=== PATIENT | female | born 1960 | race Caucasian/White ===

== ENCOUNTER 2016-08-18 09:49 | Day surgery (SDC) | payer MEDICARE, OTHER ==
--- NOTE | 2016-08-11 12:03 | RADRPT ---
PROCEDURE: XR Chest. CLINICAL INDICATION: chest pain, preoperative TECHNIQUE: Single frontal view of the chest was obtained COMPARISON: None FINDINGS: The heart and mediastinum are within normal limits. There is a left chest wall port in place. There is mild left lower lobe linear atelectasis. The lungs are otherwise clear. There is no pleural effusion or pneumothorax. RPTAT: AA IMPRESSION: Mild left lower lobe linear atelectasis. .Hamzah Pierre MD, MD Date Time Electronically viewed and signed by .Hamzah Pierre MD, MD on 08/11/2016 12:02 .S/
[2016-08-11 12:30] LABS: ADD SCAN DIFF NO
[2016-08-11 12:35] LABS: ABNORMAL IP MESSAGE 1; BASOPHILS % 0.6 % (0.0-2.0); HEMATOCRIT 27.4 % (37.0-47.0); HEMOGLOBIN 8.7 g/dl (12.0-16.0); LYMPHOCYTES # 1.9 10^3/ul (0.8-2.9); LYMPHOCYTES % 37.9 % (15.0-51.0); MEAN CORPUSCULAR HEMOGLOBIN 30.7 pg (29.0-33.0); MEAN CORPUSCULAR HGB CONC 31.8 g/dl (32.0-37.0); MEAN CORPUSCULAR VOLUME 96.8 fl (82.0-101.0); MONOCYTE # 0.7 10^3/ul (0.3-0.9); MONOCYTES % 13.2 % (0.0-11.0); NEUTROPHIL # 2.1 10^3/ul (1.6-7.5); NEUTROPHILS % 41.8 % (39.0-77.0); PLATELET COUNT 180 10^3/UL (140-415); RED BLOOD COUNT 2.83 10^6/ul (4.20-5.40); RED CELL DISTRIBUTION WIDTH 16.4 % (11.5-14.5); WHITE BLOOD COUNT 4.9 10^3/ul (4.8-10.8)
[2016-08-11 12:46] LABS: PARTIAL THROMBOPLASTIN TIME 25.2 Sec (25.0-35.0); PROTIME 13.2 Sec (12.2-14.2)
[2016-08-11 12:47] LABS: TOTAL PROTEIN 6.7 g/dl (6.1-8.1)
[2016-08-11 12:48] LABS: ALBUMIN/GLOBULIN RATIO 1.48
[2016-08-11 12:49] LABS: CALCIUM 8.7 mg/dl (8.4-10.2); CREATININE 0.77 mg/dl (0.44-1.00); POTASSIUM 3.3 mmol/L (3.5-5.1)
--- NOTE | 2016-08-12 22:04 | RADRPT ---
Vent Rate: 78 bpm RR Interval: 0 msec ME Interval: 214 msec QRS Duration: 82 msec QT Interval: 394 msec QTC Interval: 449 msec P-R-T [place]: 68 - 19 - 49 degrees Sinus rhythm with 1st degree AV block Otherwise normal ECG Electronically Signed By: Gordy Vasquez [id number]
[2016-08-15 14:20] VITALS: Ht 162.6 cm; Wt 65.0 kg
[~2016-08-18] VITALS: Ht 162.6 cm; Wt 65.0 kg
[2016-08-18] VITALS (16 sets, daily range): BP systolic 103–133; BP diastolic 53–80; PULSE 80–90; RESP 14–22
[~2016-08-18 09:49] MED LIST: CEFAZOLIN 2 GM/50 ML (PMX) 50 ML IVPB SCH; CLON-412 PO; DICL75TA2 PO; HYD25 PO; LISI10TA2 PO; LORA0.5T PO; POTA8TAB2 PO; SIMV40TA2 PO; SOD CHLORIDE 0.9% 1,000 ML IV SCH; TEMA30CA6 PO; TRAZ50TA18 PO
[2016-08-18] MEDS ORDERED: CEFAZOLIN 1 GM/50 ML (PMX) 50 ML IVPB SCH (11:30)
[2016-08-18] MEDS ORDERED: D5W-0.45 NACL + KCL 20 MEQ 1,000 ML IV SCH (11:49)
[2016-08-18] MEDS ORDERED: ONDANSETRON 4 MG INJ IV PRN (12:00)
[2016-08-18] MEDS ORDERED: MIDAZOLAM 1 MG/ML 2 ML INJ ONE (12:32)
[2016-08-18] MEDS ORDERED: FENTAnyl 50 MCG/ML VIAL ONE (12:32)
[2016-08-18] MEDS ORDERED: PROPOFOL 20 ML ONE (12:32)
[2016-08-18] MEDS ORDERED: LIDOCAINE 2% (SDV) 5 ML INJ ONE (12:32)
[2016-08-18] MEDS ORDERED: ONDANSETRON 4 MG INJ ONE (12:49)
[2016-08-18] MEDS ORDERED: DEXAMETHASONE 4 MG/ML 1 ML INJ ONE (12:49)
[2016-08-18] MEDS ORDERED: KETOROLAC 30 MG INJ ONE (12:51)
[2016-08-18] MEDS ORDERED: CEFAZOLIN 1 GM INJ ONE (12:51)
[2016-08-18] MEDS ORDERED: FAMOTIDINE 20 MG INJ ONE (12:51)
[2016-08-18] MEDS ORDERED: PHENYLephrine (100 MCG/ML) 5ML SYG ONE (13:02)
[2016-08-18] MEDS ORDERED: hydrALAzine 20 MG INJ IV PRN (14:00)
[2016-08-18] MEDS ORDERED: MEPERIDINE 25 MG INJ IV PRN (14:00)
[2016-08-18] MEDS ORDERED: LORAZEPAM 2 MG INJ IV PRN (14:00)
[2016-08-18] MEDS ORDERED: DIPHENHYDRAMINE 50 MG INJ IV PRN (14:00)
[2016-08-18] MEDS ORDERED: HYDROmorphONE (0.2 MG/ML) 10ML SYG IV PRN ×3 (14:00)
--- NOTE | 2016-08-18 18:48 | OPR ---
DATE OF OPERATION: 08/18/2016 PREOPERATIVE DIAGNOSIS: Locally advanced right breast cancer. POSTOPERATIVE DIAGNOSIS: Locally advanced right breast cancer. OPERATION PERFORMED: Right modified radical mastectomy. ANESTHESIA: General. ANESTHESIOLOGIST: MAMADOU SIMON DO. SURGEON: Benja Amanda MD. UNIX DEVELOPER: ELVIA NATION MD. INDICATIONS FOR PROCEDURE: The patient is a 56-year-old female who presented with a large right linn ast cancer with biopsy proven axillary metastasis. She was HER2 positive and underwent neoadjuvant chemotherapy with good response. She was then counseled on her need for right mastectomy. She cons ented and was scheduled for surgery. DESCRIPTION OF PROCEDURE: Patient was brought to the operating theater, placed under general endotr acheal tube anesthesia. The right breast and axillary region was prepped and draped in usual steril e fashion. Planned elliptical incision was demarcated with marking pen around the nipple areolar co mplex including a portion of this sequential skin of the breast. The incision was carried out with 15 blade scalpel. Subcutaneous tissue was dissected with cautery. The skin edges were then elevate d with Allis Greenfield clamps and skin flaps were created with cautery sequentially, first to the clavic le, then to the sternal border, then to the inframammary fold and finally until the latissimus dorsi muscle was identified throughout its course. Mastectomy then took place from medial to lateral usi ng cautery. At the border of the pectoralis major muscle, the pectoralis minor muscle was identifie d. Clavipectoral fascia was incised with blunt dissection along the chest wall. The large thoracic nerve was identified and kept out of harm's way. More superiorly, the axillary vein and the thorac odorsal neurovascular bundle were identified and kept out of harm's way. There appeared to be some residual diseased lymph nodes. With meticulous dissection, the ivonne tissue between the long thora cic nerve and the thoracodorsal nerve was dissected and significant lymphovascular structures were c ontrolled with the LigaSure device. Final connective tissue attachments to the latissimus dorsi mus mike were then transected with cautery. Specimen was oriented and sent for permanent pathologic anal ysis. The wound was irrigated. Minimal bleeding was controlled with cautery. Two #10 flat Jay -Palafox drains were then brought through the right mid axillary line, one was cut to size and laid wi thin the axilla, the other was laid over the pectoralis major muscle. Both drains were secured in p lace with 2-0 nylon sutures in the standard fashion and the skin was then reapproximated with skin s taples. The patient tolerated procedure well. ESTIMATED BLOOD LOSS: 30 mL. COMPLICATIONS: There were no complications and the patient was transported in stable condition to r ecovery room where circumferential compression dressing was applied. Dictated By: BENJA PHILLIPS/ZA Conf#: [id number] DID#: [id number]
== END 2016-08-18 16:45 | disposition home or self-care (01) ==
LOC: SDS 09:49
PROVIDERS: ATTEND Surgery Surgical Oncology
DX: C50.911 Malignant neoplasm of unspecified site of right female breast (principal); I10 Essential (primary) hypertension; F41.9 Anxiety disorder, unspecified
CPT/HCPCS: 19307; 71010; 80053; 85025; 85610; 85730; 88309; 93005; J0690; J1100; J1885; J2175; J2250; J2370; J2405; J3010

== ENCOUNTER 2016-08-23 19:21 | Inpatient (IN) | payer MEDICARE, OTHER ==
[~2016-08-23] VITALS: Ht 162.6 cm; Wt 60.0 kg
[~2016-08-23 19:21] MED LIST changes: -CEFAZOLIN 2 GM/50 ML (PMX) 50 ML IVPB SCH; -SOD CHLORIDE 0.9% 1,000 ML IV SCH
[2016-08-23] MEDS ORDERED: SOD CHLORIDE 0.9% 1,000 ML IV STA (19:55)
[2016-08-23 20:15] LABS: ADD SCAN DIFF NO
[2016-08-23 20:19] LABS: ADD UMIC NO; URINE BILIRUBIN (Dip) NEGATIVE (NEGATIVE); URINE BLOOD (Dip) NEGATIVE (NEGATIVE); URINE COLOR LT. YELLOW (YELLOW); URINE GLUCOSE (Dip) NEGATIVE (NEGATIVE); URINE KETONES (Dip) NEGATIVE (NEGATIVE); URINE LEUKOCYTE ESTERASE (Dip) NEGATIVE (NEGATIVE); URINE NITRITE (Dip) NEGATIVE (NEGATIVE); URINE TOTAL PROTEIN (Dip) NEGATIVE (NEGATIVE); URINE UROBILINOGEN (Dip) 0.2 E.U./dL (0.1-1.0)
[2016-08-23] MEDS ORDERED: IOHEXOL 300MG/ML 150 ML BTL ONE (20:19)
[2016-08-23] MEDS ORDERED: SOD CHLORIDE 0.9% 100 ML ONE (20:19)
[2016-08-23 20:38] LABS: POTASSIUM 3.8 mmol/L (3.5-5.1)
[2016-08-23 20:40] LABS: CREATININE 1.04 mg/dl (0.44-1.00)
[2016-08-23 20:41] LABS: ALBUMIN/GLOBULIN RATIO 1.33; BILIRUBIN,INDIRECT 0.5 mg/dl (0-1.1); BILIRUBIN,TOTAL 0.5 mg/dl (0.2-1.3); CALCIUM 8.8 mg/dl (8.4-10.2)
[2016-08-23 21:01] LABS: BASOPHILS % 0.3 % (0.0-2.0); EOSINOPHILS % 0.1 % (0.0-7.0); HEMATOCRIT 26.5 % (37.0-47.0); HEMOGLOBIN 8.8 g/dl (12.0-16.0); LYMPHOCYTES # 0.8 10^3/ul (0.8-2.9); LYMPHOCYTES % 7.1 % (15.0-51.0); MEAN CORPUSCULAR HEMOGLOBIN 31.7 pg (29.0-33.0); MEAN CORPUSCULAR HGB CONC 33.2 g/dl (32.0-37.0); MEAN CORPUSCULAR VOLUME 95.3 fl (82.0-101.0); MEAN PLATELET VOLUME 9.5 fl (7.4-10.4); MONOCYTE # 1.2 10^3/ul (0.3-0.9); MONOCYTES % 11.1 % (0.0-11.0); PLATELET COUNT 248 10^3/UL (140-415); RED BLOOD COUNT 2.78 10^6/ul (4.20-5.40); RED CELL DISTRIBUTION WIDTH 16.3 % (11.5-14.5); WHITE BLOOD COUNT 11.1 10^3/ul (4.8-10.8)
[2016-08-23] MEDS ORDERED: CALC500T11 ORAL (22:04)
[2016-08-23] MEDS ORDERED: LISI20TA11 ORAL (22:04)
[2016-08-23] MEDS ORDERED: LEVO100T87 PO (22:05)
--- NOTE | 2016-08-23 22:23 | RADRPT ---
PROCEDURE: CT Chest with contrast. CLINICAL INDICATION: Pain and swelling. Evaluate for abscess status post right mastectomy. TECHNIQUE: CT scan of the chest with contrast was performed on a multidetector high-resolution CT scanner. The patient was scanned following the uncomplicated intravenous administration of 90 cc of Omnipaque-300 contrast. Coronal and sagittal reformatted images were obtained from the axial [facility] e images. Images were reviewed on a high-resolution PACS workstation. The total exam CTDI equals 6.7 6 mGy and the total exam DLP equals 268.83 mGy-cm. One or more of the following dose reduction techniques were used: Automated exposure control. Adjustment of the mA and/or kV according to patient size. Use of iterative reconstruction technique. COMPARISON: None available FINDINGS: There are postsurgical changes of right mastectomy with [address] line terminating in the axilla and mastectomy site. Soft tissue thickening with surrounding fatty stranding is seen a long the right anterior chest wall and axilla with no discrete fluid collection. The lungs are clear. No focal opacification, effusion, pneumothorax, edema, or nodules are seen. There is no pulmonary infiltrate. No mass lesion to suggest neoplasm is identified. The central tr acheobronchial tree is clear. There is thrombus in the left internal jugular vein. Left IJ Port-A-Cath with tip at the cavoatrial junction. The mediastinum is unremarkable without evidence for mass or lymphadenopathy. The vascu lar structures of the mediastinum are normal in course and caliber. Aortic vascular calcifications and coronary artery calcifications are present. The heart size is normal without evidence for peric ardial thickening or effusion. The axillary regions, subpectoral regions, and supraclavicular regions are all unremarkable. Imagin g obtained through the upper abdomen reveals no acute abnormality. There is approximately 1.2 cm cys t in the right hepatic lobe. The surrounding osseous structures are remarkable for degenerative spo ndylosis of the spine. No osteolytic or osteoblastic lesion is detected. There is age indeterminate mild superior endplate compression of T3 through T6 with no significant retropulsion. There is valery r complete osseous fusion between T11 and T12 vertebral bodies. IMPRESSION: 1. Postsurgical changes status post recent right mastectomy/ axillary lymphadenectomy with surgical drain in the mastectomy site and in the axilla. No discrete loculated fluid collection is identifi ed. Some soft tissue thickening with subcutaneous fatty stranding and skin thickening identified in the surgical bed. If there is persistent clinical concern, recommend ultrasound for further evalua tion. 2. Thrombus in the left internal jugular vein. Left IJ Port-A-Cath is in satisfactory position. 3. Age indeterminate multiple mild compression fractures in the upper thoracic spine. RPTAT: HHO .Pam Diallo MD, MD Date Time Electronically viewed and signed by .Pam Diallo MD, on 08/23/2016 22:23 .O/
[2016-08-23] MEDS ORDERED: CEFEPIME 1GM/50 ML (PMX) 50 ML IVPB ONE (23:00)
[2016-08-23] MEDS ORDERED: VANCOMYCIN 1 GM (PMX) 250 ML IVPB SCH (23:00)
[2016-08-23] MEDS ORDERED: ENOXAPARIN 80 MG/0.8 ML SYG SC SCH (23:00)
[2016-08-23] MEDS ORDERED: SOD CHLORIDE 0.9% 1,000 ML IV SCH (23:16)
--- NOTE | 2016-08-23 23:22 | ERA ---
ER Documentation Chief Complaint Date/Time DATE: 08/23/16 TIME: 23:17 Chief Complaint Post op pain and not feeling well HPI This is a pleasant 56-year-old female who had a right mastectomy [address] Weaver. The patient states today she felt very lethargic and weak and had anorexia was having chills off and on throughout the day. She also stated that her sugar was getting soaked with serosanguineous fluid where her AKIL drains are getting inserted into her chest. She said her drains are having some small clots forming in the tubing. She denies any cough no dysuria no headache no shortness of breath no swelling of the legs or leg pain. ROS All systems reviewed and are negative except as per history of present illness. Medications Home Meds Reported Medications Levothyroxine Sodium* (Levothyroxine Sodium*) 100 Mcg Tablet, 100 MCG PO BEFORE BREAKFAST, #30 TAB 08/23/16 Lisinopril* (Lisinopril*) 20 Mg Tablet, 20 MG ORAL DAILY, #90 08/23/16 Calcium Carbonate (Oysco-500) 500 Mg Tablet, 500 MG ORAL DAILY, #60 08/23/16 Temazepam* (Restoril*) 30 Mg Capsule, 30 MG PO HS Y for INSOMNIA, CAP 03/02/15 Clonazepam* (Klonopin*) 1 Mg Tablet, 1 MG PO DAILY NEEDED, TAB 03/02/15 Trazodone Hcl* (Trazodone Hcl*) 50 Mg Tablet, 50-100 MG PO HS, TAB 03/02/15 Simvastatin* (Zocor*) 40 Mg Tablet, 40 MG PO HS, TAB 03/02/15 Potassium Chloride* (Klor-Con*) 8 Meq Tablet.sa, 8 MEQ PO DAILY, TAB 03/02/15 Hydrochlorothiazide* (Hydrochlorothiazide*) 25 Mg Tab, 25 MG PO DAILY, TAB 03/02/15 Discontinued Reported Medications Diclofenac Sodium* (Diclofenac Sodium*) 75 Mg Tablet.dr, 75 MG PO BID, TAB 03/02/15 Lorazepam* (Lorazepam*) 0.5 Mg Tablet, 0.5 MG PO HS Y for ANXIETY, TAB 03/02/15 Lisinopril* (Lisinopril*) 10 Mg Tablet, 10 MG PO DAILY, TAB 03/02/15 Allergies Allergies: Coded Allergies: acetaminophen (Verified Allergy, Unknown, 03/02/15) hydrocodone (Verified Allergy, Unknown, 03/02/15) PMhx/Soc History of Surgery: Yes (LEFT ANKLE, RIGHT BREAST SX) Anesthesia Reaction: No Hx Neurological Disorder: No Hx Respiratory Disorders: No Hx Cardiac Disorders: Yes (HTN) Hx Psychiatric Problems: Yes (DEPRESSION, ANXIETY, INSOMNIA) Hx Miscellaneous Medical Probl: Yes (RECOVERING ALCOHOLIOC HEP C BREAST CA) Hx Alcohol Use: Yes (RECOVERING ALCOHOLIC) Hx Substance Use: No Hx Tobacco Use: No (QUIT FEB 2016) Smoking Status: Former smoker FmHx Family History: No coronary disease Physical Exam Vitals Vital Signs Date Time Temp Pulse Resp B/P Pulse Ox O2 Delivery O2 Flow Rate FiO2 08/23/16 20:11 99.8 94 20 87/56 98 Nasal Cannula 2.0 08/23/16 19:28 100.4 112 20 97/60 97 Physical Exam Const: Well-developed, well-nourished Head: Atraumatic, normocephalic Eyes: Normal Conjunctiva, PERRLA, EOMI, normal sclera, no nystagmus ENT: Normal External Ears, Nose and Mouth, moist mucus membranes. Neck: Full range of motion. No meningismus, no lymphadenopathy. Resp: Clear to auscultation bilaterally, no wheezing, rhonchi, rales, there are 2 AKIL drains coming out of the chest there is some clots in the drains I was able to clear and the flow into the drains was restored Cardio: Regular rate and rhythm, no murmurs, S1 S2 present Abd: Soft, non tender x 4, non distended. Normal bowel sounds, no guarding or rebound, no pulsitile abdominal masses or bruits Skin: No petechiae or rashes, no ecchymosis , no maculopapular rash with the AKIL drains going to the skin there is some erythema with moderate tenderness and slight induration no pus Back: No midline or flank tenderness Ext: No cyanosis, or edema, FROM x 4, normal inspection, neurovascularly intact x 4 Neur: Awake and alert, STR 5/5 x 4, sensation intact x 4, no focal findings, cerebellum intact Psych: Normal Mood and Affect Result Diagram: 08/23/16200408/23/162004 Results 24 hrs Laboratory Tests Test 08/23/16 20:05 White Blood Count 11.110^3/ul Red Blood Count 2.7810^6/ul Hemoglobin 8.8g/dl Hematocrit 26.5% Mean Corpuscular Volume 95.3fl Mean Corpuscular Hemoglobin 31.7pg Mean Corpuscular Hemoglobin Concent 33.2g/dl Red Cell Distribution Width 16.3% Platelet Count 93173^3/UL Mean Platelet Volume 9.5fl Neutrophils % 81.0% Lymphocytes % 7.1% Monocytes % 11.1% Eosinophils % 0.1% Basophils % 0.3% Nucleated Red Blood Cells % 0.0/100WBC Neutrophils # 9.010^3/ul Lymphocytes # 0.810^3/ul Monocytes # 1.210^3/ul Eosinophils # 0.010^3/ul Basophils # 0.010^3/ul Nucleated Red Blood Cells # 0.010^3/ul Urine Color LT. YELLOW Urine Clarity CLEAR Urine pH 6.0 Urine Specific [place] 1.020 Urine Ketones NEGATIVE Urine Nitrite NEGATIVE Urine Bilirubin NEGATIVE Urine Urobilinogen 0.2 E.U./dL Urine Leukocyte Esterase NEGATIVE Urine Hemoglobin NEGATIVE Urine Glucose NEGATIVE% Urine Total Protein NEGATIVE Sodium Level 133mmol/L Potassium Level 3.8mmol/L Chloride Level 96mmol/L Carbon Dioxide Level 23mmol/L Anion Gap 18 Blood Urea Nitrogen 18mg/dl Creatinine 1.04mg/dl Glucose Level 134mg/dl Calcium Level 8.8mg/dl Total Bilirubin 0.5mg/dl Direct Bilirubin 0.00mg/dl Indirect Bilirubin 0.5mg/dl Aspartate Amino Transf (AST/SGOT) 19IU/L Alanine Aminotransferase (ALT/SGPT) 31IU/L Alkaline Phosphatase 57IU/L Total Protein 7.0g/dl Albumin 4.0g/dl Globulin 3.00g/dl Albumin/Globulin Ratio 1.33 Current Medications Medications (Trade) Dose Ordered Sig/Keith Route PRN Reason Start Time Stop Time Status Last Admin Dose Admin Sodium Chloride (NS) 1,000 ml @ 1,000 mls/hr Q1H STAT IV 08/23/16 19:55 08/23/16 20:54 DC 08/23/16 20:45 IV Flush 10 ml 10 ml STK-MED ONCE .ROUTE 08/23/16 20:19 08/23/16 20:20 DC 08/23/16 21:09 Sodium Chloride (NS) 100 ml @ ud STK-MED ONCE .ROUTE 08/23/16 20:19 08/23/16 20:20 DC 08/23/16 21:09 Iohexol 150 ml 150 ml STK-MED ONCE .ROUTE 08/23/16 20:19 08/23/16 20:20 DC 08/23/16 21:09 Cefepime HCl 50 ml @ 100 mls/hr ONCE ONCE IVPB 08/23/16 23:00 08/23/16 23:29 Vancomycin HCl (Vancocin) 250 ml @ 125 mls/hr ONCE IVPB 08/23/16 23:00 08/24/16 00:59 Enoxaparin Sodium (Lovenox) 60 mg ONCE SC 08/23/16 23:00 Procedures/MDM PROCEDURE: CT Chest with contrast. CLINICAL INDICATION: Pain and swelling. Evaluate for abscess status post right mastectomy. TECHNIQUE: CT scan of the chest with contrast was performed on a multidetector high-resolution CT scanner. The patient was scanned following the uncomplicated intravenous administration of 90 cc of Omnipaque-300 contrast. Coronal and sagittal reformatted images were obtained from the axial source images. Images were reviewed on a high-resolution PACS workstation. The total exam CTDI equals 6.76 mGy and the total exam DLP equals 268.83 mGy-cm. One or more of the following dose reduction techniques were used: Automated exposure control. Adjustment of the mA and/or kV according to patient size. Use of iterative reconstruction technique. COMPARISON: None available FINDINGS: There are postsurgical changes of right mastectomy with [address] line terminating in the axilla and mastectomy site. Soft tissue thickening with surrounding fatty stranding is seen along the right anterior chest wall and axilla with no discrete fluid collection. The lungs are clear. No focal opacification, effusion, pneumothorax, edema, or nodules are seen. There is no pulmonary infiltrate. No mass lesion to suggest neoplasm is identified. The central tracheobronchial tree is clear. There is thrombus in the left internal jugular vein. Left IJ Port-A-Cath with tip at the cavoatrial junction. The mediastinum is unremarkable without evidence for mass or lymphadenopathy. The vascular structures of the mediastinum are normal in course and caliber. Aortic vascular calcifications and coronary artery calcifications are present. The heart size is normal without evidence for pericardial thickening or effusion. The axillary regions, subpectoral regions, and supraclavicular regions are all unremarkable. Imaging obtained through the upper abdomen reveals no acute abnormality. There is approximately 1.2 cm cyst in the right hepatic lobe. The surrounding osseous structures are remarkable for degenerative spondylosis of the spine. No osteolytic or osteoblastic lesion is detected. There is age indeterminate mild superior endplate compression of T3 through T6 with no significant retropulsion. There is near complete osseous fusion between T11 and T12 vertebral bodies. IMPRESSION: 1. Postsurgical changes status post recent right mastectomy/ axillary lymphadenectomy with surgical drain in the mastectomy site and in the axilla. No discrete loculated fluid collection is identified. Some soft tissue thickening with subcutaneous fatty stranding and skin thickening identified in the surgical bed. If there is persistent clinical concern, recommend ultrasound for further evaluation. 2. Thrombus in the left internal jugular vein. Left IJ Port-A-Cath is in satisfactory position. 3. Age indeterminate multiple mild compression fractures in the upper thoracic spine. RPTAT: HHO .Pam Diallo MD, MD Date Time Electronically viewed and signed by .Pam Diallo MD, MD on 08/23/2016 22:23 .O/ CC: MARTHA GUILLEN DO I will admit the patient for a left internal jugular thrombus found incidentally as well as having 100.4 temperature with some early signs of soft tissue infection Spoke with Dr. Weaver to let him know the patient's admission Admitted the patient to Dr. Bard cullen. She was treated with IV antibiotics and Lovenox SQ for the thrombus Departure Diagnosis: Primary Impression: Internal jugular vein thrombosis Qualified Code: I82.C12 - Internal jugular vein thrombosis, left Additional Impression: Soft tissue infection Condition: Stable MARTHA GUILLEN DO August 23, 2016 23:22
[2016-08-23] MEDS ORDERED: ONDANSETRON 4 MG INJ IV PRN (23:30)
[2016-08-23 23:45] VITALS: TEMP 99.7
[2016-08-24] VITALS (28 sets, daily range): BP systolic 77–120; BP diastolic 43–70; PULSE 82–117; RESP 16–36; Ht 162.6 cm; Wt 60.0 kg
[2016-08-24] MEDS ORDERED: ACETAMINOPHEN 325 MG TAB PO PRN (01:00)
[2016-08-24] MEDS ORDERED: VANCOMYCIN IV PER PHARMACY XX SCH (01:00)
[2016-08-24] MEDS ORDERED: KETOROLAC 30 MG INJ IV PRN (01:00)
[2016-08-24] MEDS: KETOROLAC 30 MG INJ IV PRN (06:09)
[2016-08-24] MEDS: LEVOTHYROXINE 100 MCG TAB PO SCH (06:10)
[2016-08-24] MEDS ORDERED: SOD CHLORIDE 0.9% 1,000 ML IV ONE (08:00)
[2016-08-24] MEDS ORDERED: clonAZEPAM 0.5 MG TAB PO SCH (09:00)
[2016-08-24] MEDS ORDERED: POTASSIUM CHLORIDE (SR) 8 MEQ CAP PO SCH (09:00)
[2016-08-24] MEDS ORDERED: HYDROCHLOROTHIAZIDE 25 MG TAB PO SCH (09:00)
[2016-08-24] MEDS ORDERED: ENOXAPARIN 60 MG/0.6 ML SYG SC ONE (09:00)
[2016-08-24] MEDS ORDERED: LISINOPRIL 20 MG TAB PO SCH (09:00)
[2016-08-24] MEDS ORDERED: ENOXAPARIN 40 MG/0.4 ML SYG SC SCH (09:00)
[2016-08-24] MEDS: CEFEPIME 1GM/50 ML (PMX) 50 ML IVPB SCH ×2 (10:01→23:16)
[2016-08-24] MEDS: CALCIUM CARBONATE 1.25 GM TAB PO SCH (10:01)
[2016-08-24] MEDS: ENOXAPARIN 60 MG/0.6 ML SYG SC SCH ×2 (10:05→21:17)
[2016-08-24 10:57] LABS: ADD SCAN DIFF NO
[2016-08-24 11:18] LABS: ABNORMAL IP MESSAGE 1; HEMATOCRIT 21.4 % (37.0-47.0); MEAN CORPUSCULAR HEMOGLOBIN 31.4 pg (29.0-33.0); MEAN CORPUSCULAR HGB CONC 32.2 g/dl (32.0-37.0); MEAN CORPUSCULAR VOLUME 97.3 fl (82.0-101.0); MEAN PLATELET VOLUME 9.1 fl (7.4-10.4); PLATELET COUNT 177 10^3/UL (140-415); RED CELL DISTRIBUTION WIDTH 16.4 % (11.5-14.5); WHITE BLOOD COUNT 7.8 10^3/ul (4.8-10.8)
[2016-08-24 11:24] LABS: HEMOGLOBIN 6.9 g/dl (12.0-16.0)
[2016-08-24 11:33] LABS: CALCIUM 7.7 mg/dl (8.4-10.2); CREATININE 0.85 mg/dl (0.44-1.00); POTASSIUM 3.5 mmol/L (3.5-5.1)
[2016-08-24] MEDS: NS + KCL 20 MEQ 1,000 ML IV SCH (11:39)
[2016-08-24] MEDS: VANCOMYCIN 750 MG in SOD CHLORIDE 0.9% 150 ML IVPB SCH (11:45)
[2016-08-24] MEDS ORDERED: SOD CHLORIDE 0.9% 250 ML IV* ONE ×2 (11:52)
[2016-08-24] MEDS ORDERED: PANTOPRAZOLE 40 MG INJ IV ONE (12:30)
--- NOTE | 2016-08-24 12:40 | CONS ---
Date/Time of Note Date/Time of Note DATE: 08/24/16 TIME: 12:34 Assessment/Plan Assessment/Plan Chief Complaint/Hosp Course 1. Cellulitis of right chest 2. s/p mastectomy 3. subjective fevers, chills, lethargy R: cxs mrsa nasal screen cont. Vanco/cefepime Problems: Consultation Date/Type/Reason Admit Date/Time August 23, 2016 at 23:16 Date of Consultation: August 24, 2016 Reason for Consultation id Referring Provider: MELISSA CASTILLO MD Hx of Present Illness This is a very pleasent 56 yo female with unfortunate hx of Breast CA s/p mastectomy approx 6 days ago. Over last 24-48 hours she has noted increased lethargy. She has also noted cellulitic changes overlying right breast mastectomy site. She was admitted through er and has been started on Vanco/ cefepime. Her wbc has improved. CT was also notable for Thrombus in the left internal jugular vein. Constitutional: chills Eyes: no complaints ENT: no complaints Cardiovascular: no complaints Gastrointestinal: no complaints Genitourinary: no complaints Social History Smoking Status: Never smoker Exam/Review of Systems Vital Signs Vitals Vital Signs Date Time Temp Pulse Resp B/P Pulse Ox O2 Delivery O2 Flow Rate FiO2 08/24/16 11:20 90 103/57 08/24/16 08:30 18 08/24/16 07:42 95 Room Air 08/24/16 07:38 99.2 08/23/16 23:45 2.0 Intake and Output 08/23/16 08/23/16 08/24/16 15:00 23:00 07:00 Intake Total 730 ml Output Total 100 ml Balance 630 ml Exam Constitutional: alert, oriented, well developed Psych: nl mood/affect, no complaints Head: atraumatic, normocephalic, other (alopecia) Eyes: EOMI, PERRL, nl conjunctiva, nl lids, nl sclera ENMT: nl external ears & nose, nl lips & teeth, nl nasal mucosa & septum Respiratory: clear to auscultation, normal air movement Cardiovascular: nl pulses, regular rate and rhythm Gastrointestinal: nl liver, spleen, non-tender, soft Skin: other (right chest with cellulitic changes, tenderness and livan drains in place) Results Result Diagram: 08/24/16 1038 08/24/16 1038 Results 24 hrs Laboratory Tests Test 08/23/16 20:05 08/24/16 10:38 White Blood Count 11.1 #H 7.8 # Red Blood Count 2.78 L 2.20 #L Hemoglobin 8.8 L 6.9 #*L Hematocrit 26.5 L 21.4 L Mean Corpuscular Volume 95.3 97.3 Mean Corpuscular Hemoglobin 31.7 31.4 Mean Corpuscular Hemoglobin Concent 33.2 32.2 Red Cell Distribution Width 16.3 H 16.4 H Platelet Count 248 # 177 # Mean Platelet Volume 9.5 9.1 Neutrophils % 81.0 H Lymphocytes % 7.1 L Monocytes % 11.1 H Eosinophils % 0.1 Basophils % 0.3 Nucleated Red Blood Cells % 0.0 Neutrophils # 9.0 H Lymphocytes # 0.8 Monocytes # 1.2 H Eosinophils # 0.0 Basophils # 0.0 Nucleated Red Blood Cells # 0.0 Urine Color LT. YELLOW Urine Clarity CLEAR Urine pH 6.0 Urine Specific [place] 1.020 Urine Ketones NEGATIVE Urine Nitrite NEGATIVE Urine Bilirubin NEGATIVE Urine Urobilinogen 0.2 E.U./dL Urine Leukocyte Esterase NEGATIVE Urine Hemoglobin NEGATIVE Urine Glucose NEGATIVE Urine Total Protein NEGATIVE Sodium Level 133 L 128 L Potassium Level 3.8 3.5 Chloride Level 96 L 100 Carbon Dioxide Level 23 24 Anion Gap 18 H 8 # Blood Urea Nitrogen 18 16 Creatinine 1.04 H 0.85 Glucose Level 134 122 Calcium Level 8.8 7.7 L Total Bilirubin 0.5 Direct Bilirubin 0.00 Indirect Bilirubin 0.5 Aspartate Amino Transf (AST/SGOT) 19 Alanine Aminotransferase (ALT/SGPT) 31 Alkaline Phosphatase 57 Total Protein 7.0 Albumin 4.0 Globulin 3.00 Albumin/Globulin Ratio 1.33 Medications Medications Current Medications Cefepime HCl (Maxipime 1gm/50 ml (Pmx)) 50 ml @ 100 mls/hr Q12 IVPB Last administered on 08/24/16 10:01; Admin Dose 100 MLS/HR; Start 08/24/16 at 09:00 Calcium Carbonate (Oyster Shell Calcium) 1.25 gm DAILY PO Last administered on 08/24/16 10:01; Admin Dose 1.25 GM; Start 08/24/16 at 09:00 Potassium Chloride (Micro-K) 8 meq DAILY PO Last administered on 08/24/16 10:01 ; Admin Dose 8 MEQ; Start 08/24/16 at 09:00 Atorvastatin Calcium (Lipitor) 40 mg HS GTB ; Start 08/24/16 at 21:00 Ketorolac Tromethamine (Toradol) 30 mg Q6H PRN IV PAIN Last administered on 08/24 06:09; Admin Dose 30 MG; Start 08/24/16 at 01:30; Stop 08/27/16 at 01:29 Clonazepam (Klonopin) 1 mg DAILY PRN PO ANXIETY; Start 08/24/16 at 01:30 Acetaminophen (Tylenol Tab) 650 mg Q4H PRN PO PAIN OR ELEVATED TEMP.; Start 08/24/16 at 06:30 Patient Own Medication 1 ea HS PRN PO INSOMNIA; Start 08/24/16 at 21:00 Miscellaneous Information Patients own medicat... BID@10,16 XX ; Start 08/24/16 at 10:00 Enoxaparin Sodium 60 mg 60 mg Q12 SC Last administered on 08/24/16 10:05; Admin Dose 60 MG; Start 08/24/16 at 09:00 Vancomycin HCl/ Sodium Chloride (Vancocin/NS) 150 ml @ 75 mls/hr Q12H IVPB Last administered on 08/24/16 11:45; Admin Dose 75 MLS/HR; Start 08/24/16 at 12: 00 Miscellaneous Information VANCOMYCIN TROUGH 08/25 AT 1100 ONCE ONCE XX ; Start at 11:00; Stop 08/25/16 at 11:01 Potassium Chloride/Sodium Chloride (NS-KCl 20 Meq) 1,000 ml @ 75 mls/hr [id number] IV Last administered on 08/24/16 11:39; Admin Dose 75 MLS/HR; Start 08/24/16 at 11:00 Pantoprazole (Protonix Iv) 40 mg DAILY@06 IV ; Start 08/25/16 at 06:00 YVON SOLORIO MD August 24, 2016 12:40
--- NOTE | 2016-08-24 13:10 | CONS ---
DATE OF ADMISSION: 08/23/2016 DATE OF CONSULTATION: 08/24/2016 REFERRING PHYSICIAN: Elias Brito MD TYPE OF CONSULTATION: Nephrology. REASON FOR CONSULTATION: Hyponatremia. The patient is also anemic with poor hemoglobin of 6.9. HISTORY OF PRESENT ILLNESS: This is a 56-year-old female who has a past medical history of a right mastectomy done approximately [address] Amanda. The patient presented to the [facility] Emergency Room with postoperative pain, not feeling well. She was very lethargic, weak, anorexic was complaining of chills throughout the day. She also stated that patient was having some serosanguineous fluid from her AKIL drains. Patient is noted to have a severe anemia with hemoglobin of 6.9. She is also noted to have hyponatremia, sodium 128. Her initial creatinine was slightly bumped to 1.04, which improved with IV fluid hydration to 0.8, but the patient continues to have low in the sodium so renal has been consulted for hyponatremia workup. At the time of my evaluation, the patient is complaining of left breast pain. She is getting IV antibiotics for possible concern about infections and GI has been consulted because of low hemoglobin and renal has been consulted for hyponatremia. Her hydrochlorothiazide has been stopped from today morning due to hyponatremia. REVIEW OF SYSTEMS: Positive for left breast pain, weakness, fatigue, chills and also having lethargy and anorexia. Other review of systems has been obtained and is negative except what is mentioned in the history of present illness. PAST MEDICAL HISTORY: Notable for hypertension, history of depression, anxiety , recent right breast mastectomy 5 days ago, hypothyroidism. PAST SURGICAL HISTORY: History of left ankle surgery before and recently had a right breast mastectomy done [address] Amanda. SOCIAL HISTORY: The patient used to have a history of alcohol abuse. Currently no alcohol abuse, no smoking, no recreational drug use. FAMILY HISTORY: No family history of coronary artery disease, chronic kidney disease or stroke in the family. PHYSICAL EXAMINATION: VITAL SIGNS: Temperature 98.6, heart rate 90, respirations 18, blood pressure 94/54, saturation is 99% on room air. GENERAL: Awake, alert, more very weak and fatigued. HEENT: The pupils are equal, round, reactive to light and accommodations conjunctival pallor. Mucous membrane no sclerae icterus. NECK: Supple, no JVD, no lymphadenopathy. LUNGS: Bilateral air entry equal and clear in all lung solis and no wheezing. No or rales. HEART: S1, S2, with regular rhythm, no murmur. ABDOMEN: Soft, nontender, nondistended. Bowel sounds are present. EXTREMITIES: No clubbing, cyanosis, or edema. The patient had a right breast AKIL drain in place. NEUROLOGICAL: Alert, awake x4. Cranial nerves II through XII intact. No focal deficits. Sensations are intact. SKIN: No rash. The patient has a right breast drain in place. PSYCHIATRIC: Appropriate affect and mood. LABORATORY DATA/DIAGNOSTIC IMAGIN. Sodium 128, potassium 3.5, chloride 100, bicarbonate 24, BUN 16, creatinine 1.04, glucose 122, calcium 7.7. Urinalysis negative, no protein, no infections. WBC 7.8, hemoglobin 6.9, platelet count 177. The patient had a CT chest done in the emergency room that shows post-surgical changes on the right mastectomy with a surgical drain in place in the axilla, no discrete fluid collections. Some soft tissue thickening with subcutaneous fatty stranding and skin thickening identified in the surgical bed. If there is persistent clinical course, was recommended to have ultrasound of her breast. 2. Thrombus in the left internal jugular vein, left IJ Port-A-Cath is in satisfactory position. ASSESSMENT: This is a 56-year-old female who has a recent right mastectomy 5 days ago presented with severe hyponatremia, also had a left IJ thrombosis. Renal has been consulted for: 1. Hyponatremia, likely secondary to hypovolemic hyponatremia, but due to the history of cancer, need to rule out syndrome of inappropriate ADH secretion. 2. Rule out SIADH. 3. Mild prerenal azotemia secondary to moderate to severe dehydration. 4. Moderate to severe dehydration. 5. History of recent right breast mastectomy 5 days ago. 6. Left internal jugular thrombosis. 7. History of hypertension. 8. History of depression. 9. History of anxiety. 10. History of previous alcohol abuse. 11. History of hypothyroidism. PLAN: Due to the patient's history of hypothyroidism and current hyponatremia, I would order TSH, free T4, cortisol level, urine sodium, urine osmolality and serum osmolality for workup of hyponatremia. 1. Agree with discontinuing the hydrochlorothiazide at this time due to hyponatremia. 2. IV antibiotics as per the primary care team. 3. The patient is on ____ with KCl 20 mEq at 75 mL per hour. I would continue this IV fluid at this time. If the patient continues to have a drop in sodium, I would consider switching to IV fluids. 4. Continue the other medications, including Lovenox for a left IJ thrombosis. Vascular surgery has been consulted on the case. 5. The patient currently seen in the med/surg floor. Continue Synthroid 100 mcg p.o. daily until free T4 and TSH is available. 6. Continue the lisinopril for hypertension management. Today, her creatinine has been normal. Thank you, Dr. Brito, for this consultation. I will continue to follow this patient along with you. Total time spent in this patient's evaluations, consultations, ordering labs and communicating with the nursing staff took more than 90 minutes. Dictated By: DIANA MORALES MD, KP/ZA Conf#: [id number] DID#: [id number] ERLINDA
[2016-08-24 13:15] LABS: EOSINOPHILS # 0.1 10^3/ul (0.0-0.5); LYMPHOCYTES # 0.6 10^3/ul (0.8-2.9); MONOCYTE # 0.2 10^3/ul (0.3-0.9); NEUTROPHIL # 6.9 10^3/ul (1.6-7.5); POLYCHROMASIA RARE; TEAR DROP CELLS OCCASIONAL
[2016-08-24] MEDS: ACETAMINOPHEN 325 MG TAB PO PRN ×2 (14:15→21:14)
[2016-08-24] MEDS ORDERED: ACETAMINOPHEN 500 MG TAB PO STA (15:44)
[2016-08-24] MEDS ORDERED: VANCOMYCIN 1.25 GM in SOD CHLORIDE 0.9% 250 ML IVPB SCH (18:00)
[2016-08-24] MEDS ORDERED: NORepinephrine 8MG/250 ML (PMX 250 ML IV SCH (21:00)
[2016-08-24] MEDS: ATORVASTATIN 40 MG TAB GTB SCH (21:14)
[2016-08-25] VITALS (44 sets, daily range): BP systolic 93–156; BP diastolic 32–108; PULSE 80–112; RESP 12–45
[2016-08-25] MEDS: NS + KCL 20 MEQ 1,000 ML IV SCH (02:04)
[2016-08-25] MEDS: ACETAMINOPHEN 325 MG TAB PO PRN ×2 (02:04→06:06)
[2016-08-25] MEDS: clonAZEPAM 0.5 MG TAB PO PRN ×2 (02:09→16:58)
[2016-08-25] MEDS: VANCOMYCIN 750 MG in SOD CHLORIDE 0.9% 150 ML IVPB SCH ×2 (02:51→14:48)
--- NOTE | 2016-08-25 04:49 | CONS ---
DATE OF ADMISSION: 08/23/2016 DATE OF CONSULTATION: 08/24/2016 TYPE OF CONSULTATION: Vascular surgery consultation. HISTORY OF PRESENT ILLNESS: Dear Doctors: Ms. Tovar is a 56-year-old female with recent history of right breast cancer for which she had underg one right mastectomy and has a left internal jugular port catheter. It seems that the patient's hem oglobin was low with findings of 6.9 and 21.4 and [facility]. Since then, the patient seems to be currently stable from the standpoint of her blood pressure. Vascular surgery consultation was obtained with the findings of a left IJ thrombus. At the moment, the patient denies shortness of breath, chest pain, nausea, vomiting, fever, or chi lls. The patient does have some incisional tenderness. Otherwise, denies upper extremity claudicat ion or rest pain-like symptoms. The patient denies shortness of breath, chest pain, nausea, vomitin g, fever, or chills. PAST MEDICAL HISTORY: Entails hypertension, right breast cancer, depression, anxiety, insomnia, rec overing alcoholic, hepatitis C, previous smoker, hypothyroidism. PAST SURGICAL HISTORY: Left ankle surgery, right breast mastectomy 5 days ago, and left port cathet er placement. FAMILY HISTORY: Hypertension. SOCIAL HISTORY: Positive for tobacco in the past, and denies current alcohol, tobacco, or illicit d rug use. The patient also did have a history of alcohol abuse in the past. ALLERGIES: HYDROCODONE. PHYSICAL EXAMINATION: GENERAL: She is alert and oriented x3, no apparent distress. HEENT: Normocephalic, atraumatic. PERRLA. EOMI. Mucosa moist. NECK: Supple. No carotid bruit. PULMONARY: Clear to auscultation bilaterally. No crackles. Some incisional tenderness of the ches t. CARDIOVASCULAR: S1, S2 present. No murmurs. ABDOMEN: Soft, nontender, nondistended. Bowel sounds positive. EXTREMITIES: Palpable femoral pulse, palpable pedal pulse. Motor, sensory intact. Cap refill 2 to 3 seconds. UPPER EXTREMITIES: Palpable brachial pulse. Motor, sensory intact. Cap refill 2 to 3 seconds. CHEST: There is a left chest port catheter, nontender and clean. ASSESSMENT AND PLAN: 1. Left internal jugular vein thrombosis: It seems that this finding is induced from her port cath eter placement. From a vascular standpoint, no need for treatment for that other than having the pa tient on aspirin. However, if the patient has been started on anticoagulation, can continue it for 3 months' time. 2. Optimize vascular status (BP meds, diet, nutrition, exercise, sugar control, antiplatelet). Discussed findings, plan, and management with the patient, and she understands. Thank you for allowing us to partake in the care of your patient. Please call with any questions. Dictated By: DEANDRE ALMANZA/ZA Conf#: [id number] DID#: [id number]
[2016-08-25] MEDS: PANTOPRAZOLE 40 MG INJ IV SCH (06:01)
[2016-08-25] MEDS: LEVOTHYROXINE 100 MCG TAB PO SCH (06:01)
[2016-08-25 06:20] LABS: ADD SCAN DIFF NO
[2016-08-25 06:26] LABS: ABNORMAL IP MESSAGE 1; HEMATOCRIT 19.9 % (37.0-47.0); MEAN CORPUSCULAR HEMOGLOBIN 31.4 pg (29.0-33.0); MEAN CORPUSCULAR HGB CONC 32.2 g/dl (32.0-37.0); MEAN CORPUSCULAR VOLUME 97.5 fl (82.0-101.0); MEAN PLATELET VOLUME 8.9 fl (7.4-10.4); PLATELET COUNT 170 10^3/UL (140-415); RED BLOOD COUNT 2.04 10^6/ul (4.20-5.40); RED CELL DISTRIBUTION WIDTH 15.9 % (11.5-14.5); WHITE BLOOD COUNT 7.4 10^3/ul (4.8-10.8)
[2016-08-25 06:40] LABS: HEMOGLOBIN 6.4 g/dl (12.0-16.0)
[2016-08-25 06:50] LABS: RETICULOCYTE COUNT % 2.7 % (0.5-1.5)
[2016-08-25 06:58] LABS: ALBUMIN 2.4 g/dl (3.3-4.9); BILIRUBIN,INDIRECT 0.3 mg/dl (0-1.1); BILIRUBIN,TOTAL 0.3 mg/dl (0.2-1.3); CALCIUM 6.8 mg/dl (8.4-10.2); CREATININE 0.6 mg/dl (0.44-1.00); POTASSIUM 5.8 mmol/L (3.5-5.1); TOTAL PROTEIN 4.8 g/dl (6.1-8.1)
[2016-08-25 07:18] LABS: THYROID STIMULATING HORMONE 2.09 MIU/L (0.465-4.680)
[2016-08-25] MEDS: KETOROLAC 30 MG INJ IV PRN ×2 (07:32→17:10)
[2016-08-25 07:53] LABS: FOLATE 7.8 ng/ml (2.8-20.0)
[2016-08-25 08:18] LABS: IRON 14 ug/dl (35-150)
[2016-08-25] MEDS: SOD CHLORIDE 0.9% 1,000 ML IV SCH ×2 (08:25→21:15)
[2016-08-25] MEDS: CALCIUM CARBONATE 1.25 GM TAB PO SCH (08:27)
[2016-08-25 08:28] LABS: TOTAL IRON BINDING CAPACITY 244 ug/dl (241-421)
[2016-08-25] MEDS: ENOXAPARIN 60 MG/0.6 ML SYG SC SCH ×2 (08:29→21:12)
[2016-08-25] MEDS ORDERED: NA POLYST SULFON 15 GM/60 ML BTL PO ONE (08:30)
[2016-08-25 09:28] LABS: MONOCYTE # 0.2 10^3/ul (0.3-0.9); NEUTROPHIL # 6.1 10^3/ul (1.6-7.5)
[2016-08-25 09:29] LABS: OVALOCYTES 1+; POLYCHROMASIA 1+
[2016-08-25] MEDS: CEFEPIME 1GM/50 ML (PMX) 50 ML IVPB SCH ×2 (10:15→21:10)
--- NOTE | 2016-08-25 12:28 | CONS ---
Date/Time of Note Date/Time of Note DATE: 08/25/16 TIME: 12:26 Assessment/Plan Assessment/Plan Additional Assessment/Plan 1. Hyponatremia, likely secondary to hypovolemic hyponatremia, but due to the history of cancer, need to rule out syndrome of inappropriate ADH secretion. 2. Rule out SIADH. 3. Acute prerenal azotemia secondary to moderate to severe dehydration. 4. Moderate to severe dehydration. 5. History of recent right breast mastectomy 5 days ago. 6. Left internal jugular thrombosis. 7. History of hypertension. 8. History of depression. 9. History of anxiety. 10. History of previous alcohol abuse. 11. History of hypothyroidism. 12. hyperkalemia 13. Metabolic acidosis PLAN: K has been removed from IVF, PO K also stopped pt received kayexalate for hyperkalemia Na improving continue IVF NS will follow up her work up c/w Hypovolemic Hyponatremi due to Acute prerenal azotemia Consultation Date/Type/Reason Admit Date/Time August 23, 2016 at 23:16 Initial Consult Date 08/24/16 Type of Consultation: NEPHROLOGY Reason for Consultation Hyponatremia, hyperkalemia today, mild metabolic acidosis Referring Provider: MELISSA ACSTILLO MD 24 HR Interval Summary Free Text/Dictation pt transferred to ICU Due to hypotension, BP labile, on levophed,K high today, Na improving, Exam/Review of Systems Vital Signs Vitals Vital Signs Date Time Temp Pulse Resp B/P Pulse Ox O2 Delivery O2 Flow Rate FiO2 08/25/16 08:00 90 08/25/16 07:00 100.4 20 105/68 99 Room Air 08/23/16 23:45 2.0 Intake and Output 08/24/16 08/24/16 08/25/16 15:00 23:00 07:00 Intake Total 4235 ml 950 ml Output Total 1015 ml 750 ml Balance 3220 ml 200 ml Exam GENERAL: Awake, alert, more very weak and fatigued. HEENT: The pupils are equal, round, reactive to light and accommodations conjunctival pallor. Mucous membrane no sclerae icterus. NECK: Supple, no JVD, no lymphadenopathy. LUNGS: Bilateral air entry equal and clear in all lung solis and no wheezing. No or rales. HEART: S1, S2, with regular rhythm, no murmur. ABDOMEN: Soft, nontender, nondistended. Bowel sounds are present. EXTREMITIES: No clubbing, cyanosis, or edema. The patient had a right breast AKIL drain in place. NEUROLOGICAL: Alert, awake x4. Cranial nerves II through XII intact. No focal deficits. Sensations are intact. SKIN: No rash. The patient has a right breast drain in place. PSYCHIATRIC: Appropriate affect and mood. Results Result Diagram: 08/25/16 0545 08/25/16 0545 Results 24 hrs Laboratory Tests Test 08/24/16 13:40 08/24/16 15:10 08/24/16 16:55 08/25/16 05:44 Lactic Acid Level 1.7 0.8 Urine Osmolality 406 Urine Random Sodium 56 Iron Level 14 L Total Iron Binding Capacity 244 Percent Iron Saturation 6 L Test 08/25/16 05:45 08/25/16 11:15 White Blood Count 7.4 Red Blood Count 2.04 L Hemoglobin 6.4 *L Hematocrit 19.9 L Mean Corpuscular Volume 97.5 Mean Corpuscular Hemoglobin 31.4 Mean Corpuscular Hemoglobin Concent 32.2 Red Cell Distribution Width 15.9 H Platelet Count 170 Mean Platelet Volume 8.9 Neutrophils % 83.0 H Lymphocytes % 14.0 L Monocytes % 3.0 Eosinophils % Neutrophils # 6.1 Lymphocytes # 1.0 Monocytes # 0.2 L Eosinophils # Polychromasia 1+ Ovalocytes 1+ Absolute Reticulocyte Count 0.057 Percent Reticulocyte Count 2.7 H Sodium Level 136 Potassium Level 5.8 #H Chloride Level 115 H Carbon Dioxide Level 19 L Anion Gap 8 Blood Urea Nitrogen 9 Creatinine 0.60 Glucose Level 93 Osmolality 278 L Lactic Acid Level 1.0 Calcium Level 6.8 L Total Bilirubin 0.3 Direct Bilirubin 0.00 Indirect Bilirubin 0.3 Aspartate Amino Transf (AST/SGOT) 11 L Alanine Aminotransferase (ALT/SGPT) 31 Alkaline Phosphatase 55 Total Protein 4.8 #L Albumin 2.4 #L Globulin 2.40 Albumin/Globulin Ratio 1.00 Folate 7.8 Thyroid Stimulating Hormone (TSH) 2.090 Free Thyroxine 0.85 Random Cortisol 11.6 Vancomycin Level Trough 9.3 L Medications Medications Current Medications Cefepime HCl (Maxipime 1gm/50 ml (Pmx)) 50 ml @ 100 mls/hr Q12 IVPB Last administered on 08/25/16t 10:15; Admin Dose 100 MLS/HR; Start 08/24/16 at 09:00 Calcium Carbonate (Oyster Shell Calcium) 1.25 gm DAILY PO Last administered on 08/25/16 08:27; Admin Dose 1.25 GM; Start 08/24/16 at 09:00 Atorvastatin Calcium (Lipitor) 40 mg HS GTB Last administered on 08/24/16 21:14 ; Admin Dose 40 MG; Start 08/24/16 at 21:00 Ketorolac Tromethamine (Toradol) 30 mg Q6H PRN IV PAIN Last administered on 08/25 07:32; Admin Dose 30 MG; Start 08/24/16 at 01:30; Stop 08/27/16 at 01:29 Clonazepam (Klonopin) 1 mg DAILY PRN PO ANXIETY Last administered on 08/25/16 02:09; Admin Dose 1 MG; Start 08/24/16 at 01:30 Acetaminophen (Tylenol Tab) 650 mg Q4H PRN PO PAIN OR ELEVATED TEMP. Last administered on 08/25/16 06:06; Admin Dose 650 MG; Start 08/24/16 at 06:30 Patient Own Medication 1 ea HS PRN PO INSOMNIA; Start 08/24/16 at 21:00 Miscellaneous Information Patients own medicat... BID@10,16 XX ; Start 08/24/16 at 10:00 Enoxaparin Sodium 60 mg 60 mg Q12 SC Last administered on 08/25/16 08:29; Admin Dose 60 MG; Start 08/24/16 at 09:00 Vancomycin HCl/ Sodium Chloride (Vancocin/NS) 150 ml @ 75 mls/hr Q12H IVPB Last administered on 08/25/16 02:51; Admin Dose 75 MLS/HR; Start 08/24/16 at 12: 00 Pantoprazole 40 mg 40 mg DAILY@06 IV Last administered on 08/25/16 06:01; Admin Dose 40 MG; Start 08/25/16 at 06:00 Norepinephrine 250 ml @ 1.875 mls/ hr TITRATE IV ; Start 08/24/16 at 21:00 Norepinephrine 16 mg/Dextrose 500 ml @ 1.87 mls/hr TITRATE IV ; Start 08/24/16 at 21:00 Sodium Chloride 1,000 ml @ 75 mls/hr [id number] IV Last administered on 08/25/16t 08:25; Admin Dose 75 MLS/HR; Start 08/25/16 at 08:30 Acetaminophen (Ofirmev 1000mg/ 100ml Iv) 100 ml @ 400 mls/hr ONCE ONCE IVPB ; Start 08/25/16 at 12:30; Stop 08/25/16 at 12:44 DIANA MORALES MD August 25, 2016 12:28
[2016-08-25] MEDS ORDERED: BISACODYL (EC) 5 MG TAB PO ONE (12:30)
[2016-08-25] MEDS ORDERED: PEG/ELECTROLYTES 4L BTL PO ONE (12:30)
[2016-08-25] MEDS ORDERED: ACETAMINOPHEN 1000MG/100ML IV 100 ML IVPB ONE (12:30)
--- NOTE | 2016-08-25 14:07 | HP ---
DATE OF ADMISSION: 08/23/2016 CHIEF COMPLAINT: Fevers, chills. HISTORY OF PRESENT ILLNESS: 1. The patient is a 56-year-old female with history of cancer of the right breast. The patient und erwent chemotherapy, and the patient also underwent right modified radical mastectomy for locally ad vanced right breast cancer. The patient also had a left chest Perm-A-Cath and also underwent chemot herapy prior to mastectomy. The patient had mastectomy done on August 18, and the patient was recomme nded to stay overnight after surgery; however, the patient stated that she refused to stay because s he had pets and taking care of her elderly mother and was discharged home from the recovery. The pa hayden was in her usual health until last night, she noted she felt generalized weakness, also subjec tive fevers and chills. The patient still has a right axillary JPs x2 with some serous drainage. T he patient underwent a chest CT in the emergency room which revealed postsurgical changes status pos t recent right mastectomy and axillary lymphadenectomy with surgical drain in the mastectomy site in the axilla. No discrete loculated fluid collection is identified. Some soft tissue thickening wit h subcutaneous fatty stranding and skin thickening identified in the surgical bed. If there is pers istent clinical concern, recommend ultrasound for further evaluation. 2. Thrombus in the internal jugular vein, left IJ Port-A-Cath is in satisfactory position. 3. Age-indeterminate multiple mild compression fracture in the upper thoracic spine. The patient w as diagnosed with a soft tissue infection and was started on broad-spectrum antibiotics. The patien t also had leukocytosis of 11,100. The patient was admitted for further evaluation and management t o intensive care unit. PAST MEDICAL HISTORY: Includes hypertension, hyperlipidemia, hypothyroidism, history of hepatitis C , breast cancer. PAST SURGICAL HISTORY: Status post left ankle surgery in 2014, details are not available, status po st right breast modified mastectomy in this month, actually 7 days ago, and status post left chest P ermCath placement for chemotherapy. FAMILY HISTORY: Noncontributory. SOCIAL HISTORY: The patient lives at home with her elder mother and multiple pets. The patient is a former smoker, stated that she quit smoking in February 2016. The patient also stated that she wa s a heavy drinker; however, stopped drinking alcohol in 2007. The patient stated that she used nikki vera meth and cocaine many, many years ago in her young years; however, currently denies any illicit drug use. ALLERGIES: PATIENT IS ALLERGIC TO HYDROCODONE. HOME MEDICATIONS: 1. Klonopin p.r.n. for anxiety. 2. Hydrochlorothiazide. 3. Levothyroxine. 4. Lisinopril. 5. Klor-Con. 6. Simvastatin. 7. Trazodone at bedtime for insomnia. REVIEW OF SYSTEMS: A 12-point review of systems is negative unless what is mentioned in the HPI. PHYSICAL ASSESSMENT: GENERAL: Well-developed, well-nourished female, currently is awake, alert. VITAL SIGNS: Temperature is 100.4, pulse 99, blood pressure 105/68, respiratory rate 20, oxygen sat uration 99% on room air. HEENT: Head is atraumatic, normocephalic. Pupils equal, round, reactive to light and accommodation . Oral mucosa is pink and moist. NECK: Supple, no cervical lymphadenopathy, no thyromegaly. CHEST: Lungs clear bilaterally. No rhonchi, wheezes, or rales noted. The patient has a right mei st surgical scar intact with mike and the right axillary JPs x2 with serous drainage. The patien t also has a left chest PermCath. CARDIOVASCULAR: Normal S1, S2. No murmurs, gallops, clicks, rubs noted. ABDOMEN: Flat, soft, nondistended, nontender. Bowel sounds present. There is no guarding, no rebo und tenderness. EXTREMITIES: There is no edema, clubbing, cyanosis. Pulses equal bilaterally 2+. SKIN: There is no rash, petechiae noted. NEUROLOGIC: The patient is awake, alert, and oriented x4. No focal deficits noted. Motor strength 5/5 in all extremities. LABORATORY DATA: On admission, CBC: White blood cells 11.1, hemoglobin 8.8, hematocrit 26.5, plate lets 248. Chemistry: Sodium is 136, potassium 5.8, chloride 115, carbon dioxide 19, anion gap 8, B UN 9, creatinine 0.6, glucose 93, calcium is 6.8, AST 11, ALT 31, alkaline phosphatase 55. ASSESSMENT AND PLAN: 1. Systemic inflammatory response syndrome secondary to possible postoperative infection of the rig ht breast soft tissue. Will continue the patient on broad-spectrum antibiotics. Follow up on AKIL dr weeks cultures. Dr. Patel is following in infectious disease consultation. 2. Cellulitis of the right breast. 3. Status post right modified mastectomy on August [address] Amanda. We will ask Dr. Amanda to see lonny sin in surgical consultation. 4. Thrombus of the left internal jugular vein. Dr. Edwards is following in vascular surgery cons ultation. Continue to follow up his recommendations. 5. Hyponatremia on admission. Dr. Davies asked to see patient in nephrology consultation. Continue IV fluids. 6. Hyperthyroidism. Continue patient's Synthroid. Will check TSH and free T4. 7. Hypertension. The patient currently is hypotensive. Continue to monitor blood pressure. 8. Hyperlipidemia. Continue statin. The patient with a drop in hemoglobin. Will obtain stool for OB. Transfuse 2 units of packed red blood cells. Will continue sequential compression device for deep venous thrombosis prophylaxis and Protonix for peptic ulcer disease prophylaxis. Further recommendations based on clinical course. Plan of care discussed with Dr. Castillo. Dictated By: PAUL RAMOS [employer] WORKER for MELISSA CASTILLO MD SR/NTS Conf#: [id number] DID#: [id number]
--- NOTE | 2016-08-25 15:02 | CONS ---
Date/Time of Note Date/Time of Note DATE: 08/25/16 TIME: 14:56 Assessment/Plan Assessment/Plan Chief Complaint/Hosp Course - Early sepsis d/t cellulitis of right chest - Cellulitis of right chest - Locally advanced right breast cancer s/p Right modified radical mastectomy 08/[address] Amanda - Left IJ thrombosis - Acute on probable chronic anemia requiring blood transfusion - Hyponatremia - improved - Hyperkalemia - HTN - HLD - Hypothyroidism - Anxiety/depression - Hx previous alcohol abuse. Recommendations: - Continue vancomycin and cefepime (08/23/2016-) - F/u final cxs - Trend fever curve Management d/w Pt, RN, SW, and Dr. Patel Critical care time spent: 40 minutes Problems: Consultation Date/Type/Reason Admit Date/Time August 23, 2016 at 23:16 Initial Consult Date 08/24/16 Type of Consultation: Infectious Disease Referring Provider: MELISSA CASTILLO MD 24 HR Interval Summary Free Text/Dictation Anxious to go home to care for her 5 cats, 1 dog, and elderly mother. "I'm fine. I could just get up and walk out of here. " States right chest erythema and numbness is improving. Now has mild pruritus. Has minimal incisional chest discomfort. Denies pain, SOB, n/v/d, dysuria, hematuria. No active bleeding. T max 102.1, got one unit PRBC, currently getting vancomycin now and planning to get second unit PRBC afterwards; EGD/Colonoscopy in AM per ANTWAN Hernandez. Exam/Review of Systems Vital Signs Vitals Vital Signs Date Time Temp Pulse Resp B/P Pulse Ox O2 Delivery O2 Flow Rate FiO2 08/25/16 14:30 94 29 124/83 98 08/25/16 14:00 98.4 Room Air 08/23/16 23:45 2.0 Intake and Output 08/24/16 08/24/16 08/25/16 15:00 23:00 07:00 Intake Total 4235 ml 950 ml Output Total 1015 ml 750 ml Balance 3220 ml 200 ml Exam Constitutional: alert, oriented, well developed Psych: anxiety (Anxious to go home; has 6 pets and elderly mother to care for.) Head: atraumatic, normocephalic Eyes: nl sclera Neck: supple, No jvd Respiratory: clear to auscultation, normal air movement, other (Left chest port -a-cath noted with no e/o infection) Cardiovascular: nl pulses, regular rate and rhythm, No edema Gastrointestinal: bowel sounds (present), non-tender, soft, No distended Extremities: normal pulses, other (LUE HL with no e/o infection), No clubbing, No cyanosis, No edema Neurological: nl mental status, nl speech Skin: nl turgor, other (Right breast mastectomy with mike intact with mild erythema with mild TTP; AKIL drains x2 with mostly serous drainage) Results Result Diagram: 08/25/16 0545 08/25/16 0545 Results 24 hrs Laboratory Tests Test 08/24/16 15:10 08/24/16 16:55 08/25/16 05:44 08/25/16 05:45 Urine Osmolality 406 Urine Random Sodium 56 Lactic Acid Level 0.8 1.0 Iron Level 14 L Total Iron Binding Capacity 244 Percent Iron Saturation 6 L White Blood Count 7.4 Red Blood Count 2.04 L Hemoglobin 6.4 *L Hematocrit 19.9 L Mean Corpuscular Volume 97.5 Mean Corpuscular Hemoglobin 31.4 Mean Corpuscular Hemoglobin Concent 32.2 Red Cell Distribution Width 15.9 H Platelet Count 170 Mean Platelet Volume 8.9 Neutrophils % 83.0 H Lymphocytes % 14.0 L Monocytes % 3.0 Eosinophils % Neutrophils # 6.1 Lymphocytes # 1.0 Monocytes # 0.2 L Eosinophils # Polychromasia 1+ Ovalocytes 1+ Absolute Reticulocyte Count 0.057 Percent Reticulocyte Count 2.7 H Sodium Level 136 Potassium Level 5.8 #H Chloride Level 115 H Carbon Dioxide Level 19 L Anion Gap 8 Blood Urea Nitrogen 9 Creatinine 0.60 Glucose Level 93 Osmolality 278 L Calcium Level 6.8 L Total Bilirubin 0.3 Direct Bilirubin 0.00 Indirect Bilirubin 0.3 Aspartate Amino Transf (AST/SGOT) 11 L Alanine Aminotransferase (ALT/SGPT) 31 Alkaline Phosphatase 55 Total Protein 4.8 #L Albumin 2.4 #L Globulin 2.40 Albumin/Globulin Ratio 1.00 Folate 7.8 Thyroid Stimulating Hormone (TSH) 2.090 Free Thyroxine 0.85 Random Cortisol 11.6 Test 08/25/16 11:15 Vancomycin Level Trough 9.3 L Medications Medications Current Medications Cefepime HCl (Maxipime 1gm/50 ml (Pmx)) 50 ml @ 100 mls/hr Q12 IVPB Last administered on 08/25/16 10:15; Admin Dose 100 MLS/HR; Start 08/24/16 at 09:00 Calcium Carbonate (Oyster Shell Calcium) 1.25 gm DAILY PO Last administered on 08/25/16 08:27; Admin Dose 1.25 GM; Start 08/24/16 at 09:00 Atorvastatin Calcium (Lipitor) 40 mg HS GTB Last administered on 08/24/16 21:14 ; Admin Dose 40 MG; Start 08/24/16 at 21:00 Ketorolac Tromethamine (Toradol) 30 mg Q6H PRN IV PAIN Last administered on 08/25 07:32; Admin Dose 30 MG; Start 08/24/16 at 01:30; Stop 08/27/16 at 01:29 Clonazepam (Klonopin) 1 mg DAILY PRN PO ANXIETY Last administered on 08/25/16 02:09; Admin Dose 1 MG; Start 08/24/16 at 01:30 Acetaminophen (Tylenol Tab) 650 mg Q4H PRN PO PAIN OR ELEVATED TEMP. Last administered on 08/25/16 06:06; Admin Dose 650 MG; Start 08/24/16 at 06:30 Patient Own Medication 1 ea HS PRN PO INSOMNIA; Start 08/24/16 at 21:00 Miscellaneous Information Patients own medicat... BID@10,16 XX ; Start 08/24/16 at 10:00 Enoxaparin Sodium 60 mg 60 mg Q12 SC Last administered on 08/25/16 08:29; Admin Dose 60 MG; Start 08/24/16 at 09:00 Vancomycin HCl/ Sodium Chloride (Vancocin/NS) 150 ml @ 75 mls/hr Q12H IVPB Last administered on 08/25/16 14:48; Admin Dose 75 MLS/HR; Start 08/24/16 at 12: 00; Stop 08/25/16 at 16:00 Pantoprazole 40 mg 40 mg DAILY@06 IV Last administered on 08/25/16 06:01; Admin Dose 40 MG; Start 08/25/16 at 06:00 Norepinephrine 250 ml @ 1.875 mls/ hr TITRATE IV ; Start 08/24/16 at 21:00 Norepinephrine 16 mg/Dextrose 500 ml @ 1.87 mls/hr TITRATE IV ; Start 08/24/16 at 21:00 Sodium Chloride 1,000 ml @ 75 mls/hr [id number] IV Last administered on 08/25/16t 08:25; Admin Dose 75 MLS/HR; Start 08/25/16 at 08:30 Vancomycin HCl (Vancocin) 250 ml @ 125 mls/hr Q12H IVPB ; Start 08/26/16 at 00: [address] 08/23/16: 1. Postsurgical changes status post recent right mastectomy/ axillary lymphadenectomy with surgical drain in the mastectomy site and in the axilla. No discrete loculated fluid collection is identified. Some soft tissue thickening with subcutaneous fatty stranding and skin thickening identified in the surgical bed. If there is persistent clinical concern, recommend ultrasound for further evaluation. 2. Thrombus in the left internal jugular vein. Left IJ Port-A-Cath is in satisfactory position. 3. Age indeterminate multiple mild compression fractures in the upper thoracic spine. CARTER CARTAGENA NP August 25, 2016 15:02
--- NOTE | 2016-08-25 15:19 | CONS ---
DATE OF ADMISSION: 08/23/2016 DATE OF CONSULTATION: 08/25/2016 TYPE OF CONSULTATION: Gastroenterology. Dear Melissa: Thank you for asking me to see Mrs. Tovar in GI consultation. HISTORY OF PRESENT ILLNESS: The patient, as you know, is a 56-year-old white female, who is in the intensive care unit because of hypotension, although she is not running a low blood pressure at the moment. Her hemoglobin is low of 6.4, hematocrit 19.9, MCV 97.5, platelet count 170,000. The potas sium is 5.8. Sodium is 136. Upon questioning the patient, the patient does not have any history of vomiting blood or passing blo od from the rectum. No history of any additional gastrointestinal problems. She had a mastectomy f or breast cancer. She also had chemotherapy and radiation prior to the surgery. MEDICATIONS: Currently includes: 1. Tylenol. 2. Kayexalate. 3. Ativan. 4. Protonix. 5. Lipitor. 6. Cefepime. 7. Lovenox. 8. Synthroid. 9. Klonopin. 10. Toradol. 11. Vancomycin. SOCIAL HISTORY: The patient does not smoke or drink. 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 PHYSICAL EXAMINATION: GENERAL: The patient is a 56-year-old white female who at this time she is alert, she is thin built . VITAL SIGNS: She is afebrile. CARDIOVASCULAR: Normal heart sounds. RESPIRATORY: Normal breath sounds. ABDOMEN: Showed unremarkable findings. LABORATORY DATA: The chest shows evidence of a surgical incision with clips. CLINICAL IMPRESSION: 1. The patient has a severe anemia with hemoglobin 6.8, rule out gastrointestinal causes of anemia including peptic ulcer disease, arteriovenous malformation or gastrointestinal malignancy. 2. Status post right mastectomy for carcinoma. PLAN: At this time, will proceed with upper endoscopy and lower endoscopy. Continue Protonix. We will also recommend transfusion. Once again, doctor, thank you for this consultation. Dictated By: DICK DOVER/ZA Conf#: [id number] DID#: [id number] CC: MELISSA CASTILLO MD;*EndCC*
--- NOTE | 2016-08-25 20:39 | CONS ---
DATE OF ADMISSION: 08/23/2016 DATE OF CONSULTATION: 08/25/2016 TYPE OF CONSULTATION: Surgical. REQUESTING PHYSICIAN: Dr. Castillo. REASON FOR CONSULTATION: To evaluate the patient for right breast post- mastectomy and sepsis. Thank you, Dr. Castillo, for consultation. HISTORY OF PRESENT ILLNESS: Apparently, this is a 56-year-old female who had a modified radical mastectomy [address] Amanda in this hospital, status post neoadjuvant chemotherapy, and the patient left the hospital the same day. The patient has been doing relatively fine at home for 4 or 5 days. On Thursday , 08/23/2016, she started feeling lethargic and weak and had some anorexia and was having some chills off and on throughout the day and also probably fever. She also felt that her shirt was getting soaked with serosanguineous fluid where the drain was coming out. So eventually she referred to the emergency room, was evaluated in the emergency room, and was found to have WBC 11,100 with 81% segmented and hemoglobin was 8.8, hematocrit 26.5. Temperature was 100.4, heart rate 112, respirations 20, blood pressure 97/60, saturation 97% on nasal cannula. So the patient was admitted with the impression of postoperative infection and antibiotic was started. A CT scan was obtained in the emergency room. This was a CT scan of the chest, which reported post- surgical changes status post recent right mastectomy and axillary lymphadenectomy, surgical drain in the mastectomy site and in the axilla. No discrete loculated fluid collection was identified. Some soft tissue thickening with subcutaneous fatty stranding and skin thickening identified in the surgical area. Then, also there showed thrombus in the left internal jugular vein. Left internal jugular port catheter is in satisfactory position. Also showed age indeterminate multiple mild compression fractures in the upper thoracic spine. So, the patient was admitted for a left internal jugular thrombus found incidentally as well as having a temperature of 100.4 with some early signs of soft tissue infection in the right breast area. PAST MEDICAL HISTORY: Hypertension, hyperlipidemia, hypothyroidism, and history of hepatitis C, breast cancer. PAST SURGICAL HISTORY: Status post left ankle surgery in 2014 with case unavailable. Status post right breast modified radical mastectomy on 2016 in this hospital. Status post left internal jugular PermCath placement 2 months ago. SOCIAL HISTORY: The patient lives at home with her mother and multiple pets. ALLERGIES: THE PATIENT IS ALLERGIC TO HYDROCODONE. REVIEW OF SYSTEMS: As above. PHYSICAL EXAMINATION: GENERAL: The patient is alert, awake, oriented x3. She is in ICU. Apparently , it was felt that the developing sepsis, her blood pressure was dropping, potassium was increasing, so was transferred to the ICU. They wanted to transfuse 2 units of packed cells, but considering that the patient was febrile , they held off on that. VITAL SIGNS: Now, today, temperature is 98.4 axillary, pulse rate between 90 and 99. Respirations between 20 and 28. Blood pressure 119/75 and has been fluctuating, also has been 108/62. The patient does not need any pressors to be started for control of blood pressure, they just responded to IV fluids. HEAD: Normocephalic. EYES: Pupils equally round, reactive to light and accommodative. Extraocular muscles, full range of motion. NECK: Trachea is in midline. PermCath is in place. There is no cellulitis over the PermCath area. CHEST: Symmetrical expansion. ABDOMEN: Soft. RIGHT CHEST: There is evidence of mastectomy complete. There is cellulitis of the skin in the form of patchy cellulitis and redness under inferior and superior flap of the post-mastectomy. Two Jay-Palafox drains are in place and they are functioning. The drainage in the bag is serosanguineous (I assume other fluid has been pouring out and wetting her dressings and her shirt was because of the opening of the cap of one or both AKIL drains and that is why it started leaking and draining over the body). EXTREMITIES: Lower extremity: No pitting edema, no calf tenderness. 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 reticulocyte count is 2.6, sign of recent bleeding, which could be due to operation, which was done 5 to 6 days ago. IMPRESSION: This is a 56-year-old female status post neoadjuvant chemotherapy and status post right modified radical mastectomy 6 days ago with insertion of the 2 Jay-Palafox drains under the skin flaps and the axillary area. She was admitted because of development of the fever and chills and leakage of the fluid from the chest wall incision area and was found to have leukocytosis and fever and also cellulitis of the skin of the chest wall on the right side. So, patient was admitted with impression of infection and later on, since the blood pressure started dropping, so with the impression of sepsis. The patient was admitted to ICU for better control, but fortunately did not require any pressor administration. Today, patient is going to receive 2 units of packed cells because of the anemia. The patient is on antibiotics, which was recommended by the infectious disease, which is vancomycin and cefepime. Infectious disease lean consultant has seen the patient. We appreciate that. Also nephrology has seen the patient and the vascular surgeon has seen the patient. Recommended that it is probably okay to start patient on Lovenox, if is not concerned about the post -surgical period. Will continue Lovenox and antibiotics and local care and blood transfusion. Further recommendations will be made according to the course of the hospital stay. Dictated By: ELVIA NATION MD PS/NTS Conf#: [id number] DID#: [id number] CC: MELISSA CASTILLO MD;*EndCC* MTDD
[2016-08-25] MEDS: ATORVASTATIN 40 MG TAB GTB SCH (21:10)
[2016-08-25] MEDS: VANCOMYCIN 1 GM in NS 250 ML IVPB SCH (23:48)
[2016-08-26] VITALS (21 sets, daily range): BP systolic 119–152; BP diastolic 60–80; PULSE 64–87; RESP 12–43
[2016-08-26] MEDS: clonAZEPAM 0.5 MG TAB PO PRN ×2 (01:22→23:42)
[2016-08-26] MEDS: KETOROLAC 30 MG INJ IV PRN ×2 (01:22→06:52)
[2016-08-26] MEDS: TEMAZEPAM 30 MG PO PRN (01:22)
[2016-08-26] MEDS: PANTOPRAZOLE 40 MG INJ IV SCH (06:14)
[2016-08-26] MEDS: LEVOTHYROXINE 100 MCG TAB PO SCH (06:14)
[2016-08-26 07:38] LABS: ADD SCAN DIFF NO
[2016-08-26 07:42] LABS: BASOPHILS % 0.3 % (0.0-2.0); EOSINOPHILS # 0.1 10^3/ul (0.0-0.5); EOSINOPHILS % 1.4 % (0.0-7.0); HEMATOCRIT 25.8 % (37.0-47.0); HEMOGLOBIN 8.6 g/dl (12.0-16.0); LYMPHOCYTES # 0.8 10^3/ul (0.8-2.9); LYMPHOCYTES % 9.9 % (15.0-51.0); MEAN CORPUSCULAR HEMOGLOBIN 30.6 pg (29.0-33.0); MEAN CORPUSCULAR HGB CONC 33.3 g/dl (32.0-37.0); MEAN CORPUSCULAR VOLUME 91.8 fl (82.0-101.0); MEAN PLATELET VOLUME 9.2 fl (7.4-10.4); MONOCYTE # 0.7 10^3/ul (0.3-0.9); MONOCYTES % 8.5 % (0.0-11.0); NEUTROPHIL # 6.1 10^3/ul (1.6-7.5); PLATELET COUNT 196 10^3/UL (140-415); RED BLOOD COUNT 2.81 10^6/ul (4.20-5.40); RED CELL DISTRIBUTION WIDTH 16.4 % (11.5-14.5); WHITE BLOOD COUNT 7.7 10^3/ul (4.8-10.8)
[2016-08-26 07:56] LABS: INR 1.1; PROTIME 14.2 Sec (12.2-14.2); PT RATIO 1.1
[2016-08-26 08:13] LABS: CALCIUM 7.9 mg/dl (8.4-10.2); CREATININE 0.68 mg/dl (0.44-1.00)
[2016-08-26] MEDS: ENOXAPARIN 60 MG/0.6 ML SYG SC SCH ×2 (08:14→20:27)
[2016-08-26 08:34] LABS: POTASSIUM 3.4 mmol/L (3.5-5.1)
--- NOTE | 2016-08-26 09:04 | RADRPT ---
PROCEDURE: XR Chest. CLINICAL INDICATION: Postoperative evaluation. TECHNIQUE: Single frontal chest x-ray. COMPARISON: Exam dated 08/11/2016. FINDINGS: There is a left-sided Port-A-Cath in place with its tip overlying the superior cavoatrial junction. There are surgical drains overlying the right lateral and right lower chest with skin mike overl daniel the lower right chest border. The cardiomediastinal silhouette is within normal limits. There i s left basilar subsegmental atelectasis. The lungs are otherwise clear without focal consolidation, effusion, or pneumothorax. There are no acute osseous abnormalities. IMPRESSION: 1. Postoperative change overlying the right lateral and lower chest with no additional acute interv al change. RPTAT: GG .Abilio Gaona MD, Date Time Electronically viewed and signed by .Abilio Gaona MD, on 08/26/2016 09:04 .P/
[2016-08-26] MEDS: CALCIUM CARBONATE 1.25 GM TAB PO SCH (09:34)
[2016-08-26] MEDS: CEFEPIME 1GM/50 ML (PMX) 50 ML IVPB SCH ×2 (09:34→20:25)
--- NOTE | 2016-08-26 09:41 | PN ---
Date/Time of Note Date/Time of Note DATE: 08/26/16 TIME: 09:39 Assessment/Plan Lines/Catheters IV Catheter Type (from [facility]): Peripheral IV Hightower in Place (from [facility]): No Assessment/Plan Chief Complaint/Hosp Course -Left internal jugular vein thrombosis: It seems that this finding is induced from her port catheter placement. From a vascular standpoint, no need for treatment for that other than having the patient on aspirin. However, if the patient has been started on anticoagulation, can continue it for 3 months' time. -Optimize vascular status (BP meds, diet, nutrition, exercise, sugar control, antiplatelet). -Discussed findings, plan, and management with the patient, and she understands. -Thank you for allowing us to partake in the care of your patient. Please call with any questions. Problems: Subjective 24 Hr Interval Summary no new vascular events overnight Exam/Review of Systems Vital Signs Vitals Vital Signs Date Time Temp Pulse Resp B/P Pulse Ox O2 Delivery O2 Flow Rate FiO2 08/26/16 09:03 64 08/26/16 08:06 98.8 18 119/73 97 08/26/16 00:29 Room Air 08/23/16 23:45 2.0 Intake and Output 08/25/16 08/25/16 08/26/16 15:00 23:00 07:00 Intake Total 1950 ml 2225 ml 690 ml Output Total 50 ml Balance 1950 ml 2175 ml 690 ml Exam Free Text/Dictation GENERAL: She is alert and oriented x3, PULMONARY: Clear to auscultation bilaterally. Some incisional tenderness of the chest. left chest port catheter, nontender and clean. CARDIOVASCULAR: S1, S2 present. No murmurs. ABDOMEN: Soft, nontender, nondistended. Bowel sounds positive. EXTREMITIES: Palpable femoral pulse, palpable pedal pulse. Motor, sensory intact. Cap refill 2 to 3 seconds. UPPER EXTREMITIES: Palpable brachial pulse. Motor, sensory intact. Cap refill 2 to 3 seconds. Results Result Diagram: 08/26/1671908/26/16719 DEANDRE ABDI MD August 26, 2016 09:41
[2016-08-26] MEDS: SOD CHLORIDE 0.9% 1,000 ML IV SCH (12:00)
--- NOTE | 2016-08-26 12:39 | CONS ---
Date/Time of Note Date/Time of Note DATE: 08/26/16 TIME: 12:36 Assessment/Plan Assessment/Plan Additional Assessment/Plan 1. Hyponatremia, likely secondary to hypovolemic hyponatremia, no SIADH 3. Acute prerenal azotemia secondary to moderate to severe dehydration. 4. Moderate to severe dehydration. 5. History of recent right breast mastectomy 5 days ago. 6. Left internal jugular thrombosis. 7. History of hypertension. 8. History of depression. 9. History of anxiety. 10. History of previous alcohol abuse. 11. History of hypothyroidism. 12. hyperkalemia 13. Metabolic acidosis PLAN: K low, will give KCL 20mEQ IV x 1 now and add 20meQ KCL to IV Fluids today Na 133 continue IVF NS- add 20emeQ KCL to IVF will follow up her work up c/w Hypovolemic Hyponatremi due to Acute prerenal azotemia Consultation Date/Type/Reason Admit Date/Time August 23, 2016 at 23:16 Initial Consult Date 08/24/16 Type of Consultation: NEPHROLOGY Referring Provider: MELISSA CASTILLO MD 24 HR Interval Summary Free Text/Dictation K low, Na 133, transferred to tele,, Now BP stable Exam/Review of Systems Vital Signs Vitals Vital Signs Date Time Temp Pulse Resp B/P Pulse Ox O2 Delivery O2 Flow Rate FiO2 08/26/16 12:22 65 08/26/16 12:05 98.9 16 120/71 98 08/26/16 00:29 Room Air 08/23/16 23:45 2.0 Intake and Output 08/25/16 08/25/16 08/26/16 15:00 23:00 07:00 Intake Total 1950 ml 2225 ml 690 ml Output Total 50 ml Balance 1950 ml 2175 ml 690 ml Exam GENERAL: Awake, alert, more very weak and fatigued. HEENT: The pupils are equal, round, reactive to light and accommodations conjunctival pallor. Mucous membrane no sclerae icterus. NECK: Supple, no JVD, no lymphadenopathy. LUNGS: Bilateral air entry equal and clear in all lung [place] and no wheezing. No or rales. HEART: S1, S2, with regular rhythm, no murmur. ABDOMEN: Soft, nontender, nondistended. Bowel sounds are present. EXTREMITIES: No clubbing, cyanosis, or edema. The patient had a right breast AKIL drain in place. NEUROLOGICAL: Alert, awake x4. Cranial nerves II through XII intact. No focal deficits. Sensations are intact. SKIN: No rash. The patient has a right breast drain in place. PSYCHIATRIC: Appropriate affect and mood. Results Result Diagram: 08/26/16 0720 08/26/16 0720 Results 24 hrs Laboratory Tests Test 08/26/16 07:20 White Blood Count 7.7 Red Blood Count 2.81 #L Hemoglobin 8.6 #L Hematocrit 25.8 #L Mean Corpuscular Volume 91.8 Mean Corpuscular Hemoglobin 30.6 Mean Corpuscular Hemoglobin Concent 33.3 Red Cell Distribution Width 16.4 H Platelet Count 196 Mean Platelet Volume 9.2 Neutrophils % 79.0 H Lymphocytes % 9.9 L Monocytes % 8.5 Eosinophils % 1.4 Basophils % 0.3 Nucleated Red Blood Cells % 0.0 Neutrophils # 6.1 Lymphocytes # 0.8 Monocytes # 0.7 Eosinophils # 0.1 Basophils # 0.0 Nucleated Red Blood Cells # 0.0 Prothrombin Time 14.2 Prothrombin Time Ratio 1.1 INR International Normalized Ratio 1.10 Activated Partial Thromboplast Time 32.0 Sodium Level 133 L Potassium Level 3.4 L Chloride Level 109 Carbon Dioxide Level 19 L Anion Gap 8 Blood Urea Nitrogen 11 Creatinine 0.68 Glucose Level 133 # Calcium Level 7.9 L Medications Medications Current Medications Cefepime HCl (Maxipime 1gm/50 ml (Pmx)) 50 ml @ 100 mls/hr Q12 IVPB Last administered on 08/26/16 09:34; Admin Dose 100 MLS/HR; Start 08/24/16 at 09:00 Calcium Carbonate (Oyster Shell Calcium) 1.25 gm DAILY PO Last administered on 08/26/16 09:34; Admin Dose 1.25 GM; Start 08/24/16 at 09:00 Atorvastatin Calcium (Lipitor) 40 mg HS GTB Last administered on 08/25/16 21:10 ; Admin Dose 40 MG; Start 08/24/16 at 21:00 Ketorolac Tromethamine (Toradol) 30 mg Q6H PRN IV PAIN Last administered on 08/26 06:52; Admin Dose 30 MG; Start 08/24/16 at 01:30; Stop 08/27/16 at 01:29 Clonazepam (Klonopin) 1 mg DAILY PRN PO ANXIETY Last administered on 08/26/16 01:22; Admin Dose 1 MG; Start 08/24/16 at 01:30 Acetaminophen (Tylenol Tab) 650 mg Q4H PRN PO PAIN OR ELEVATED TEMP. Last administered on 08/25/16 06:06; Admin Dose 650 MG; Start 08/24/16 at 06:30 Patient Own Medication 1 ea HS PRN PO INSOMNIA Last administered on 08/26/16 01 :22; Admin Dose 1 EA; Start 08/24/16 at 21:00 Miscellaneous Information Patients own medicat... BID@10,16 XX ; Start 08/24/16 at 10:00 Enoxaparin Sodium (Lovenox) 60 mg Q12 SC Last administered on 08/25/16 21:12; Admin Dose 60 MG; Start 08/24/16 at 09:00 Pantoprazole 40 mg 40 mg DAILY@06 IV Last administered on 08/26/16 06:14; Admin Dose 40 MG; Start 08/25/16 at 06:00 Sodium Chloride 1,000 ml @ 75 mls/hr [id number] IV Last administered on 08/26/16 12:00; Admin Dose 75 MLS/HR; Start 08/25/16 at 08:30 Vancomycin HCl (Vancocin) 250 ml @ 125 mls/hr Q12H IVPB Last administered on 23:48; Admin Dose 125 MLS/HR; Start 08/26/16 at 00:00 DIANA MORALES MD August 26, 2016 12:39
[2016-08-26] MEDS: VANCOMYCIN 1 GM in NS 250 ML IVPB SCH ×2 (13:34→23:37)
[2016-08-26] MEDS: NS + KCL 20 MEQ 1,000 ML IV SCH (13:34)
--- NOTE | 2016-08-26 14:13 | RADRPT ---
Vent Rate: 70 bpm RR Interval: 0 msec MT Interval: 218 msec QRS Duration: 82 msec QT Interval: 408 msec QTC Interval: 440 msec P-R-T [place]: 50 - 54 - 64 degrees Sinus rhythm with 1st degree AV block Otherwise normal ECG Electronically Signed By: Luis Angel Khanna [id number]
[2016-08-26] MEDS ORDERED: POTASSIUM CHLORIDE 20 MEQ in SOD CHLORIDE 0.9% 100 ML IVPB ONE (14:30)
--- NOTE | 2016-08-26 16:06 | CONS ---
Date/Time of Note Date/Time of Note DATE: 08/26/16 TIME: 16:05 Assessment/Plan Assessment/Plan Chief Complaint/Hosp Course - Early sepsis d/t cellulitis of right chest - Cellulitis of right chest - Locally advanced right breast cancer s/p Right modified radical mastectomy 08/[address] Amanda - Left IJ thrombosis - Acute on probable chronic anemia requiring blood transfusion - Hyponatremia - improved - Hyperkalemia - HTN - HLD - Hypothyroidism - Anxiety/depression - Hx previous alcohol abuse. Recommendations: - Continue vancomycin and cefepime (08/23/2016-) - F/u final cxs - Trend fever curve Problems: Consultation Date/Type/Reason Admit Date/Time August 23, 2016 at 23:16 Initial Consult Date 08/24/16 Type of Consultation: id Referring Provider: MELISSA CASTILLO MD Exam/Review of Systems Vital Signs Vitals Vital Signs Date Time Temp Pulse Resp B/P Pulse Ox O2 Delivery O2 Flow Rate FiO2 08/26/16 15:48 98.9 68 18 147/71 99 08/26/16 00:29 Room Air 08/23/16 23:45 2.0 Intake and Output 08/25/16 08/25/16 08/26/16 14:59 22:59 06:59 Intake Total 2025 ml 2150 ml 765 ml Output Total 50 ml Balance 2025 ml 2100 ml 765 ml Results Result Diagram: 08/26/16 0720 08/26/16 0720 Results 24 hrs Laboratory Tests Test 08/26/16 07:20 White Blood Count 7.7 Red Blood Count 2.81 #L Hemoglobin 8.6 #L Hematocrit 25.8 #L Mean Corpuscular Volume 91.8 Mean Corpuscular Hemoglobin 30.6 Mean Corpuscular Hemoglobin Concent 33.3 Red Cell Distribution Width 16.4 H Platelet Count 196 Mean Platelet Volume 9.2 Neutrophils % 79.0 H Lymphocytes % 9.9 L Monocytes % 8.5 Eosinophils % 1.4 Basophils % 0.3 Nucleated Red Blood Cells % 0.0 Neutrophils # 6.1 Lymphocytes # 0.8 Monocytes # 0.7 Eosinophils # 0.1 Basophils # 0.0 Nucleated Red Blood Cells # 0.0 Prothrombin Time 14.2 Prothrombin Time Ratio 1.1 INR International Normalized Ratio 1.10 Activated Partial Thromboplast Time 32.0 Sodium Level 133 L Potassium Level 3.4 L Chloride Level 109 Carbon Dioxide Level 19 L Anion Gap 8 Blood Urea Nitrogen 11 Creatinine 0.68 Glucose Level 133 # Calcium Level 7.9 L Medications Medications Current Medications Cefepime HCl (Maxipime 1gm/50 ml (Pmx)) 50 ml @ 100 mls/hr Q12 IVPB Last administered on 08/26/16 09:34; Admin Dose 100 MLS/HR; Start 08/24/16 at 09:00 Calcium Carbonate (Oyster Shell Calcium) 1.25 gm DAILY PO Last administered on 08/26/16 09:34; Admin Dose 1.25 GM; Start 08/24/16 at 09:00 Atorvastatin Calcium (Lipitor) 40 mg HS GTB Last administered on 08/25/16 21:10 ; Admin Dose 40 MG; Start 08/24/16 at 21:00 Ketorolac Tromethamine (Toradol) 30 mg Q6H PRN IV PAIN Last administered on 08/26 06:52; Admin Dose 30 MG; Start 08/24/16 at 01:30; Stop 08/27/16 at 01:29 Acetaminophen (Tylenol Tab) 650 mg Q4H PRN PO PAIN OR ELEVATED TEMP. Last administered on 08/25/16 06:06; Admin Dose 650 MG; Start 08/24/16 at 06:30 Patient Own Medication 1 ea HS PRN PO INSOMNIA Last administered on 08/26/16 01 :22; Admin Dose 1 EA; Start 08/24/16 at 21:00 Miscellaneous Information Patients own medicat... BID@10,16 XX ; Start 08/24/16 at 10:00 Enoxaparin Sodium (Lovenox) 60 mg Q12 SC Last administered on 08/25/16 21:12; Admin Dose 60 MG; Start 08/24/16 at 09:00 Pantoprazole 40 mg 40 mg DAILY@06 IV Last administered on 08/26/16 06:14; Admin Dose 40 MG; Start 08/25/16 at 06:00 Vancomycin HCl 250 ml @ 125 mls/hr Q12H IVPB Last administered on 08/26/16 13: 34; Admin Dose 125 MLS/HR; Start 08/26/16 at 00:00 Potassium Chloride 20 meq/ Sodium Chloride 110 ml @ 55 mls/hr ONCE ONCE IVPB Last administered on 08/26/16 13:38; Admin Dose 55 MLS/HR; Start 08/26/16 at 14: 30; Stop 08/26/16 at 16:29 Potassium Chloride/Sodium Chloride (NS-KCl 20 Meq) 1,000 ml @ 75 mls/hr [id number] IV Last administered on 08/26/16 13:34; Admin Dose 75 MLS/HR; Start 08/26/16 at 14:00 Clonazepam (Klonopin) 1 mg BID PRN PO ANXIETY; Start 08/26/16 at 15:30; Stop at 23:55 Trazodone HCl (Desyrel) 50 mg HS PO ; Start 08/26/16 at 21:00 YVON SOLORIO MD August 26, 2016 16:06
[2016-08-26] MEDS ORDERED: PROPOFOL 40 ML ONE (17:58)
[2016-08-26] MEDS ORDERED: EPHEDrine SULFATE 50 MG/5 ML SYG ONE (17:58)
[2016-08-26] MEDS ORDERED: LIDOCAINE 2% (SDV) 5 ML INJ ONE (17:58)
[2016-08-26] MEDS ORDERED: PHENYLephrine (100 MCG/ML) 5ML SYG ONE (17:59)
[2016-08-26] MEDS ORDERED: FENTAnyl 50 MCG/ML VIAL ONE (17:59)
[2016-08-26] MEDS ORDERED: morphine (1 MG/ML) 10ML SYRINGE IV PRN ×3 (18:30)
[2016-08-26] MEDS ORDERED: FENTAnyl 50 MCG/ML VIAL IV PRN ×3 (18:30)
[2016-08-26] MEDS ORDERED: ONDANSETRON 4 MG INJ IV PRN (18:30)
[2016-08-26] MEDS ORDERED: METOCLOPRAMIDE 10 MG INJ IV PRN (18:30)
[2016-08-26] MEDS ORDERED: EPHEDrine SULFATE 50 MG/5 ML SYG IV PRN (18:30)
[2016-08-26] MEDS ORDERED: hydrALAzine 20 MG INJ IV PRN (18:30)
--- NOTE | 2016-08-26 18:39 | GILP ---
DATE OF PROCEDURE: PROCEDURE: Esophagogastroduodenoscopy. PREOPERATIVE DIAGNOSIS: The patient presenting with history of severe anemia, rule out bleeding ulc er disease, arteriovenous malformation, gastritis, etc. POSTOPERATIVE DIAGNOSES: 1. Diffuse moderate degree of gastritis. 2. Superficial nodular mucosa of the duodenum and the duodenal folds appears to be scarce in number . 3. Rule out sprue. DESCRIPTION OF PROCEDURE: After informed written consent was obtained, the patient was asked to lie on the left lateral side. Intravenous anesthesia was given by [employer]. When the patient became somno lent, the Olympus video upper endoscope was introduced into the oropharynx, then into the esophagus. Esophagus appeared normal with no mucosal abnormality. Scope at this time was advanced into the s tomach. Stomach showed evidence of a diffuse erythema in a patchy distribution. No active bleeding noted. Biopsy was done from the antrum, lesser curvature, and the fundus to rule out H. pylori inf ection. The mucosa of the duodenum showed a superficial nodularity and there are folds noted, which were less in number. Biopsies were obtained to rule out celiac sprue. Procedure at this time was terminated. PLAN: Recommend continue Protonix 40 mg p.o. q.a.m. Dictated By: DICK MATUTE MD NC/ZA Conf#: [id number] DID#: [id number] CC: DICK MATUTE MD; MELISSA CASTILLO MD;*EndCC*
--- NOTE | 2016-08-26 19:19 | PN ---
PAUL RAMOS 08/26/161918: Date/Time of Note Date/Time of Note DATE: 08/26/16 TIME: 19:17 Assessment/Plan VTE Prophylaxis VTE Prophylaxis Intervention: SCD's Lines/Catheters IV [facility] Peripheral IV Urinary Cath still in place: No Assessment/Plan Chief Complaint/Hosp Course ASSESSMENT AND PLAN: - Sepsis secondary to postoperative soft tissue infection of the right breast. Dr. Patel is following in infectious disease consultation. Continue abx per ID. - Cellulitis of the right breast. - Status post right modified mastectomy on August [address] Amanda is following in surgical consultation. - Thrombus of the left internal jugular vein. Dr. Edwards is following in vascular surgery consultation. Continue to follow up his recommendations. - Hyponatremia on admission. Dr. Davies is following in nephrology consultation. Continue IV fluids. - Hyperthyroidism. Continue patient's Synthroid. - Hypertension. The patient currently is hypotensive. Continue to monitor blood pressure. - Hyperlipidemia. Continue statin. - Anemia, status post blood transfusion. Continue sequential compression device for deep venous thrombosis prophylaxis and Protonix for peptic ulcer disease prophylaxis. Further recommendations based on clinical course. Plan of care discussed with Dr. Brito. Problems: Subjective 24 Hr Interval Summary Free Text/Dictation Patient is currently in the GI lab undergoing EGD, no acute events reported prior to procedure. Exam/Review of Systems Vital Signs Vitals Vital Signs Date Time Temp Pulse Resp B/P Pulse Ox O2 Delivery O2 Flow Rate FiO2 08/26/16 18:41 67 08/26/16 18:41 98.6 19 124/77 97 Room Air 08/23/16 23:45 2.0 Intake and Output 08/25/16 08/25/16 08/26/16 15:00 23:00 07:00 Intake Total 1950 ml 2225 ml 690 ml Output Total 50 ml Balance 1950 ml 2175 ml 690 ml Results Result Diagram: 08/26/16 0720 08/26/16 0720 Results 24 hrs Laboratory Tests Test 08/25/16 21:00 08/26/16 07:20 Stool Occult Blood NEGATIVE White Blood Count 7.7 Red Blood Count 2.81 #L Hemoglobin 8.6 #L Hematocrit 25.8 #L Mean Corpuscular Volume 91.8 Mean Corpuscular Hemoglobin 30.6 Mean Corpuscular Hemoglobin Concent 33.3 Red Cell Distribution Width 16.4 H Platelet Count 196 Mean Platelet Volume 9.2 Neutrophils % 79.0 H Lymphocytes % 9.9 L Monocytes % 8.5 Eosinophils % 1.4 Basophils % 0.3 Nucleated Red Blood Cells % 0.0 Neutrophils # 6.1 Lymphocytes # 0.8 Monocytes # 0.7 Eosinophils # 0.1 Basophils # 0.0 Nucleated Red Blood Cells # 0.0 Prothrombin Time 14.2 Prothrombin Time Ratio 1.1 INR International Normalized Ratio 1.10 Activated Partial Thromboplast Time 32.0 Sodium Level 133 L Potassium Level 3.4 L Chloride Level 109 Carbon Dioxide Level 19 L Anion Gap 8 Blood Urea Nitrogen 11 Creatinine 0.68 Glucose Level 133 # Calcium Level 7.9 L Medications Medications Current Medications Cefepime HCl (Maxipime 1gm/50 ml (Pmx)) 50 ml @ 100 mls/hr Q12 IVPB Last administered on 08/26/16 09:34; Admin Dose 100 MLS/HR; Start 08/24/16 at 09:00 Calcium Carbonate (Oyster Shell Calcium) 1.25 gm DAILY PO Last administered on 08/26/16 09:34; Admin Dose 1.25 GM; Start 08/24/16 at 09:00 Atorvastatin Calcium (Lipitor) 40 mg HS GTB Last administered on 08/25/16 21:10 ; Admin Dose 40 MG; Start 08/24/16 at 21:00 Ketorolac Tromethamine (Toradol) 30 mg Q6H PRN IV PAIN Last administered on 08/26 06:52; Admin Dose 30 MG; Start 08/24/16 at 01:30; Stop 08/27/16 at 01:29 Acetaminophen (Tylenol Tab) 650 mg Q4H PRN PO PAIN OR ELEVATED TEMP. Last administered on 08/25/16 06:06; Admin Dose 650 MG; Start 08/24/16 at 06:30 Patient Own Medication 1 ea HS PRN PO INSOMNIA Last administered on 08/26/16 01 :22; Admin Dose 1 EA; Start 08/24/16 at 21:00 Miscellaneous Information Patients own medicat... BID@10,16 XX ; Start 08/24/16 at 10:00 Enoxaparin Sodium (Lovenox) 60 mg Q12 SC Last administered on 08/25/16 21:12; Admin Dose 60 MG; Start 08/24/16 at 09:00 Pantoprazole 40 mg 40 mg DAILY@06 IV Last administered on 08/26/16 06:14; Admin Dose 40 MG; Start 08/25/16 at 06:00 Vancomycin HCl 250 ml @ 125 mls/hr Q12H IVPB Last administered on 08/26/16 13: 34; Admin Dose 125 MLS/HR; Start 08/26/16 at 00:00 Potassium Chloride/Sodium Chloride (NS-KCl 20 Meq) 1,000 ml @ 75 mls/hr [id number] IV Last administered on 08/26/16 13:34; Admin Dose 75 MLS/HR; Start 08/26/16 at 14:00 Clonazepam (Klonopin) 1 mg BID PRN PO ANXIETY; Start 08/26/16 at 15:30; Stop at 23:55 Trazodone HCl (Desyrel) 50 mg HS PO ; Start 08/26/16 at 21:00 Miscellaneous Information (*Rx Drug Level Order Reminder*) VANCO TROUGH @ 1, 100 ON... ONCE ONCE XX ; Start 08/27/16 at 11:00; Stop 08/27/16 at 11:01 DEUCE FRANK 08/27/16 0119: Assessment/Plan VTE Prophylaxis VTE Prophylaxis Intervention: other Subjective 24 Hr Interval Summary Constitutional: requiring IVF, requiring O2 Eyes: no complaints ENT: no complaints Respiratory: no complaints Cardiovascular: no complaints Gastrointestinal: pain Genitourinary: no complaints Musculoskeletal: no complaints Skin: no complaints Neurologic: no complaints Lymphatic: no complaints Psychological: nl mood/affect Immunologic: no complaints Exam/Review of Systems Exam Constitutional: alert Psych: nl mood/affect ENMT: nl external ears & nose Neck: non-tender Respiratory: diminished breath sounds Gastrointestinal: soft, tender Musculoskeletal: nl extremities to inspection Neurological: nl speech Skin: other Lymph: nontender Results Result Diagram: 08/26/16 0720 08/26/16 0720 PAUL RAMOS August 26, 2016 19:19 DEUCE FRANK August 27, 2016 01:19 DEUCE FRNAK August 27, 2016 01:19
[2016-08-26] MEDS: traZODone 50 MG TAB PO SCH (20:26)
[2016-08-26] MEDS: ATORVASTATIN 40 MG TAB GTB SCH (20:26)
[2016-08-27] VITALS (11 sets, daily range): BP systolic 126–168; BP diastolic 58–84; PULSE 62–88; RESP 16–20
--- NOTE | 2016-08-27 01:20 | HP ---
Date/Time of Note Date/Time of Note DATE: 08/24/16 TIME: 12:00 Assessment/Plan VTE Prophylaxis VTE Prophylaxis Intervention: LMWH Lines/Catheters [facility] Assessment/Plan Assessment/Plan -Internal jugular vein thrombosis, left - vascular sx consult- Dr Nina notified -Soft tissue infection- sp right breast mastectomy - ID consult- Dr Patel notified - Anemia- - 1 UNIT PRBC today - GI consult- Dr Russell notified - Hyponatremia - nephrology- dr Davies notified - Hypertension - Hx Hep C - [employer] - Lovenox for DVT prophylaxis - Protonix for Gi prophylaxis HPI/ROS Admit Date/Time Admit Date/Time August 23, 2016 at 23:16 Hx of Present Illness This is a pleasant 56-year-old female who had a right mastectomy [address] Weaver. The patient states today she felt very lethargic and weak and had anorexia was having chills off and on throughout the day. She also stated that her sugar was getting soaked with serosanguineous fluid where her AKIL drains are getting inserted into her chest. She said her drains are having some small clots forming in the tubing. She denies any cough no dysuria no headache no shortness of breath no swelling of the legs or leg pain. ROS All systems reviewed and are negative except as per history of present illness. Medications Home Meds Reported Medications Levothyroxine Sodium* (Levothyroxine Sodium*) 100 Mcg Tablet, 100 MCG PO BEFORE BREAKFAST, #30 TAB 08/23/16 Lisinopril* (Lisinopril*) 20 Mg Tablet, 20 MG ORAL DAILY, #90 08/23/16 Calcium Carbonate (Oysco-500) 500 Mg Tablet, 500 MG ORAL DAILY, #60 17 Temazepam* (Restoril*) 30 Mg Capsule, 30 MG PO HS Y for INSOMNIA, CAP 03/02/15 Clonazepam* (Klonopin*) 1 Mg Tablet, 1 MG PO DAILY NEEDED, TAB 03/02/15 Trazodone Hcl* (Trazodone Hcl*) 50 Mg Tablet, 50-100 MG PO HS, TAB 03/02/15 Simvastatin* (Zocor*) 40 Mg Tablet, 40 MG PO HS, TAB 03/02/15 Potassium Chloride* (Klor-Con*) 8 Meq Tablet.sa, 8 MEQ PO DAILY, TAB 03/02/15 Hydrochlorothiazide* (Hydrochlorothiazide*) 25 Mg Tab, 25 MG PO DAILY, TAB 03/02/15 Discontinued Reported Medications Diclofenac Sodium* (Diclofenac Sodium*) 75 Mg Tablet.dr, 75 MG PO BID, TAB 03/02/15 Lorazepam* (Lorazepam*) 0.5 Mg Tablet, 0.5 MG PO HS Y for ANXIETY, TAB 03/02/15 Lisinopril* (Lisinopril*) 10 Mg Tablet, 10 MG PO DAILY, TAB 03/02/15 Allergies Allergies: Coded Allergies: acetaminophen (Verified Allergy, Unknown, 03/02/15) hydrocodone (Verified Allergy, Unknown, 03/02/15) ROS Eyes: no complaints ENT: no complaints Respiratory: no complaints Cardiovascular: no complaints Gastrointestinal: pain Genitourinary: no complaints Musculoskeletal: no complaints Skin: no complaints Neurologic: no complaints Endocrine: no complaints Lymphatic: no complaints Psychological: no complaints Immunologic: no complaints PMH/Family/Social Past Medical History PMhx/Soc History of Surgery: Yes (LEFT ANKLE, RIGHT BREAST SX) Anesthesia Reaction: No Hx Neurological Disorder: No Hx Respiratory Disorders: No Hx Cardiac Disorders: Yes (HTN) Hx Psychiatric Problems: Yes (DEPRESSION, ANXIETY, INSOMNIA) Hx Miscellaneous Medical Probl: Yes (RECOVERING ALCOHOLIOC HEP C BREAST CA) Hx Alcohol Use: Yes (RECOVERING ALCOHOLIC) Hx Substance Use: No Hx Tobacco Use: No (QUIT FEB 2016) Smoking Status: Former smoker FmHx Family History: No coronary disease Social History Alcohol Use: none Smoking Status: Former smoker Drug Use: none Exam/Review of Systems Vital Signs Vitals Vital Signs Date Time Temp Pulse Resp B/P Pulse Ox O2 Delivery O2 Flow Rate FiO2 08/24/16 11:20 90 103/57 08/24/16 08:30 18 08/24/16 07:42 95 Room Air 08/24/16 07:38 99.2 08/23/16 23:45 2.0 Intake and Output 08/23/16 08/23/16 08/24/16 15:00 23:00 07:00 Intake Total 730 ml Output Total 100 ml Balance 630 ml Exam Constitutional: alert, oriented, well developed Psych: no complaints Eyes: nl sclera ENMT: nl external ears & nose Neck: non-tender Respiratory: clear to auscultation, other ( 2 AKIL drains coming out of the chest - NOTED. there is some clots in the drains I was able to clear and the flow into the drains was restored) Cardiovascular: nl pulses Gastrointestinal: non-tender, soft Musculoskeletal: nl extremities to inspection Extremities: normal pulses Neurological: nl mental status, nl speech Skin: other Lymph: nl lymph nodes Labs Result Diagram: 08/24/16 1038 08/24/16 1038 Medications Medications Current Medications Cefepime HCl (Maxipime 1gm/50 ml (Pmx)) 50 ml @ 100 mls/hr Q12 IVPB Last administered on 08/24/16 10:01; Admin Dose 100 MLS/HR; Start 08/24/16 at 09:00 Calcium Carbonate (Oyster Shell Calcium) 1.25 gm DAILY PO Last administered on 08/24/16 10:01; Admin Dose 1.25 GM; Start 08/24/16 at 09:00 Potassium Chloride (Micro-K) 8 meq DAILY PO Last administered on 08/24/16 10:01 ; Admin Dose 8 MEQ; Start 08/24/16 at 09:00 Atorvastatin Calcium (Lipitor) 40 mg HS GTB ; Start 08/24/16 at 21:00 Ketorolac Tromethamine (Toradol) 30 mg Q6H PRN IV PAIN Last administered on 08/24 06:09; Admin Dose 30 MG; Start 08/24/16 at 01:30; Stop 08/27/16 at 01:29 Clonazepam (Klonopin) 1 mg DAILY PRN PO ANXIETY; Start 08/24/16 at 01:30 Acetaminophen (Tylenol Tab) 650 mg Q4H PRN PO PAIN OR ELEVATED TEMP.; Start 08/24/16 at 06:30 Patient Own Medication 1 ea HS PRN PO INSOMNIA; Start 08/24/16 at 21:00 Miscellaneous Information Patients own medicat... BID@10,16 XX ; Start 08/24/16 at 10:00 Enoxaparin Sodium 60 mg 60 mg Q12 SC Last administered on 08/24/16 10:05; Admin Dose 60 MG; Start 08/24/16 at 09:00 Vancomycin HCl/ Sodium Chloride (Vancocin/NS) 150 ml @ 75 mls/hr Q12H IVPB Last administered on 08/24/16 11:45; Admin Dose 75 MLS/HR; Start 08/24/16 at 12: 00 Miscellaneous Information VANCOMYCIN TROUGH 08/25 AT 1100 ONCE ONCE XX ; Start at 11:00; Stop 08/25/16 at 11:01 Potassium Chloride/Sodium Chloride 1,000 ml @ 75 mls/hr [id number] IV Last administered on 08/24/16 11:39; Admin Dose 75 MLS/HR; Start 08/24/16 at 11:00 Sodium Chloride 250 ml @ 0 mls/hr Q0M ONCE IV* ; Start 08/24/16 at 11:52; Stop at 11:53; Status UNV Sodium Chloride (NS) 250 ml @ 0 mls/hr Q0M ONCE IV* ; Start 08/24/16 at 11:52; Stop 08/24/16 at 11:53; Status UNV Procedures Procedures PROCEDURE: CT Chest with contrast. CLINICAL INDICATION: Pain and swelling. Evaluate for abscess status post right mastectomy. TECHNIQUE: CT scan of the chest with contrast was performed on a multidetector high-resolution CT scanner. The patient was scanned following the uncomplicated intravenous administration of 90 cc of Omnipaque-300 contrast. Coronal and sagittal reformatted images were obtained from the axial source images. Images were reviewed on a high-resolution PACS workstation. The total exam CTDI equals 6.76 mGy and the total exam DLP equals 268.83 mGy-cm. One or more of the following dose reduction techniques were used: Automated exposure control. Adjustment of the mA and/or kV according to patient size. Use of iterative reconstruction technique. COMPARISON: None available FINDINGS: There are postsurgical changes of right mastectomy with [address] line terminating in the axilla and mastectomy site. Soft tissue thickening with surrounding fatty stranding is seen along the right anterior chest wall and axilla with no discrete fluid collection. The lungs are clear. No focal opacification, effusion, pneumothorax, edema, or nodules are seen. There is no pulmonary infiltrate. No mass lesion to suggest neoplasm is identified. The central tracheobronchial tree is clear. There is thrombus in the left internal jugular vein. Left IJ Port-A-Cath with tip at the cavoatrial junction. The mediastinum is unremarkable without evidence for mass or lymphadenopathy. The vascular structures of the mediastinum are normal in course and caliber. Aortic vascular calcifications and coronary artery calcifications are present. The heart size is normal without evidence for pericardial thickening or effusion. The axillary regions, subpectoral regions, and supraclavicular regions are all unremarkable. Imaging obtained through the upper abdomen reveals no acute abnormality. There is approximately 1.2 cm cyst in the right hepatic lobe. The surrounding osseous structures are remarkable for degenerative spondylosis of the spine. No osteolytic or osteoblastic lesion is detected. There is age indeterminate mild superior endplate compression of T3 through T6 with no significant retropulsion. There is near complete osseous fusion between T11 and T12 vertebral bodies. IMPRESSION: 1. Postsurgical changes status post recent right mastectomy/ axillary lymphadenectomy with surgical drain in the mastectomy site and in the axilla. No discrete loculated fluid collection is identified. Some soft tissue thickening with subcutaneous fatty stranding and skin thickening identified in the surgical bed. If there is persistent clinical concern, recommend ultrasound for further evaluation. 2. Thrombus in the left internal jugular vein. Left IJ Port-A-Cath is in satisfactory position. 3. Age indeterminate multiple mild compression fractures in the upper thoracic spine. DEUCE FRANK August 24, 2016 12:12
--- NOTE | 2016-08-27 01:27 | PN ---
Date/Time of Note Date/Time of Note DATE: 08/27/16 TIME: 01:21 Assessment/Plan VTE Prophylaxis VTE Prophylaxis Intervention: LMWH Lines/Catheters IV Catheter Type (from Nrs): portacath Urinary Cath still in place: No Assessment/Plan Assessment/Plan -Internal jugular vein thrombosis, left - vascular sx consult- Dr Nina notified -Soft tissue infection- sp right breast mastectomy - ID consult- Dr Patel notified - Anemia- - 1 UNIT PRBC today - GI consult- Dr Russell notified - Hyponatremia - nephrology- dr Davies notified - Hypertension - Hx Hep C - [employer] - Lovenox for DVT prophylaxis - Protonix for Gi prophylaxis Plan of care dw Dr Brito/staff/patient Subjective 24 Hr Interval Summary Free Text/Dictation Late entry for 08/24/2016. resting in bed, c/o abdominal pain, denies any nausea/vomitting. ice chips per surgery. family at bed side- all qs answered. dw staff-no new events reported. Constitutional: requiring IVF, requiring O2 Eyes: no complaints ENT: no complaints Respiratory: no complaints Cardiovascular: no complaints Gastrointestinal: pain Genitourinary: no complaints Musculoskeletal: no complaints Skin: no complaints Neurologic: no complaints Endocrine: no complaints Lymphatic: no complaints Psychological: no complaints Immunologic: no complaints Exam/Review of Systems Vital Signs Vitals Vital Signs Date Time Temp Pulse Resp B/P Pulse Ox O2 Delivery O2 Flow Rate FiO2 08/26/16 23:47 97.9 68 18 130/72 96 08/26/16 19:12 Room Air 08/23/16 23:45 2.0 Intake and Output 08/26/16 08/26/16 08/27/16 14:59 22:59 06:59 Intake Total 320 ml Balance 320 ml Exam Constitutional: alert, obese, oriented, well developed Psych: nl mood/affect Eyes: EOMI, nl sclera ENMT: nl external ears & nose Neck: non-tender Respiratory: clear to auscultation Gastrointestinal: soft, tender (inscional pain) Musculoskeletal: nl extremities to inspection Extremities: normal pulses Neurological: nl mental status, nl speech Skin: other Lymph: nontender Results Result Diagram: 08/26/16 0720 08/26/16 0720 Results 24 hrs Laboratory Tests Test 08/26/16 07:20 White Blood Count 7.7 Red Blood Count 2.81 #L Hemoglobin 8.6 #L Hematocrit 25.8 #L Mean Corpuscular Volume 91.8 Mean Corpuscular Hemoglobin 30.6 Mean Corpuscular Hemoglobin Concent 33.3 Red Cell Distribution Width 16.4 H Platelet Count 196 Mean Platelet Volume 9.2 Neutrophils % 79.0 H Lymphocytes % 9.9 L Monocytes % 8.5 Eosinophils % 1.4 Basophils % 0.3 Nucleated Red Blood Cells % 0.0 Neutrophils # 6.1 Lymphocytes # 0.8 Monocytes # 0.7 Eosinophils # 0.1 Basophils # 0.0 Nucleated Red Blood Cells # 0.0 Prothrombin Time 14.2 Prothrombin Time Ratio 1.1 INR International Normalized Ratio 1.10 Activated Partial Thromboplast Time 32.0 Sodium Level 133 L Potassium Level 3.4 L Chloride Level 109 Carbon Dioxide Level 19 L Anion Gap 8 Blood Urea Nitrogen 11 Creatinine 0.68 Glucose Level 133 # Calcium Level 7.9 L Vitamin B12 Level 537 Medications Medications Current Medications Cefepime HCl (Maxipime 1gm/50 ml (Pmx)) 50 ml @ 100 mls/hr Q12 IVPB Last administered on 08/26/16 20:25; Admin Dose 100 MLS/HR; Start 08/24/16 at 09:00 Calcium Carbonate (Oyster Shell Calcium) 1.25 gm DAILY PO Last administered on 08/26/16 09:34; Admin Dose 1.25 GM; Start 08/24/16 at 09:00 Atorvastatin Calcium (Lipitor) 40 mg HS GTB Last administered on 08/26/16 20:26 ; Admin Dose 40 MG; Start 08/24/16 at 21:00 Ketorolac Tromethamine (Toradol) 30 mg Q6H PRN IV PAIN Last administered on 08/26 06:52; Admin Dose 30 MG; Start 08/24/16 at 01:30; Stop 08/27/16 at 01:29 Acetaminophen (Tylenol Tab) 650 mg Q4H PRN PO PAIN OR ELEVATED TEMP. Last administered on 08/25/16 06:06; Admin Dose 650 MG; Start 08/24/16 at 06:30 Patient Own Medication 1 ea HS PRN PO INSOMNIA Last administered on 08/26/16 01 :22; Admin Dose 1 EA; Start 08/24/16 at 21:00 Miscellaneous Information Patients own medicat... BID@10,16 XX ; Start 08/24/16 at 10:00 Enoxaparin Sodium (Lovenox) 60 mg Q12 SC Last administered on 08/26/16 20:27; Admin Dose 60 MG; Start 08/24/16 at 09:00 Pantoprazole 40 mg 40 mg DAILY@06 IV Last administered on 08/26/16 06:14; Admin Dose 40 MG; Start 08/25/16 at 06:00 Vancomycin HCl 250 ml @ 125 mls/hr Q12H IVPB Last administered on 08/26/16 23: 37; Admin Dose 125 MLS/HR; Start 08/26/16 at 00:00 Potassium Chloride/Sodium Chloride (NS-KCl 20 Meq) 1,000 ml @ 75 mls/hr [id number] IV Last administered on 08/26/16 13:34; Admin Dose 75 MLS/HR; Start 08/26/16 at 14:00 Clonazepam (Klonopin) 1 mg BID PRN PO ANXIETY Last administered on 08/26/16 23: 42; Admin Dose 1 MG; Start 08/26/16 at 15:30; Stop 08/30/16 at 23:55 Trazodone HCl (Desyrel) 50 mg HS PO Last administered on 08/26/16 20:26; Admin Dose 50 MG; Start 08/26/16 at 21:00 Miscellaneous Information (*Rx Drug Level Order Reminder*) VANCO TROUGH @ 1, 100 ON... ONCE ONCE XX ; Start 08/27/16 at 11:00; Stop 08/27/16 at 11:01 DEUCE FRANK August 27, 2016 01:27
[2016-08-27] MEDS: NS + KCL 20 MEQ 1,000 ML IV SCH ×2 (03:20→15:38)
[2016-08-27] MEDS: PANTOPRAZOLE 40 MG INJ IV SCH (06:05)
[2016-08-27] MEDS: LEVOTHYROXINE 100 MCG TAB PO SCH (06:05)
[2016-08-27] MEDS: ACETAMINOPHEN 325 MG TAB PO PRN ×2 (06:05→14:08)
--- NOTE | 2016-08-27 06:44 | PN ---
DATE: 08/26/2016 SUBJECTIVE: No new complaints. OBJECTIVE: VITAL SIGNS: Temperature 98.8 degrees, heart rate 66, blood pressure 133/74, respirations 22, O2 saturation 100% on room air. LABORATORIES: WBC 7700 with 79% segmented with slight shift to the left, hemoglobin after transfusion yesterday, today is 8.6, hct.25.8. Coagulation profile is normal. . Jay-Palafox drain is yellowish discoloration serous fluid. Total yesterday 165 mL, the other 160 mL. Today they have not measured it yet. ASSESSMENT: A 56-year-old female who is status post modified radical mastectomy on the right side, was admitted due to early sepsis and cellulitis of the right breast post-mastectomy. Infectious disease recommended starting the patient on vancomycin and cefepime IV. Two units of blood transfusion was given yesterday because the hemoglobin was very low at 6.4. Today, patient actually has gone downstairs to GI lab to have an EGD for possible source of GI blood loss. PLAN: Continue antibiotics per infectious disease recommendation. Wound culture has revealed presence of Staphylococcus aureus 4+. gram-negative laura positive for bacillus species and scant growth. Gram-positive cocci in pairs 2+ . PLAN: Continue current care and will watch for drop in hemoglobin and continue antibiotics until cellulitis is completely cleared. We will continue to follow the patient along with other colleagues. Dictated By: ELVIA NATION MD PS/ZA Conf#: [id number] DID#: [id number] MTDD
[2016-08-27 07:36] LABS: ADD SCAN DIFF NO
[2016-08-27 07:46] LABS: BASOPHILS % 0.1 % (0.0-2.0); EOSINOPHILS # 0.1 10^3/ul (0.0-0.5); EOSINOPHILS % 1.5 % (0.0-7.0); HEMATOCRIT 31.1 % (37.0-47.0); LYMPHOCYTES # 1.1 10^3/ul (0.8-2.9); MEAN CORPUSCULAR HEMOGLOBIN 30.1 pg (29.0-33.0); MEAN CORPUSCULAR HGB CONC 32.2 g/dl (32.0-37.0); MEAN CORPUSCULAR VOLUME 93.7 fl (82.0-101.0); MEAN PLATELET VOLUME 8.9 fl (7.4-10.4); MONOCYTE # 0.7 10^3/ul (0.3-0.9); MONOCYTES % 9.5 % (0.0-11.0); NEUTROPHIL # 5.3 10^3/ul (1.6-7.5); NEUTROPHILS % 73.2 % (39.0-77.0); PLATELET COUNT 230 10^3/UL (140-415); RED BLOOD COUNT 3.32 10^6/ul (4.20-5.40); RED CELL DISTRIBUTION WIDTH 16.4 % (11.5-14.5); WHITE BLOOD COUNT 7.3 10^3/ul (4.8-10.8)
[2016-08-27 08:03] LABS: POTASSIUM 3.3 mmol/L (3.5-5.1)
[2016-08-27 08:05] LABS: CREATININE 0.63 mg/dl (0.44-1.00)
[2016-08-27 08:06] LABS: CALCIUM 8.5 mg/dl (8.4-10.2)
[2016-08-27] MEDS: CALCIUM CARBONATE 1.25 GM TAB PO SCH (09:00)
[2016-08-27] MEDS: CEFEPIME 1GM/50 ML (PMX) 50 ML IVPB SCH (09:56)
[2016-08-27] MEDS: ENOXAPARIN 60 MG/0.6 ML SYG SC SCH ×2 (09:58→20:35)
--- NOTE | 2016-08-27 11:54 | PN ---
DATE: 08/27/2016 SUBJECTIVE: The patient wants to go home and she insists that she wants to go home. OBJECTIVE: VITAL SIGNS: Temperature 97.8, heart rate 67, respirations 16, blood pressure 126/77, saturations 9 7% on room air. CHEST: The chest wall on the right side, which is the site of the mastectomy, still has cellulitis of the skin and it is almost the same as admission time. LABORATORY DATA: Sodium 140, potassium is 3.3, slightly low. BUN and creatinine normal. WBC 7300 w ith 73% neutrophils, which is normal differential. Hemoglobin 10.3, hematocrit 31.1. On admission, WBC was 11,100 with 81% segmented, now it has been normalized. Drainage from Jay-Palafox #1 past 24 hours has not been charted yet, but the day before that #1 wa s 60 mL and #2 was 155 mL, grossly it is serous fluid, it is not serosanguineous, it is not blood. The patient had EGD yesterday and the report says that the patient has: 1. Gastritis, diffuse. 2. Superficial nodular mucosa of the duodenum and the duodenal folds appear to be scarce in number. 3. Rule out sprue. The GI colleague has recommended continue Protonix 40 mg p.o. q.a.m. ASSESSMENT: A 56-year-old female status post right modified radical mastectomy with axillary dissec tion, status post chemotherapy for neoadjuvant treatment. The patient was operated on about 10 days ago, came back after 6 days with nausea, vomiting, fevers, cellulitis of the right breast. She was admitted, blood pressure was low. Impression early sepsis. The patient started on antibiotics bro ad-spectrum. The culture from secretions has grown 3 organisms: 1. Staphylococcus aureus 4+. 2. Pseudomonas putida, scant growth. 3. Bacillus species, scant growth. The patient is on vancomycin and cefepime per Dr. Patel, infectious disease specialist. It appears that though the WBC has decreased and normalized and the differential normalized, but clinically th e cellulitis still is not resolved. NOTE: The patient insists that she wants to go home. I personally as a surgeon, I believe that pro bably she should not go home, she should continue to be on IV antibiotics per infectious disease rec ommendations. So we are going to check with Dr. Patel, if the patient has to go, what kind of anti biotics she should be discharged on and if the home nurse care can afford to see the patient every d ay and give the IV antibiotics. The patient does not have a PICC line, but the patient has a Port-A -Cath which has been used for chemotherapy, probably that port can be used as well. Therefore, we a re going to wait, I will call Dr. Brito's nurse practitioner, Rose, and talk to her about the sit uation that we are in, and she is going to call and get a hold of Dr. Patel and if Dr. Patel agree s, then we may proceed to discharging the patient. Dictated By: ELVIA MURRAY/ZA Conf#: [id number] DID#: [id number]
--- NOTE | 2016-08-27 13:07 | CONS ---
Date/Time of Note Date/Time of Note DATE: 08/27/16 TIME: 13:02 Assessment/Plan Assessment/Plan Additional Assessment/Plan 1. Hyponatremia, likely secondary to hypovolemic hyponatremia, no SIADH 3. Acute prerenal azotemia secondary to moderate to severe dehydration. 4. Moderate to severe dehydration. 5. History of recent right breast mastectomy 5 days ago. 6. Left internal jugular thrombosis. 7. History of hypertension. 8. History of depression. 9. History of anxiety. 10. History of previous alcohol abuse. 11. History of hypothyroidism. 12. hyperkalemia 13. Metabolic acidosis PLAN: continue IVF NS with KCl 20mEQ, KCl 20mEQ IV x 1 dose now ( extra dose) will follow up her work up c/w Hypovolemic Hyponatremi due to Acute prerenal azotemia Consultation Date/Type/Reason Admit Date/Time August 23, 2016 at 23:16 Initial Consult Date 08/24/16 Type of Consultation: NEPHROLOGY Referring Provider: MELISSA CASTILLO MD 24 HR Interval Summary Free Text/Dictation Na improved, Bp stable ,K low Exam/Review of Systems Vital Signs Vitals Vital Signs Date Time Temp Pulse Resp B/P Pulse Ox O2 Delivery O2 Flow Rate FiO2 08/27/16 12:21 66 08/27/16 11:39 98.3 16 140/83 96 08/26/16 19:12 Room Air 08/23/16 23:45 2.0 Intake and Output 08/26/16 08/26/16 08/27/16 15:00 23:00 07:00 Intake Total 370 ml 1150 ml Output Total 105 ml Balance 370 ml 1045 ml Exam GENERAL: Awake, alert, more very weak and fatigued. HEENT: The pupils are equal, round, reactive to light and accommodations conjunctival pallor. Mucous membrane no sclerae icterus. NECK: Supple, no JVD, no lymphadenopathy. LUNGS: Bilateral air entry equal and clear in all lung [place] and no wheezing. No or rales. HEART: S1, S2, with regular rhythm, no murmur. ABDOMEN: Soft, nontender, nondistended. Bowel sounds are present. EXTREMITIES: No clubbing, cyanosis, or edema. The patient had a right breast AKIL drain in place. NEUROLOGICAL: Alert, awake x4. Cranial nerves II through XII intact. No focal deficits. Sensations are intact. SKIN: No rash. The patient has a right breast drain in place. PSYCHIATRIC: Appropriate affect and mood. Results Result Diagram: 08/27/16 0644 08/27/16 0644 Results 24 hrs Laboratory Tests Test 08/27/16 06:44 08/27/16 11:04 White Blood Count 7.3 Red Blood Count 3.32 L Hemoglobin 10.0 L Hematocrit 31.1 #L Mean Corpuscular Volume 93.7 Mean Corpuscular Hemoglobin 30.1 Mean Corpuscular Hemoglobin Concent 32.2 Red Cell Distribution Width 16.4 H Platelet Count 230 Mean Platelet Volume 8.9 Neutrophils % 73.2 Lymphocytes % 15.0 Monocytes % 9.5 Eosinophils % 1.5 Basophils % 0.1 Nucleated Red Blood Cells % 0.0 Neutrophils # 5.3 Lymphocytes # 1.1 Monocytes # 0.7 Eosinophils # 0.1 Basophils # 0.0 Nucleated Red Blood Cells # 0.0 Sodium Level 140 Potassium Level 3.3 L Chloride Level 108 Carbon Dioxide Level 21 Anion Gap 14 Blood Urea Nitrogen 8 Creatinine 0.63 Glucose Level 117 Calcium Level 8.5 Vancomycin Level Trough 11.5 Medications Medications Current Medications Cefepime HCl (Maxipime 1gm/50 ml (Pmx)) 50 ml @ 100 mls/hr Q12 IVPB Last administered on 08/27/16 09:56; Admin Dose 100 MLS/HR; Start 08/24/16 at 09:00 Calcium Carbonate (Oyster Shell Calcium) 1.25 gm DAILY PO Last administered on 08/26/16 09:34; Admin Dose 1.25 GM; Start 08/24/16 at 09:00 Atorvastatin Calcium (Lipitor) 40 mg HS GTB Last administered on 08/26/16 20:26 ; Admin Dose 40 MG; Start 08/24/16 at 21:00 Acetaminophen (Tylenol Tab) 650 mg Q4H PRN PO PAIN OR ELEVATED TEMP. Last administered on 08/27/16 06:05; Admin Dose 650 MG; Start 08/24/16 at 06:30 Patient Own Medication 1 ea HS PRN PO INSOMNIA Last administered on 08/26/16 01 :22; Admin Dose 1 EA; Start 08/24/16 at 21:00 Miscellaneous Information Patients own medicat... BID@10,16 XX ; Start 08/24/16 at 10:00 Enoxaparin Sodium (Lovenox) 60 mg Q12 SC Last administered on 08/27/16 09:58; Admin Dose 60 MG; Start 08/24/16 at 09:00 Pantoprazole 40 mg 40 mg DAILY@06 IV Last administered on 08/27/16 06:05; Admin Dose 40 MG; Start 08/25/16 at 06:00 Vancomycin HCl 250 ml @ 125 mls/hr Q12H IVPB Last administered on 08/26/16 23: 37; Admin Dose 125 MLS/HR; Start 08/26/16 at 00:00 Potassium Chloride/Sodium Chloride (NS-KCl 20 Meq) 1,000 ml @ 75 mls/hr [id number] IV Last administered on 08/26/16 13:34; Admin Dose 75 MLS/HR; Start 08/26/16 at 14:00 Clonazepam (Klonopin) 1 mg BID PRN PO ANXIETY Last administered on 08/26/16 23: 42; Admin Dose 1 MG; Start 08/26/16 at 15:30; Stop 08/30/16 at 23:55 Trazodone HCl (Desyrel) 50 mg HS PO Last administered on 08/26/16 20:26; Admin Dose 50 MG; Start 08/26/16 at 21:00 DIANA MORALES MD August 27, 2016 13:07
[2016-08-27] MEDS: VANCOMYCIN 1 GM in NS 250 ML IVPB SCH (14:01)
--- NOTE | 2016-08-27 14:51 | CONS ---
Date/Time of Note Date/Time of Note DATE: 08/27/16 TIME: 14:49 Assessment/Plan Assessment/Plan Chief Complaint/Hosp Course - Early sepsis d/t cellulitis of right chest - Cellulitis of right chest - Locally advanced right breast cancer s/p Right modified radical mastectomy 08/[address] Amanda - Left IJ thrombosis - Acute on probable chronic anemia requiring blood transfusion - Hyponatremia - improved - Hyperkalemia - HTN - HLD - Hypothyroidism - Anxiety/depression - Hx previous alcohol abuse. Recommendations: -Zosyn - monitor clinically Problems: Consultation Date/Type/Reason Admit Date/Time August 23, 2016 at 23:16 Initial Consult Date 08/24/16 Type of Consultation: id Referring Provider: MELISSA CASTILLO MD 24 HR Interval Summary Free Text/Dictation she is extremely anxious to leave. d/w patient and nursing at length. d/w primary team. prolonged service time 1 hour. Exam/Review of Systems Vital Signs Vitals Vital Signs Date Time Temp Pulse Resp B/P Pulse Ox O2 Delivery O2 Flow Rate FiO2 08/27/16 12:21 66 08/27/16 11:39 98.3 16 140/83 96 08/26/16 19:12 Room Air 08/23/16 23:45 2.0 Intake and Output 08/26/16 08/26/16 08/27/16 15:00 23:00 07:00 Intake Total 370 ml 1150 ml Output Total 105 ml Balance 370 ml 1045 ml Exam Constitutional: alert, oriented, well developed Psych: nl mood/affect, no complaints ENMT: nl external ears & nose, nl lips & teeth, nl nasal mucosa & septum Skin: other (continues to be severely erythematous and warm, ) Results Result Diagram: 08/27/1644 08/27/1644 Results 24 hrs Laboratory Tests Test 08/27/16 06:44 08/27/16 10:00 08/27/16 11:04 White Blood Count 7.3 Red Blood Count 3.32 L Hemoglobin 10.0 L Hematocrit 31.1 #L Mean Corpuscular Volume 93.7 Mean Corpuscular Hemoglobin 30.1 Mean Corpuscular Hemoglobin Concent 32.2 Red Cell Distribution Width 16.4 H Platelet Count 230 Mean Platelet Volume 8.9 Neutrophils % 73.2 Lymphocytes % 15.0 Monocytes % 9.5 Eosinophils % 1.5 Basophils % 0.1 Nucleated Red Blood Cells % 0.0 Neutrophils # 5.3 Lymphocytes # 1.1 Monocytes # 0.7 Eosinophils # 0.1 Basophils # 0.0 Nucleated Red Blood Cells # 0.0 Sodium Level 140 Potassium Level 3.3 L Chloride Level 108 Carbon Dioxide Level 21 Anion Gap 14 Blood Urea Nitrogen 8 Creatinine 0.63 Glucose Level 117 Calcium Level 8.5 Stool Occult Blood NEGATIVE Vancomycin Level Trough 11.5 Medications Medications Current Medications Cefepime HCl (Maxipime 1gm/50 ml (Pmx)) 50 ml @ 100 mls/hr Q12 IVPB Last administered on 08/27/16 09:56; Admin Dose 100 MLS/HR; Start 08/24/16 at 09:00 Calcium Carbonate (Oyster Shell Calcium) 1.25 gm DAILY PO Last administered on 08/26/16 09:34; Admin Dose 1.25 GM; Start 08/24/16 at 09:00 Atorvastatin Calcium (Lipitor) 40 mg HS GTB Last administered on 08/26/16 20:26 ; Admin Dose 40 MG; Start 08/24/16 at 21:00 Acetaminophen (Tylenol Tab) 650 mg Q4H PRN PO PAIN OR ELEVATED TEMP. Last administered on 08/27/16 14:08; Admin Dose 650 MG; Start 08/24/16 at 06:30 Patient Own Medication 1 ea HS PRN PO INSOMNIA Last administered on 08/26/16 01 :22; Admin Dose 1 EA; Start 08/24/16 at 21:00 Miscellaneous Information Patients own medicat... BID@10,16 XX ; Start 08/24/16 at 10:00 Enoxaparin Sodium (Lovenox) 60 mg Q12 SC Last administered on 08/27/16 09:58; Admin Dose 60 MG; Start 08/24/16 at 09:00 Pantoprazole 40 mg 40 mg DAILY@06 IV Last administered on 08/27/16 06:05; Admin Dose 40 MG; Start 08/25/16 at 06:00 Vancomycin HCl 250 ml @ 125 mls/hr Q12H IVPB Last administered on 08/27/16 14 :01; Admin Dose 125 MLS/HR; Start 08/26/16 at 00:00; Stop 08/27/16 at 20:00 Potassium Chloride/Sodium Chloride (NS-KCl 20 Meq) 1,000 ml @ 75 mls/hr [id number] IV Last administered on 08/26/16 13:34; Admin Dose 75 MLS/HR; Start 08/26/16 at 14:00 Clonazepam (Klonopin) 1 mg BID PRN PO ANXIETY Last administered on 08/26/16 23: 42; Admin Dose 1 MG; Start 08/26/16 at 15:30; Stop 08/30/16 at 23:55 Trazodone HCl 50 mg 50 mg HS PO Last administered on 08/26/16 20:26; Admin Dose 50 MG; Start 08/26/16 at 21:00 Potassium Chloride 20 meq/ Sodium Chloride 110 ml @ 55 mls/hr ONCE ONCE IVPB ; Start 08/27/16 at 15:00; Stop 08/27/16 at 16:59 Vancomycin HCl/ Sodium Chloride (Vancocin/NS) 250 ml @ 83.333 mls/ hr Q12H IVPB ; Start 08/28/16 at 00:00 YVON SOLORIO MD August 27, 2016 14:51
[2016-08-27] MEDS ORDERED: POTASSIUM CHLORIDE 20 MEQ in SOD CHLORIDE 0.9% 100 ML IVPB ONE (15:00)
[2016-08-27] MEDS ORDERED: LIDOCAINE 1% (MPF) 5 ML VIAL SC ONE (15:00)
--- NOTE | 2016-08-27 17:44 | PN ---
Date/Time of Note Date/Time of Note DATE: 08/27/16 TIME: 17:40 Assessment/Plan VTE Prophylaxis VTE Prophylaxis Intervention: SCD's Lines/Catheters IV [facility] Urinary Cath still in place: No Assessment/Plan Chief Complaint/Hosp Course ASSESSMENT AND PLAN: - Sepsis secondary to postoperative soft tissue infection of the right breast. Dr. Patel is following in infectious disease consultation. Continue abx per ID. - Cellulitis of the right breast. - Status post right modified mastectomy on August [address] Amanda is following in surgical consultation. - Thrombus of the left internal jugular vein. Dr. Edwards is following in vascular surgery consultation. Continue Lovenox. - Hyponatremia on admission, resolved Dr. Davies is following in nephrology consultation. Continue IV fluids. - Hyperthyroidism. Continue patient's Synthroid. - Hypertension. The patient currently is hypotensive. Continue to monitor blood pressure. - Hyperlipidemia. Continue statin. - Anemia, status post blood transfusion. Continue sequential compression device for deep venous thrombosis prophylaxis and Protonix for peptic ulcer disease prophylaxis. Further recommendations based on clinical course. Plan of care discussed with Dr. Brito. Problems: Subjective 24 Hr Interval Summary Free Text/Dictation Patient wanted to go home in the morning, however, currently reconsidered, patient stated that she will stay and get the treatment for infection with intravenous antibiotics, will try to axis patient left chest Port-A-Cath. Patient's complains of anxiety. Exam/Review of Systems Vital Signs Vitals Vital Signs Date Time Temp Pulse Resp B/P Pulse Ox O2 Delivery O2 Flow Rate FiO2 08/27/16 16:20 64 08/27/16 16:02 98.1 16 160/84 97 08/26/16 19:12 Room Air 08/23/16 23:45 2.0 Intake and Output 08/26/16 08/26/16 08/27/16 15:00 23:00 07:00 Intake Total 370 ml 1150 ml Output Total 105 ml Balance 370 ml 1045 ml Exam GENERAL: Well-developed, well-nourished female, currently is awake, alert. HEENT: Head is atraumatic, normocephalic. Pupils equal, round, reactive to light and accommodation. Oral mucosa is pink and moist. NECK: Supple, no cervical lymphadenopathy, no thyromegaly. CHEST: Lungs clear bilaterally. No rhonchi, wheezes, or rales noted. The patient has a right breast surgical scar intact with mike and the right axillary JPs x2 with serous drainage. The patient also has a left chest PermCath. CARDIOVASCULAR: Normal S1, S2. No murmurs, gallops, clicks, rubs noted. ABDOMEN: Flat, soft, nondistended, nontender. Bowel sounds present. There is no guarding, no rebound tenderness. EXTREMITIES: There is no edema, clubbing, cyanosis. Pulses equal bilaterally 2 +. SKIN: There is no rash, petechiae noted. NEUROLOGIC: The patient is awake, alert, and oriented x4. Results Result Diagram: 08/27/16 0644 08/27/16 06 Results 24 hrs Laboratory Tests Test 08/27/16 06:44 08/27/16 10:00 08/27/16 11:04 White Blood Count 7.3 Red Blood Count 3.32 L Hemoglobin 10.0 L Hematocrit 31.1 #L Mean Corpuscular Volume 93.7 Mean Corpuscular Hemoglobin 30.1 Mean Corpuscular Hemoglobin Concent 32.2 Red Cell Distribution Width 16.4 H Platelet Count 230 Mean Platelet Volume 8.9 Neutrophils % 73.2 Lymphocytes % 15.0 Monocytes % 9.5 Eosinophils % 1.5 Basophils % 0.1 Nucleated Red Blood Cells % 0.0 Neutrophils # 5.3 Lymphocytes # 1.1 Monocytes # 0.7 Eosinophils # 0.1 Basophils # 0.0 Nucleated Red Blood Cells # 0.0 Sodium Level 140 Potassium Level 3.3 L Chloride Level 108 Carbon Dioxide Level 21 Anion Gap 14 Blood Urea Nitrogen 8 Creatinine 0.63 Glucose Level 117 Calcium Level 8.5 Stool Occult Blood NEGATIVE Vancomycin Level Trough 11.5 Medications Medications Current Medications Calcium Carbonate (Oyster Shell Calcium) 1.25 gm DAILY PO Last administered on 08/26/16 09:34; Admin Dose 1.25 GM; Start 08/24/16 at 09:00 Atorvastatin Calcium (Lipitor) 40 mg HS GTB Last administered on 08/26/16 20:26 ; Admin Dose 40 MG; Start 08/24/16 at 21:00 Acetaminophen (Tylenol Tab) 650 mg Q4H PRN PO PAIN OR ELEVATED TEMP. Last administered on 5/10/17at 14:08; Admin Dose 650 MG; Start 08/24/16 at 06:30 Patient Own Medication 1 ea HS PRN PO INSOMNIA Last administered on 08/26/16 01 :22; Admin Dose 1 EA; Start 08/24/16 at 21:00 Miscellaneous Information Patients own medicat... BID@10,16 XX ; Start 08/24/16 at 10:00 Enoxaparin Sodium 60 mg 60 mg Q12 SC Last administered on 08/27/16 09:58; Admin Dose 60 MG; Start 08/24/16 at 09:00 Potassium Chloride/Sodium Chloride (NS-KCl 20 Meq) 1,000 ml @ 75 mls/hr [id number] IV Last administered on 08/27/16 15:38; Admin Dose 75 MLS/HR; Start at 14:00 Clonazepam (Klonopin) 1 mg BID PRN PO ANXIETY Last administered on 08/26/16 23: 42; Admin Dose 1 MG; Start 08/26/16 at 15:30; Stop 08/30/16 at 23:55 Trazodone HCl (Desyrel) 50 mg HS PO Last administered on 08/26/16 20:26; Admin Dose 50 MG; Start 08/26/16 at 21:00 Pantoprazole (Protonix Tab) 40 mg DAILY@06 PO ; Start 08/28/16 at 06:00 PAUL RAMOS August 27, 2016 17:44
[2016-08-27] MEDS ORDERED: VANCOMYCIN 1 GM in NS 250 ML IVPB SCH (19:00)
[2016-08-27] MEDS: traZODone 50 MG TAB PO SCH (20:29)
[2016-08-27] MEDS: ATORVASTATIN 40 MG TAB GTB SCH (20:29)
[2016-08-27] MEDS: clonAZEPAM 0.5 MG TAB PO PRN (20:29)
[2016-08-27] MEDS: TEMAZEPAM 30 MG PO PRN (20:29)
[2016-08-28] VITALS (7 sets, daily range): BP systolic 132–163; BP diastolic 72–85; PULSE 59–70; RESP 18–21
[2016-08-28] MEDS ORDERED: VANCOMYCIN 1.25 GM in SOD CHLORIDE 0.9% 250 ML IVPB SCH ×2
[2016-08-28] MEDS: ACETAMINOPHEN 325 MG TAB PO PRN ×3 (01:55→23:30)
[2016-08-28] MEDS: ALPRAZOLAM 0.25 MG TAB PO PRN ×2 (02:50→12:28)
[2016-08-28] MEDS: NS + KCL 20 MEQ 1,000 ML IV SCH ×2 (05:59→20:23)
[2016-08-28] MEDS: LEVOTHYROXINE 100 MCG TAB PO SCH (06:02)
[2016-08-28] MEDS: PANTOPRAZOLE (EC) 40 MG TAB PO SCH (06:02)
[2016-08-28 08:38] LABS: ADD SCAN DIFF NO
[2016-08-28 08:49] LABS: BASOPHILS % 0.5 % (0.0-2.0); EOSINOPHILS # 0.1 10^3/ul (0.0-0.5); EOSINOPHILS % 2.1 % (0.0-7.0); HEMATOCRIT 32.9 % (37.0-47.0); HEMOGLOBIN 10.5 g/dl (12.0-16.0); LYMPHOCYTES # 1.4 10^3/ul (0.8-2.9); LYMPHOCYTES % 22.5 % (15.0-51.0); MEAN CORPUSCULAR HEMOGLOBIN 30.3 pg (29.0-33.0); MEAN CORPUSCULAR HGB CONC 31.9 g/dl (32.0-37.0); MEAN CORPUSCULAR VOLUME 95.1 fl (82.0-101.0); MEAN PLATELET VOLUME 9.1 fl (7.4-10.4); MONOCYTE # 0.6 10^3/ul (0.3-0.9); MONOCYTES % 9.8 % (0.0-11.0); NEUTROPHIL # 3.8 10^3/ul (1.6-7.5); NEUTROPHILS % 62.8 % (39.0-77.0); PLATELET COUNT 259 10^3/UL (140-415); RED BLOOD COUNT 3.46 10^6/ul (4.20-5.40); RED CELL DISTRIBUTION WIDTH 16.1 % (11.5-14.5); WHITE BLOOD COUNT 6.1 10^3/ul (4.8-10.8)
[2016-08-28 09:24] LABS: POTASSIUM 3.8 mmol/L (3.5-5.1)
[2016-08-28 09:27] LABS: CREATININE 0.61 mg/dl (0.44-1.00)
[2016-08-28 09:28] LABS: CALCIUM 9.1 mg/dl (8.4-10.2)
[2016-08-28] MEDS: CALCIUM CARBONATE 1.25 GM TAB PO SCH (09:37)
[2016-08-28] MEDS: ENOXAPARIN 60 MG/0.6 ML SYG SC SCH ×2 (09:43→20:21)
--- NOTE | 2016-08-28 11:40 | CONS ---
Date/Time of Note Date/Time of Note DATE: 08/28/16 TIME: 11:38 Assessment/Plan Assessment/Plan Additional Assessment/Plan 1. Hyponatremia, likely secondary to hypovolemic hyponatremia, no SIADH 3. Acute prerenal azotemia secondary to moderate to severe dehydration. 4. Moderate to severe dehydration. 5. History of recent right breast mastectomy 5 days ago. 6. Left internal jugular thrombosis. 7. History of hypertension. 8. History of depression. 9. History of anxiety. 10. History of previous alcohol abuse. 11. History of hypothyroidism. 12. hyperkalemia 13. Metabolic acidosis PLAN: continue IVF NS with KCl 20mEQ, Cr and electrolytes stable today will follow up her work up c/w Hypovolemic Hyponatremi due to Acute prerenal azotemia Consultation Date/Type/Reason Admit Date/Time August 23, 2016 at 23:16 Initial Consult Date 08/24/16 Type of Consultation: NEPHROLOGY Reason for Consultation Hyponatremia Referring Provider: MELISSA CASTILLO MD 24 HR Interval Summary Free Text/Dictation doing ok BP stable Exam/Review of Systems Vital Signs Vitals Vital Signs Date Time Temp Pulse Resp B/P Pulse Ox O2 Delivery O2 Flow Rate FiO2 08/28/16 08:57 69 08/28/16 08:01 97.6 20 163/85 97 08/26/16 19:12 Room Air Intake and Output 08/27/16 08/27/16 08/28/16 15:00 23:00 07:00 Intake Total 1190 ml 1320 ml Output Total 65 ml 100 ml Balance -65 ml 1190 ml 1220 ml Exam GENERAL: Awake, alert, more very weak and fatigued. HEENT: The pupils are equal, round, reactive to light and accommodations conjunctival pallor. Mucous membrane no sclerae icterus. NECK: Supple, no JVD, no lymphadenopathy. LUNGS: Bilateral air entry equal and clear in all lung [place] and no wheezing. No or rales. HEART: S1, S2, with regular rhythm, no murmur. ABDOMEN: Soft, nontender, nondistended. Bowel sounds are present. EXTREMITIES: No clubbing, cyanosis, or edema. The patient had a right breast AKIL drain in place. NEUROLOGICAL: Alert, awake x4. Cranial nerves II through XII intact. No focal deficits. Sensations are intact. SKIN: No rash. The patient has a right breast drain in place. PSYCHIATRIC: Appropriate affect and mood. Results Result Diagram: 08/28/16 0740 08/28/16 0740 Results 24 hrs Laboratory Tests Test 08/28/16 07:40 White Blood Count 6.1 Red Blood Count 3.46 L Hemoglobin 10.5 L Hematocrit 32.9 L Mean Corpuscular Volume 95.1 Mean Corpuscular Hemoglobin 30.3 Mean Corpuscular Hemoglobin Concent 31.9 L Red Cell Distribution Width 16.1 H Platelet Count 259 Mean Platelet Volume 9.1 Neutrophils % 62.8 Lymphocytes % 22.5 Monocytes % 9.8 Eosinophils % 2.1 Basophils % 0.5 Nucleated Red Blood Cells % 0.0 Neutrophils # 3.8 Lymphocytes # 1.4 Monocytes # 0.6 Eosinophils # 0.1 Basophils # 0.0 Nucleated Red Blood Cells # 0.0 Sodium Level 141 Potassium Level 3.8 Chloride Level 107 Carbon Dioxide Level 25 Anion Gap 13 Blood Urea Nitrogen 7 Creatinine 0.61 Glucose Level 87 Calcium Level 9.1 Medications Medications Current Medications Calcium Carbonate (Oyster Shell Calcium) 1.25 gm DAILY PO Last administered on 08/28/16 09:37; Admin Dose 1.25 GM; Start 08/24/16 at 09:00 Atorvastatin Calcium (Lipitor) 40 mg HS GTB Last administered on 08/27/16 20: 29; Admin Dose 40 MG; Start 08/24/16 at 21:00 Acetaminophen (Tylenol Tab) 650 mg Q4H PRN PO PAIN OR ELEVATED TEMP. Last administered on 08/28/16 01:55; Admin Dose 650 MG; Start 08/24/16 at 06:30 Patient Own Medication 1 ea HS PRN PO INSOMNIA Last administered on 08/27/16 20:29; Admin Dose 1 EA; Start 08/24/16 at 21:00 Miscellaneous Information Patients own medicat... BID@10,16 XX ; Start 08/24/16 at 10:00 Enoxaparin Sodium 60 mg 60 mg Q12 SC Last administered on 08/28/16 09:43; Admin Dose 60 MG; Start 08/24/16 at 09:00 Potassium Chloride/Sodium Chloride (NS-KCl 20 Meq) 1,000 ml @ 75 mls/hr [id number] IV Last administered on 5/10/17at 15:38; Admin Dose 75 MLS/HR; Start at 14:00 Clonazepam (Klonopin) 1 mg BID PRN PO ANXIETY Last administered on 08/27/16 20 :29; Admin Dose 1 MG; Start 08/26/16 at 15:30; Stop 08/30/16 at 23:55 Trazodone HCl (Desyrel) 50 mg HS PO Last administered on 08/27/16 20:29; Admin Dose 50 MG; Start 08/26/16 at 21:00 Pantoprazole (Protonix Tab) 40 mg DAILY@06 PO Last administered on 08/28/16 06 :02; Admin Dose 40 MG; Start 08/28/16 at 06:00 Alprazolam (Xanax) 0.5 mg Q8H PRN PO ANXIETY Last administered on 08/28/16 02: 50; Admin Dose 0.5 MG; Start 08/27/16 at 18:00 DIANA MORALES MD August 28, 2016 11:40
--- NOTE | 2016-08-28 13:51 | PN ---
Date/Time of Note Date/Time of Note DATE: 08/28/16 TIME: 13:48 Assessment/Plan VTE Prophylaxis VTE Prophylaxis Intervention: other Lines/Catheters IV C[facility] Type ([facility] port a cath Urinary Cath still in place: No Assessment/Plan Assessment/Plan - Sepsis secondary to postoperative soft tissue infection of the right breast. Dr. Patel is following in infectious disease consultation. Continue abx per ID. - Cellulitis of the right breast. - Per ID - Status post right modified mastectomy on August [address] Amanda is following in surgical consultation. - Thrombus of the left internal jugular vein. Dr. Edwards is following in vascular surgery consultation. Continue Lovenox. - Hyponatremia on admission, resolved Dr. Davies is following in nephrology consultation. Continue IV fluids. - Hyperthyroidism. Continue patient's Synthroid. - Hypertension. The patient currently is hypotensive. Continue to monitor blood pressure. - Hyperlipidemia. Continue statin. - Anemia, status post blood transfusion. Continue sequential compression device for deep venous thrombosis prophylaxis and Protonix for peptic ulcer disease prophylaxis. Further recommendations based on clinical course. Plan of care discussed with Dr. Brito. Subjective 24 Hr Interval Summary Free Text/Dictation sitting up in bed, afebrile, denies any nausea/vomitting, wants to take shower- will be per surgery.dw staff. Eyes: no complaints ENT: no complaints Respiratory: no complaints Cardiovascular: no complaints Gastrointestinal: no complaints Genitourinary: no complaints Musculoskeletal: no complaints Skin: other (RIGHT BREST -mike/rednedd/pain) Endocrine: no complaints Lymphatic: no complaints Psychological: no complaints Exam/Review of Systems Vital Signs Vitals Vital Signs Date Time Temp Pulse Resp B/P Pulse Ox O2 Delivery O2 Flow Rate FiO2 08/28/16 08:57 69 08/28/16 08:01 97.6 20 163/85 97 08/26/16 19:12 Room Air Intake and Output 08/27/16 08/27/16 08/28/16 15:00 23:00 07:00 Intake Total 1190 ml 1320 ml Output Total 65 ml 100 ml Balance -65 ml 1190 ml 1220 ml Exam Constitutional: alert, oriented, well developed Psych: no complaints Eyes: EOMI, nl sclera ENMT: nl external ears & nose Neck: non-tender Respiratory: clear to auscultation Cardiovascular: nl pulses Gastrointestinal: non-tender, soft Musculoskeletal: nl extremities to inspection Extremities: normal pulses Neurological: nl mental status, nl speech Skin: other (sp right masrectomey- mike noted- open to air. erythema , no discharge noted) Lymph: other Results Result Diagram: 08/28/16 0740 08/28/16 0740 Results 24 hrs Laboratory Tests Test 08/28/16 07:40 White Blood Count 6.1 Red Blood Count 3.46 L Hemoglobin 10.5 L Hematocrit 32.9 L Mean Corpuscular Volume 95.1 Mean Corpuscular Hemoglobin 30.3 Mean Corpuscular Hemoglobin Concent 31.9 L Red Cell Distribution Width 16.1 H Platelet Count 259 Mean Platelet Volume 9.1 Neutrophils % 62.8 Lymphocytes % 22.5 Monocytes % 9.8 Eosinophils % 2.1 Basophils % 0.5 Nucleated Red Blood Cells % 0.0 Neutrophils # 3.8 Lymphocytes # 1.4 Monocytes # 0.6 Eosinophils # 0.1 Basophils # 0.0 Nucleated Red Blood Cells # 0.0 Sodium Level 141 Potassium Level 3.8 Chloride Level 107 Carbon Dioxide Level 25 Anion Gap 13 Blood Urea Nitrogen 7 Creatinine 0.61 Glucose Level 87 Calcium Level 9.1 Medications Medications Current Medications Calcium Carbonate (Oyster Shell Calcium) 1.25 gm DAILY PO Last administered on 08/28/16 09:37; Admin Dose 1.25 GM; Start 08/24/16 at 09:00 Atorvastatin Calcium (Lipitor) 40 mg HS GTB Last administered on 08/27/16 20: 29; Admin Dose 40 MG; Start 08/24/16 at 21:00 Acetaminophen (Tylenol Tab) 650 mg Q4H PRN PO PAIN OR ELEVATED TEMP. Last administered on 08/28/16 01:55; Admin Dose 650 MG; Start 08/24/16 at 06:30 Patient Own Medication 1 ea HS PRN PO INSOMNIA Last administered on 08/27/16 20:29; Admin Dose 1 EA; Start 08/24/16 at 21:00 Miscellaneous Information Patients own medicat... BID@10,16 XX ; Start 08/24/16 at 10:00 Enoxaparin Sodium 60 mg 60 mg Q12 SC Last administered on 08/28/16 09:43; Admin Dose 60 MG; Start 08/24/16 at 09:00 Potassium Chloride/Sodium Chloride (NS-KCl 20 Meq) 1,000 ml @ 75 mls/hr [id number] IV Last administered on 08/27/16 15:38; Admin Dose 75 MLS/HR; Start at 14:00 Clonazepam (Klonopin) 1 mg BID PRN PO ANXIETY Last administered on 08/27/16 20 :29; Admin Dose 1 MG; Start 08/26/16 at 15:30; Stop 08/30/16 at 23:55 Trazodone HCl (Desyrel) 50 mg HS PO Last administered on 08/27/16 20:29; Admin Dose 50 MG; Start 08/26/16 at 21:00 Pantoprazole (Protonix Tab) 40 mg DAILY@06 PO Last administered on 08/28/16 06 :02; Admin Dose 40 MG; Start 08/28/16 at 06:00 Alprazolam (Xanax) 0.5 mg Q8H PRN PO ANXIETY Last administered on 08/28/16 12: 28; Admin Dose 0.5 MG; Start 08/27/16 at 18:00 DEUCE FRANK August 28, 2016 13:51
--- NOTE | 2016-08-28 16:31 | PN ---
DATE: 08/28/2016 SUBJECTIVE: The patient was admitted because of early sepsis due to cellulitis of the right breast. The right breast had modified radical mastectomy about a week ago, status post neoadjuvant chemotherapy. The patient had high leukocytosis and some fevers. Now today, the patient is feeling better. OBJECTIVE: VITAL SIGNS: Temperature 97.6, heart rate 70, respirations 20, blood pressure 163/85, saturation 97% on room air. CHEST: The incision line is intact, but there is erythema and cellulitis of the flaps of the mastectomy site, more than the inferior and superior. But on touch, it is not tender anymore. LABORATORY DATA: WBC 6100 with 62% neutrophils, hemoglobin 10.5, hematocrit 32.9. Chemistry normal, BUN and creatinine, sodium, and potassium. Stool has been negative for occult blood x2. It should be mentioned that the patient was anemic as well and she received 2 units of packed cells ASSESSMENT: The patient is a 56-year-old with advanced cancer of the right breast has undergone chemotherapy neoadjuvant also modified radical mastectomy and axillary dissection 10 days ago, presented with sepsis due to cellulitis of the right breast. She has been on antibiotic, cefepime. For some reason, somebody stopped the antibiotic last night and the patient is not on any antibiotic at this time. So I called Dr. Patel, infectious disease customs consultant , I am waiting for his call. I notified his nurse practitioner, Orestes Walton , about this matter and they are going to take care of that. PLAN: Restart antibiotic per choice of the infectious disease. Continue IV antibiotic and continue monitoring. Dictated By: ELVIA MURRAY/ZA Conf#: [id number] DID#: [id number]
--- NOTE | 2016-08-28 16:48 | CONS ---
Date/Time of Note Date/Time of Note DATE: 08/28/16 TIME: 16:48 Assessment/Plan Assessment/Plan Chief Complaint/Hosp Course - Sepsis d/t cellulitis of right chest - fever and mild leukocytosis improved - Cellulitis of right chest - Locally advanced right breast cancer s/p Right modified radical mastectomy 08/[address] Amanda - Left IJ thrombosis - Acute on probable chronic anemia requiring blood transfusion - Hyponatremia - improved - Hyperkalemia/Hypokalemia - improved - HTN - HLD - Hypothyroidism - Anxiety/depression - Hx previous alcohol abuse - New erythema to left chest port-a-cath site Recommendations: - De-escalate abx and start Pip/tazo (08/28/2016-); S/p vancomycin and cefepime - Monitor port-a-cath site erythema Management d/w Dr. Richardson, Pt, RN Laisha, and Dr. Patel Problems: Consultation Date/Type/Reason Admit Date/Time August 23, 2016 at 23:16 Initial Consult Date 08/24/16 Type of Consultation: Infectious Disease Referring Provider: MELISSA CASTILLO MD 24 HR Interval Summary Free Text/Dictation Port-a-cath needle was accidentally removed by pt while she was taking off cardiac cath tech and now port-a-cath site is reddened after cleaning it with chlorhexidine. Denies pain, SOB, n/v/d, dysuria. States right breast site appears numb and "stiff". States anxious to go home to see her 6 pets. Exam/Review of Systems Vital Signs Vitals Vital Signs Date Time Temp Pulse Resp B/P Pulse Ox O2 Delivery O2 Flow Rate FiO2 08/28/16 08:57 69 08/28/16 08:01 97.6 20 163/85 97 08/26/16 19:12 Room Air Intake and Output 08/27/16 08/27/16 08/28/16 15:00 23:00 07:00 Intake Total 1190 ml 1320 ml Output Total 65 ml 100 ml Balance -65 ml 1190 ml 1220 ml Exam Constitutional: alert, oriented, well developed Psych: nl mood/affect Head: atraumatic, normocephalic Eyes: nl sclera Neck: supple, No jvd Respiratory: clear to auscultation, normal air movement, other (Left chest port -a-cath noted with surrounding erythema) Cardiovascular: nl pulses, regular rate and rhythm, No edema Gastrointestinal: bowel sounds (present), non-tender, soft, No distended Extremities: normal pulses No clubbing, No cyanosis, No edema Neurological: nl mental status, nl speech Skin: nl turgor, other (Right breast mastectomy with mike intact with erythema with mild TTP; AKIL drains x2 with mostly serous drainage) Results Result Diagram: 08/28/16 0740 08/28/16 0740 Results 24 hrs Laboratory Tests Test 08/28/16 07:40 White Blood Count 6.1 Red Blood Count 3.46 L Hemoglobin 10.5 L Hematocrit 32.9 L Mean Corpuscular Volume 95.1 Mean Corpuscular Hemoglobin 30.3 Mean Corpuscular Hemoglobin Concent 31.9 L Red Cell Distribution Width 16.1 H Platelet Count 259 Mean Platelet Volume 9.1 Neutrophils % 62.8 Lymphocytes % 22.5 Monocytes % 9.8 Eosinophils % 2.1 Basophils % 0.5 Nucleated Red Blood Cells % 0.0 Neutrophils # 3.8 Lymphocytes # 1.4 Monocytes # 0.6 Eosinophils # 0.1 Basophils # 0.0 Nucleated Red Blood Cells # 0.0 Sodium Level 141 Potassium Level 3.8 Chloride Level 107 Carbon Dioxide Level 25 Anion Gap 13 Blood Urea Nitrogen 7 Creatinine 0.61 Glucose Level 87 Calcium Level 9.1 Medications Medications Current Medications Calcium Carbonate (Oyster Shell Calcium) 1.25 gm DAILY PO Last administered on 08/28/16 09:37; Admin Dose 1.25 GM; Start 08/24/16 at 09:00 Atorvastatin Calcium (Lipitor) 40 mg HS GTB Last administered on 08/27/16 20: 29; Admin Dose 40 MG; Start 08/24/16 at 21:00 Acetaminophen (Tylenol Tab) 650 mg Q4H PRN PO PAIN OR ELEVATED TEMP. Last administered on 08/28/16 01:55; Admin Dose 650 MG; Start 08/24/16 at 06:30 Patient Own Medication 1 ea HS PRN PO INSOMNIA Last administered on 08/27/16 20:29; Admin Dose 1 EA; Start 08/24/16 at 21:00 Miscellaneous Information Patients own medicat... BID@10,16 XX ; Start 08/24/16 at 10:00 Enoxaparin Sodium 60 mg 60 mg Q12 SC Last administered on 08/28/16 09:43; Admin Dose 60 MG; Start 08/24/16 at 09:00 Potassium Chloride/Sodium Chloride (NS-KCl 20 Meq) 1,000 ml @ 75 mls/hr [id number] IV Last administered on 08/27/16 15:38; Admin Dose 75 MLS/HR; Start at 14:00 Clonazepam (Klonopin) 1 mg BID PRN PO ANXIETY Last administered on 08/27/16 20 :29; Admin Dose 1 MG; Start 08/26/16 at 15:30; Stop 08/30/16 at 23:55 Trazodone HCl (Desyrel) 50 mg HS PO Last administered on 08/27/16 20:29; Admin Dose 50 MG; Start 08/26/16 at 21:00 Pantoprazole (Protonix Tab) 40 mg DAILY@06 PO Last administered on 08/28/16 06 :02; Admin Dose 40 MG; Start 08/28/16 at 06:00 Alprazolam 0.5 mg 0.5 mg Q8H PRN PO ANXIETY Last administered on 08/28/16 12: 28; Admin Dose 0.5 MG; Start 08/27/16 at 18:00 Piperacillin Sod/ Tazobactam Sod (Zosyn 3.375gm/ 100 ml (Pmx)) 100 ml @ 200 mls /hr Q6 IVPB ; Start 08/28/16 at 17:00 CARTER CARTAGENA NP August 28, 2016 16:48
[2016-08-28] MEDS: PIPER-TAZO 3.375 GM IV (PMX) 100 ML IVPB SCH ×2 (17:13→23:30)
[2016-08-28] MEDS: traZODone 50 MG TAB PO SCH (20:19)
[2016-08-28] MEDS: clonAZEPAM 0.5 MG TAB PO PRN (20:19)
[2016-08-28] MEDS: ATORVASTATIN 40 MG TAB GTB SCH (20:19)
--- NOTE | 2016-08-28 21:28 | PN ---
Date/Time of Note Date/Time of Note DATE: 08/28/16 TIME: 21:26 Assessment/Plan Lines/Catheters IV Catheter Type (from [facility]): port a cath Hightower in Place (from [facility]): No Assessment/Plan Chief Complaint/Hosp Course -Left internal jugular vein thrombosis: It seems that this finding is induced from her port catheter placement. From a vascular standpoint, no need for treatment for that other than having the patient on aspirin. However, if the patient has been started on anticoagulation, can continue it for 3 months' time. -Optimize vascular status (BP meds, diet, nutrition, exercise, sugar control, antiplatelet). -Discussed findings, plan, and management with the patient, and she understands. -Thank you for allowing us to partake in the care of your patient. Please call with any questions. Problems: Subjective 24 Hr Interval Summary no new vascular events overnight Exam/Review of Systems Vital Signs Vitals Vital Signs Date Time Temp Pulse Resp B/P Pulse Ox O2 Delivery O2 Flow Rate FiO2 08/28/16 20:16 98.3 79 21 132/83 98 08/26/16 19:12 Room Air Intake and Output 08/27/16 08/27/16 08/28/16 15:00 23:00 07:00 Intake Total 1190 ml 1320 ml Output Total 65 ml 100 ml Balance -65 ml 1190 ml 1220 ml Exam Free Text/Dictation GENERAL: She is alert and oriented x3, PULMONARY: Clear to auscultation bilaterally. Some incisional tenderness of the chest. left chest port catheter, nontender and clean. CARDIOVASCULAR: S1, S2 present. No murmurs. ABDOMEN: Soft, nontender, nondistended. Bowel sounds positive. EXTREMITIES: Palpable femoral pulse, palpable pedal pulse. Motor, sensory intact. Cap refill 2 to 3 seconds. UPPER EXTREMITIES: Palpable brachial pulse. Motor, sensory intact. Cap refill 2 to 3 seconds. Results Result Diagram: 08/28/16 0740 08/28/16 0740 DEANDRE ABDI MD August 28, 2016 21:28
[2016-08-28] MEDS: TEMAZEPAM 30 MG PO PRN (21:45)
[2016-08-29] MEDS: PIPER-TAZO 3.375 GM IV (PMX) 100 ML IVPB SCH ×3 (05:32→18:36)
[2016-08-29] MEDS: ALPRAZOLAM 0.25 MG TAB PO PRN ×3 (05:33→21:41)
[2016-08-29] MEDS: PANTOPRAZOLE (EC) 40 MG TAB PO SCH (05:33)
[2016-08-29 06:03] VITALS: BP 168/86; RESP 20
[2016-08-29] MEDS: LEVOTHYROXINE 100 MCG TAB PO SCH (06:07)
[2016-08-29 07:54] VITALS: BP 163/93; RESP 18
[2016-08-29 08:05] LABS: ADD SCAN DIFF NO
[2016-08-29 08:19] LABS: ABNORMAL IP MESSAGE 1; BASOPHIL # 0.1 10^3/ul (0.0-0.1); BASOPHILS % 1.2 % (0.0-2.0); EOSINOPHILS # 0.1 10^3/ul (0.0-0.5); EOSINOPHILS % 2.2 % (0.0-7.0); HEMATOCRIT 31.2 % (37.0-47.0); HEMOGLOBIN 10.2 g/dl (12.0-16.0); LYMPHOCYTES # 1.6 10^3/ul (0.8-2.9); LYMPHOCYTES % 24.9 % (15.0-51.0); MEAN CORPUSCULAR HEMOGLOBIN 30.6 pg (29.0-33.0); MEAN CORPUSCULAR HGB CONC 32.7 g/dl (32.0-37.0); MEAN CORPUSCULAR VOLUME 93.7 fl (82.0-101.0); MEAN PLATELET VOLUME 8.7 fl (7.4-10.4); MONOCYTE # 0.7 10^3/ul (0.3-0.9); MONOCYTES % 10.4 % (0.0-11.0); NEUTROPHIL # 3.5 10^3/ul (1.6-7.5); NEUTROPHILS % 55.1 % (39.0-77.0); PLATELET COUNT 269 10^3/UL (140-415); RED BLOOD COUNT 3.33 10^6/ul (4.20-5.40); RED CELL DISTRIBUTION WIDTH 15.7 % (11.5-14.5); WHITE BLOOD COUNT 6.4 10^3/ul (4.8-10.8)
[2016-08-29] MEDS: NS + KCL 20 MEQ 1,000 ML IV SCH ×2 (08:40→11:41)
[2016-08-29] MEDS: CALCIUM CARBONATE 1.25 GM TAB PO SCH (08:46)
[2016-08-29] MEDS: ENOXAPARIN 60 MG/0.6 ML SYG SC SCH ×2 (08:50→21:04)
[2016-08-29 08:52] LABS: POTASSIUM 3.7 mmol/L (3.5-5.1)
[2016-08-29] MEDS: ACETAMINOPHEN 325 MG TAB PO PRN ×2 (08:53→20:58)
[2016-08-29 08:55] LABS: CREATININE 0.62 mg/dl (0.44-1.00)
--- NOTE | 2016-08-29 10:59 | CONS ---
Date/Time of Note Date/Time of Note DATE: 08/29/16 TIME: 10:57 Assessment/Plan Assessment/Plan Additional Assessment/Plan 1. Hyponatremia, likely secondary to hypovolemic hyponatremia, no SIADH 3. Acute prerenal azotemia secondary to moderate to severe dehydration. 4. Moderate to severe dehydration. 5. History of recent right breast mastectomy 5 days ago. 6. Left internal jugular thrombosis. 7. History of hypertension. 8. History of depression. 9. History of anxiety. 10. History of previous alcohol abuse. 11. History of hypothyroidism. 12. hyperkalemia 13. Metabolic acidosis PLAN: continue IVF NS with KCl 20mEQ, - rate decreased to 60 cc/hr x 1 lite then stop Cr and electrolytes stable today will follow up her work up c/w Hypovolemic Hyponatremi due to Acute prerenal azotemia Consultation Date/Type/Reason Admit Date/Time August 23, 2016 at 23:16 Initial Consult Date 08/24/16 Type of Consultation: NEPHROLOGY Referring Provider: MELISSA CASTILLO MD 24 HR Interval Summary Free Text/Dictation Hb stable 10.2, BP stable, afebrile, Na and Cr better Exam/Review of Systems Vital Signs Vitals Vital Signs Date Time Temp Pulse Resp B/P Pulse Ox O2 Delivery O2 Flow Rate FiO2 08/29/16 07:54 98.0 68 18 163/93 98 08/26/16 19:12 Room Air Intake and Output 08/28/16 08/28/16 08/29/16 15:00 23:00 07:00 Intake Total 1340 ml 1375 ml Output Total 55 ml Balance 1340 ml 1320 ml Results Result Diagram: 08/29/16 0755 08/29/16 0755 Results 24 hrs Laboratory Tests Test 08/29/16 07:55 White Blood Count 6.4 Red Blood Count 3.33 L Hemoglobin 10.2 L Hematocrit 31.2 L Mean Corpuscular Volume 93.7 Mean Corpuscular Hemoglobin 30.6 Mean Corpuscular Hemoglobin Concent 32.7 Red Cell Distribution Width 15.7 H Platelet Count 269 Mean Platelet Volume 8.7 Neutrophils % 55.1 Lymphocytes % 24.9 Monocytes % 10.4 Eosinophils % 2.2 Basophils % 1.2 Nucleated Red Blood Cells % 0.0 Neutrophils # 3.5 Lymphocytes # 1.6 Monocytes # 0.7 Eosinophils # 0.1 Basophils # 0.1 Nucleated Red Blood Cells # 0.0 Sodium Level 140 Potassium Level 3.7 Chloride Level 107 Carbon Dioxide Level 23 Anion Gap 14 Blood Urea Nitrogen 8 Creatinine 0.62 Glucose Level 83 Calcium Level 9.0 Medications Medications Current Medications Calcium Carbonate (Oyster Shell Calcium) 1.25 gm DAILY PO Last administered on 08/29/16 08:46; Admin Dose 1.25 GM; Start 08/24/16 at 09:00 Atorvastatin Calcium (Lipitor) 40 mg HS GTB Last administered on 08/28/16 20: 19; Admin Dose 40 MG; Start 08/24/16 at 21:00 Acetaminophen (Tylenol Tab) 650 mg Q4H PRN PO PAIN OR ELEVATED TEMP. Last administered on 08/29/16 08:53; Admin Dose 650 MG; Start 08/24/16 at 06:30 Patient Own Medication 1 ea HS PRN PO INSOMNIA Last administered on 08/28/16 21:45; Admin Dose 1 EA; Start 08/24/16 at 21:00 Miscellaneous Information Patients own medicat... BID@10,16 XX ; Start 08/24/16 at 10:00 Enoxaparin Sodium 60 mg 60 mg Q12 SC Last administered on 08/29/16 08:50; Admin Dose 60 MG; Start 08/24/16 at 09:00 Potassium Chloride/Sodium Chloride (NS-KCl 20 Meq) 1,000 ml @ 75 mls/hr [id number] IV Last administered on 08/28/16 20:23; Admin Dose 75 MLS/HR; Start at 14:00 Clonazepam (Klonopin) 1 mg BID PRN PO ANXIETY Last administered on 08/28/16 20 :19; Admin Dose 1 MG; Start 08/26/16 at 15:30; Stop 08/30/16 at 23:55 Trazodone HCl (Desyrel) 50 mg HS PO Last administered on 08/28/16 20:19; Admin Dose 50 MG; Start 08/26/16 at 21:00 Pantoprazole (Protonix Tab) 40 mg DAILY@06 PO Last administered on 08/29/16 05 :33; Admin Dose 40 MG; Start 08/28/16 at 06:00 Alprazolam 0.5 mg 0.5 mg Q8H PRN PO ANXIETY Last administered on 08/29/16 05: 33; Admin Dose 0.5 MG; Start 08/27/16 at 18:00 Piperacillin Sod/ Tazobactam Sod (Zosyn 3.375gm/ 100 ml (Pmx)) 100 ml @ 200 mls /hr Q6 IVPB Last administered on 08/29/16 05:32; Admin Dose 200 MLS/HR; Start 08/28/16 at 17:00 DIANA MORALES MD August 29, 2016 10:59
--- NOTE | 2016-08-29 14:35 | PN ---
Date/Time of Note Date/Time of Note DATE: 08/29/16 TIME: 14:27 Assessment/Plan VTE Prophylaxis VTE Prophylaxis Intervention: SCD's Lines/Catheters IV [facility]from [facility] Port A Cath Urinary Cath still in place: No Assessment/Plan Chief Complaint/Hosp Course ASSESSMENT AND PLAN: - Sepsis secondary to postoperative soft tissue infection of the right breast. Dr. Patel is following in infectious disease consultation. Continue abx per ID. - Cellulitis of the right breast. - Status post right modified mastectomy on August [address] Amanda is following in surgical consultation. - Thrombus of the left internal jugular vein. Dr. Edwards is following in vascular surgery consultation. Continue Lovenox. - Hyponatremia on admission, resolved Dr. Davies is following in nephrology consultation. Continue IV fluids. - Hyperthyroidism. Continue patient's Synthroid. - Hypertension. Continue lisinopril. - Hyperlipidemia. Continue statin. - Anemia, status post blood transfusion. Continue sequential compression device for deep venous thrombosis prophylaxis and Protonix for peptic ulcer disease prophylaxis. Further recommendations based on clinical course. Plan of care discussed with Dr. Brito. Problems: Subjective 24 Hr Interval Summary Free Text/Dictation Patient denies any fever, pain is well controlled. Exam/Review of Systems Vital Signs Vitals Vital Signs Date Time Temp Pulse Resp B/P Pulse Ox O2 Delivery O2 Flow Rate FiO2 08/29/16 07:54 98.0 68 18 163/93 98 08/26/16 19:12 Room Air Intake and Output 08/28/16 08/28/16 08/29/16 15:00 23:00 07:00 Intake Total 1340 ml 1375 ml Output Total 55 ml Balance 1340 ml 1320 ml Exam GENERAL: Well-developed, well-nourished female, currently is awake, alert. HEENT: Head is atraumatic, normocephalic. Pupils equal, round, reactive to light and accommodation. Oral mucosa is pink and moist. NECK: Supple, no cervical lymphadenopathy, no thyromegaly. CHEST: Lungs clear bilaterally. No rhonchi, wheezes, or rales noted. The patient has a right breast surgical scar intact with mike and the right axillary JPs x2 with serous drainage. The patient also has a left chest PermCath. CARDIOVASCULAR: Normal S1, S2. No murmurs, gallops, clicks, rubs noted. ABDOMEN: Flat, soft, nondistended, nontender. Bowel sounds present. There is no guarding, no rebound tenderness. EXTREMITIES: There is no edema, clubbing, cyanosis. Pulses equal bilaterally 2 +. SKIN: There is no rash, petechiae noted. NEUROLOGIC: The patient is awake, alert, and oriented x4. Results Result Diagram: 08/29/16 0755 08/29/16 0755 Results 24 hrs Laboratory Tests Test 08/29/16 07:55 White Blood Count 6.4 Red Blood Count 3.33 L Hemoglobin 10.2 L Hematocrit 31.2 L Mean Corpuscular Volume 93.7 Mean Corpuscular Hemoglobin 30.6 Mean Corpuscular Hemoglobin Concent 32.7 Red Cell Distribution Width 15.7 H Platelet Count 269 Mean Platelet Volume 8.7 Neutrophils % 55.1 Lymphocytes % 24.9 Monocytes % 10.4 Eosinophils % 2.2 Basophils % 1.2 Nucleated Red Blood Cells % 0.0 Neutrophils # 3.5 Lymphocytes # 1.6 Monocytes # 0.7 Eosinophils # 0.1 Basophils # 0.1 Nucleated Red Blood Cells # 0.0 Sodium Level 140 Potassium Level 3.7 Chloride Level 107 Carbon Dioxide Level 23 Anion Gap 14 Blood Urea Nitrogen 8 Creatinine 0.62 Glucose Level 83 Calcium Level 9.0 Medications Medications Current Medications Calcium Carbonate (Oyster Shell Calcium) 1.25 gm DAILY PO Last administered on 08/29/16 08:46; Admin Dose 1.25 GM; Start 08/24/16 at 09:00 Atorvastatin Calcium (Lipitor) 40 mg HS GTB Last administered on 08/28/16 20: 19; Admin Dose 40 MG; Start 08/24/16 at 21:00 Acetaminophen (Tylenol Tab) 650 mg Q4H PRN PO PAIN OR ELEVATED TEMP. Last administered on 08/29/16 08:53; Admin Dose 650 MG; Start 08/24/16 at 06:30 Patient Own Medication 1 ea HS PRN PO INSOMNIA Last administered on 08/28/16 21:45; Admin Dose 1 EA; Start 08/24/16 at 21:00 Miscellaneous Information Patients own medicat... BID@10,16 XX ; Start 08/24/16 at 10:00 Enoxaparin Sodium 60 mg 60 mg Q12 SC Last administered on 08/29/16 08:50; Admin Dose 60 MG; Start 08/24/16 at 09:00 Potassium Chloride/Sodium Chloride (NS-KCl 20 Meq) 1,000 ml @ 60 mls/hr [id number] IV Last administered on 08/29/16 11:41; Admin Dose 60 MLS/HR; Start at 14:00 Clonazepam (Klonopin) 1 mg BID PRN PO ANXIETY Last administered on 08/28/16 20 :19; Admin Dose 1 MG; Start 08/26/16 at 15:30; Stop 08/30/16 at 23:55 Trazodone HCl (Desyrel) 50 mg HS PO Last administered on 08/28/16 20:19; Admin Dose 50 MG; Start 08/26/16 at 21:00 Pantoprazole (Protonix Tab) 40 mg DAILY@06 PO Last administered on 08/29/16 05 :33; Admin Dose 40 MG; Start 08/28/16 at 06:00 Alprazolam 0.5 mg 0.5 mg Q8H PRN PO ANXIETY Last administered on 08/29/16 13: 28; Admin Dose 0.5 MG; Start 08/27/16 at 18:00 Piperacillin Sod/ Tazobactam Sod (Zosyn 3.375gm/ 100 ml (Pmx)) 100 ml @ 200 mls /hr Q6 IVPB Last administered on 08/29/16 12:22; Admin Dose 200 MLS/HR; Start 08/28/16 at 17:00 PAUL RAMOS August 29, 2016 14:35
[2016-08-29] MEDS: LISINOPRIL 20 MG TAB PO SCH (18:41)
[2016-08-29 18:42] VITALS: BP 144/70; PULSE 71
[2016-08-29 20:00] VITALS: BP 186/96; RESP 20
--- NOTE | 2016-08-29 20:30 | CONS ---
Date/Time of Note Date/Time of Note DATE: 08/29/16 TIME: 20:29 Assessment/Plan Assessment/Plan Chief Complaint/Hosp Course - Sepsis d/t cellulitis of right chest - fever and mild leukocytosis improved - Cellulitis of right chest. Cultures of AKIL fluid grew MSSA, pseudo and bacillus species - Locally advanced right breast cancer s/p Right modified radical mastectomy 08/[address] Amanda - Left IJ thrombosis - Acute on probable chronic anemia requiring blood transfusion - Hyponatremia - improved - Hyperkalemia/Hypokalemia - improved - HTN - HLD - Hypothyroidism - Anxiety/depression - Hx previous alcohol abuse - New erythema to left chest port-a-cath site recommendations: - continue Pip/tazo (08/28/2016-) - Pt's s/p vancomycin and cefepime management d/w Pt and her RN Problems: Consultation Date/Type/Reason Admit Date/Time August 23, 2016 at 23:16 Initial Consult Date 08/24/16 Type of Consultation: ID Referring Provider: MELISSA CASTILLO MD 24 HR Interval Summary Constitutional: no complaints Detailed Summary Eyes: no complaints ENT: no complaints Respiratory: no complaints Cardiovascular: no complaints Gastrointestinal: no complaints Genitourinary: no complaints Musculoskeletal: other (heaviness of RUE) Skin: erythema (R breast), other (heaviness of skin of RUE and R chest) Neurologic: other (feels like the skin sensation of R chest wall and RUE is different) Exam/Review of Systems Vital Signs Vitals Vital Signs Date Time Temp Pulse Resp B/P Pulse Ox O2 Delivery O2 Flow Rate FiO2 08/29/16 18:42 71 144/70 08/29/16 07:54 98.0 18 98 08/26/16 19:12 Room Air Intake and Output 08/28/16 08/28/16 08/29/16 15:00 23:00 07:00 Intake Total 1340 ml 1375 ml Output Total 55 ml Balance 1340 ml 1320 ml Exam Constitutional: alert, oriented, well developed Psych: no complaints Head: atraumatic, normocephalic Eyes: nl conjunctiva, nl lids ENMT: nl external ears & nose, nl nasal mucosa & septum Neck: supple Respiratory: clear to auscultation, normal air movement Cardiovascular: nl pulses, regular rate and rhythm Extremities: No edema Skin: rash or lesions (erythema of R chest wall, faint erythema of RUE) Results Result Diagram: 08/29/16 0755 08/29/16 0755 Results 24 hrs Laboratory Tests Test 08/29/16 07:55 White Blood Count 6.4 Red Blood Count 3.33 L Hemoglobin 10.2 L Hematocrit 31.2 L Mean Corpuscular Volume 93.7 Mean Corpuscular Hemoglobin 30.6 Mean Corpuscular Hemoglobin Concent 32.7 Red Cell Distribution Width 15.7 H Platelet Count 269 Mean Platelet Volume 8.7 Neutrophils % 55.1 Lymphocytes % 24.9 Monocytes % 10.4 Eosinophils % 2.2 Basophils % 1.2 Nucleated Red Blood Cells % 0.0 Neutrophils # 3.5 Lymphocytes # 1.6 Monocytes # 0.7 Eosinophils # 0.1 Basophils # 0.1 Nucleated Red Blood Cells # 0.0 Sodium Level 140 Potassium Level 3.7 Chloride Level 107 Carbon Dioxide Level 23 Anion Gap 14 Blood Urea Nitrogen 8 Creatinine 0.62 Glucose Level 83 Calcium Level 9.0 Medications Medications Current Medications Calcium Carbonate (Oyster Shell Calcium) 1.25 gm DAILY PO Last administered on 08/29/16 08:46; Admin Dose 1.25 GM; Start 08/24/16 at 09:00 Atorvastatin Calcium (Lipitor) 40 mg HS GTB Last administered on 08/28/16 20: 19; Admin Dose 40 MG; Start 08/24/16 at 21:00 Acetaminophen (Tylenol Tab) 650 mg Q4H PRN PO PAIN OR ELEVATED TEMP. Last administered on 08/29/16 08:53; Admin Dose 650 MG; Start 08/24/16 at 06:30 Patient Own Medication 1 ea HS PRN PO INSOMNIA Last administered on 08/28/16 21:45; Admin Dose 1 EA; Start 08/24/16 at 21:00 Miscellaneous Information Patients own medicat... BID@10,16 XX ; Start 08/24/16 at 10:00 Enoxaparin Sodium 60 mg 60 mg Q12 SC Last administered on 08/29/16 08:50; Admin Dose 60 MG; Start 08/24/16 at 09:00 Potassium Chloride/Sodium Chloride (NS-KCl 20 Meq) 1,000 ml @ 60 mls/hr [id number] IV Last administered on 08/29/16 11:41; Admin Dose 60 MLS/HR; Start at 14:00 Clonazepam (Klonopin) 1 mg BID PRN PO ANXIETY Last administered on 08/28/16 20 :19; Admin Dose 1 MG; Start 08/26/16 at 15:30; Stop 08/30/16 at 23:55 Trazodone HCl (Desyrel) 50 mg HS PO Last administered on 08/28/16 20:19; Admin Dose 50 MG; Start 08/26/16 at 21:00 Pantoprazole (Protonix Tab) 40 mg DAILY@06 PO Last administered on 08/29/16 05 :33; Admin Dose 40 MG; Start 08/28/16 at 06:00 Alprazolam 0.5 mg 0.5 mg Q8H PRN PO ANXIETY Last administered on 08/29/16 13: 28; Admin Dose 0.5 MG; Start 08/27/16 at 18:00 Piperacillin Sod/ Tazobactam Sod (Zosyn 3.375gm/ 100 ml (Pmx)) 100 ml @ 200 mls /hr Q6 IVPB Last administered on 08/29/16 18:36; Admin Dose 200 MLS/HR; Start 08/28/16 at 17:00 Lisinopril (Zestril) 20 mg DAILY PO Last administered on 08/29/16 18:41; Admin Dose 20 MG; Start 08/29/16 at 15:00 GRECIA LLOYD M.D. August 29, 2016 20:30
[2016-08-29] MEDS: traZODone 50 MG TAB PO SCH (20:39)
[2016-08-29] MEDS: ATORVASTATIN 40 MG TAB GTB SCH (20:39)
[2016-08-29] MEDS: TEMAZEPAM 30 MG PO PRN (20:58)
[2016-08-29] MEDS: METOPROLOL 50 MG TAB PO SCH (22:01)
[2016-08-29 23:58] VITALS: BP 153/79
[2016-08-30] MEDS: PIPER-TAZO 3.375 GM IV (PMX) 100 ML IVPB SCH ×4 (00:14→17:30)
[2016-08-30 00:36] VITALS: BP 129/62; RESP 18
[2016-08-30] MEDS: NS + KCL 20 MEQ 1,000 ML IV SCH ×2 (00:45→17:30)
[2016-08-30] MEDS: ACETAMINOPHEN 325 MG TAB PO PRN (01:40)
[2016-08-30] MEDS: LEVOTHYROXINE 100 MCG TAB PO SCH (05:40)
[2016-08-30] MEDS: PANTOPRAZOLE (EC) 40 MG TAB PO SCH (05:40)
[2016-08-30 06:42] LABS: ADD SCAN DIFF NO
[2016-08-30 06:47] LABS: ABNORMAL IP MESSAGE 1; BASOPHIL # 0.1 10^3/ul (0.0-0.1); BASOPHILS % 0.6 % (0.0-2.0); EOSINOPHILS # 0.2 10^3/ul (0.0-0.5); EOSINOPHILS % 2.2 % (0.0-7.0); HEMATOCRIT 31.3 % (37.0-47.0); HEMOGLOBIN 9.9 g/dl (12.0-16.0); LYMPHOCYTES # 1.8 10^3/ul (0.8-2.9); MEAN CORPUSCULAR HEMOGLOBIN 30.1 pg (29.0-33.0); MEAN CORPUSCULAR HGB CONC 31.6 g/dl (32.0-37.0); MEAN CORPUSCULAR VOLUME 95.1 fl (82.0-101.0); MEAN PLATELET VOLUME 9.1 fl (7.4-10.4); MONOCYTE # 0.7 10^3/ul (0.3-0.9); MONOCYTES % 8.4 % (0.0-11.0); NEUTROPHIL # 4.5 10^3/ul (1.6-7.5); NEUTROPHILS % 56.4 % (39.0-77.0); PLATELET COUNT 275 10^3/UL (140-415); RED BLOOD COUNT 3.29 10^6/ul (4.20-5.40); RED CELL DISTRIBUTION WIDTH 15.7 % (11.5-14.5)
[2016-08-30 07:11] LABS: POTASSIUM 3.6 mmol/L (3.5-5.1)
[2016-08-30 07:13] LABS: CREATININE 0.65 mg/dl (0.44-1.00)
[2016-08-30 07:14] LABS: CALCIUM 9.4 mg/dl (8.4-10.2)
[2016-08-30 07:49] VITALS: BP 133/79; RESP 18
[2016-08-30] MEDS: CALCIUM CARBONATE 1.25 GM TAB PO SCH (09:11)
[2016-08-30] MEDS: ALPRAZOLAM 0.25 MG TAB PO PRN (09:11)
[2016-08-30] MEDS: LISINOPRIL 20 MG TAB PO SCH (09:12)
[2016-08-30] MEDS: METOPROLOL 50 MG TAB PO SCH ×2 (09:13→20:33)
[2016-08-30] MEDS: ENOXAPARIN 60 MG/0.6 ML SYG SC SCH ×2 (09:25→20:49)
--- NOTE | 2016-08-30 10:29 | PN ---
Date/Time of Note Date/Time of Note DATE: 08/30/16 TIME: 10:28 Assessment/Plan VTE Prophylaxis VTE Prophylaxis Intervention: other Lines/Catheters [facility] portacath Urinary Cath still in place: No Assessment/Plan Chief Complaint/Hosp Course - Sepsis secondary to postoperative soft tissue infection of the right breast. Dr. Patel is following in infectious disease consultation. Continue abx per ID. - Cellulitis of the right breast. - Status post right modified mastectomy on August [address] Amanda is following in surgical consultation. - Thrombus of the left internal jugular vein. Dr. Edwards is following in vascular surgery consultation. Continue Lovenox. - Hyponatremia on admission, resolved Dr. Davies is following in nephrology consultation. Continue IV fluids. - Hyperthyroidism. Continue patient's Synthroid. - Hypertension. Continue lisinopril. - Hyperlipidemia. Continue statin. - Anemia, status post blood transfusion. Problems: Subjective 24 Hr Interval Summary Free Text/Dictation Patient is anxious, eager to go home Exam/Review of Systems Vital Signs Vitals Vital Signs Date Time Temp Pulse Resp B/P Pulse Ox O2 Delivery O2 Flow Rate FiO2 08/30/16 07:49 97.9 63 18 133/79 95 08/26/16 19:12 Room Air Intake and Output 08/29/16 08/29/16 08/30/16 15:00 23:00 07:00 Intake Total 1000 ml 1780 ml 1060 ml Output Total 35 ml 22 ml Balance 1000 ml 1745 ml 1038 ml Exam Constitutional: well developed Head: atraumatic, normocephalic Neck: supple Respiratory: clear to auscultation Cardiovascular: regular rate and rhythm Gastrointestinal: non-tender, soft Extremities: normal pulses Results Result Diagram: 08/30/16 0536 08/30/16 0536 Results 24 hrs Laboratory Tests Test 08/30/16 05:36 White Blood Count 8.0 # Red Blood Count 3.29 L Hemoglobin 9.9 L Hematocrit 31.3 L Mean Corpuscular Volume 95.1 Mean Corpuscular Hemoglobin 30.1 Mean Corpuscular Hemoglobin Concent 31.6 L Red Cell Distribution Width 15.7 H Platelet Count 275 Mean Platelet Volume 9.1 Neutrophils % 56.4 Lymphocytes % 23.0 Monocytes % 8.4 Eosinophils % 2.2 Basophils % 0.6 Nucleated Red Blood Cells % 0.0 Neutrophils # 4.5 Lymphocytes # 1.8 Monocytes # 0.7 Eosinophils # 0.2 Basophils # 0.1 Nucleated Red Blood Cells # 0.0 Sodium Level 140 Potassium Level 3.6 Chloride Level 106 Carbon Dioxide Level 25 Anion Gap 13 Blood Urea Nitrogen 9 Creatinine 0.65 Glucose Level 89 Calcium Level 9.4 Medications Medications Current Medications Calcium Carbonate (Oyster Shell Calcium) 1.25 gm DAILY PO Last administered on 08/30/16 09:11; Admin Dose 1.25 GM; Start 08/24/16 at 09:00 Atorvastatin Calcium (Lipitor) 40 mg HS GTB Last administered on 08/29/16 20: 39; Admin Dose 40 MG; Start 08/24/16 at 21:00 Acetaminophen (Tylenol Tab) 650 mg Q4H PRN PO PAIN OR ELEVATED TEMP. Last administered on 08/30/16 01:40; Admin Dose 650 MG; Start 08/24/16 at 06:30 Patient Own Medication 1 ea HS PRN PO INSOMNIA Last administered on 08/29/16 20:58; Admin Dose 1 EA; Start 08/24/16 at 21:00 Miscellaneous Information Patients own medicat... BID@10,16 XX ; Start 08/24/16 at 10:00 Enoxaparin Sodium 60 mg 60 mg Q12 SC Last administered on 08/30/16 09:25; Admin Dose 60 MG; Start 08/24/16 at 09:00 Potassium Chloride/Sodium Chloride (NS-KCl 20 Meq) 1,000 ml @ 60 mls/hr [id number] IV Last administered on 08/29/16 11:41; Admin Dose 60 MLS/HR; Start at 14:00 Clonazepam (Klonopin) 1 mg BID PRN PO ANXIETY Last administered on 08/28/16 20 :19; Admin Dose 1 MG; Start 08/26/16 at 15:30; Stop 08/30/16 at 23:55 Trazodone HCl (Desyrel) 50 mg HS PO Last administered on 08/29/16 20:39; Admin Dose 50 MG; Start 08/26/16 at 21:00 Pantoprazole (Protonix Tab) 40 mg DAILY@06 PO Last administered on 08/30/16 05 :40; Admin Dose 40 MG; Start 08/28/16 at 06:00 Alprazolam 0.5 mg 0.5 mg Q8H PRN PO ANXIETY Last administered on 08/30/16 09: 11; Admin Dose 0.5 MG; Start 08/27/16 at 18:00 Piperacillin Sod/ Tazobactam Sod (Zosyn 3.375gm/ 100 ml (Pmx)) 100 ml @ 200 mls /hr Q6 IVPB Last administered on 08/30/16 05:40; Admin Dose 200 MLS/HR; Start 08/28/16 at 17:00 Lisinopril (Zestril) 20 mg DAILY PO Last administered on 08/30/16 09:12; Admin Dose 20 MG; Start 08/29/16 at 15:00 Metoprolol Tartrate (Lopressor) 50 mg BID PO Last administered on 08/30/16 09: 13; Admin Dose 50 MG; Start 08/29/16 at 22:00 SALOME LI August 30, 2016 10:29
--- NOTE | 2016-08-30 11:33 | CONS ---
Date/Time of Note Date/Time of Note DATE: 08/30/16 TIME: 11:32 Assessment/Plan Assessment/Plan Additional Assessment/Plan 1. Hyponatremia, likely secondary to hypovolemic hyponatremia, no SIADH 3. Acute prerenal azotemia secondary to moderate to severe dehydration. 4. Moderate to severe dehydration. 5. History of recent right breast mastectomy 5 days ago. 6. Left internal jugular thrombosis. 7. History of hypertension. 8. History of depression. 9. History of anxiety. 10. History of previous alcohol abuse. 11. History of hypothyroidism. 12. hyperkalemia 13. Metabolic acidosis PLAN: continue IVF NS with KCl 20mEQ, - rate decreased to 60 cc/hr x 1 lite then stop Cr and electrolytes stable today will follow up her work up c/w Hypovolemic Hyponatremi due to Acute prerenal azotemia Consultation Date/Type/Reason Admit Date/Time August 23, 2016 at 23:16 Initial Consult Date 08/24/16 Type of Consultation: NEPHROLOGY Referring Provider: MELISSA CASTILLO MD 24 HR Interval Summary Free Text/Dictation remains stable Exam/Review of Systems Vital Signs Vitals Vital Signs Date Time Temp Pulse Resp B/P Pulse Ox O2 Delivery O2 Flow Rate FiO2 08/30/16 07:49 97.9 63 18 133/79 95 08/26/16 19:12 Room Air Intake and Output 08/29/16 08/29/16 08/30/16 15:00 23:00 07:00 Intake Total 1000 ml 1780 ml 1060 ml Output Total 35 ml 22 ml Balance 1000 ml 1745 ml 1038 ml Exam Constitutional: alert, oriented, well developed Psych: no complaints Head: atraumatic, normocephalic Eyes: nl conjunctiva, nl lids ENMT: nl external ears & nose, nl nasal mucosa & septum Neck: supple Respiratory: clear to auscultation, normal air movement Cardiovascular: nl pulses, regular rate and rhythm Extremities: No edema Skin: rash or lesions (erythema of R chest wall, faint erythema of RUE) Results Result Diagram: 08/30/16 0536 08/30/16 0536 Results 24 hrs Laboratory Tests Test 08/30/16 05:36 White Blood Count 8.0 # Red Blood Count 3.29 L Hemoglobin 9.9 L Hematocrit 31.3 L Mean Corpuscular Volume 95.1 Mean Corpuscular Hemoglobin 30.1 Mean Corpuscular Hemoglobin Concent 31.6 L Red Cell Distribution Width 15.7 H Platelet Count 275 Mean Platelet Volume 9.1 Neutrophils % 56.4 Lymphocytes % 23.0 Monocytes % 8.4 Eosinophils % 2.2 Basophils % 0.6 Nucleated Red Blood Cells % 0.0 Neutrophils # 4.5 Lymphocytes # 1.8 Monocytes # 0.7 Eosinophils # 0.2 Basophils # 0.1 Nucleated Red Blood Cells # 0.0 Sodium Level 140 Potassium Level 3.6 Chloride Level 106 Carbon Dioxide Level 25 Anion Gap 13 Blood Urea Nitrogen 9 Creatinine 0.65 Glucose Level 89 Calcium Level 9.4 Medications Medications Current Medications Calcium Carbonate (Oyster Shell Calcium) 1.25 gm DAILY PO Last administered on 08/30/16 09:11; Admin Dose 1.25 GM; Start 08/24/16 at 09:00 Atorvastatin Calcium (Lipitor) 40 mg HS GTB Last administered on 08/29/16 20: 39; Admin Dose 40 MG; Start 08/24/16 at 21:00 Acetaminophen (Tylenol Tab) 650 mg Q4H PRN PO PAIN OR ELEVATED TEMP. Last administered on 08/30/16 01:40; Admin Dose 650 MG; Start 08/24/16 at 06:30 Patient Own Medication 1 ea HS PRN PO INSOMNIA Last administered on 08/29/16 20:58; Admin Dose 1 EA; Start 08/24/16 at 21:00 Miscellaneous Information Patients own medicat... BID@10,16 XX ; Start 08/24/16 at 10:00 Enoxaparin Sodium 60 mg 60 mg Q12 SC Last administered on 08/30/16 09:25; Admin Dose 60 MG; Start 08/24/16 at 09:00 Potassium Chloride/Sodium Chloride (NS-KCl 20 Meq) 1,000 ml @ 60 mls/hr [id number] IV Last administered on 08/29/16 11:41; Admin Dose 60 MLS/HR; Start at 14:00 Clonazepam (Klonopin) 1 mg BID PRN PO ANXIETY Last administered on 08/28/16 20 :19; Admin Dose 1 MG; Start 08/26/16 at 15:30; Stop 08/30/16 at 23:55 Trazodone HCl (Desyrel) 50 mg HS PO Last administered on 08/29/16 20:39; Admin Dose 50 MG; Start 08/26/16 at 21:00 Pantoprazole (Protonix Tab) 40 mg DAILY@06 PO Last administered on 08/30/16 05 :40; Admin Dose 40 MG; Start 08/28/16 at 06:00 Alprazolam 0.5 mg 0.5 mg Q8H PRN PO ANXIETY Last administered on 08/30/16 09: 11; Admin Dose 0.5 MG; Start 08/27/16 at 18:00 Piperacillin Sod/ Tazobactam Sod (Zosyn 3.375gm/ 100 ml (Pmx)) 100 ml @ 200 mls /hr Q6 IVPB Last administered on 08/30/16 05:40; Admin Dose 200 MLS/HR; Start 08/28/16 at 17:00 Lisinopril (Zestril) 20 mg DAILY PO Last administered on 08/30/16 09:12; Admin Dose 20 MG; Start 08/29/16 at 15:00 Metoprolol Tartrate (Lopressor) 50 mg BID PO Last administered on 08/30/16 09: 13; Admin Dose 50 MG; Start 08/29/16 at 22:00 DIANA MORALES MD August 30, 2016 11:33
[2016-08-30] MEDS: clonAZEPAM 0.5 MG TAB PO PRN ×2 (12:47→20:32)
--- NOTE | 2016-08-30 19:09 | CONS ---
CARTER CARTAGENA CARBON CUTTER 08/30/16 1909: Date/Time of Note Date/Time of Note DATE: 08/30/16 TIME: 19:08 Assessment/Plan Assessment/Plan Chief Complaint/Hosp Course - Sepsis d/t cellulitis of right chest - fever and mild leukocytosis improved - Cellulitis of right chest. Cultures of AKIL fluid grew MSSA, pseudo and bacillus species - Locally advanced right breast cancer s/p Right modified radical mastectomy 08/[address] Amanda - Left IJ thrombosis - Acute on probable chronic anemia requiring blood transfusion - Hyponatremia - improved - Hyperkalemia/Hypokalemia - improved - HTN - HLD - Hypothyroidism - Anxiety/depression - Hx previous alcohol abuse - New erythema to left chest port-a-cath site - improved recommendations: - continue Pip/tazo (08/28/2016-) - Pt's s/p vancomycin and cefepime Management d/w Pt (therapeutic time provided with all questions answered) and Dr. Lerma Problems: Consultation Date/Type/Reason Admit Date/Time August 23, 2016 at 23:16 Initial Consult Date 08/24/16 Type of Consultation: Infectious Disease Referring Provider: MELISSA CASTILLO MD 24 HR Interval Summary Free Text/Dictation States still feels "heaviness" and numbness on right chest wall and RUE. Erythema is improving. Denies pain, SOB, n/v/d, dysuria. States she is getting her home cleaned prior to DC as she lives with 5 cats and 1 dog. Exam/Review of Systems Vital Signs Vitals Vital Signs Date Time Temp Pulse Resp B/P Pulse Ox O2 Delivery O2 Flow Rate FiO2 08/30/16 07:49 97.9 63 18 133/79 95 08/26/16 19:12 Room Air Intake and Output 08/29/16 08/29/16 08/30/16 15:00 23:00 07:00 Intake Total 1000 ml 1780 ml 1060 ml Output Total 35 ml 22 ml Balance 1000 ml 1745 ml 1038 ml Exam Constitutional: alert, oriented, well developed Psych: nl mood/affect Head: atraumatic, normocephalic, aloplecia Eyes: nl sclera Neck: supple, No jvd Respiratory: clear to auscultation, normal air movement, other (Left chest port -a-cath noted with resolving erythema) Cardiovascular: nl pulses, regular rate and rhythm, No edema Gastrointestinal: bowel sounds (present), non-tender, soft, No distended Extremities: normal pulses No clubbing, No cyanosis, No edema Neurological: nl mental status, nl speech Skin: nl turgor, other (Right breast mastectomy with mike intact with decreased erythema with mild TTP; AKIL drains x2 with mostly serous drainage; faint erythema of RUE) Results Result Diagram: 08/30/1636 08/30/16 0536 Results 24 hrs Laboratory Tests Test 08/30/16 05:36 White Blood Count 8.0 # Red Blood Count 3.29 L Hemoglobin 9.9 L Hematocrit 31.3 L Mean Corpuscular Volume 95.1 Mean Corpuscular Hemoglobin 30.1 Mean Corpuscular Hemoglobin Concent 31.6 L Red Cell Distribution Width 15.7 H Platelet Count 275 Mean Platelet Volume 9.1 Neutrophils % 56.4 Lymphocytes % 23.0 Monocytes % 8.4 Eosinophils % 2.2 Basophils % 0.6 Nucleated Red Blood Cells % 0.0 Neutrophils # 4.5 Lymphocytes # 1.8 Monocytes # 0.7 Eosinophils # 0.2 Basophils # 0.1 Nucleated Red Blood Cells # 0.0 Sodium Level 140 Potassium Level 3.6 Chloride Level 106 Carbon Dioxide Level 25 Anion Gap 13 Blood Urea Nitrogen 9 Creatinine 0.65 Glucose Level 89 Calcium Level 9.4 Medications Medications Current Medications Calcium Carbonate (Oyster Shell Calcium) 1.25 gm DAILY PO Last administered on 08/30/16 09:11; Admin Dose 1.25 GM; Start 08/24/16 at 09:00 Atorvastatin Calcium (Lipitor) 40 mg HS GTB Last administered on 08/29/16 20: 39; Admin Dose 40 MG; Start 08/24/16 at 21:00 Acetaminophen (Tylenol Tab) 650 mg Q4H PRN PO PAIN OR ELEVATED TEMP. Last administered on 08/30/16 01:40; Admin Dose 650 MG; Start 08/24/16 at 06:30 Patient Own Medication 1 ea HS PRN PO INSOMNIA Last administered on 08/29/16 20:58; Admin Dose 1 EA; Start 08/24/16 at 21:00 Miscellaneous Information Patients own medicat... BID@10,16 XX ; Start 08/24/16 at 10:00 Enoxaparin Sodium 60 mg 60 mg Q12 SC Last administered on 08/30/16 09:25; Admin Dose 60 MG; Start 08/24/16 at 09:00 Potassium Chloride/Sodium Chloride (NS-KCl 20 Meq) 1,000 ml @ 60 mls/hr [id number] IV Last administered on 08/30/16 17:30; Admin Dose 60 MLS/HR; Start at 14:00 Clonazepam (Klonopin) 1 mg BID PRN PO ANXIETY Last administered on 08/30/16 12 :47; Admin Dose 1 MG; Start 08/26/16 at 15:30; Stop 08/30/16 at 23:55 Trazodone HCl (Desyrel) 50 mg HS PO Last administered on 08/29/16 20:39; Admin Dose 50 MG; Start 08/26/16 at 21:00 Pantoprazole (Protonix Tab) 40 mg DAILY@06 PO Last administered on 08/30/16 05 :40; Admin Dose 40 MG; Start 08/28/16 at 06:00 Alprazolam 0.5 mg 0.5 mg Q8H PRN PO ANXIETY Last administered on 08/30/16 09: 11; Admin Dose 0.5 MG; Start 08/27/16 at 18:00 Piperacillin Sod/ Tazobactam Sod (Zosyn 3.375gm/ 100 ml (Pmx)) 100 ml @ 200 mls /hr Q6 IVPB Last administered on 08/30/16 17:30; Admin Dose 200 MLS/HR; Start 08/28/16 at 17:00 Lisinopril (Zestril) 20 mg DAILY PO Last administered on 08/30/16 09:12; Admin Dose 20 MG; Start 08/29/16 at 15:00 Metoprolol Tartrate (Lopressor) 50 mg BID PO Last administered on 08/30/16 09: 13; Admin Dose 50 MG; Start 08/29/16 at 22:00 GRECIA LERMA M.D. 08/31/16 1206: Assessment/Plan Assessment/Plan Additional Assessment/Plan Maria Guadalupe attestation: I discussed the management with CHELLY Cartagena and agree with above Exam/Review of Systems Results Result Diagram: 08/30/16 0536 08/30/16 0536 CARTER CARTAGENA NP August 30, 2016 19:09 GRECIA LERMA M.D. August 31, 2016 12:06
[2016-08-30 19:39] VITALS: BP 142/73; RESP 18
[2016-08-30] MEDS: ATORVASTATIN 40 MG TAB GTB SCH (20:32)
[2016-08-30] MEDS: traZODone 50 MG TAB PO SCH (20:32)
[2016-08-30] MEDS: TEMAZEPAM 30 MG PO PRN (22:07)
[2016-08-31] MEDS: PIPER-TAZO 3.375 GM IV (PMX) 100 ML IVPB SCH ×4 (01:21→17:54)
[2016-08-31] MEDS: PANTOPRAZOLE (EC) 40 MG TAB PO SCH (06:32)
[2016-08-31] MEDS: LEVOTHYROXINE 100 MCG TAB PO SCH (06:37)
[2016-08-31 07:54] VITALS: BP 135/65; RESP 18
[2016-08-31] MEDS: METOPROLOL 50 MG TAB PO SCH ×2 (09:11→20:17)
[2016-08-31] MEDS: LISINOPRIL 20 MG TAB PO SCH (09:11)
[2016-08-31] MEDS: CALCIUM CARBONATE 1.25 GM TAB PO SCH (09:12)
[2016-08-31] MEDS: ALPRAZOLAM 0.25 MG TAB PO PRN ×2 (09:12→20:24)
[2016-08-31] MEDS: ENOXAPARIN 60 MG/0.6 ML SYG SC SCH ×2 (09:22→20:18)
[2016-08-31] MEDS: NS + KCL 20 MEQ 1,000 ML IV SCH ×2 (10:05→12:16)
--- NOTE | 2016-08-31 11:08 | CONS ---
Date/Time of Note Date/Time of Note DATE: 08/31/16 TIME: 11:00 Consult Date/Type/Reason Admit Date/Time August 23, 2016 at 23:16 Initial Consult Date 08/24/16 Type of Consultation: Infectious Disease Ordering Provider: MELISSA CASTILLO MD Subjective Constitutional: alert, oriented, well developed Psych: no complaints Head: atraumatic, normocephalic Eyes: nl conjunctiva, nl lids ENMT: nl external ears & nose, nl nasal mucosa & septum Neck: supple Respiratory: clear to auscultation, normal air movement Cardiovascular: nl pulses, regular rate and rhythm Extremities: No edema Skin: erythema of R chest wall, faint erythema of RUE Objective Vital Signs Date Time Temp Pulse Resp B/P Pulse Ox O2 Delivery O2 Flow Rate FiO2 08/31/16 07:54 98.3 62 18 135/65 97 Intake and Output 08/30/16 08/30/16 08/31/16 15:00 23:00 07:00 Intake Total 100 ml 1300 ml 1240 ml Output Total 5 ml 27 ml Balance 100 ml 1295 ml 1213 ml Results/Medications Result Diagram: 08/30/16 0536 08/30/16 0536 Medications Current Medications Calcium Carbonate (Oyster Shell Calcium) 1.25 gm DAILY PO Last administered on 08/31/16 09:12; Admin Dose 1.25 GM; Start 08/24/16 at 09:00 Atorvastatin Calcium (Lipitor) 40 mg HS GTB Last administered on 08/30/16 20: 32; Admin Dose 40 MG; Start 08/24/16 at 21:00 Acetaminophen (Tylenol Tab) 650 mg Q4H PRN PO PAIN OR ELEVATED TEMP. Last administered on 08/30/16 01:40; Admin Dose 650 MG; Start 08/24/16 at 06:30 Patient Own Medication 1 ea HS PRN PO INSOMNIA Last administered on 08/30/16 22:07; Admin Dose 1 EA; Start 08/24/16 at 21:00 Miscellaneous Information Patients own medicat... BID@10,16 XX ; Start 08/24/16 at 10:00 Enoxaparin Sodium 60 mg 60 mg Q12 SC Last administered on 08/31/16 09:22; Admin Dose 60 MG; Start 08/24/16 at 09:00 Potassium Chloride/Sodium Chloride (NS-KCl 20 Meq) 1,000 ml @ 60 mls/hr [id number] IV Last administered on 08/30/16 17:30; Admin Dose 60 MLS/HR; Start at 14:00 Trazodone HCl (Desyrel) 50 mg HS PO Last administered on 08/30/16 20:32; Admin Dose 50 MG; Start 08/26/16 at 21:00 Pantoprazole (Protonix Tab) 40 mg DAILY@06 PO Last administered on 08/31/16 06 :32; Admin Dose 40 MG; Start 08/28/16 at 06:00 Alprazolam 0.5 mg 0.5 mg Q8H PRN PO ANXIETY Last administered on 08/31/16 09: 12; Admin Dose 0.5 MG; Start 08/27/16 at 18:00 Piperacillin Sod/ Tazobactam Sod (Zosyn 3.375gm/ 100 ml (Pmx)) 100 ml @ 200 mls /hr Q6 IVPB Last administered on 08/31/16 06:32; Admin Dose 200 MLS/HR; Start 08/28/16 at 17:00 Lisinopril (Zestril) 20 mg DAILY PO Last administered on 08/31/16 09:11; Admin Dose 20 MG; Start 08/29/16 at 15:00 Metoprolol Tartrate (Lopressor) 50 mg BID PO Last administered on 08/31/16 09: 11; Admin Dose 50 MG; Start 08/29/16 at 22:00 Assessment/Plan Additional Assessment/Plan 1. Hyponatremia, likely secondary to hypovolemic hyponatremia, no SIADH 3. Acute prerenal azotemia secondary to moderate to severe dehydration. 4. Moderate to severe dehydration. 5. History of recent right breast mastectomy 5 days ago. 6. Left internal jugular thrombosis. 7. History of hypertension. 8. History of depression. 9. History of anxiety. 10. History of previous alcohol abuse. 11. History of hypothyroidism. 12. hyperkalemia 13. Metabolic acidosis PLAN: Cr and electrolytes stable today will follow up Further recommendations depend upon patient's clinical course. Total time spent is 30 mins in reviewing patients chart/DW Dr Kathryn Nathan;/staff/patient. DEUCE FRANK August 31, 2016 11:08
--- NOTE | 2016-08-31 11:10 | PN ---
Date/Time of Note Date/Time of Note DATE: 08/31/16 TIME: 11:09 Assessment/Plan VTE Prophylaxis VTE Prophylaxis Intervention: other Lines/Catheters IV [facility]A-CATH Urinary Cath still in place: No Assessment/Plan Chief Complaint/Hosp Course - Sepsis secondary to postoperative soft tissue infection of the right breast. Dr. Patel is following in infectious disease consultation. Continue abx per ID. - Cellulitis of the right breast. - Status post right modified mastectomy on August [address] Amanda is following in surgical consultation. - Thrombus of the left internal jugular vein. Dr. Edwards is following in vascular surgery consultation. Continue Lovenox. - Hyponatremia on admission, resolved Dr. Davies is following in nephrology consultation. Continue IV fluids. - Hyperthyroidism. Continue patient's Synthroid. - Hypertension. Continue lisinopril. - Hyperlipidemia. Continue statin. - Anemia, status post blood transfusion. Problems: Subjective 24 Hr Interval Summary Free Text/Dictation Patient has no specific concerns but just is anxious to go home Exam/Review of Systems Vital Signs Vitals Vital Signs Date Time Temp Pulse Resp B/P Pulse Ox O2 Delivery O2 Flow Rate FiO2 08/31/16 07:54 98.3 62 18 135/65 97 Intake and Output 08/30/16 08/30/16 08/31/16 15:00 23:00 07:00 Intake Total 100 ml 1300 ml 1240 ml Output Total 5 ml 27 ml Balance 100 ml 1295 ml 1213 ml Exam Constitutional: well developed Head: atraumatic, normocephalic Neck: supple Respiratory: clear to auscultation Cardiovascular: regular rate and rhythm Gastrointestinal: non-tender, soft Extremities: normal pulses Results Result Diagram: 08/30/16 0536 08/30/16 0536 Medications Medications Current Medications Calcium Carbonate (Oyster Shell Calcium) 1.25 gm DAILY PO Last administered on 08/31/16 09:12; Admin Dose 1.25 GM; Start 08/24/16 at 09:00 Atorvastatin Calcium (Lipitor) 40 mg HS GTB Last administered on 08/30/16 20: 32; Admin Dose 40 MG; Start 08/24/16 at 21:00 Acetaminophen (Tylenol Tab) 650 mg Q4H PRN PO PAIN OR ELEVATED TEMP. Last administered on 08/30/16 01:40; Admin Dose 650 MG; Start 08/24/16 at 06:30 Patient Own Medication 1 ea HS PRN PO INSOMNIA Last administered on 08/30/16 22:07; Admin Dose 1 EA; Start 08/24/16 at 21:00 Miscellaneous Information Patients own medicat... BID@10,16 XX ; Start 08/24/16 at 10:00 Enoxaparin Sodium 60 mg 60 mg Q12 SC Last administered on 08/31/16 09:22; Admin Dose 60 MG; Start 08/24/16 at 09:00 Potassium Chloride/Sodium Chloride (NS-KCl 20 Meq) 1,000 ml @ 60 mls/hr [id number] IV Last administered on 08/30/16 17:30; Admin Dose 60 MLS/HR; Start at 14:00 Trazodone HCl (Desyrel) 50 mg HS PO Last administered on 08/30/16 20:32; Admin Dose 50 MG; Start 08/26/16 at 21:00 Pantoprazole (Protonix Tab) 40 mg DAILY@06 PO Last administered on 08/31/16 06 :32; Admin Dose 40 MG; Start 08/28/16 at 06:00 Alprazolam 0.5 mg 0.5 mg Q8H PRN PO ANXIETY Last administered on 08/31/16 09: 12; Admin Dose 0.5 MG; Start 08/27/16 at 18:00 Piperacillin Sod/ Tazobactam Sod (Zosyn 3.375gm/ 100 ml (Pmx)) 100 ml @ 200 mls /hr Q6 IVPB Last administered on 08/31/16 06:32; Admin Dose 200 MLS/HR; Start 08/28/16 at 17:00 Lisinopril (Zestril) 20 mg DAILY PO Last administered on 08/31/16 09:11; Admin Dose 20 MG; Start 08/29/16 at 15:00 Metoprolol Tartrate (Lopressor) 50 mg BID PO Last administered on 08/31/16 09: 11; Admin Dose 50 MG; Start 08/29/16 at 22:00 SALOME LI August 31, 2016 11:10
--- NOTE | 2016-08-31 13:12 | PN ---
DATE: 08/31/2016 SUBJECTIVE: Does not have any specific complaints. She states that she has some weird feeling under the right axilla. She cannot explain what it is. She thinks probably it is numb and I explained that it is possible because of probably some damage to the skin and nerves over there. In any case, she is here to receive IV antibiotics, Zosyn for the cellulitis of the postop mastectomy site. OBJECTIVE GENERAL: Awake, alert, oriented x3. VITAL SIGNS: Temperature 98.3, heart rate 62, respirations 18, blood pressure 135/65, saturation 97% on room air. LABORATORY DATA: Today, we do not have any labs for today. Wound cellulitis compared to 48 hours ago is much better. Still, a little area of patchy erythema is present, no tenderness on palpation. Wound is healing well. Jay-Palafox is 100 axilla, which is designated as number 1. The drainage has been 15 mL, 5 mL, 7 mL and 2 mL in the past 4 days. The other one is number 2, which is under the skin flap. In the past 4 days, the drainage has been respectively 50 mL, 50 mL, 50 mL and 25 mL. ASSESSMENT: Patient presented with cellulitis and sepsis. She did not respond to vancomycin and other antibiotics for a while and eventually was changed to Zosyn as of 48 hours ago. It appears that is well-responding as far as the cellulitis is concerned to this antibiotic. PLAN: To continue IV antibiotic Zosyn and the course I assume is going to be 2 weeks, but it depends on Dr. Patel, infectious disease. Whenever they decided that it is okay to discharge the patient, then she will go home probably for the home health to come and continue the antibiotics for the designated amount of days. Repeat CBC tomorrow. Dictated By: ELVIA MURRAY/ZA Conf#: [id number] DID#: [id number] ERLINDA
--- NOTE | 2016-08-31 13:51 | CONS ---
Date/Time of Note Date/Time of Note DATE: 08/31/16 TIME: 13:48 Assessment/Plan Assessment/Plan Chief Complaint/Hosp Course - Sepsis d/t cellulitis of right chest - fever and mild leukocytosis improved - Cellulitis of right chest. Cultures of AKIL fluid grew MSSA, pseudo and bacillus species - Locally advanced right breast cancer s/p Right modified radical mastectomy 08/[address] Amanda - Left IJ thrombosis - Acute on probable chronic anemia requiring blood transfusion - Hyponatremia - improved - Hyperkalemia/Hypokalemia - improved - HTN - HLD - Hypothyroidism - Anxiety/depression - Hx previous alcohol abuse - New erythema to left chest port-a-cath site recommendations: - continue pip/tazo (08/28/2016-) - d/c AKIL drains if output is scant - Pt's s/p vancomycin and cefepime management d/w Pt Problems: Consultation Date/Type/Reason Admit Date/Time August 23, 2016 at 23:16 Initial Consult Date 08/24/16 Type of Consultation: Infectious Disease Referring Provider: MELISSA CASTILLO MD 24 HR Interval Summary Constitutional: no complaints Detailed Summary Eyes: no complaints ENT: no complaints Respiratory: no complaints Cardiovascular: no complaints Gastrointestinal: no complaints Genitourinary: no complaints Musculoskeletal: no complaints Skin: erythema (R breast less than before), other (feels like R chest wall is "cardboard") Neurologic: other (painful sensation in RUE at times) Endocrine: no complaints Lymphatic: no complaints, No lymphadema Exam/Review of Systems Vital Signs Vitals Vital Signs Date Time Temp Pulse Resp B/P Pulse Ox O2 Delivery O2 Flow Rate FiO2 08/31/16 07:54 98.3 62 18 135/65 97 Intake and Output 08/30/16 08/30/16 08/31/16 15:00 23:00 07:00 Intake Total 100 ml 1300 ml 1240 ml Output Total 5 ml 27 ml Balance 100 ml 1295 ml 1213 ml Exam Constitutional: alert, oriented, well developed Psych: no complaints Head: atraumatic, normocephalic Eyes: nl conjunctiva, nl lids ENMT: nl external ears & nose, nl nasal mucosa & septum Neck: supple Musculoskeletal: nl extremities to inspection Extremities: No edema Neurological: PRESS READER II-XII intact, nl mental status, nl speech, No numbness Skin: other ([address]), rash or lesions (mild erythema surrounding the surgical site. No fluctuance or edema. No induration) Lymph: nontender, other (no lymphangitic spread of erythema of RUE/R armpit) Results Result Diagram: 08/30/1636 08/30/1636 Medications Medications Current Medications Calcium Carbonate (Oyster Shell Calcium) 1.25 gm DAILY PO Last administered on 08/31/16 09:12; Admin Dose 1.25 GM; Start 08/24/16 at 09:00 Atorvastatin Calcium (Lipitor) 40 mg HS GTB Last administered on 08/30/16 20: 32; Admin Dose 40 MG; Start 08/24/16 at 21:00 Acetaminophen (Tylenol Tab) 650 mg Q4H PRN PO PAIN OR ELEVATED TEMP. Last administered on 08/30/16 01:40; Admin Dose 650 MG; Start 08/24/16 at 06:30 Patient Own Medication 1 ea HS PRN PO INSOMNIA Last administered on 08/30/16 22:07; Admin Dose 1 EA; Start 08/24/16 at 21:00 Miscellaneous Information Patients own medicat... BID@10,16 XX ; Start 08/24/16 at 10:00 Enoxaparin Sodium 60 mg 60 mg Q12 SC Last administered on 08/31/16 09:22; Admin Dose 60 MG; Start 08/24/16 at 09:00 Potassium Chloride/Sodium Chloride (NS-KCl 20 Meq) 1,000 ml @ 60 mls/hr [id number] IV Last administered on 08/31/16 12:16; Admin Dose 60 MLS/HR; Start at 14:00 Trazodone HCl (Desyrel) 50 mg HS PO Last administered on 08/30/16 20:32; Admin Dose 50 MG; Start 08/26/16 at 21:00 Pantoprazole (Protonix Tab) 40 mg DAILY@06 PO Last administered on 08/31/16 06 :32; Admin Dose 40 MG; Start 08/28/16 at 06:00 Alprazolam 0.5 mg 0.5 mg Q8H PRN PO ANXIETY Last administered on 08/31/16 09: 12; Admin Dose 0.5 MG; Start 08/27/16 at 18:00 Piperacillin Sod/ Tazobactam Sod (Zosyn 3.375gm/ 100 ml (Pmx)) 100 ml @ 200 mls /hr Q6 IVPB Last administered on 08/31/16 12:16; Admin Dose 200 MLS/HR; Start 08/28/16 at 17:00 Lisinopril (Zestril) 20 mg DAILY PO Last administered on 08/31/16 09:11; Admin Dose 20 MG; Start 08/29/16 at 15:00 Metoprolol Tartrate (Lopressor) 50 mg BID PO Last administered on 08/31/16 09: 11; Admin Dose 50 MG; Start 08/29/16 at 22:00 GRECIA LLOYD M.D. August 31, 2016 13:51
[2016-08-31 19:41] VITALS: BP 140/78; PULSE 85; RESP 19
[2016-08-31] MEDS: ATORVASTATIN 40 MG TAB GTB SCH (20:17)
[2016-08-31] MEDS: traZODone 50 MG TAB PO SCH (20:17)
[2016-08-31] MEDS: TEMAZEPAM 30 MG PO PRN (21:36)
[2016-09-01] MEDS: PIPER-TAZO 3.375 GM IV (PMX) 100 ML IVPB SCH ×4 (00:38→17:49)
[2016-09-01] MEDS ORDERED: NS + KCL 20 MEQ 1,000 ML IV SCH (03:30)
[2016-09-01] MEDS: NS + KCL 20 MEQ 1,000 ML IV SCH ×2 (04:00→08:48)
[2016-09-01] MEDS: PANTOPRAZOLE (EC) 40 MG TAB PO SCH (05:37)
[2016-09-01 06:12] LABS: ADD SCAN DIFF NO
[2016-09-01 06:19] LABS: ABNORMAL IP MESSAGE 1; HEMATOCRIT 33.2 % (37.0-47.0); HEMOGLOBIN 10.4 g/dl (12.0-16.0); MEAN CORPUSCULAR HEMOGLOBIN 29.8 pg (29.0-33.0); MEAN CORPUSCULAR HGB CONC 31.3 g/dl (32.0-37.0); MEAN CORPUSCULAR VOLUME 95.1 fl (82.0-101.0); PLATELET COUNT 283 10^3/UL (140-415); RED BLOOD COUNT 3.49 10^6/ul (4.20-5.40); RED CELL DISTRIBUTION WIDTH 15.9 % (11.5-14.5); WHITE BLOOD COUNT 8.3 10^3/ul (4.8-10.8)
[2016-09-01 06:46] LABS: CALCIUM 9.9 mg/dl (8.4-10.2); CREATININE 0.67 mg/dl (0.44-1.00)
[2016-09-01] MEDS: LEVOTHYROXINE 100 MCG TAB PO SCH (07:19)
[2016-09-01 07:40] VITALS: BP 134/78; RESP 19
[2016-09-01] MEDS: ALPRAZOLAM 0.25 MG TAB PO PRN (08:34)
[2016-09-01] MEDS: METOPROLOL 50 MG TAB PO SCH ×2 (08:35→20:04)
[2016-09-01] MEDS: CALCIUM CARBONATE 1.25 GM TAB PO SCH (08:36)
[2016-09-01 08:38] LABS: EOSINOPHILS # 0.1 10^3/ul (0.0-0.5); LYMPHOCYTES # 2.7 10^3/ul (0.8-2.9); MONOCYTE # 0.2 10^3/ul (0.3-0.9); NEUTROPHIL # 4.7 10^3/ul (1.6-7.5); OVALOCYTES 1+; POLYCHROMASIA 1+
[2016-09-01] MEDS: ENOXAPARIN 60 MG/0.6 ML SYG SC SCH ×2 (08:46→20:11)
[2016-09-01] MEDS: LISINOPRIL 20 MG TAB PO SCH (09:29)
--- NOTE | 2016-09-01 13:12 | CONS ---
Date/Time of Note Date/Time of Note DATE: 09/01/16 TIME: 13:11 Assessment/Plan Assessment/Plan Additional Assessment/Plan 1. Hyponatremia, likely secondary to hypovolemic hyponatremia, no SIADH 3. Acute prerenal azotemia secondary to moderate to severe dehydration. 4. Moderate to severe dehydration. 5. History of recent right breast mastectomy 5 days ago. 6. Left internal jugular thrombosis. 7. History of hypertension. 8. History of depression. 9. History of anxiety. 10. History of previous alcohol abuse. 11. History of hypothyroidism. 12. hyperkalemia 13. Metabolic acidosis PLAN: IVF NS with KCL at 60 cc/hr Cr and electrolytes stable today will follow up Consultation Date/Type/Reason Admit Date/Time August 23, 2016 at 23:16 Initial Consult Date 08/24/16 Type of Consultation: NEPHROLOGY Referring Provider: MELISSA CASTILLO MD 24 HR Interval Summary Free Text/Dictation Hb 10.4, Electrolytes and creatinine normal Exam/Review of Systems Vital Signs Vitals Vital Signs Date Time Temp Pulse Resp B/P Pulse Ox O2 Delivery O2 Flow Rate FiO2 09/01/16 07:40 98.0 63 19 134/78 98 08/31/16 19:41 Room Air Intake and Output 08/31/16 08/31/16 09/01/16 15:00 23:00 07:00 Intake Total 300 ml 1280 ml 1520 ml Output Total 34 ml 23 ml Balance 300 ml 1246 ml 1497 ml Exam Constitutional: alert, oriented, well developed Psych: no complaints Head: atraumatic, normocephalic Eyes: nl conjunctiva, nl lids ENMT: nl external ears & nose, nl nasal mucosa & septum Neck: supple Respiratory: clear to auscultation, normal air movement Cardiovascular: nl pulses, regular rate and rhythm Extremities: No edema Skin: rash or lesions (erythema of R chest wall, faint erythema of RUE) Results Result Diagram: 09/01/16 0545 09/01/16 0545 Results 24 hrs Laboratory Tests Test 09/01/16 05:45 White Blood Count 8.3 Red Blood Count 3.49 L Hemoglobin 10.4 L Hematocrit 33.2 L Mean Corpuscular Volume 95.1 Mean Corpuscular Hemoglobin 29.8 Mean Corpuscular Hemoglobin Concent 31.3 L Red Cell Distribution Width 15.9 H Platelet Count 283 Mean Platelet Volume 9.0 Neutrophils % 57.0 Band Neutrophils % 1.0 Lymphocytes % 33.0 Monocytes % 3.0 Eosinophils % 1.0 Basophils % Metamyelocytes % 5.0 H Nucleated Red Blood Cells % Neutrophils # 4.7 Lymphocytes # 2.7 Monocytes # 0.2 L Eosinophils # 0.1 Basophils # Metamyelocytes # 0.4 Nucleated Red Blood Cells # Differential Comment MANUAL DIFF Polychromasia 1+ Ovalocytes 1+ Sodium Level 137 Potassium Level 4.0 Chloride Level 108 Carbon Dioxide Level 24 Anion Gap 9 Blood Urea Nitrogen 12 Creatinine 0.67 Glucose Level 88 Calcium Level 9.9 Medications Medications Current Medications Calcium Carbonate (Oyster Shell Calcium) 1.25 gm DAILY PO Last administered on 09/01/16 08:36; Admin Dose 1.25 GM; Start 08/24/16 at 09:00 Atorvastatin Calcium (Lipitor) 40 mg HS GTB Last administered on 08/31/16 20: 17; Admin Dose 40 MG; Start 08/24/16 at 21:00 Acetaminophen (Tylenol Tab) 650 mg Q4H PRN PO PAIN OR ELEVATED TEMP. Last administered on 08/30/16 01:40; Admin Dose 650 MG; Start 08/24/16 at 06:30 Patient Own Medication 1 ea HS PRN PO INSOMNIA Last administered on 08/31/16 21:36; Admin Dose 1 EA; Start 08/24/16 at 21:00 Miscellaneous Information Patients own medicat... BID@10,16 XX ; Start 08/24/16 at 10:00 Enoxaparin Sodium (Lovenox) 60 mg Q12 SC Last administered on 09/01/16 08:46; Admin Dose 60 MG; Start 08/24/16 at 09:00 Trazodone HCl (Desyrel) 50 mg HS PO Last administered on 08/31/16 20:17; Admin Dose 50 MG; Start 08/26/16 at 21:00 Pantoprazole (Protonix Tab) 40 mg DAILY@06 PO Last administered on 09/01/16 05 :37; Admin Dose 40 MG; Start 08/28/16 at 06:00 Alprazolam 0.5 mg 0.5 mg Q8H PRN PO ANXIETY Last administered on 09/01/16 08: 34; Admin Dose 0.5 MG; Start 08/27/16 at 18:00 Piperacillin Sod/ Tazobactam Sod (Zosyn 3.375gm/ 100 ml (Pmx)) 100 ml @ 200 mls /hr Q6 IVPB Last administered on 09/01/16 12:11; Admin Dose 200 MLS/HR; Start 08/28/16 at 17:00 Lisinopril (Zestril) 20 mg DAILY PO Last administered on 09/01/16 09:29; Admin Dose 20 MG; Start 08/29/16 at 15:00 Metoprolol Tartrate 50 mg 50 mg BID PO Last administered on 09/01/16 08:35; Admin Dose 50 MG; Start 08/29/16 at 22:00 Potassium Chloride/Sodium Chloride (NS-KCl 20 Meq) 1,000 ml @ 60 mls/hr [id number] IV Last administered on 09/01/16 08:48; Admin Dose 60 MLS/HR; Start at 04:00 DIANA MORALES MD September 01, 2016 13:12
[2016-09-01] MEDS ORDERED: morphine 2 MG INJ IV STA (17:39)
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
--- NOTE | 2016-09-01 19:36 | CONS ---
Date/Time of Note Date/Time of Note DATE: 09/01/16 TIME: 19:35 Assessment/Plan Assessment/Plan Chief Complaint/Hosp Course - Sepsis d/t cellulitis of right chest - fever and mild leukocytosis improved - Cellulitis of right chest. Cultures of AKIL fluid grew MSSA, pseudo and bacillus species - Locally advanced right breast cancer s/p Right modified radical mastectomy 08/[address] Amanda - Left IJ thrombosis - Acute on probable chronic anemia requiring blood transfusion - Hyponatremia - improved - Hyperkalemia/Hypokalemia - improved - HTN - HLD - Hypothyroidism - Anxiety/depression - Hx previous alcohol abuse - New erythema to left chest port-a-cath site recommendations: - continue pip/tazo (08/28/2016-) - d/c AKIL drains if output is scant - Pt's s/p vancomycin and cefepime Problems: Consultation Date/Type/Reason Admit Date/Time August 23, 2016 at 23:16 Initial Consult Date 08/24/16 Type of Consultation: id Referring Provider: MELISSA CASTILLO MD Exam/Review of Systems Vital Signs Vitals Vital Signs Date Time Temp Pulse Resp B/P Pulse Ox O2 Delivery O2 Flow Rate FiO2 09/01/16 07:40 98.0 63 19 134/78 98 08/31/16 19:41 Room Air Intake and Output 08/31/16 08/31/16 09/01/16 15:00 23:00 07:00 Intake Total 300 ml 1280 ml 1520 ml Output Total 34 ml 23 ml Balance 300 ml 1246 ml 1497 ml Exam Constitutional: alert, oriented, well developed Psych: nl mood/affect, no complaints Head: atraumatic, normocephalic Eyes: EOMI, PERRL, nl conjunctiva, nl lids, nl sclera ENMT: nl external ears & nose, nl lips & teeth, nl nasal mucosa & septum Neck: non-tender, supple Respiratory: clear to auscultation, normal air movement Cardiovascular: nl pulses, regular rate and rhythm Gastrointestinal: nl liver, spleen, non-tender, soft Musculoskeletal: nl extremities to inspection, nl gait and stance Results Result Diagram: 09/01/16 0545 09/01/16 0545 Results 24 hrs Laboratory Tests Test 09/01/16 05:45 White Blood Count 8.3 Red Blood Count 3.49 L Hemoglobin 10.4 L Hematocrit 33.2 L Mean Corpuscular Volume 95.1 Mean Corpuscular Hemoglobin 29.8 Mean Corpuscular Hemoglobin Concent 31.3 L Red Cell Distribution Width 15.9 H Platelet Count 283 Mean Platelet Volume 9.0 Neutrophils % 57.0 Band Neutrophils % 1.0 Lymphocytes % 33.0 Monocytes % 3.0 Eosinophils % 1.0 Basophils % Metamyelocytes % 5.0 H Nucleated Red Blood Cells % Neutrophils # 4.7 Lymphocytes # 2.7 Monocytes # 0.2 L Eosinophils # 0.1 Basophils # Metamyelocytes # 0.4 Nucleated Red Blood Cells # Differential Comment MANUAL DIFF Polychromasia 1+ Ovalocytes 1+ Sodium Level 137 Potassium Level 4.0 Chloride Level 108 Carbon Dioxide Level 24 Anion Gap 9 Blood Urea Nitrogen 12 Creatinine 0.67 Glucose Level 88 Calcium Level 9.9 Medications Medications Current Medications Calcium Carbonate (Oyster Shell Calcium) 1.25 gm DAILY PO Last administered on 09/01/16 08:36; Admin Dose 1.25 GM; Start 08/24/16 at 09:00 Atorvastatin Calcium (Lipitor) 40 mg HS GTB Last administered on 08/31/16 20: 17; Admin Dose 40 MG; Start 08/24/16 at 21:00 Acetaminophen (Tylenol Tab) 650 mg Q4H PRN PO PAIN OR ELEVATED TEMP. Last administered on 08/30/16 01:40; Admin Dose 650 MG; Start 08/24/16 at 06:30 Patient Own Medication 1 ea HS PRN PO INSOMNIA Last administered on 08/31/16 21:36; Admin Dose 1 EA; Start 08/24/16 at 21:00 Miscellaneous Information Patients own medicat... BID@10,16 XX ; Start 08/24/16 at 10:00 Enoxaparin Sodium (Lovenox) 60 mg Q12 SC Last administered on 09/01/16 08:46; Admin Dose 60 MG; Start 08/24/16 at 09:00 Trazodone HCl (Desyrel) 50 mg HS PO Last administered on 08/31/16 20:17; Admin Dose 50 MG; Start 08/26/16 at 21:00 Pantoprazole (Protonix Tab) 40 mg DAILY@06 PO Last administered on 09/01/16 05 :37; Admin Dose 40 MG; Start 08/28/16 at 06:00 Alprazolam 0.5 mg 0.5 mg Q8H PRN PO ANXIETY Last administered on 09/01/16 08: 34; Admin Dose 0.5 MG; Start 08/27/16 at 18:00 Piperacillin Sod/ Tazobactam Sod (Zosyn 3.375gm/ 100 ml (Pmx)) 100 ml @ 200 mls /hr Q6 IVPB Last administered on 09/01/16 17:49; Admin Dose 200 MLS/HR; Start 08/28/16 at 17:00 Lisinopril (Zestril) 20 mg DAILY PO Last administered on 09/01/16 09:29; Admin Dose 20 MG; Start 08/29/16 at 15:00 Metoprolol Tartrate 50 mg 50 mg BID PO Last administered on 09/01/16 08:35; Admin Dose 50 MG; Start 08/29/16 at 22:00 Potassium Chloride/Sodium Chloride (NS-KCl 20 Meq) 1,000 ml @ 60 mls/hr [id number] IV Last administered on 09/01/16 08:48; Admin Dose 60 MLS/HR; Start at 04:00 YVON SOLORIO MD September 01, 2016 19:36
[2016-09-01] MEDS: traZODone 50 MG TAB PO SCH (20:03)
[2016-09-01] MEDS: ATORVASTATIN 40 MG TAB GTB SCH (20:04)
[2016-09-01] MEDS: TEMAZEPAM 30 MG PO PRN (20:04)
[2016-09-01 20:16] VITALS: BP 148/78; RESP 18
[2016-09-02] MEDS: PIPER-TAZO 3.375 GM IV (PMX) 100 ML IVPB SCH ×4 (00:16→17:37)
--- NOTE | 2016-09-02 00:24 | PN ---
DATE: 09/01/2016 SUBJECTIVE: Status post cellulitis of the right breast skin flap post operation, modified radical m astectomy about 2 weeks ago. Feels better today. OBJECTIVE: VITAL SIGNS: Temperature 98, 63, 19, blood pressure 134/78, saturation 98% on room air. LABORATORY: WBC 8300 with 57% neutrophils, hemoglobin 10.4, hematocrit 33.2. BUN, creatinine, sodi um, potassium normal. CHEST WALL: Still there is some mild degree of cellulitis present. There are 2 Jay-Palafox drain s, 1 in the axilla, the other one under the flap. The one in the axilla has been draining respectiv kelsey past 5 days 15 mL, then 5 mL, then 7 mL, then 6 mL, then 6 mL total every day. The other one wh ich is #2 has been draining 50 mL and 50 mL and 50 mL and 45 and 48 mL serous fluid so decided to re move #1, which was removed. Also the mike have been removed today. Dry dressing applied. PLAN: Continue antibiotic per recommendation of Infectious Disease. Continue to follow the patient . Dictated By: ELVIA NATION MD PS/NTS Conf#: [id number] DID#: [id number]
[2016-09-02] MEDS: NS + KCL 20 MEQ 1,000 ML IV SCH ×2 (03:29→22:33)
[2016-09-02] MEDS: PANTOPRAZOLE (EC) 40 MG TAB PO SCH (06:56)
[2016-09-02] MEDS: LEVOTHYROXINE 100 MCG TAB PO SCH (06:57)
[2016-09-02 07:24] VITALS: BP 129/76; RESP 18
[2016-09-02] MEDS: LISINOPRIL 20 MG TAB PO SCH (08:35)
[2016-09-02] MEDS: METOPROLOL 50 MG TAB PO SCH ×2 (08:35→20:41)
[2016-09-02] MEDS: CALCIUM CARBONATE 1.25 GM TAB PO SCH (08:36)
[2016-09-02] MEDS: ALPRAZOLAM 0.25 MG TAB PO PRN ×2 (08:45→19:30)
[2016-09-02] MEDS: ENOXAPARIN 60 MG/0.6 ML SYG SC SCH ×2 (08:47→20:52)
[2016-09-02 10:22] LABS: ADD SCAN DIFF NO
[2016-09-02 10:38] LABS: ABNORMAL IP MESSAGE 1; BASOPHIL # 0.1 10^3/ul (0.0-0.1); BASOPHILS % 0.9 % (0.0-2.0); EOSINOPHILS # 0.1 10^3/ul (0.0-0.5); EOSINOPHILS % 1.2 % (0.0-7.0); HEMATOCRIT 34.1 % (37.0-47.0); HEMOGLOBIN 10.9 g/dl (12.0-16.0); LYMPHOCYTES # 1.7 10^3/ul (0.8-2.9); MEAN CORPUSCULAR HEMOGLOBIN 30.7 pg (29.0-33.0); MEAN CORPUSCULAR VOLUME 96.1 fl (82.0-101.0); MEAN PLATELET VOLUME 8.9 fl (7.4-10.4); MONOCYTE # 0.5 10^3/ul (0.3-0.9); MONOCYTES % 5.2 % (0.0-11.0); NEUTROPHIL # 5.9 10^3/ul (1.6-7.5); NEUTROPHILS % 65.3 % (39.0-77.0); PLATELET COUNT 311 10^3/UL (140-415); RED BLOOD COUNT 3.55 10^6/ul (4.20-5.40); RED CELL DISTRIBUTION WIDTH 15.8 % (11.5-14.5)
[2016-09-02 11:10] LABS: POTASSIUM 3.9 mmol/L (3.5-5.1)
[2016-09-02 11:12] LABS: CREATININE 0.71 mg/dl (0.44-1.00)
[2016-09-02 11:13] LABS: CALCIUM 9.6 mg/dl (8.4-10.2)
--- NOTE | 2016-09-02 16:46 | CONS ---
Date/Time of Note Date/Time of Note DATE: 09/02/16 TIME: 16:45 Assessment/Plan Assessment/Plan Additional Assessment/Plan 1. Hyponatremia, likely secondary to hypovolemic hyponatremia, no SIADH 3. Acute prerenal azotemia secondary to moderate to severe dehydration. 4. Moderate to severe dehydration. 5. History of recent right breast mastectomy 5 days ago. 6. Left internal jugular thrombosis. 7. History of hypertension. 8. History of depression. 9. History of anxiety. 10. History of previous alcohol abuse. 11. History of hypothyroidism. 12. hyperkalemia 13. Metabolic acidosis PLAN: IVF NS with KCL at 60 cc/hr Cr and electrolytes stable today will follow up Consultation Date/Type/Reason Admit Date/Time August 23, 2016 at 23:16 Initial Consult Date 08/24/16 Type of Consultation: NEPHROLOGY Referring Provider: MELISSA CASTILLO MD 24 HR Interval Summary Free Text/Dictation no acute events Exam/Review of Systems Vital Signs Vitals Vital Signs Date Time Temp Pulse Resp B/P Pulse Ox O2 Delivery O2 Flow Rate FiO2 09/02/16 07:24 98.7 66 18 129/76 98 08/31/16 19:41 Room Air Intake and Output 09/01/16 09/01/16 09/02/16 15:00 23:00 07:00 Intake Total 100 ml 700 ml 850 ml Output Total 41 ml 25 ml Balance 100 ml 659 ml 825 ml Exam Constitutional: alert, oriented, well developed Respiratory: clear to auscultation, normal air movement Cardiovascular: nl pulses, regular rate and rhythm Extremities: No edema Skin: rash or lesions (erythema of R chest wall, faint erythema of RUE) Results Result Diagram: 09/02/16 0934 09/02/16 0934 Results 24 hrs Laboratory Tests Test 09/02/16 09:34 White Blood Count 9.0 Red Blood Count 3.55 L Hemoglobin 10.9 L Hematocrit 34.1 L Mean Corpuscular Volume 96.1 Mean Corpuscular Hemoglobin 30.7 Mean Corpuscular Hemoglobin Concent 32.0 Red Cell Distribution Width 15.8 H Platelet Count 311 Mean Platelet Volume 8.9 Neutrophils % 65.3 Lymphocytes % 19.0 Monocytes % 5.2 Eosinophils % 1.2 Basophils % 0.9 Nucleated Red Blood Cells % 0.0 Neutrophils # 5.9 Lymphocytes # 1.7 Monocytes # 0.5 Eosinophils # 0.1 Basophils # 0.1 Nucleated Red Blood Cells # 0.0 Sodium Level 140 Potassium Level 3.9 Chloride Level 103 Carbon Dioxide Level 24 Anion Gap 17 #H Blood Urea Nitrogen 15 Creatinine 0.71 Glucose Level 96 Calcium Level 9.6 Medications Medications Current Medications Calcium Carbonate (Oyster Shell Calcium) 1.25 gm DAILY PO Last administered on 09/02/16 08:36; Admin Dose 1.25 GM; Start 08/24/16 at 09:00 Atorvastatin Calcium (Lipitor) 40 mg HS GTB Last administered on 09/01/16 20: 04; Admin Dose 40 MG; Start 08/24/16 at 21:00 Acetaminophen (Tylenol Tab) 650 mg Q4H PRN PO PAIN OR ELEVATED TEMP. Last administered on 08/30/16 01:40; Admin Dose 650 MG; Start 08/24/16 at 06:30 Patient Own Medication 1 ea HS PRN PO INSOMNIA Last administered on 09/01/16 20:04; Admin Dose 1 EA; Start 08/24/16 at 21:00 Miscellaneous Information Patients own medicat... BID@,16 XX ; Start 08/24/16 at 10:00 Enoxaparin Sodium (Lovenox) 60 mg Q12 SC Last administered on 09/02/16 08:47; Admin Dose 60 MG; Start 08/24/16 at 09:00 Trazodone HCl (Desyrel) 50 mg HS PO Last administered on 09/01/16 20:03; Admin Dose 50 MG; Start 08/26/16 at 21:00 Pantoprazole (Protonix Tab) 40 mg DAILY@06 PO Last administered on 09/02/16 06 :56; Admin Dose 40 MG; Start 08/28/16 at 06:00 Alprazolam 0.5 mg 0.5 mg Q8H PRN PO ANXIETY Last administered on 09/02/16 08: 45; Admin Dose 0.5 MG; Start 08/27/16 at 18:00 Piperacillin Sod/ Tazobactam Sod (Zosyn 3.375gm/ 100 ml (Pmx)) 100 ml @ 200 mls /hr Q6 IVPB Last administered on 09/02/16 11:33; Admin Dose 200 MLS/HR; Start 08/28/16 at 17:00 Lisinopril (Zestril) 20 mg DAILY PO Last administered on 09/02/16 08:35; Admin Dose 20 MG; Start 08/29/16 at 15:00 Metoprolol Tartrate 50 mg 50 mg BID PO Last administered on 09/02/16 08:35; Admin Dose 50 MG; Start 08/29/16 at 22:00 Potassium Chloride/Sodium Chloride (NS-KCl 20 Meq) 1,000 ml @ 60 mls/hr [id number] IV Last administered on 09/02/16 03:29; Admin Dose 60 MLS/HR; Start at 04:00 DIANA MORALES MD September 02, 2016 16:46
--- NOTE | 2016-09-02 17:10 | PN ---
Date/Time of Note Date/Time of Note DATE: 09/02/16 TIME: 17:09 Assessment/Plan VTE Prophylaxis VTE Prophylaxis Intervention: SCD's Lines/Catheters [facility] Port-A-Cath Urinary Cath still in place: No Assessment/Plan Chief Complaint/Hosp Course ASSESSMENT AND PLAN: - Sepsis secondary to postoperative soft tissue infection of the right breast. Dr. Patel is following in infectious disease consultation. Continue abx per ID. - Cellulitis of the right breast. Continue antibiotics per ID. - Status post right modified mastectomy on August [address] Amanda is following in surgical consultation. - Thrombus of the left internal jugular vein. Dr. Edwards is following in vascular surgery consultation. Continue Lovenox. - Hyponatremia on admission, resolved Dr. Davies is following in nephrology consultation. Continue IV fluids. - Hyperthyroidism. Continue patient's Synthroid. - Hypertension. Continue lisinopril. - Hyperlipidemia. Continue statin. - Anemia, status post blood transfusion. Continue sequential compression device for deep venous thrombosis prophylaxis and Protonix for peptic ulcer disease prophylaxis. Further recommendations based on clinical course. Plan of care discussed with Dr. Brito. Problems: Subjective 24 Hr Interval Summary Free Text/Dictation Remains hemodynamically stable and afebrile anxious at times. Exam/Review of Systems Vital Signs Vitals Vital Signs Date Time Temp Pulse Resp B/P Pulse Ox O2 Delivery O2 Flow Rate FiO2 09/02/16 07:24 98.7 66 18 129/76 98 08/31/16 19:41 Room Air Intake and Output 09/01/16 09/01/16 09/02/16 15:00 23:00 07:00 Intake Total 100 ml 700 ml 850 ml Output Total 41 ml 25 ml Balance 100 ml 659 ml 825 ml Exam GENERAL: Well-developed, well-nourished female, currently is awake, alert. HEENT: Head is atraumatic, normocephalic. Pupils equal, round, reactive to light and accommodation. Oral mucosa is pink and moist. NECK: Supple, no cervical lymphadenopathy, no thyromegaly. CHEST: Lungs clear bilaterally. No rhonchi, wheezes, or rales noted. The patient has a right breast surgical scar intact with mike and the right axillary AKIL. left chest PermCath. CARDIOVASCULAR: Normal S1, S2. No murmurs, gallops, clicks, rubs noted. ABDOMEN: Flat, soft, nondistended, nontender. Bowel sounds present. There is no guarding, no rebound tenderness. EXTREMITIES: There is no edema, clubbing, cyanosis. Pulses equal bilaterally 2 +. SKIN: There is no rash, petechiae noted. NEUROLOGIC: The patient is awake, alert, and oriented x4. Results Result Diagram: 09/02/16 0934 09/02/16 0934 Results 24 hrs Laboratory Tests Test 09/02/16 09:34 White Blood Count 9.0 Red Blood Count 3.55 L Hemoglobin 10.9 L Hematocrit 34.1 L Mean Corpuscular Volume 96.1 Mean Corpuscular Hemoglobin 30.7 Mean Corpuscular Hemoglobin Concent 32.0 Red Cell Distribution Width 15.8 H Platelet Count 311 Mean Platelet Volume 8.9 Neutrophils % 65.3 Lymphocytes % 19.0 Monocytes % 5.2 Eosinophils % 1.2 Basophils % 0.9 Nucleated Red Blood Cells % 0.0 Neutrophils # 5.9 Lymphocytes # 1.7 Monocytes # 0.5 Eosinophils # 0.1 Basophils # 0.1 Nucleated Red Blood Cells # 0.0 Sodium Level 140 Potassium Level 3.9 Chloride Level 103 Carbon Dioxide Level 24 Anion Gap 17 #H Blood Urea Nitrogen 15 Creatinine 0.71 Glucose Level 96 Calcium Level 9.6 Medications Medications Current Medications Calcium Carbonate (Oyster Shell Calcium) 1.25 gm DAILY PO Last administered on 09/02/16 08:36; Admin Dose 1.25 GM; Start 08/24/16 at 09:00 Atorvastatin Calcium (Lipitor) 40 mg HS GTB Last administered on 09/01/16 20: 04; Admin Dose 40 MG; Start 08/24/16 at 21:00 Acetaminophen (Tylenol Tab) 650 mg Q4H PRN PO PAIN OR ELEVATED TEMP. Last administered on 08/30/16 01:40; Admin Dose 650 MG; Start 08/24/16 at 06:30 Patient Own Medication 1 ea HS PRN PO INSOMNIA Last administered on 09/01/16 20:04; Admin Dose 1 EA; Start 08/24/16 at 21:00 Miscellaneous Information Patients own medicat... BID@10,16 XX ; Start 08/24/16 at 10:00 Enoxaparin Sodium (Lovenox) 60 mg Q12 SC Last administered on 09/02/16 08:47; Admin Dose 60 MG; Start 08/24/16 at 09:00 Trazodone HCl (Desyrel) 50 mg HS PO Last administered on 09/01/16 20:03; Admin Dose 50 MG; Start 08/26/16 at 21:00 Pantoprazole (Protonix Tab) 40 mg DAILY@06 PO Last administered on 09/02/16 06 :56; Admin Dose 40 MG; Start 08/28/16 at 06:00 Alprazolam 0.5 mg 0.5 mg Q8H PRN PO ANXIETY Last administered on 09/02/16 08: 45; Admin Dose 0.5 MG; Start 08/27/16 at 18:00 Piperacillin Sod/ Tazobactam Sod (Zosyn 3.375gm/ 100 ml (Pmx)) 100 ml @ 200 mls /hr Q6 IVPB Last administered on 09/02/16 11:33; Admin Dose 200 MLS/HR; Start 08/28/16 at 17:00 Lisinopril (Zestril) 20 mg DAILY PO Last administered on 09/02/16 08:35; Admin Dose 20 MG; Start 08/29/16 at 15:00 Metoprolol Tartrate 50 mg 50 mg BID PO Last administered on 09/02/16 08:35; Admin Dose 50 MG; Start 08/29/16 at 22:00 Potassium Chloride/Sodium Chloride (NS-KCl 20 Meq) 1,000 ml @ 60 mls/hr [id number] IV Last administered on 09/02/16 03:29; Admin Dose 60 MLS/HR; Start at 04:00 PAUL RAMOS September 02, 2016 17:10
--- NOTE | 2016-09-02 18:16 | CONS ---
Date/Time of Note Date/Time of Note DATE: 09/02/16 TIME: 18:16 Assessment/Plan Assessment/Plan Chief Complaint/Hosp Course - Sepsis d/t cellulitis of right chest - fever and mild leukocytosis resolved - Cellulitis of right chest. Cultures of AKIL fluid grew MSSA, pseudo and bacillus species - resolving - Locally advanced right breast cancer s/p Right modified radical mastectomy 08/[address] Amanda - Left IJ thrombosis - Acute on probable chronic anemia requiring blood transfusion - Hyponatremia - improved - Hyperkalemia/Hypokalemia - improved - HTN - HLD - Hypothyroidism - Anxiety/depression - Hx previous alcohol abuse - New erythema to left chest port-a-cath site - resolved recommendations: - continue Pip/tazo (08/28/2016-) - Pt's s/p vancomycin and cefepime Management d/w Pt and Dr. Patel Problems: Consultation Date/Type/Reason Admit Date/Time August 23, 2016 at 23:16 Initial Consult Date 08/24/16 Type of Consultation: Infectious Disease Referring Provider: MELISSA CASTILLO MD 24 HR Interval Summary Free Text/Dictation Tully and one AKIL drain was removed earlier per ANTWAN Blackwell. No new issues. Denies pain, SOB, n/v/d, dysuria. Exam/Review of Systems Vital Signs Vitals Vital Signs Date Time Temp Pulse Resp B/P Pulse Ox O2 Delivery O2 Flow Rate FiO2 09/02/16 07:24 98.7 66 18 129/76 98 08/31/16 19:41 Room Air Intake and Output 09/01/16 09/01/16 09/02/16 15:00 23:00 07:00 Intake Total 100 ml 700 ml 850 ml Output Total 41 ml 25 ml Balance 100 ml 659 ml 825 ml Exam Constitutional: alert, oriented, well developed Psych: nl mood/affect Head: atraumatic, normocephalic, aloplecia Eyes: nl sclera Neck: supple, No jvd Respiratory: clear to auscultation, normal air movement, other (Left chest port -a-cath noted with no e/o infection Cardiovascular: nl pulses, regular rate and rhythm, No edema Gastrointestinal: bowel sounds (present), non-tender, soft, No distended Extremities: normal pulses No clubbing, No cyanosis, No edema Neurological: nl mental status, nl speech Skin: nl turgor, other (Right breast mastectomy with incision well approximated and mild TTP; AKIL drain x1 with mostly light serous sanguinous drainage; faint erythema of RUE) Results Result Diagram: 09/02/16 0934 09/02/16 0934 Results 24 hrs Laboratory Tests Test 09/02/16 09:34 White Blood Count 9.0 Red Blood Count 3.55 L Hemoglobin 10.9 L Hematocrit 34.1 L Mean Corpuscular Volume 96.1 Mean Corpuscular Hemoglobin 30.7 Mean Corpuscular Hemoglobin Concent 32.0 Red Cell Distribution Width 15.8 H Platelet Count 311 Mean Platelet Volume 8.9 Neutrophils % 65.3 Lymphocytes % 19.0 Monocytes % 5.2 Eosinophils % 1.2 Basophils % 0.9 Nucleated Red Blood Cells % 0.0 Neutrophils # 5.9 Lymphocytes # 1.7 Monocytes # 0.5 Eosinophils # 0.1 Basophils # 0.1 Nucleated Red Blood Cells # 0.0 Sodium Level 140 Potassium Level 3.9 Chloride Level 103 Carbon Dioxide Level 24 Anion Gap 17 #H Blood Urea Nitrogen 15 Creatinine 0.71 Glucose Level 96 Calcium Level 9.6 Medications Medications Current Medications Calcium Carbonate (Oyster Shell Calcium) 1.25 gm DAILY PO Last administered on 09/02/16 08:36; Admin Dose 1.25 GM; Start 08/24/16 at 09:00 Atorvastatin Calcium (Lipitor) 40 mg HS GTB Last administered on 09/01/16 20: 04; Admin Dose 40 MG; Start 08/24/16 at 21:00 Acetaminophen (Tylenol Tab) 650 mg Q4H PRN PO PAIN OR ELEVATED TEMP. Last administered on 08/30/16 01:40; Admin Dose 650 MG; Start 08/24/16 at 06:30 Patient Own Medication 1 ea HS PRN PO INSOMNIA Last administered on 09/01/16 20:04; Admin Dose 1 EA; Start 08/24/16 at 21:00 Miscellaneous Information Patients own medicat... BID@ XX ; Start 08/24/16 at 10:00 Enoxaparin Sodium (Lovenox) 60 mg Q12 SC Last administered on 09/02/16 08:47; Admin Dose 60 MG; Start 08/24/16 at 09:00 Trazodone HCl (Desyrel) 50 mg HS PO Last administered on 09/01/16 20:03; Admin Dose 50 MG; Start 08/26/16 at 21:00 Pantoprazole (Protonix Tab) 40 mg DAILY@06 PO Last administered on 09/02/16 06 :56; Admin Dose 40 MG; Start 08/28/16 at 06:00 Alprazolam 0.5 mg 0.5 mg Q8H PRN PO ANXIETY Last administered on 09/02/16 08: 45; Admin Dose 0.5 MG; Start 08/27/16 at 18:00 Piperacillin Sod/ Tazobactam Sod (Zosyn 3.375gm/ 100 ml (Pmx)) 100 ml @ 200 mls /hr Q6 IVPB Last administered on 09/02/16 17:37; Admin Dose 200 MLS/HR; Start 08/28/16 at 17:00 Lisinopril (Zestril) 20 mg DAILY PO Last administered on 09/02/16 08:35; Admin Dose 20 MG; Start 08/29/16 at 15:00 Metoprolol Tartrate 50 mg 50 mg BID PO Last administered on 09/02/16 08:35; Admin Dose 50 MG; Start 08/29/16 at 22:00 Potassium Chloride/Sodium Chloride (NS-KCl 20 Meq) 1,000 ml @ 60 mls/hr [id number] IV Last administered on 09/02/16 03:29; Admin Dose 60 MLS/HR; Start at 04:00 CARTER CARTAGENA NP September 02, 2016 18:16
[2016-09-02 20:00] VITALS: BP 112/71; RESP 19
--- NOTE | 2016-09-02 20:19 | PN ---
DATE: 09/02/2016 SUBJECTIVE: Feels okay. No new complaints. OBJECTIVE: VITAL SIGNS: Temperature 96.6, heart rate is 88, respiration 18, blood pressure 129/76, saturation 98% on room air. LABORATORY DATA: WBC 9000 with 65% neutrophils, hemoglobin 10.9, hematocrit 34 , stable. Chemistry: BUN 15, creatinine 0.71, stable. DRAINS: Jay-Palafox. The only one that is left is #2. The drainage the past 24 hours is 60 mL. CHEST: Wound grossly looks clean. Minimal erythema still is present. No tenderness. ASSESSMENT: A 56-year-old patient admitted due to sepsis because of the cellulitis and infection of the surgical site after modified radical mastectomy with axillary dissection. The patient was started on antibiotics, vancomycin and cefepime, but appears that it was not responding. It was changed to Zosyn and patient, within 48 hours, responded and cellulitis got much better. Now states she is getting antibiotic IV. Depends on the infectious disease when they are going to decide to stop the IV antibiotic and the patient can be discharged at that time on p.o. or what other plans they have. Will continue to follow the patient, observe the drainage from the Jay-Palafox ,is 60 mL now . When it drops down to below 15 mL, we may remove the Jay-Palafox either in the hospital or in the office followup. Dictated By: ELVIA NATION MD PS/NTS Conf#: [id number] DID#: [id number] CC: MELISSA CASTILLO MD;*EndCC* MTDD
[2016-09-02] MEDS: TEMAZEPAM 30 MG PO PRN (20:39)
[2016-09-02] MEDS: ATORVASTATIN 40 MG TAB GTB SCH (20:41)
[2016-09-02] MEDS: traZODone 50 MG TAB PO SCH (20:41)
[2016-09-03] MEDS: PIPER-TAZO 3.375 GM IV (PMX) 100 ML IVPB SCH ×5 (00:08→23:56)
[2016-09-03 06:08] LABS: POTASSIUM 4.2 mmol/L (3.5-5.1)
[2016-09-03 06:11] LABS: CALCIUM 9.4 mg/dl (8.4-10.2); CREATININE 0.66 mg/dl (0.44-1.00)
[2016-09-03] MEDS: PANTOPRAZOLE (EC) 40 MG TAB PO SCH (06:15)
[2016-09-03] MEDS: LEVOTHYROXINE 100 MCG TAB PO SCH (06:15)
[2016-09-03 07:33] VITALS: BP 127/76; RESP 16
[2016-09-03] MEDS: METOPROLOL 50 MG TAB PO SCH ×2 (08:32→20:38)
[2016-09-03] MEDS: CALCIUM CARBONATE 1.25 GM TAB PO SCH (08:32)
[2016-09-03] MEDS: LISINOPRIL 20 MG TAB PO SCH (08:33)
[2016-09-03] MEDS: ALPRAZOLAM 0.25 MG TAB PO PRN ×2 (08:34→20:37)
[2016-09-03] MEDS: ENOXAPARIN 60 MG/0.6 ML SYG SC SCH ×2 (08:35→20:54)
--- NOTE | 2016-09-03 13:40 | PN ---
DATE: 09/03/2016 SUBJECTIVE: No new complaints. She is worried about when she can leave and go home. OBJECTIVE: VITAL SIGNS: Temperature 97.8, respiratory rate 16, blood pressure 127/76, saturation 98% on room a ir. LABORATORY DATA: Sodium, potassium, BUN, creatinine within normal limits. The only left Jay-Pr att drain has drained 50 mL over the past 24 hours, but the color which used to be almost serous now has changed to serosanguineous. The wound is clean with mike have been removed and the cellulit is I would say 96% is clear. PLAN: Continue antibiotics as has been ordered by infectious disease networks software consultant. We will continue following the patient. Dictated By: ELVIA MURRAY/ZA Conf#: [id number] DID#: [id number]
--- NOTE | 2016-09-03 16:17 | CONS ---
Date/Time of Note Date/Time of Note DATE: 09/03/16 TIME: 15:52 Consult Date/Type/Reason Admit Date/Time August 23, 2016 at 23:16 Initial Consult Date 08/24/16 Type of Consultation: Infectious Disease Reason for Consultation Infectious disease f/u for cellulits right breast Ordering Provider: MELISSA CASTILLO MD Subjective Afraid going back to her own house with tube due to unkept house, multiple animals at home & possible infection Objective Vital Signs Date Time Temp Pulse Resp B/P Pulse Ox O2 Delivery O2 Flow Rate FiO2 09/03/16 07:33 97.8 60 16 127/76 98 08/31/16 19:41 Room Air Intake and Output 09/02/16 09/02/16 09/03/16 15:00 23:00 07:00 Intake Total 200 ml 2180 ml 460 ml Output Total 30 ml 20 ml Balance 200 ml 2150 ml 440 ml Exam Constitutional: alert, oriented, well developed Psych: anxious, talkative Head: atraumatic, normocephalic, aloplecia with headscarf on Eyes: wnl Neck: supple, no JVD's Respiratory: clear to auscultation, left chest port-a-cath without e/o infection Cardiovascular: regular rate and rhythm, palpable pulses Gastrointestinal: soft, non-tender, non-distended Extremities: moves all 4 without difficult, palpable pulses and no edema Neurological: alert and oriented Skin: s/p right breast mastectomy, mike out, incision well approximated, no erythema, AKIL drain x1 with moderate amount of serosanguinous drainage Results/Medications Result Diagram: 09/02/16 0934 09/03/16 0520 Results 24 hrs Laboratory Tests Test 09/03/16 05:20 Sodium Level 140 Potassium Level 4.2 Chloride Level 105 Carbon Dioxide Level 23 Anion Gap 16 Blood Urea Nitrogen 16 Creatinine 0.66 Glucose Level 90 Calcium Level 9.4 Medications Current Medications Calcium Carbonate (Oyster Shell Calcium) 1.25 gm DAILY PO Last administered on 09/03/16 08:32; Admin Dose 1.25 GM; Start 08/24/16 at 09:00 Atorvastatin Calcium (Lipitor) 40 mg HS GTB Last administered on 09/02/16 20: 41; Admin Dose 40 MG; Start 08/24/16 at 21:00 Acetaminophen (Tylenol Tab) 650 mg Q4H PRN PO PAIN OR ELEVATED TEMP. Last administered on 08/30/16 01:40; Admin Dose 650 MG; Start 08/24/16 at 06:30 Patient Own Medication 1 ea HS PRN PO INSOMNIA Last administered on 09/02/16 20:39; Admin Dose 1 EA; Start 08/24/16 at 21:00 Miscellaneous Information Patients own medicat... BID@10,16 XX ; Start 08/24/16 at 10:00 Enoxaparin Sodium (Lovenox) 60 mg Q12 SC Last administered on 09/03/16 08:35; Admin Dose 60 MG; Start 08/24/16 at 09:00 Trazodone HCl (Desyrel) 50 mg HS PO Last administered on 09/02/16 20:41; Admin Dose 50 MG; Start 08/26/16 at 21:00 Pantoprazole (Protonix Tab) 40 mg DAILY@06 PO Last administered on 09/03/16 06 :15; Admin Dose 40 MG; Start 08/28/16 at 06:00 Alprazolam 0.5 mg 0.5 mg Q8H PRN PO ANXIETY Last administered on 09/03/16 08: 34; Admin Dose 0.5 MG; Start 08/27/16 at 18:00 Piperacillin Sod/ Tazobactam Sod (Zosyn 3.375gm/ 100 ml (Pmx)) 100 ml @ 200 mls /hr Q6 IVPB Last administered on 09/03/16 11:47; Admin Dose 200 MLS/HR; Start 08/28/16 at 17:00 Lisinopril (Zestril) 20 mg DAILY PO Last administered on 09/03/16 08:33; Admin Dose 20 MG; Start 08/29/16 at 15:00 Metoprolol Tartrate 50 mg 50 mg BID PO Last administered on 09/03/16 08:32; Admin Dose 50 MG; Start 08/29/16 at 22:00 Potassium Chloride/Sodium Chloride (NS-KCl 20 Meq) 1,000 ml @ 60 mls/hr [id number] IV Last administered on 09/02/16 22:33; Admin Dose 60 MLS/HR; Start at 04:00 Assessment/Plan Chief Complaint/Hosp Course Chief Complaint/Hosp Course - Sepsis d/t cellulitis of right chest - fever and mild leukocytosis resolved - Cellulitis of right chest. Cultures of AKIL fluid grew MSSA, pseudo and bacillus species - resolving - Locally advanced right breast cancer s/p Right modified radical mastectomy 08/[address] Amanda - Left IJ thrombosis - Acute on probable chronic anemia requiring blood transfusion - Hyponatremia - improved - Hyperkalemia/Hypokalemia - improved - HTN - HLD - Hypothyroidism - Anxiety/depression - Hx previous alcohol abuse recommendations: - Pt's s/p vancomycin and cefepime - continue Pip/tazo 14 days total (08/28/2016-) - Care and management d/w patient, ANTWAN Cheney and Dr. Patel Problems: Additional Assessment/Plan Stable, anxious about discharge home HILLARY BRADLEY September 03, 2016 16:06
--- NOTE | 2016-09-03 17:20 | PN ---
Date/Time of Note Date/Time of Note DATE: 09/03/16 TIME: 17:19 Assessment/Plan VTE Prophylaxis VTE Prophylaxis Intervention: SCD's Lines/Catheters IV Catheter Type (from [facility] Portacath Urinary Cath still in place: No Assessment/Plan Chief Complaint/Hosp Course ASSESSMENT AND PLAN: - Sepsis secondary to postoperative soft tissue infection of the right breast. Dr. Patel is following in infectious disease consultation. Continue abx per ID. - Cellulitis of the right breast. Continue antibiotics per ID. - Status post right modified mastectomy on August [address] Amanda is following in surgical consultation. - Thrombus of the left internal jugular vein. Dr. Edwards is following in vascular surgery consultation. Continue Lovenox. - Hyponatremia on admission, resolved Dr. Davies is following in nephrology consultation. Continue IV fluids. - Hyperthyroidism. Continue patient's Synthroid. - Hypertension. Continue lisinopril. - Hyperlipidemia. Continue statin. - Anemia, status post blood transfusion. Continue sequential compression device for deep venous thrombosis prophylaxis and Protonix for peptic ulcer disease prophylaxis. Further recommendations based on clinical course. Plan of care discussed with Dr. Brito. Problems: Subjective 24 Hr Interval Summary Free Text/Dictation Patient's continues to have some drainage from the AKIL, remains afebrile, pain is well controlled. Exam/Review of Systems Vital Signs Vitals Vital Signs Date Time Temp Pulse Resp B/P Pulse Ox O2 Delivery O2 Flow Rate FiO2 09/03/16 07:33 97.8 60 16 127/76 98 08/31/16 19:41 Room Air Intake and Output 09/02/16 09/02/16 09/03/16 15:00 23:00 07:00 Intake Total 200 ml 2180 ml 460 ml Output Total 30 ml 20 ml Balance 200 ml 2150 ml 440 ml Exam GENERAL: Well-developed, well-nourished female, currently is awake, alert. HEENT: Head is atraumatic, normocephalic. Pupils equal, round, reactive to light and accommodation. Oral mucosa is pink and moist. NECK: Supple, no cervical lymphadenopathy, no thyromegaly. CHEST: Lungs clear bilaterally. No rhonchi, wheezes, or rales noted. The patient has a right breast surgical scar intact with mike and the right axillary AKIL. left chest PermCath. CARDIOVASCULAR: Normal S1, S2. No murmurs, gallops, clicks, rubs noted. ABDOMEN: Flat, soft, nondistended, nontender. Bowel sounds present. There is no guarding, no rebound tenderness. EXTREMITIES: There is no edema, clubbing, cyanosis. Pulses equal bilaterally 2 +. SKIN: There is no rash, petechiae noted. NEUROLOGIC: The patient is awake, alert, and oriented x4. Results Result Diagram: 09/02/16 0934 09/03/16 0520 Results 24 hrs Laboratory Tests Test 09/03/16 05:20 Sodium Level 140 Potassium Level 4.2 Chloride Level 105 Carbon Dioxide Level 23 Anion Gap 16 Blood Urea Nitrogen 16 Creatinine 0.66 Glucose Level 90 Calcium Level 9.4 Medications Medications Current Medications Calcium Carbonate (Oyster Shell Calcium) 1.25 gm DAILY PO Last administered on 09/03/16 08:32; Admin Dose 1.25 GM; Start 08/24/16 at 09:00 Atorvastatin Calcium (Lipitor) 40 mg HS GTB Last administered on 09/02/16 20: 41; Admin Dose 40 MG; Start 08/24/16 at 21:00 Acetaminophen (Tylenol Tab) 650 mg Q4H PRN PO PAIN OR ELEVATED TEMP. Last administered on 08/30/16 01:40; Admin Dose 650 MG; Start 08/24/16 at 06:30 Patient Own Medication 1 ea HS PRN PO INSOMNIA Last administered on 09/02/16 20:39; Admin Dose 1 EA; Start 08/24/16 at 21:00 Miscellaneous Information Patients own medicat... BID@10,16 XX ; Start 08/24/16 at 10:00 Enoxaparin Sodium (Lovenox) 60 mg Q12 SC Last administered on 09/03/16 08:35; Admin Dose 60 MG; Start 08/24/16 at 09:00 Trazodone HCl (Desyrel) 50 mg HS PO Last administered on 09/02/16 20:41; Admin Dose 50 MG; Start 08/26/16 at 21:00 Pantoprazole (Protonix Tab) 40 mg DAILY@06 PO Last administered on 09/03/16 06 :15; Admin Dose 40 MG; Start 08/28/16 at 06:00 Alprazolam 0.5 mg 0.5 mg Q8H PRN PO ANXIETY Last administered on 09/03/16 08: 34; Admin Dose 0.5 MG; Start 08/27/16 at 18:00 Piperacillin Sod/ Tazobactam Sod (Zosyn 3.375gm/ 100 ml (Pmx)) 100 ml @ 200 mls /hr Q6 IVPB Last administered on 09/03/16 11:47; Admin Dose 200 MLS/HR; Start 08/28/16 at 17:00 Lisinopril (Zestril) 20 mg DAILY PO Last administered on 09/03/16 08:33; Admin Dose 20 MG; Start 08/29/16 at 15:00 Metoprolol Tartrate 50 mg 50 mg BID PO Last administered on 09/03/16 08:32; Admin Dose 50 MG; Start 08/29/16 at 22:00 Potassium Chloride/Sodium Chloride (NS-KCl 20 Meq) 1,000 ml @ 60 mls/hr [id number] IV Last administered on 09/02/16 22:33; Admin Dose 60 MLS/HR; Start at 04:00 PAUL RAMOS September 03, 2016 17:20
[2016-09-03] MEDS: NS + KCL 20 MEQ 1,000 ML IV SCH (18:15)
[2016-09-03 19:37] VITALS: BP 135/72; RESP 18
--- NOTE | 2016-09-03 20:18 | CONS ---
Date/Time of Note Date/Time of Note DATE: 09/03/16 TIME: 20:16 Assessment/Plan Assessment/Plan Additional Assessment/Plan 1. Hyponatremia, likely secondary to hypovolemic hyponatremia, no SIADH 3. Acute prerenal azotemia secondary to moderate to severe dehydration. 4. Moderate to severe dehydration. 5. History of recent right breast mastectomy 5 days ago. 6. Left internal jugular thrombosis. 7. History of hypertension. 8. History of depression. 9. History of anxiety. 10. History of previous alcohol abuse. 11. History of hypothyroidism. 12. hyperkalemia 13. Metabolic acidosis PLAN: d/c IV fluids Cr and electrolytes stable today will follow up Consultation Date/Type/Reason Admit Date/Time August 23, 2016 at 23:16 Initial Consult Date 08/24/16 Type of Consultation: NEPHROLOGY Reason for Consultation Hyponatremia Referring Provider: MELISSA CASTILLO MD Exam/Review of Systems Vital Signs Vitals Vital Signs Date Time Temp Pulse Resp B/P Pulse Ox O2 Delivery O2 Flow Rate FiO2 09/03/16 19:37 98.4 66 18 135/72 98 08/31/16 19:41 Room Air Intake and Output 09/02/16 09/02/16 09/03/16 15:00 23:00 07:00 Intake Total 200 ml 2180 ml 460 ml Output Total 30 ml 20 ml Balance 200 ml 2150 ml 440 ml Results Result Diagram: 09/02/16 0934 09/03/16 0520 Results 24 hrs Laboratory Tests Test 09/03/16 05:20 Sodium Level 140 Potassium Level 4.2 Chloride Level 105 Carbon Dioxide Level 23 Anion Gap 16 Blood Urea Nitrogen 16 Creatinine 0.66 Glucose Level 90 Calcium Level 9.4 Medications Medications Current Medications Calcium Carbonate (Oyster Shell Calcium) 1.25 gm DAILY PO Last administered on 09/03/16 08:32; Admin Dose 1.25 GM; Start 08/24/16 at 09:00 Atorvastatin Calcium (Lipitor) 40 mg HS GTB Last administered on 09/02/16 20: 41; Admin Dose 40 MG; Start 08/24/16 at 21:00 Acetaminophen (Tylenol Tab) 650 mg Q4H PRN PO PAIN OR ELEVATED TEMP. Last administered on 08/30/16 01:40; Admin Dose 650 MG; Start 08/24/16 at 06:30 Patient Own Medication 1 ea HS PRN PO INSOMNIA Last administered on 09/02/16 20:39; Admin Dose 1 EA; Start 08/24/16 at 21:00 Miscellaneous Information Patients own medicat... BID@10,16 XX ; Start 08/24/16 at 10:00 Enoxaparin Sodium (Lovenox) 60 mg Q12 SC Last administered on 09/03/16 08:35; Admin Dose 60 MG; Start 08/24/16 at 09:00 Trazodone HCl (Desyrel) 50 mg HS PO Last administered on 09/02/16 20:41; Admin Dose 50 MG; Start 08/26/16 at 21:00 Pantoprazole (Protonix Tab) 40 mg DAILY@06 PO Last administered on 09/03/16 06 :15; Admin Dose 40 MG; Start 08/28/16 at 06:00 Alprazolam 0.5 mg 0.5 mg Q8H PRN PO ANXIETY Last administered on 09/03/16 08: 34; Admin Dose 0.5 MG; Start 08/27/16 at 18:00 Piperacillin Sod/ Tazobactam Sod (Zosyn 3.375gm/ 100 ml (Pmx)) 100 ml @ 200 mls /hr Q6 IVPB Last administered on 09/03/16 18:12; Admin Dose 200 MLS/HR; Start 08/28/16 at 17:00 Lisinopril (Zestril) 20 mg DAILY PO Last administered on 09/03/16 08:33; Admin Dose 20 MG; Start 08/29/16 at 15:00 Metoprolol Tartrate 50 mg 50 mg BID PO Last administered on 09/03/16 08:32; Admin Dose 50 MG; Start 08/29/16 at 22:00 Potassium Chloride/Sodium Chloride (NS-KCl 20 Meq) 1,000 ml @ 60 mls/hr [id number] IV Last administered on 09/03/16 18:15; Admin Dose 60 MLS/HR; Start at 04:00 DIANA MORALES MD September 03, 2016 20:18
[2016-09-03] MEDS: TEMAZEPAM 30 MG PO PRN (20:37)
[2016-09-03] MEDS: ATORVASTATIN 40 MG TAB GTB SCH (20:37)
[2016-09-03] MEDS: traZODone 50 MG TAB PO SCH (20:38)
[2016-09-04] MEDS: LEVOTHYROXINE 100 MCG TAB PO SCH (05:47)
[2016-09-04] MEDS: PANTOPRAZOLE (EC) 40 MG TAB PO SCH (05:47)
[2016-09-04] MEDS: PIPER-TAZO 3.375 GM IV (PMX) 100 ML IVPB SCH ×3 (05:47→18:03)
[2016-09-04 06:11] LABS: ADD SCAN DIFF NO
[2016-09-04 06:20] LABS: BASOPHIL # 0.1 10^3/ul (0.0-0.1); BASOPHILS % 0.7 % (0.0-2.0); EOSINOPHILS # 0.2 10^3/ul (0.0-0.5); EOSINOPHILS % 1.8 % (0.0-7.0); HEMATOCRIT 32.8 % (37.0-47.0); HEMOGLOBIN 10.3 g/dl (12.0-16.0); LYMPHOCYTES # 2.4 10^3/ul (0.8-2.9); LYMPHOCYTES % 26.5 % (15.0-51.0); MEAN CORPUSCULAR HGB CONC 31.4 g/dl (32.0-37.0); MEAN CORPUSCULAR VOLUME 95.6 fl (82.0-101.0); MEAN PLATELET VOLUME 8.9 fl (7.4-10.4); MONOCYTE # 0.5 10^3/ul (0.3-0.9); MONOCYTES % 5.8 % (0.0-11.0); NEUTROPHIL # 5.5 10^3/ul (1.6-7.5); NEUTROPHILS % 61.5 % (39.0-77.0); PLATELET COUNT 286 10^3/UL (140-415); RED BLOOD COUNT 3.43 10^6/ul (4.20-5.40); RED CELL DISTRIBUTION WIDTH 15.8 % (11.5-14.5)
[2016-09-04 06:43] LABS: CALCIUM 9.7 mg/dl (8.4-10.2); CREATININE 0.69 mg/dl (0.44-1.00); POTASSIUM 4.2 mmol/L (3.5-5.1)
[2016-09-04 07:28] VITALS: BP 132/69; RESP 18
[2016-09-04] MEDS: ALPRAZOLAM 0.25 MG TAB PO PRN ×2 (08:06→18:18)
[2016-09-04] MEDS: METOPROLOL 50 MG TAB PO SCH ×2 (08:07→20:55)
[2016-09-04] MEDS: LISINOPRIL 20 MG TAB PO SCH (08:07)
[2016-09-04] MEDS: CALCIUM CARBONATE 1.25 GM TAB PO SCH (08:07)
[2016-09-04] MEDS: ENOXAPARIN 60 MG/0.6 ML SYG SC SCH ×2 (08:08→21:01)
--- NOTE | 2016-09-04 11:39 | PN ---
Date/Time of Note Date/Time of Note DATE: 09/04/16 TIME: 11:34 Assessment/Plan VTE Prophylaxis VTE Prophylaxis Intervention: SCD's Lines/Catheters IV C[facility]ter Type (from [facility] Port-A-Cath Urinary Cath still in place: No Assessment/Plan Assessment/Plan - Sepsis secondary to postoperative soft tissue infection of the right breast. Dr. Patel is following in infectious disease consultation. Continue abx per ID. - Cellulitis of the right breast. Continue antibiotics per ID. - Status post right modified mastectomy on August [address] Amanda is following in surgical consultation. - Thrombus of the left internal jugular vein. Dr. Edwards is following in vascular surgery consultation. Continue Lovenox. - Hyponatremia on admission, resolved Dr. Davies is following in nephrology consultation. Continue IV fluids. - Hyperthyroidism. Continue patient's Synthroid. - Hypertension. Continue lisinopril. - Hyperlipidemia. Continue statin. - Anemia, status post blood transfusion. -Sequential compression device for deep venous thrombosis prophylaxis - Protonix for peptic ulcer disease prophylaxis. Further recommendations based on clinical course. Plan of care discussed with Dr. Brito. Subjective 24 Hr Interval Summary Free Text/Dictation NAD, getting bed bath, feels better, 15 cc drainage from the AKIL last night, remains afebrile, pain is well controlled. karlene davis- no acute events reported overnight. Eyes: no complaints ENT: no complaints Respiratory: no complaints Cardiovascular: no complaints Gastrointestinal: no complaints Genitourinary: no complaints Musculoskeletal: no complaints Skin: other (Surgical incision on right breast status post right mastectomy, mike are removed, open to air right breast drain noted with scanty bloody drainage erythema improved. Patient is able to move his her right arm above the head) Neurologic: no complaints Endocrine: no complaints Lymphatic: no complaints Psychological: no complaints Exam/Review of Systems Vital Signs Vitals Vital Signs Date Time Temp Pulse Resp B/P Pulse Ox O2 Delivery O2 Flow Rate FiO2 09/04/16 07:28 97.8 68 18 132/69 99 08/31/16 19:41 Room Air Intake and Output 09/03/16 09/03/16 09/04/16 15:00 23:00 07:00 Intake Total 580 ml 740 ml 1130 ml Output Total 25 ml 10 ml Balance 580 ml 715 ml 1120 ml Exam Constitutional: alert, oriented Respiratory: clear to auscultation Cardiovascular: nl pulses Gastrointestinal: soft Musculoskeletal: nl extremities to inspection Extremities: normal pulses Neurological: nl mental status, nl speech Skin: other Lymph: nontender Results Result Diagram: 09/04/16 0550 09/04/16 0550 Results 24 hrs Laboratory Tests Test 09/04/16 05:50 White Blood Count 9.0 Red Blood Count 3.43 L Hemoglobin 10.3 L Hematocrit 32.8 L Mean Corpuscular Volume 95.6 Mean Corpuscular Hemoglobin 30.0 Mean Corpuscular Hemoglobin Concent 31.4 L Red Cell Distribution Width 15.8 H Platelet Count 286 Mean Platelet Volume 8.9 Neutrophils % 61.5 Lymphocytes % 26.5 Monocytes % 5.8 Eosinophils % 1.8 Basophils % 0.7 Nucleated Red Blood Cells % 0.0 Neutrophils # 5.5 Lymphocytes # 2.4 Monocytes # 0.5 Eosinophils # 0.2 Basophils # 0.1 Nucleated Red Blood Cells # 0.0 Sodium Level 138 Potassium Level 4.2 Chloride Level 107 Carbon Dioxide Level 25 Anion Gap 10 # Blood Urea Nitrogen 18 Creatinine 0.69 Glucose Level 95 Calcium Level 9.7 Medications Medications Current Medications Calcium Carbonate (Oyster Shell Calcium) 1.25 gm DAILY PO Last administered on 09/04/16 08:07; Admin Dose 1.25 GM; Start 08/24/16 at 09:00 Atorvastatin Calcium (Lipitor) 40 mg HS GTB Last administered on 09/03/16 20: 37; Admin Dose 40 MG; Start 08/24/16 at 21:00 Acetaminophen (Tylenol Tab) 650 mg Q4H PRN PO PAIN OR ELEVATED TEMP. Last administered on 08/30/16 01:40; Admin Dose 650 MG; Start 08/24/16 at 06:30 Patient Own Medication 1 ea HS PRN PO INSOMNIA Last administered on 09/03/16 20:37; Admin Dose 1 EA; Start 08/24/16 at 21:00 Miscellaneous Information Patients own medicat... BID@10,16 XX ; Start 08/24/16 at 10:00 Enoxaparin Sodium (Lovenox) 60 mg Q12 SC Last administered on 09/04/16 08:08; Admin Dose 60 MG; Start 08/24/16 at 09:00 Trazodone HCl (Desyrel) 50 mg HS PO Last administered on 09/03/16 20:38; Admin Dose 50 MG; Start 08/26/16 at 21:00 Pantoprazole (Protonix Tab) 40 mg DAILY@06 PO Last administered on 09/04/16 05 :47; Admin Dose 40 MG; Start 08/28/16 at 06:00 Alprazolam 0.5 mg 0.5 mg Q8H PRN PO ANXIETY Last administered on 09/04/16 08: 06; Admin Dose 0.5 MG; Start 08/27/16 at 18:00 Piperacillin Sod/ Tazobactam Sod (Zosyn 3.375gm/ 100 ml (Pmx)) 100 ml @ 200 mls /hr Q6 IVPB Last administered on 09/04/16 05:47; Admin Dose 200 MLS/HR; Start 08/28/16 at 17:00 Lisinopril (Zestril) 20 mg DAILY PO Last administered on 09/04/16 08:07; Admin Dose 20 MG; Start 08/29/16 at 15:00 Metoprolol Tartrate (Lopressor) 50 mg BID PO Last administered on 09/04/16 08: 07; Admin Dose 50 MG; Start 08/29/16 at 22:00 DEUCE FRANK September 04, 2016 11:39
--- NOTE | 2016-09-04 17:14 | PN ---
DATE: 09/04/2016 SUBJECTIVE: Complains of some itching around the incision line on the right side of the chest wall. VITAL SIGNS: Temperature 97.8, heart rate 68, respirations 132/69, saturation 99% on room air. LABORATORY DATA: WBC 9000 with 61% neutrophils with normal differential, hemoglobin 10.3, hematocri t 32.8. Jay-Palafox drainage in the past 24 hours 35 mL. It was a serosanguineous color. PHYSICAL EXAMINATION: The patient is awake, alert, oriented x3. The left Port-A-Cath is in place. The dressing changed by nurses today. The right breast erythema and cellulitis is much better impr emily. Jay-Palafox tubing is intact. There is serosanguineous fluid in the bulb as was mentioned , at 35 mL per 24 hours. No tenderness. ASSESSMENT: 1. Status post bilateral mastectomy with axillary dissection on the right side. 2. Status post cellulitis post-operation. 3. Patient is receiving antibiotics and has found that it is much better. 4. One of the AKIL drains was removed 3 days ago. The other one is in place, draining more than 35 m L per day. The color used to be serous fluid, but for some reason it has changed to serosanguineous . PLAN: Continue antibiotics per infectious disease. The patient can be discharged any time that is okay with infectious disease scheduling and planning. Dictated By: ELVIA MURRAY/ZA Conf#: [id number] DID#: [id number]
--- NOTE | 2016-09-04 17:39 | CONS ---
Date/Time of Note Date/Time of Note DATE: 09/04/16 TIME: 17:38 Assessment/Plan Assessment/Plan Additional Assessment/Plan 1. Hyponatremia, likely secondary to hypovolemic hyponatremia, no SIADH 3. Acute prerenal azotemia secondary to moderate to severe dehydration. 4. Moderate to severe dehydration. 5. History of recent right breast mastectomy 5 days ago. 6. Left internal jugular thrombosis. 7. History of hypertension. 8. History of depression. 9. History of anxiety. 10. History of previous alcohol abuse. 11. History of hypothyroidism. 12. hyperkalemia 13. Metabolic acidosis PLAN: Cr and electrolytes stable today will follow up Consultation Date/Type/Reason Admit Date/Time August 23, 2016 at 23:16 Initial Consult Date 08/24/16 Type of Consultation: NEPHROLOGY Referring Provider: MELISSA CASTILLO MD Exam/Review of Systems Vital Signs Vitals Vital Signs Date Time Temp Pulse Resp B/P Pulse Ox O2 Delivery O2 Flow Rate FiO2 09/04/16 07:28 97.8 68 18 132/69 99 08/31/16 19:41 Room Air Intake and Output 09/03/16 09/03/16 09/04/16 15:00 23:00 07:00 Intake Total 580 ml 740 ml 1250 ml Output Total 25 ml 10 ml Balance 580 ml 715 ml 1240 ml Exam GENERAL: Well-developed, well-nourished female, currently is awake, alert. CHEST: Lungs clear bilaterally. No rhonchi, wheezes, or rales noted. The patient has a right breast surgical scar intact with mike and the right axillary AKIL. left chest PermCath. CARDIOVASCULAR: Normal S1, S2. No murmurs, gallops, clicks, rubs noted. ABDOMEN: Flat, soft, nondistended, nontender. Bowel sounds present. There is no guarding, no rebound tenderness. EXTREMITIES: There is no edema, clubbing, cyanosis. Results Result Diagram: 09/04/16 0550 09/04/16 0550 Results 24 hrs Laboratory Tests Test 09/04/16 05:50 White Blood Count 9.0 Red Blood Count 3.43 L Hemoglobin 10.3 L Hematocrit 32.8 L Mean Corpuscular Volume 95.6 Mean Corpuscular Hemoglobin 30.0 Mean Corpuscular Hemoglobin Concent 31.4 L Red Cell Distribution Width 15.8 H Platelet Count 286 Mean Platelet Volume 8.9 Neutrophils % 61.5 Lymphocytes % 26.5 Monocytes % 5.8 Eosinophils % 1.8 Basophils % 0.7 Nucleated Red Blood Cells % 0.0 Neutrophils # 5.5 Lymphocytes # 2.4 Monocytes # 0.5 Eosinophils # 0.2 Basophils # 0.1 Nucleated Red Blood Cells # 0.0 Sodium Level 138 Potassium Level 4.2 Chloride Level 107 Carbon Dioxide Level 25 Anion Gap 10 # Blood Urea Nitrogen 18 Creatinine 0.69 Glucose Level 95 Calcium Level 9.7 Medications Medications Current Medications Calcium Carbonate (Oyster Shell Calcium) 1.25 gm DAILY PO Last administered on 09/04/16 08:07; Admin Dose 1.25 GM; Start 08/24/16 at 09:00 Atorvastatin Calcium (Lipitor) 40 mg HS GTB Last administered on 09/03/16 20: 37; Admin Dose 40 MG; Start 08/24/16 at 21:00 Acetaminophen (Tylenol Tab) 650 mg Q4H PRN PO PAIN OR ELEVATED TEMP. Last administered on 08/30/16 01:40; Admin Dose 650 MG; Start 08/24/16 at 06:30 Patient Own Medication 1 ea HS PRN PO INSOMNIA Last administered on 09/03/16 20:37; Admin Dose 1 EA; Start 08/24/16 at 21:00 Miscellaneous Information Patients own medicat... BID@10,16 XX ; Start 08/24/16 at 10:00 Enoxaparin Sodium (Lovenox) 60 mg Q12 SC Last administered on 09/04/16 08:08; Admin Dose 60 MG; Start 08/24/16 at 09:00 Trazodone HCl (Desyrel) 50 mg HS PO Last administered on 09/03/16 20:38; Admin Dose 50 MG; Start 08/26/16 at 21:00 Pantoprazole (Protonix Tab) 40 mg DAILY@06 PO Last administered on 09/04/16 05 :47; Admin Dose 40 MG; Start 08/28/16 at 06:00 Alprazolam 0.5 mg 0.5 mg Q8H PRN PO ANXIETY Last administered on 09/04/16 08: 06; Admin Dose 0.5 MG; Start 08/27/16 at 18:00 Piperacillin Sod/ Tazobactam Sod (Zosyn 3.375gm/ 100 ml (Pmx)) 100 ml @ 200 mls /hr Q6 IVPB Last administered on 09/04/16 11:40; Admin Dose 200 MLS/HR; Start 08/28/16 at 17:00 Lisinopril (Zestril) 20 mg DAILY PO Last administered on 09/04/16 08:07; Admin Dose 20 MG; Start 08/29/16 at 15:00 Metoprolol Tartrate (Lopressor) 50 mg BID PO Last administered on 09/04/16 08: 07; Admin Dose 50 MG; Start 08/29/16 at 22:00 DIANA MORALES MD September 04, 2016 17:39
--- NOTE | 2016-09-04 18:10 | CONS ---
Date/Time of Note Date/Time of Note DATE: 09/04/16 TIME: 18:09 Assessment/Plan Assessment/Plan Chief Complaint/Hosp Course - Sepsis d/t cellulitis of right chest - fever and mild leukocytosis resolved - Cellulitis of right chest. Cultures of AKIL fluid grew MSSA, pseudo and bacillus species - resolving - Locally advanced right breast cancer s/p Right modified radical mastectomy 08/[address] Amanda - Left IJ thrombosis - Acute on probable chronic anemia requiring blood transfusion - Hyponatremia - improved - Hyperkalemia/Hypokalemia - improved - HTN - HLD - Hypothyroidism - Anxiety/depression - Hx previous alcohol abuse - New erythema to left chest port-a-cath site - resolved recommendations: - continue Pip/tazo (08/28/2016-) x 14 days. - Pt's s/p vancomycin and cefepime Management d/w Pt, ANTWAN Blackwell and Dr. Patel Problems: Consultation Date/Type/Reason Admit Date/Time August 23, 2016 at 23:16 Initial Consult Date 08/24/16 Type of Consultation: Infectious Disease Referring Provider: MELISSA CASTILLO MD 24 HR Interval Summary Free Text/Dictation No new issues per d/w nursing staff. Pt states she is fearful to be discharged home with AKIL drain especially since her home still needs cleaning. C/o pruritus to incisional site and moderate TTP and asking "Is this normal?". Tolerating IV abx. Exam/Review of Systems Vital Signs Vitals Vital Signs Date Time Temp Pulse Resp B/P Pulse Ox O2 Delivery O2 Flow Rate FiO2 09/04/16 07:28 97.8 68 18 132/69 99 08/31/16 19:41 Room Air Intake and Output 09/03/16 09/03/16 09/04/16 15:00 23:00 07:00 Intake Total 580 ml 740 ml 1250 ml Output Total 25 ml 10 ml Balance 580 ml 715 ml 1240 ml Exam Constitutional: alert, oriented, well developed Psych: nl mood/affect Head: atraumatic, normocephalic, aloplecia Eyes: nl sclera Neck: supple, No jvd Respiratory: clear to auscultation, normal air movement, other (Left chest port -a-cath noted with no e/o infection Cardiovascular: nl pulses, regular rate and rhythm, No edema Gastrointestinal: bowel sounds (present), non-tender, soft, No distended Extremities: normal pulses No clubbing, No cyanosis, No edema Neurological: nl mental status, nl speech Skin: nl turgor, other (Right breast mastectomy with incision well approximated and moderate TTP near axilla/AKIL site; AKIL drain x1 with serous sanguinous drainage; resolving erythema of R chest and RUE) Results Result Diagram: 09/04/16 0550 09/04/16 0550 Results 24 hrs Laboratory Tests Test 09/04/16 05:50 White Blood Count 9.0 Red Blood Count 3.43 L Hemoglobin 10.3 L Hematocrit 32.8 L Mean Corpuscular Volume 95.6 Mean Corpuscular Hemoglobin 30.0 Mean Corpuscular Hemoglobin Concent 31.4 L Red Cell Distribution Width 15.8 H Platelet Count 286 Mean Platelet Volume 8.9 Neutrophils % 61.5 Lymphocytes % 26.5 Monocytes % 5.8 Eosinophils % 1.8 Basophils % 0.7 Nucleated Red Blood Cells % 0.0 Neutrophils # 5.5 Lymphocytes # 2.4 Monocytes # 0.5 Eosinophils # 0.2 Basophils # 0.1 Nucleated Red Blood Cells # 0.0 Sodium Level 138 Potassium Level 4.2 Chloride Level 107 Carbon Dioxide Level 25 Anion Gap 10 # Blood Urea Nitrogen 18 Creatinine 0.69 Glucose Level 95 Calcium Level 9.7 Medications Medications Current Medications Calcium Carbonate (Oyster Shell Calcium) 1.25 gm DAILY PO Last administered on 09/04/16 08:07; Admin Dose 1.25 GM; Start 08/24/16 at 09:00 Atorvastatin Calcium (Lipitor) 40 mg HS GTB Last administered on 09/03/16 20: 37; Admin Dose 40 MG; Start 08/24/16 at 21:00 Acetaminophen (Tylenol Tab) 650 mg Q4H PRN PO PAIN OR ELEVATED TEMP. Last administered on 08/30/16 01:40; Admin Dose 650 MG; Start 08/24/16 at 06:30 Patient Own Medication 1 ea HS PRN PO INSOMNIA Last administered on 09/03/16 20:37; Admin Dose 1 EA; Start 08/24/16 at 21:00 Miscellaneous Information Patients own medicat... BID@10,16 XX ; Start 08/24/16 at 10:00 Enoxaparin Sodium (Lovenox) 60 mg Q12 SC Last administered on 09/04/16 08:08; Admin Dose 60 MG; Start 08/24/16 at 09:00 Trazodone HCl (Desyrel) 50 mg HS PO Last administered on 09/03/16 20:38; Admin Dose 50 MG; Start 08/26/16 at 21:00 Pantoprazole (Protonix Tab) 40 mg DAILY@06 PO Last administered on 09/04/16 05 :47; Admin Dose 40 MG; Start 08/28/16 at 06:00 Alprazolam 0.5 mg 0.5 mg Q8H PRN PO ANXIETY Last administered on 09/04/16 08: 06; Admin Dose 0.5 MG; Start 08/27/16 at 18:00 Piperacillin Sod/ Tazobactam Sod (Zosyn 3.375gm/ 100 ml (Pmx)) 100 ml @ 200 mls /hr Q6 IVPB Last administered on 09/04/16 18:03; Admin Dose 200 MLS/HR; Start 08/28/16 at 17:00 Lisinopril (Zestril) 20 mg DAILY PO Last administered on 09/04/16 08:07; Admin Dose 20 MG; Start 08/29/16 at 15:00 Metoprolol Tartrate (Lopressor) 50 mg BID PO Last administered on 09/04/16 08: 07; Admin Dose 50 MG; Start 08/29/16 at 22:00 CARTER CARTAGENA NP September 04, 2016 18:10
[2016-09-04 19:14] VITALS: BP 144/87; RESP 20
[2016-09-04] MEDS: ATORVASTATIN 40 MG TAB GTB SCH (20:55)
[2016-09-04] MEDS: traZODone 50 MG TAB PO SCH (20:55)
[2016-09-04] MEDS: TEMAZEPAM 30 MG PO PRN (20:55)
[2016-09-05] MEDS: PIPER-TAZO 3.375 GM IV (PMX) 100 ML IVPB SCH ×5 (00:32→23:34)
[2016-09-05] MEDS: ALPRAZOLAM 0.25 MG TAB PO PRN ×2 (06:14→17:44)
[2016-09-05] MEDS: LEVOTHYROXINE 100 MCG TAB PO SCH (06:14)
[2016-09-05] MEDS: PANTOPRAZOLE (EC) 40 MG TAB PO SCH (06:14)
[2016-09-05 07:14] LABS: ADD SCAN DIFF NO
[2016-09-05 07:35] LABS: POTASSIUM 3.9 mmol/L (3.5-5.1)
[2016-09-05 07:37] LABS: CREATININE 0.69 mg/dl (0.44-1.00)
[2016-09-05 07:38] LABS: CALCIUM 9.8 mg/dl (8.4-10.2)
[2016-09-05 07:39] LABS: BASOPHIL # 0.1 10^3/ul (0.0-0.1); BASOPHILS % 0.6 % (0.0-2.0); EOSINOPHILS # 0.1 10^3/ul (0.0-0.5); EOSINOPHILS % 1.7 % (0.0-7.0); HEMATOCRIT 33.9 % (37.0-47.0); HEMOGLOBIN 10.8 g/dl (12.0-16.0); LYMPHOCYTES # 1.9 10^3/ul (0.8-2.9); LYMPHOCYTES % 23.2 % (15.0-51.0); MEAN CORPUSCULAR HEMOGLOBIN 30.3 pg (29.0-33.0); MEAN CORPUSCULAR HGB CONC 31.9 g/dl (32.0-37.0); MEAN CORPUSCULAR VOLUME 95.2 fl (82.0-101.0); MEAN PLATELET VOLUME 9.1 fl (7.4-10.4); MONOCYTE # 0.4 10^3/ul (0.3-0.9); MONOCYTES % 5.3 % (0.0-11.0); NEUTROPHIL # 5.4 10^3/ul (1.6-7.5); NEUTROPHILS % 66.2 % (39.0-77.0); PLATELET COUNT 299 10^3/UL (140-415); RED BLOOD COUNT 3.56 10^6/ul (4.20-5.40); RED CELL DISTRIBUTION WIDTH 15.6 % (11.5-14.5); WHITE BLOOD COUNT 8.1 10^3/ul (4.8-10.8)
[2016-09-05 07:40] VITALS: BP 103/63; RESP 18
[2016-09-05] MEDS: METOPROLOL 50 MG TAB PO SCH ×2 (09:00→20:44)
[2016-09-05] MEDS: LISINOPRIL 20 MG TAB PO SCH (09:00)
[2016-09-05] MEDS: CALCIUM CARBONATE 1.25 GM TAB PO SCH (09:42)
[2016-09-05] MEDS: ENOXAPARIN 60 MG/0.6 ML SYG SC SCH ×2 (09:45→20:54)
--- NOTE | 2016-09-05 17:13 | PN ---
Date/Time of Note Date/Time of Note DATE: 09/05/16 TIME: 17:11 Assessment/Plan VTE Prophylaxis VTE Prophylaxis Intervention: SCD's Lines/Catheters IV [facility] PORTACATH Urinary Cath still in place: No Assessment/Plan Chief Complaint/Hosp Course ASSESSMENT AND PLAN: - Sepsis secondary to postoperative soft tissue infection of the right breast. Dr. Patel is following in infectious disease consultation. Continue abx per ID. - Cellulitis of the right breast. Continue antibiotics per ID. - Status post right modified mastectomy on August [address] Amanda is following in surgical consultation. - Thrombus of the left internal jugular vein. Dr. Edwards is following in vascular surgery consultation. Continue Lovenox. - Hyponatremia on admission, resolved Dr. Davies is following in nephrology consultation. Continue IV fluids. - Hyperthyroidism. Continue patient's Synthroid. - Hypertension. Continue lisinopril. - Hyperlipidemia. Continue statin. - Anemia, status post blood transfusion. Continue sequential compression device for deep venous thrombosis prophylaxis and Protonix for peptic ulcer disease prophylaxis. Further recommendations based on clinical course. Plan of care discussed with Dr. Brito. Problems: Subjective 24 Hr Interval Summary Free Text/Dictation Patient remains afebrile denies nausea vomiting, patient started to have serous drainage from his AKIL, will decrease Lovenox dose. Exam/Review of Systems Vital Signs Vitals Vital Signs Date Time Temp Pulse Resp B/P Pulse Ox O2 Delivery O2 Flow Rate FiO2 09/05/16 07:40 97.8 53 18 103/63 98 Intake and Output 09/04/16 09/04/16 09/05/16 15:00 23:00 07:00 Intake Total 1160 ml 500 ml Output Total 10 ml 10 ml Balance 1150 ml 490 ml Exam GENERAL: Well-developed, well-nourished female, currently is awake, alert. HEENT: Head is atraumatic, normocephalic. NECK: Supple, no cervical lymphadenopathy, no thyromegaly. CHEST: Lungs clear bilaterally. No rhonchi, wheezes, or rales noted. The patient has a right breast surgical scar intact, right axillary AKIL. left chest PermCath. CARDIOVASCULAR: Normal S1, S2. No murmurs, gallops, clicks, rubs noted. ABDOMEN: Flat, soft, nondistended, nontender. Bowel sounds present. There is no guarding, no rebound tenderness. EXTREMITIES: There is no edema, clubbing, cyanosis. Pulses equal bilaterally 2 +. SKIN: There is no rash, petechiae noted. NEUROLOGIC: The patient is awake, alert, and oriented x4. Results Result Diagram: 09/05/16 0601 09/05/16 0601 Results 24 hrs Laboratory Tests Test 09/05/16 06:01 White Blood Count 8.1 Red Blood Count 3.56 L Hemoglobin 10.8 L Hematocrit 33.9 L Mean Corpuscular Volume 95.2 Mean Corpuscular Hemoglobin 30.3 Mean Corpuscular Hemoglobin Concent 31.9 L Red Cell Distribution Width 15.6 H Platelet Count 299 Mean Platelet Volume 9.1 Neutrophils % 66.2 Lymphocytes % 23.2 Monocytes % 5.3 Eosinophils % 1.7 Basophils % 0.6 Nucleated Red Blood Cells % 0.0 Neutrophils # 5.4 Lymphocytes # 1.9 Monocytes # 0.4 Eosinophils # 0.1 Basophils # 0.1 Nucleated Red Blood Cells # 0.0 Sodium Level 140 Potassium Level 3.9 Chloride Level 104 Carbon Dioxide Level 24 Anion Gap 16 Blood Urea Nitrogen 18 Creatinine 0.69 Glucose Level 87 Calcium Level 9.8 Medications Medications Current Medications Calcium Carbonate (Oyster Shell Calcium) 1.25 gm DAILY PO Last administered on 09/05/16 09:42; Admin Dose 1.25 GM; Start 08/24/16 at 09:00 Atorvastatin Calcium (Lipitor) 40 mg HS GTB Last administered on 09/04/16 20: 55; Admin Dose 40 MG; Start 08/24/16 at 21:00 Acetaminophen (Tylenol Tab) 650 mg Q4H PRN PO PAIN OR ELEVATED TEMP. Last administered on 08/30/16 01:40; Admin Dose 650 MG; Start 08/24/16 at 06:30 Patient Own Medication 1 ea HS PRN PO INSOMNIA Last administered on 09/04/16 20:55; Admin Dose 1 EA; Start 08/24/16 at 21:00 Miscellaneous Information Patients own medicat... BID@10,16 XX ; Start 08/24/16 at 10:00 Enoxaparin Sodium (Lovenox) 60 mg Q12 SC Last administered on 09/05/16 09:45; Admin Dose 60 MG; Start 08/24/16 at 09:00 Trazodone HCl (Desyrel) 50 mg HS PO Last administered on 09/04/16 20:55; Admin Dose 50 MG; Start 08/26/16 at 21:00 Pantoprazole (Protonix Tab) 40 mg DAILY@06 PO Last administered on 09/05/16 06 :14; Admin Dose 40 MG; Start 08/28/16 at 06:00 Alprazolam 0.5 mg 0.5 mg Q8H PRN PO ANXIETY Last administered on 09/05/16 06: 14; Admin Dose 0.5 MG; Start 08/27/16 at 18:00 Piperacillin Sod/ Tazobactam Sod (Zosyn 3.375gm/ 100 ml (Pmx)) 100 ml @ 200 mls /hr Q6 IVPB Last administered on 09/05/16 12:44; Admin Dose 200 MLS/HR; Start 08/28/16 at 17:00 Lisinopril (Zestril) 20 mg DAILY PO Last administered on 09/04/16 08:07; Admin Dose 20 MG; Start 08/29/16 at 15:00 Metoprolol Tartrate (Lopressor) 50 mg BID PO Last administered on 09/04/16 20: 55; Admin Dose 50 MG; Start 08/29/16 at 22:00 PAUL RAMOS September 05, 2016 17:13
--- NOTE | 2016-09-05 18:25 | CONS ---
Date/Time of Note Date/Time of Note DATE: 09/05/16 TIME: 18:23 Assessment/Plan Assessment/Plan Chief Complaint/Hosp Course - Sepsis d/t cellulitis of right chest - fever and mild leukocytosis resolved - Cellulitis of right chest. Cultures of AKIL fluid grew MSSA, pseudo and bacillus species - resolving - Locally advanced right breast cancer s/p Right modified radical mastectomy 08/[address] Amanda - Left IJ thrombosis - Acute on probable chronic anemia requiring blood transfusion - Hyponatremia - improved - Hyperkalemia/Hypokalemia - improved - HTN - HLD - Hypothyroidism - Anxiety/depression - Hx previous alcohol abuse - New erythema to left chest port-a-cath site - resolved recommendations: - continue Pip/tazo (08/28/2016-) x 14 days - okay from ID standpoint to be dc'd home on IV abx - Pt's s/p vancomycin and cefepime Management d/w Pt, ANTWAN Hagan and Dr. Patel Problems: Consultation Date/Type/Reason Admit Date/Time August 23, 2016 at 23:16 Initial Consult Date 08/24/16 Type of Consultation: Infectious Disease Referring Provider: MELISSA CASTILLO MD 24 HR Interval Summary Free Text/Dictation No new issues. Pt states she is reluctant to go home with AKIL drain and states she will have to stay at her mother's place until her place gets cleaned. C/o itching at incisional site. States has TTP. No abd pain, n/v/d, dysuria. Exam/Review of Systems Vital Signs Vitals Vital Signs Date Time Temp Pulse Resp B/P Pulse Ox O2 Delivery O2 Flow Rate FiO2 09/05/16 07:40 97.8 53 18 103/63 98 Intake and Output 09/04/16 09/04/16 09/05/16 15:00 23:00 07:00 Intake Total 1160 ml 500 ml Output Total 10 ml 10 ml Balance 1150 ml 490 ml Exam Constitutional: alert, oriented, well developed Psych: nl mood/affect Head: atraumatic, normocephalic, aloplecia Eyes: nl sclera Neck: supple, No jvd Respiratory: clear to auscultation, normal air movement, other (Left chest port -a-cath noted with no e/o infection Cardiovascular: nl pulses, regular rate and rhythm, No edema Gastrointestinal: bowel sounds (present), non-tender, soft, No distended Extremities: normal pulses No clubbing, No cyanosis, No edema Neurological: nl mental status, nl speech Skin: nl turgor, other (Right breast mastectomy with incision well approximated and mild-moderate TTP near axilla/AKIL site; AKIL drain x1 with serous sanguinous drainage; faint erythema of R chest) Results Result Diagram: 09/05/16 0609/05/16 06 Results 24 hrs Laboratory Tests Test 09/05/16 06:01 White Blood Count 8.1 Red Blood Count 3.56 L Hemoglobin 10.8 L Hematocrit 33.9 L Mean Corpuscular Volume 95.2 Mean Corpuscular Hemoglobin 30.3 Mean Corpuscular Hemoglobin Concent 31.9 L Red Cell Distribution Width 15.6 H Platelet Count 299 Mean Platelet Volume 9.1 Neutrophils % 66.2 Lymphocytes % 23.2 Monocytes % 5.3 Eosinophils % 1.7 Basophils % 0.6 Nucleated Red Blood Cells % 0.0 Neutrophils # 5.4 Lymphocytes # 1.9 Monocytes # 0.4 Eosinophils # 0.1 Basophils # 0.1 Nucleated Red Blood Cells # 0.0 Sodium Level 140 Potassium Level 3.9 Chloride Level 104 Carbon Dioxide Level 24 Anion Gap 16 Blood Urea Nitrogen 18 Creatinine 0.69 Glucose Level 87 Calcium Level 9.8 Medications Medications Current Medications Calcium Carbonate (Oyster Shell Calcium) 1.25 gm DAILY PO Last administered on 09/05/16 09:42; Admin Dose 1.25 GM; Start 08/24/16 at 09:00 Atorvastatin Calcium (Lipitor) 40 mg HS GTB Last administered on 09/04/16 20: 55; Admin Dose 40 MG; Start 08/24/16 at 21:00 Acetaminophen (Tylenol Tab) 650 mg Q4H PRN PO PAIN OR ELEVATED TEMP. Last administered on 08/30/16 01:40; Admin Dose 650 MG; Start 08/24/16 at 06:30 Patient Own Medication 1 ea HS PRN PO INSOMNIA Last administered on 09/04/16 20:55; Admin Dose 1 EA; Start 08/24/16 at 21:00 Miscellaneous Information Patients own medicat... BID@10,16 XX ; Start 08/24/16 at 10:00 Enoxaparin Sodium (Lovenox) 60 mg Q12 SC Last administered on 09/05/16 09:45; Admin Dose 60 MG; Start 08/24/16 at 09:00 Trazodone HCl (Desyrel) 50 mg HS PO Last administered on 09/04/16 20:55; Admin Dose 50 MG; Start 08/26/16 at 21:00 Pantoprazole (Protonix Tab) 40 mg DAILY@06 PO Last administered on 09/05/16 06 :14; Admin Dose 40 MG; Start 08/28/16 at 06:00 Alprazolam 0.5 mg 0.5 mg Q8H PRN PO ANXIETY Last administered on 09/05/16 17: 44; Admin Dose 0.5 MG; Start 08/27/16 at 18:00 Piperacillin Sod/ Tazobactam Sod (Zosyn 3.375gm/ 100 ml (Pmx)) 100 ml @ 200 mls /hr Q6 IVPB Last administered on 09/05/16 17:40; Admin Dose 200 MLS/HR; Start 08/28/16 at 17:00 Lisinopril (Zestril) 20 mg DAILY PO Last administered on 09/04/16 08:07; Admin Dose 20 MG; Start 08/29/16 at 15:00 Metoprolol Tartrate (Lopressor) 50 mg BID PO Last administered on 09/04/16 20: 55; Admin Dose 50 MG; Start 08/29/16 at 22:00 CARTER CARTAGENA NP September 05, 2016 18:25
[2016-09-05 20:00] VITALS: BP 129/75; RESP 20
[2016-09-05] MEDS: traZODone 50 MG TAB PO SCH (20:36)
[2016-09-05] MEDS: ATORVASTATIN 40 MG TAB GTB SCH (20:43)
[2016-09-05] MEDS: TEMAZEPAM 30 MG PO PRN (20:57)
--- NOTE | 2016-09-05 23:00 | CONS ---
Date/Time of Note Date/Time of Note DATE: 09/05/16 TIME: 22:59 Assessment/Plan Assessment/Plan Additional Assessment/Plan 1. Hyponatremia, likely secondary to hypovolemic hyponatremia, no SIADH 3. Acute prerenal azotemia secondary to moderate to severe dehydration. 4. Moderate to severe dehydration. 5. History of recent right breast mastectomy 5 days ago. 6. Left internal jugular thrombosis. 7. History of hypertension. 8. History of depression. 9. History of anxiety. 10. History of previous alcohol abuse. 11. History of hypothyroidism. 12. hyperkalemia 13. Metabolic acidosis PLAN: Cr and electrolytes stable today will follow up Consultation Date/Type/Reason Admit Date/Time August 23, 2016 at 23:16 Initial Consult Date 08/24/16 Type of Consultation: NEPHROLOGY Referring Provider: MELISSA CASTILLO MD 24 HR Interval Summary Free Text/Dictation no acute events, BP stable Exam/Review of Systems Vital Signs Vitals Vital Signs Date Time Temp Pulse Resp B/P Pulse Ox O2 Delivery O2 Flow Rate FiO2 09/05/16 20:00 98.2 72 20 129/75 96 Intake and Output 09/04/16 09/04/16 09/05/16 15:00 23:00 07:00 Intake Total 1160 ml 500 ml Output Total 10 ml 10 ml Balance 1150 ml 490 ml Results Result Diagram: 09/05/16 0601 09/05/16 0601 Results 24 hrs Laboratory Tests Test 09/05/16 06:01 White Blood Count 8.1 Red Blood Count 3.56 L Hemoglobin 10.8 L Hematocrit 33.9 L Mean Corpuscular Volume 95.2 Mean Corpuscular Hemoglobin 30.3 Mean Corpuscular Hemoglobin Concent 31.9 L Red Cell Distribution Width 15.6 H Platelet Count 299 Mean Platelet Volume 9.1 Neutrophils % 66.2 Lymphocytes % 23.2 Monocytes % 5.3 Eosinophils % 1.7 Basophils % 0.6 Nucleated Red Blood Cells % 0.0 Neutrophils # 5.4 Lymphocytes # 1.9 Monocytes # 0.4 Eosinophils # 0.1 Basophils # 0.1 Nucleated Red Blood Cells # 0.0 Sodium Level 140 Potassium Level 3.9 Chloride Level 104 Carbon Dioxide Level 24 Anion Gap 16 Blood Urea Nitrogen 18 Creatinine 0.69 Glucose Level 87 Calcium Level 9.8 Medications Medications Current Medications Calcium Carbonate (Oyster Shell Calcium) 1.25 gm DAILY PO Last administered on 09/05/16 09:42; Admin Dose 1.25 GM; Start 08/24/16 at 09:00 Atorvastatin Calcium (Lipitor) 40 mg HS GTB Last administered on 09/05/16 20: 43; Admin Dose 40 MG; Start 08/24/16 at 21:00 Acetaminophen (Tylenol Tab) 650 mg Q4H PRN PO PAIN OR ELEVATED TEMP. Last administered on 08/30/16 01:40; Admin Dose 650 MG; Start 08/24/16 at 06:30 Patient Own Medication 1 ea HS PRN PO INSOMNIA Last administered on 09/05/16 20:57; Admin Dose 1 EA; Start 08/24/16 at 21:00 Miscellaneous Information Patients own medicat... BID@10,16 XX ; Start 08/24/16 at 10:00 Enoxaparin Sodium (Lovenox) 60 mg Q12 SC Last administered on 09/05/16 20:54; Admin Dose 60 MG; Start 08/24/16 at 09:00 Trazodone HCl (Desyrel) 50 mg HS PO Last administered on 09/05/16 20:36; Admin Dose 50 MG; Start 08/26/16 at 21:00 Pantoprazole (Protonix Tab) 40 mg DAILY@06 PO Last administered on 09/05/16 06 :14; Admin Dose 40 MG; Start 08/28/16 at 06:00 Alprazolam 0.5 mg 0.5 mg Q8H PRN PO ANXIETY Last administered on 09/05/16 17: 44; Admin Dose 0.5 MG; Start 08/27/16 at 18:00 Piperacillin Sod/ Tazobactam Sod (Zosyn 3.375gm/ 100 ml (Pmx)) 100 ml @ 200 mls /hr Q6 IVPB Last administered on 09/05/16 17:40; Admin Dose 200 MLS/HR; Start 08/28/16 at 17:00 Lisinopril (Zestril) 20 mg DAILY PO Last administered on 09/04/16 08:07; Admin Dose 20 MG; Start 08/29/16 at 15:00 Metoprolol Tartrate (Lopressor) 50 mg BID PO Last administered on 09/05/16 20: 44; Admin Dose 50 MG; Start 08/29/16 at 22:00 DIANA MORALES MD September 05, 2016 23:00
[2016-09-06] VITALS (7 sets, daily range): BP systolic 102–125; BP diastolic 57–75; PULSE 63–78; RESP 16–20
[2016-09-06] MEDS: PIPER-TAZO 3.375 GM IV (PMX) 100 ML IVPB SCH ×4 (05:45→23:53)
[2016-09-06] MEDS: PANTOPRAZOLE (EC) 40 MG TAB PO SCH (05:45)
[2016-09-06] MEDS: ALPRAZOLAM 0.25 MG TAB PO PRN ×2 (05:45→15:04)
[2016-09-06] MEDS: LEVOTHYROXINE 100 MCG TAB PO SCH (06:02)
[2016-09-06] MEDS: CALCIUM CARBONATE 1.25 GM TAB PO SCH (08:50)
[2016-09-06] MEDS: ENOXAPARIN 60 MG/0.6 ML SYG SC SCH (08:54)
[2016-09-06] MEDS: LISINOPRIL 20 MG TAB PO SCH (09:00)
[2016-09-06] MEDS: METOPROLOL 50 MG TAB PO SCH ×2 (09:00→20:43)
[2016-09-06 09:52] LABS: ADD SCAN DIFF NO
[2016-09-06 09:58] LABS: BASOPHILS % 0.6 % (0.0-2.0); EOSINOPHILS # 0.2 10^3/ul (0.0-0.5); EOSINOPHILS % 2.4 % (0.0-7.0); HEMATOCRIT 33.8 % (37.0-47.0); HEMOGLOBIN 10.7 g/dl (12.0-16.0); LYMPHOCYTES # 1.1 10^3/ul (0.8-2.9); LYMPHOCYTES % 15.2 % (15.0-51.0); MEAN CORPUSCULAR HEMOGLOBIN 30.4 pg (29.0-33.0); MEAN CORPUSCULAR HGB CONC 31.7 g/dl (32.0-37.0); MEAN PLATELET VOLUME 8.7 fl (7.4-10.4); MONOCYTE # 0.3 10^3/ul (0.3-0.9); MONOCYTES % 4.9 % (0.0-11.0); NEUTROPHIL # 5.3 10^3/ul (1.6-7.5); NEUTROPHILS % 75.8 % (39.0-77.0); PLATELET COUNT 272 10^3/UL (140-415); RED BLOOD COUNT 3.52 10^6/ul (4.20-5.40); RED CELL DISTRIBUTION WIDTH 15.6 % (11.5-14.5)
[2016-09-06 10:14] LABS: CALCIUM 9.7 mg/dl (8.4-10.2); CREATININE 0.74 mg/dl (0.44-1.00); POTASSIUM 4.1 mmol/L (3.5-5.1)
[2016-09-06] MEDS: DIPHENHYDRAMINE 25 MG CAP PO PRN ×2 (11:11→21:15)
--- NOTE | 2016-09-06 12:01 | PN ---
Date/Time of Note Date/Time of Note DATE: 09/06/16 TIME: 11:57 Assessment/Plan Lines/Catheters IV Catheter Type (from [facility]): port a cath Urinary Cath still in place: No Assessment/Plan Assessment/Plan - Sepsis secondary to postoperative soft tissue infection of the right breast. Dr. Patel is following in infectious disease consultation. Continue abx per ID. - Cellulitis of the right breast. Continue antibiotics per ID. - Status post right modified mastectomy on August [address] Amanda is following in surgical consultation. - Thrombus of the left internal jugular vein. Dr. Edwards is following in vascular surgery consultation. Continue Lovenox. - Hyponatremia on admission, resolved Dr. Davies is following in nephrology consultation. Continue IV fluids. - Hyperthyroidism. Continue patient's Synthroid. - Hypertension. Continue lisinopril. - Hyperlipidemia. Continue statin. - Anemia, status post blood transfusion. Continue sequential compression device for deep venous thrombosis prophylaxis and Protonix for peptic ulcer disease prophylaxis. Further recommendations based on clinical course. Plan of care discussed with Dr. Brito. Subjective 24 Hr Interval Summary Free Text/Dictation afebrile, denies nausea vomiting, bloody drainage noted from AKIL, patient complaining of lump on the right mastectomy incision site discussed with staff, Kim held by Dr. sepulveda. Eyes: no complaints ENT: no complaints Respiratory: no complaints Cardiovascular: no complaints Gastrointestinal: no complaints Genitourinary: no complaints Musculoskeletal: no complaints Skin: other Neurologic: no complaints Endocrine: no complaints Lymphatic: no complaints Psychological: no complaints Immunologic: no complaints Exam/Review of Systems Vital Signs Vitals Vital Signs Date Time Temp Pulse Resp B/P Pulse Ox O2 Delivery O2 Flow Rate FiO2 09/06/16 07:59 98.4 60 18 102/65 98 Intake and Output 09/05/16 09/05/16 09/06/16 15:00 23:00 07:00 Intake Total 100 ml 2020 ml 530 ml Output Total 30 ml Balance 100 ml 1990 ml 530 ml Exam Constitutional: alert, well developed Psych: nl mood/affect Head: atraumatic Eyes: EOMI, nl sclera ENMT: nl external ears & nose Neck: non-tender Respiratory: clear to auscultation Cardiovascular: nl pulses Gastrointestinal: non-tender, soft Musculoskeletal: nl extremities to inspection Extremities: normal pulses Neurological: nl speech, other Skin: other Lymph: nontender, other Results Result Diagram: 09/06/1634 09/06/1634 Results 24 hrs Laboratory Tests Test 09/06/16 09:34 White Blood Count 7.0 Red Blood Count 3.52 L Hemoglobin 10.7 L Hematocrit 33.8 L Mean Corpuscular Volume 96.0 Mean Corpuscular Hemoglobin 30.4 Mean Corpuscular Hemoglobin Concent 31.7 L Red Cell Distribution Width 15.6 H Platelet Count 272 Mean Platelet Volume 8.7 Neutrophils % 75.8 Lymphocytes % 15.2 Monocytes % 4.9 Eosinophils % 2.4 Basophils % 0.6 Nucleated Red Blood Cells % 0.0 Neutrophils # 5.3 Lymphocytes # 1.1 Monocytes # 0.3 Eosinophils # 0.2 Basophils # 0.0 Nucleated Red Blood Cells # 0.0 Sodium Level 137 Potassium Level 4.1 Chloride Level 105 Carbon Dioxide Level 25 Anion Gap 11 Blood Urea Nitrogen 16 Creatinine 0.74 Glucose Level 129 # Calcium Level 9.7 Medications Medications Current Medications Calcium Carbonate (Oyster Shell Calcium) 1.25 gm DAILY PO Last administered on 09/06/16 08:50; Admin Dose 1.25 GM; Start 08/24/16 at 09:00 Atorvastatin Calcium (Lipitor) 40 mg HS GTB Last administered on 09/05/16 20: 43; Admin Dose 40 MG; Start 08/24/16 at 21:00 Acetaminophen (Tylenol Tab) 650 mg Q4H PRN PO PAIN OR ELEVATED TEMP. Last administered on 08/30/16 01:40; Admin Dose 650 MG; Start 08/24/16 at 06:30 Patient Own Medication 1 ea HS PRN PO INSOMNIA Last administered on 09/05/16 20:57; Admin Dose 1 EA; Start 08/24/16 at 21:00 Miscellaneous Information Patients own medicat... BID@10,16 XX Last administered on 09/06/16 10:00; Admin Dose 1 EA; Start 08/24/16 at 10:00 Enoxaparin Sodium (Lovenox) 60 mg Q12 SC Last administered on 09/06/16 08:54; Admin Dose 60 MG; Start 08/24/16 at 09:00; Status Future Hold Trazodone HCl (Desyrel) 50 mg HS PO Last administered on 09/05/16 20:36; Admin Dose 50 MG; Start 08/26/16 at 21:00 Pantoprazole (Protonix Tab) 40 mg DAILY@06 PO Last administered on 09/06/16 05 :45; Admin Dose 40 MG; Start 08/28/16 at 06:00 Alprazolam 0.5 mg 0.5 mg Q8H PRN PO ANXIETY Last administered on 09/06/16 05: 45; Admin Dose 0.5 MG; Start 08/27/16 at 18:00 Piperacillin Sod/ Tazobactam Sod (Zosyn 3.375gm/ 100 ml (Pmx)) 100 ml @ 200 mls /hr Q6 IVPB Last administered on 09/06/16 05:45; Admin Dose 200 MLS/HR; Start 08/28/16 at 17:00 Lisinopril (Zestril) 20 mg DAILY PO Last administered on 09/04/16 08:07; Admin Dose 20 MG; Start 08/29/16 at 15:00 Metoprolol Tartrate (Lopressor) 50 mg BID PO Last administered on 09/05/16 20: 44; Admin Dose 50 MG; Start 08/29/16 at 22:00 Diphenhydramine HCl (Benadryl) 25 mg Q8H PRN PO ITCHING Last administered on 11:11; Admin Dose 25 MG; Start 09/06/16 at 11:00 DEUCE FRANK September 06, 2016 12:01
--- NOTE | 2016-09-06 12:14 | PN ---
DATE: 09/06/2016 SUBJECTIVE: Complains of swelling on the medial corner of the mastectomy incision area. OBJECTIVE: GENERAL: Awake, alert, oriented, somewhat anxious. VITAL SIGNS: Temperature 98.4, heart rate 60, respirations 18, blood pressure 102/65, saturation 98 % on room air. LABORATORIES: Sodium, potassium, BUN, creatinine within normal limits. WBC 7000 with 75% segmented. Hemoglobin 10.7, hematocrit 33.8. Platelet 272. Jay-Palafox has drained 30 mL past 24 hours. The color of the drainage in the bag and in the tubing at this moment is serosanguineous, more towar ds bloody. There are some blood clots in the back as well. Cellulitis is much, much better. The s welling is not really that much. I think it is the tip of the Jay-Palafox subcutaneous drainage c atheter plus could be minimal blood clots over this. ASSESSMENT: Patient is status post modified radical mastectomy on the right side, presented with ce llulitis is on antibiotics. The only remaining Jay-Palafox drain has changed color from serous th e past few days ago to bloody kind of since they have started patient on Lovenox for coverage of the thrombosis of the left internal jugular vein. I discussed with Dr. Brito last night since they have started on Lovenox it appears that the drainage has changed color to bloody and semi-bloody, so we talked about it and since the vascular consult also mentioned once at least that for this thromb osis, probably we may not have been given the coagulation, so we are going to hold the Lovenox per d iscussion with Dr. Brito last night for a few days to see how the drainage will change the color or not. Of course, he mentioned that the bleeding is not that much to cause anemia. The hemoglobin and hematocrit have been stable in the course of the past few days. The patient also is not febril e and leukocyte count is normal. PLAN: Continue antibiotics and discontinue (hold on to) Lovenox for the time being. Dictated By: ELVIA NATION MD PS/NTS Conf#: [id number] DID#: [id number]
[2016-09-06] MEDS ORDERED: LACTATED RINGER'S 500 ML IV ONE (13:00)
--- NOTE | 2016-09-06 13:04 | CONS ---
Date/Time of Note Date/Time of Note DATE: 09/06/16 TIME: 13:04 Assessment/Plan Assessment/Plan Additional Assessment/Plan 1. Hyponatremia, likely secondary to hypovolemic hyponatremia, no SIADH 3. Acute prerenal azotemia secondary to moderate to severe dehydration. 4. Moderate to severe dehydration. 5. History of recent right breast mastectomy 5 days ago. 6. Left internal jugular thrombosis. 7. History of hypertension. 8. History of depression. 9. History of anxiety. 10. History of previous alcohol abuse. 11. History of hypothyroidism. 12. hyperkalemia 13. Metabolic acidosis PLAN: Cr and electrolytes stable today will follow up Consultation Date/Type/Reason Admit Date/Time August 23, 2016 at 23:16 Initial Consult Date 08/24/16 Type of Consultation: NEPHROLOGY Referring Provider: MELISSA CASTILLO MD 24 HR Interval Summary Free Text/Dictation doing ok, BP stable , Exam/Review of Systems Vital Signs Vitals Vital Signs Date Time Temp Pulse Resp B/P Pulse Ox O2 Delivery O2 Flow Rate FiO2 09/06/16 07:59 98.4 60 18 102/65 98 Intake and Output 09/05/16 09/05/16 09/06/16 15:00 23:00 07:00 Intake Total 100 ml 2020 ml 530 ml Output Total 30 ml Balance 100 ml 1990 ml 530 ml Exam GENERAL: Well-developed, well-nourished female, currently is awake, alert. CHEST: Lungs clear bilaterally. No rhonchi, wheezes, or rales noted. The patient has a right breast surgical scar intact with mike and the right axillary AKIL. left chest PermCath. CARDIOVASCULAR: Normal S1, S2. No murmurs, gallops, clicks, rubs noted. ABDOMEN: Flat, soft, nondistended, nontender. Bowel sounds present. There is no guarding, no rebound tenderness. EXTREMITIES: There is no edema, clubbing, cyanosis. Results Result Diagram: 09/06/16 0934 09/06/16 0934 Results 24 hrs Laboratory Tests Test 09/06/16 09:34 White Blood Count 7.0 Red Blood Count 3.52 L Hemoglobin 10.7 L Hematocrit 33.8 L Mean Corpuscular Volume 96.0 Mean Corpuscular Hemoglobin 30.4 Mean Corpuscular Hemoglobin Concent 31.7 L Red Cell Distribution Width 15.6 H Platelet Count 272 Mean Platelet Volume 8.7 Neutrophils % 75.8 Lymphocytes % 15.2 Monocytes % 4.9 Eosinophils % 2.4 Basophils % 0.6 Nucleated Red Blood Cells % 0.0 Neutrophils # 5.3 Lymphocytes # 1.1 Monocytes # 0.3 Eosinophils # 0.2 Basophils # 0.0 Nucleated Red Blood Cells # 0.0 Sodium Level 137 Potassium Level 4.1 Chloride Level 105 Carbon Dioxide Level 25 Anion Gap 11 Blood Urea Nitrogen 16 Creatinine 0.74 Glucose Level 129 # Calcium Level 9.7 Medications Medications Current Medications Calcium Carbonate (Oyster Shell Calcium) 1.25 gm DAILY PO Last administered on 09/06/16 08:50; Admin Dose 1.25 GM; Start 08/24/16 at 09:00 Atorvastatin Calcium (Lipitor) 40 mg HS GTB Last administered on 09/05/16 20: 43; Admin Dose 40 MG; Start 08/24/16 at 21:00 Acetaminophen (Tylenol Tab) 650 mg Q4H PRN PO PAIN OR ELEVATED TEMP. Last administered on 08/30/16 01:40; Admin Dose 650 MG; Start 08/24/16 at 06:30 Patient Own Medication 1 ea HS PRN PO INSOMNIA Last administered on 09/05/16 20:57; Admin Dose 1 EA; Start 08/24/16 at 21:00 Miscellaneous Information Patients own medicat... BID@10,16 XX Last administered on 09/06/16 10:00; Admin Dose 1 EA; Start 08/24/16 at 10:00 Enoxaparin Sodium (Lovenox) 60 mg Q12 SC Last administered on 09/06/16 08:54; Admin Dose 60 MG; Start 08/24/16 at 09:00; Status Future Hold Trazodone HCl (Desyrel) 50 mg HS PO Last administered on 09/05/16 20:36; Admin Dose 50 MG; Start 08/26/16 at 21:00 Pantoprazole (Protonix Tab) 40 mg DAILY@06 PO Last administered on 09/06/16 05 :45; Admin Dose 40 MG; Start 08/28/16 at 06:00 Alprazolam 0.5 mg 0.5 mg Q8H PRN PO ANXIETY Last administered on 09/06/16 05: 45; Admin Dose 0.5 MG; Start 08/27/16 at 18:00 Piperacillin Sod/ Tazobactam Sod (Zosyn 3.375gm/ 100 ml (Pmx)) 100 ml @ 200 mls /hr Q6 IVPB Last administered on 09/06/16 13:01; Admin Dose 200 MLS/HR; Start 08/28/16 at 17:00 Lisinopril (Zestril) 20 mg DAILY PO Last administered on 09/04/16 08:07; Admin Dose 20 MG; Start 08/29/16 at 15:00 Metoprolol Tartrate (Lopressor) 50 mg BID PO Last administered on 09/05/16 20: 44; Admin Dose 50 MG; Start 08/29/16 at 22:00 Diphenhydramine HCl 25 mg 25 mg Q8H PRN PO ITCHING Last administered on 11:11; Admin Dose 25 MG; Start 09/06/16 at 11:00 Lactated Ringer's (Lr) 500 ml @ 500 mls/hr Q1H ONCE IV ; Start 09/06/16 at 13: 00; Stop 09/06/16 at 13:59 DIANA MORALES MD September 06, 2016 13:04
--- NOTE | 2016-09-06 13:32 | PN ---
DATE: 09/06/2016 TIME: 1:00 p.m. SUBJECTIVE: The patient does not have any new complaints except that she was scared. The reason is that she is bleeding from the drain site. The nurse called me, I was in the hospital. She said th at the patient is bleeding from the drain site, so I came to visit the patient. There is obvious oo zing of blood from the drain site which is under the flap. Also, there is some swelling under the i nferior flap with no evidence of bleeding ____ accumulated over there. I removed the Jay-Palafox drains so that we can put on a bulky dressing over there and after evacuating the blood, then bulky dressing was applied over the chest wall and flap at the site of the drain and wrapped with Pierre band age tightly. Ice bag was applied over that. VITAL SIGNS: Temperature 98.3. Heart rate 93. Blood pressure 116/57. Saturation 98%. ASSESSMENT: 1. Patient has started bleeding under the flaps. This could be due to Lovenox that the patient has been receiving 60 mg q.12h. subq. Unfortunately, this morning also, she received a dose at 9:00. They are going to stop the Lovenox and already stopped it anyway. We can start the patient on IV lactated Ringer's 120 mL per hour. Meanwhile, we will give 500 mL of lactated Ringer's bolus. 2. Will put the patient n.p.o. 3. Will put the patient in bed rest. 4. Will check H and H every 8 hours starting at 4:00. 5. We did give 2 units of packed cells and 2 units of fresh frozen plasma. I notified Dr. Amanda of the situation of the patient as well. The nurse was not here and was I instructed about the orders and situation of the patient. Recheck a PT and PTT at 4:00. Dictated By: ELVIA MURRAY/ZA Conf#: [id number] DID#: [id number]
[2016-09-06 14:46] LABS: INR 0.97; PROTIME 12.9 Sec (12.2-14.2)
[2016-09-06] MEDS: ACETAMINOPHEN 325 MG TAB PO PRN (15:04)
[2016-09-06] MEDS: LACTATED RINGER'S 1,000 ML IV SCH (16:25)
--- NOTE | 2016-09-06 17:24 | CONS ---
Date/Time of Note Date/Time of Note DATE: 09/06/16 TIME: 17:24 Assessment/Plan Assessment/Plan Chief Complaint/Hosp Course - Sepsis d/t cellulitis of right chest - fever and mild leukocytosis resolved - Cellulitis of right chest. Cultures of LIVAN fluid grew MSSA, pseudo and bacillus species - resolving - Locally advanced right breast cancer s/p Right modified radical mastectomy 08/[address] Amanda - Left IJ thrombosis - Acute on probable chronic anemia requiring blood transfusion - Hyponatremia - improved - Hyperkalemia/Hypokalemia - improved - HTN - HLD - Hypothyroidism - Anxiety/depression - Hx previous alcohol abuse - New erythema to left chest port-a-cath site - resolved recommendations: - continue Pip/tazo (08/28/2016-) x 14 days Problems: Consultation Date/Type/Reason Admit Date/Time August 23, 2016 at 23:16 Initial Consult Date 08/24/16 Type of Consultation: id Referring Provider: MELISSA CASTILLO MD Exam/Review of Systems Vital Signs Vitals Vital Signs Date Time Temp Pulse Resp B/P Pulse Ox O2 Delivery O2 Flow Rate FiO2 09/06/16 15:00 98.4 68 18 125/75 99 Room Air Intake and Output 09/05/16 09/05/16 09/06/16 15:00 23:00 07:00 Intake Total 100 ml 2020 ml 530 ml Output Total 30 ml Balance 100 ml 1990 ml 530 ml Exam upset. livan out. wrapped. Results Result Diagram: 09/06/16 0934 09/06/16 0934 Results 24 hrs Laboratory Tests Test 09/06/16 09:34 09/06/16 13:45 White Blood Count 7.0 Red Blood Count 3.52 L Hemoglobin 10.7 L Hematocrit 33.8 L Mean Corpuscular Volume 96.0 Mean Corpuscular Hemoglobin 30.4 Mean Corpuscular Hemoglobin Concent 31.7 L Red Cell Distribution Width 15.6 H Platelet Count 272 Mean Platelet Volume 8.7 Neutrophils % 75.8 Lymphocytes % 15.2 Monocytes % 4.9 Eosinophils % 2.4 Basophils % 0.6 Nucleated Red Blood Cells % 0.0 Neutrophils # 5.3 Lymphocytes # 1.1 Monocytes # 0.3 Eosinophils # 0.2 Basophils # 0.0 Nucleated Red Blood Cells # 0.0 Sodium Level 137 Potassium Level 4.1 Chloride Level 105 Carbon Dioxide Level 25 Anion Gap 11 Blood Urea Nitrogen 16 Creatinine 0.74 Glucose Level 129 # Calcium Level 9.7 Prothrombin Time 12.9 Prothrombin Time Ratio 1.0 INR International Normalized Ratio 0.97 Activated Partial Thromboplast Time 36.0 H Medications Medications Current Medications Calcium Carbonate (Oyster Shell Calcium) 1.25 gm DAILY PO Last administered on 09/06/16 08:50; Admin Dose 1.25 GM; Start 08/24/16 at 09:00 Atorvastatin Calcium (Lipitor) 40 mg HS GTB Last administered on 09/05/16 20: 43; Admin Dose 40 MG; Start 08/24/16 at 21:00 Acetaminophen (Tylenol Tab) 650 mg Q4H PRN PO PAIN OR ELEVATED TEMP. Last administered on 09/06/16 15:04; Admin Dose 650 MG; Start 08/24/16 at 06:30 Patient Own Medication 1 ea HS PRN PO INSOMNIA Last administered on 09/05/16 20:57; Admin Dose 1 EA; Start 08/24/16 at 21:00 Miscellaneous Information Patients own medicat... BID@10,16 XX Last administered on 09/06/16 16:14; Admin Dose 1 EA; Start 08/24/16 at 10:00 Enoxaparin Sodium (Lovenox) 60 mg Q12 SC Last administered on 09/06/16 08:54; Admin Dose 60 MG; Start 08/24/16 at 09:00; Status Future Hold Trazodone HCl (Desyrel) 50 mg HS PO Last administered on 09/05/16 20:36; Admin Dose 50 MG; Start 08/26/16 at 21:00 Pantoprazole (Protonix Tab) 40 mg DAILY@06 PO Last administered on 09/06/16 05 :45; Admin Dose 40 MG; Start 08/28/16 at 06:00 Alprazolam 0.5 mg 0.5 mg Q8H PRN PO ANXIETY Last administered on 09/06/16 15: 04; Admin Dose 0.5 MG; Start 08/27/16 at 18:00 Piperacillin Sod/ Tazobactam Sod (Zosyn 3.375gm/ 100 ml (Pmx)) 100 ml @ 200 mls /hr Q6 IVPB Last administered on 09/06/16 13:01; Admin Dose 200 MLS/HR; Start 08/28/16 at 17:00 Lisinopril (Zestril) 20 mg DAILY PO Last administered on 09/04/16 08:07; Admin Dose 20 MG; Start 08/29/16 at 15:00 Metoprolol Tartrate (Lopressor) 50 mg BID PO Last administered on 09/05/16 20: 44; Admin Dose 50 MG; Start 08/29/16 at 22:00 Diphenhydramine HCl 25 mg 25 mg Q8H PRN PO ITCHING Last administered on 11:11; Admin Dose 25 MG; Start 09/06/16 at 11:00 Lactated Ringer's (Lr) 1,000 ml @ 120 mls/hr Q8H20M IV Last administered on 16:25; Admin Dose 120 MLS/HR; Start 09/06/16 at 16:00 YVON SOLORIO MD September 06, 2016 17:24
[2016-09-06 17:29] LABS: HEMATOCRIT 29.7 % (37.0-47.0); HEMOGLOBIN 9.9 g/dl (12.0-16.0)
[2016-09-06] MEDS: HYDROmorphONE 1 MG/ML SYG IV PRN ×2 (17:44→21:17)
[2016-09-06] MEDS: traZODone 50 MG TAB PO SCH (20:42)
[2016-09-06] MEDS: ATORVASTATIN 40 MG TAB GTB SCH (20:42)
[2016-09-06] MEDS: TEMAZEPAM 30 MG PO PRN (23:16)
[2016-09-07] VITALS (9 sets, daily range): BP systolic 110–138; BP diastolic 58–76; PULSE 60–72; RESP 18
[2016-09-07] MEDS: LACTATED RINGER'S 1,000 ML IV SCH ×5 (00:20→23:07)
[2016-09-07 01:19] LABS: HEMATOCRIT 27.5 % (37.0-47.0)
[2016-09-07] MEDS: HYDROmorphONE 1 MG/ML SYG IV PRN ×3 (04:23→21:14)
[2016-09-07] MEDS: PIPER-TAZO 3.375 GM IV (PMX) 100 ML IVPB SCH ×4 (05:57→23:06)
[2016-09-07] MEDS: PANTOPRAZOLE (EC) 40 MG TAB PO SCH (05:57)
[2016-09-07] MEDS: LEVOTHYROXINE 100 MCG TAB PO SCH (06:25)
[2016-09-07] MEDS: METOPROLOL 50 MG TAB PO SCH ×2 (08:44→20:54)
[2016-09-07] MEDS: LISINOPRIL 20 MG TAB PO SCH (08:44)
[2016-09-07] MEDS: CALCIUM CARBONATE 1.25 GM TAB PO SCH (08:45)
[2016-09-07 09:07] LABS: ADD SCAN DIFF NO
[2016-09-07 09:12] LABS: BASOPHILS % 0.4 % (0.0-2.0); EOSINOPHILS # 0.2 10^3/ul (0.0-0.5); EOSINOPHILS % 1.8 % (0.0-7.0); HEMATOCRIT 27.6 % (37.0-47.0); LYMPHOCYTES # 1.1 10^3/ul (0.8-2.9); LYMPHOCYTES % 12.8 % (15.0-51.0); MEAN CORPUSCULAR HEMOGLOBIN 31.1 pg (29.0-33.0); MEAN CORPUSCULAR HGB CONC 32.6 g/dl (32.0-37.0); MEAN CORPUSCULAR VOLUME 95.5 fl (82.0-101.0); MEAN PLATELET VOLUME 8.5 fl (7.4-10.4); MONOCYTE # 0.5 10^3/ul (0.3-0.9); MONOCYTES % 5.9 % (0.0-11.0); NEUTROPHIL # 6.4 10^3/ul (1.6-7.5); NEUTROPHILS % 78.4 % (39.0-77.0); PLATELET COUNT 246 10^3/UL (140-415); RED BLOOD COUNT 2.89 10^6/ul (4.20-5.40); RED CELL DISTRIBUTION WIDTH 15.5 % (11.5-14.5); WHITE BLOOD COUNT 8.2 10^3/ul (4.8-10.8)
[2016-09-07 09:38] LABS: POTASSIUM 3.8 mmol/L (3.5-5.1)
[2016-09-07 09:40] LABS: CREATININE 0.67 mg/dl (0.44-1.00)
[2016-09-07 09:41] LABS: CALCIUM 9.3 mg/dl (8.4-10.2)
[2016-09-07] MEDS: DIPHENHYDRAMINE 25 MG CAP PO PRN (12:07)
[2016-09-07] MEDS: ONDANSETRON 4 MG INJ IV PRN (12:39)
--- NOTE | 2016-09-07 13:04 | CONS ---
Date/Time of Note Date/Time of Note DATE: 09/07/16 TIME: 12:38 Consult Date/Type/Reason Admit Date/Time August 23, 2016 at 23:16 Initial Consult Date 08/24/16 Type of Consultation: Infectious Disease Ordering Provider: MELISSA CASTILLO MD Subjective - feels itchy around the right surgical incisional site, received Benadryl with some improvement - drainage removed and feels much stronger today, has been up and ambulating in the room Objective Vital Signs Date Time Temp Pulse Resp B/P Pulse Ox O2 Delivery O2 Flow Rate FiO2 09/07/16 07:35 98.3 60 18 110/66 97 09/07/16 05:58 Room Air Intake and Output 09/06/16 09/06/16 09/07/16 15:00 23:00 07:00 Intake Total 1650 ml 870 ml Output Total 60 ml Balance -60 ml 1650 ml 870 ml Exam Constitutional: alert, oriented, well developed Psych: pleasant Head: atraumatic, normocephalic, aloplecia Eyes: wnl Neck: supple, no JVD noted Respiratory: clear to auscultation, normal air movement, port-a-cath left upper chest, no e/o infection Cardiovascular: regular rate and rhythm, palpable pulses, no edema Gastrointestinal: bowel sounds (present), non-tender, soft, No distended Extremities: normal pulses. no clubbing, no cyanosis, no edema Neurological: nl mental status, nl speech Skin: warm, dry, normal turgor, s/p right breast mastectomy, unable to visualize incision due to pressure dressing in place Results/Medications Result Diagram: 09/07/16 0845 09/07/16 0845 Results 24 hrs Laboratory Tests Test 09/06/16 13:45 09/06/16 16:10 09/07/16 00:42 09/07/16 08:45 Prothrombin Time 12.9 Prothrombin Time Ratio 1.0 INR International Normalized Ratio 0.97 Activated Partial Thromboplast Time 36.0 H Hemoglobin 9.9 L 9.0 L 9.0 L Hematocrit 29.7 L 27.5 L 27.6 L White Blood Count 8.2 Red Blood Count 2.89 L Mean Corpuscular Volume 95.5 Mean Corpuscular Hemoglobin 31.1 Mean Corpuscular Hemoglobin Concent 32.6 Red Cell Distribution Width 15.5 H Platelet Count 246 Mean Platelet Volume 8.5 Neutrophils % 78.4 H Lymphocytes % 12.8 L Monocytes % 5.9 Eosinophils % 1.8 Basophils % 0.4 Nucleated Red Blood Cells % 0.0 Neutrophils # 6.4 Lymphocytes # 1.1 Monocytes # 0.5 Eosinophils # 0.2 Basophils # 0.0 Nucleated Red Blood Cells # 0.0 Sodium Level 138 Potassium Level 3.8 Chloride Level 101 Carbon Dioxide Level 26 Anion Gap 15 Blood Urea Nitrogen 17 Creatinine 0.67 Glucose Level 86 # Calcium Level 9.3 Medications Current Medications Calcium Carbonate (Oyster Shell Calcium) 1.25 gm DAILY PO Last administered on 09/06/16 08:50; Admin Dose 1.25 GM; Start 08/24/16 at 09:00 Atorvastatin Calcium (Lipitor) 40 mg HS GTB Last administered on 09/06/16 20: 42; Admin Dose 40 MG; Start 08/24/16 at 21:00 Acetaminophen (Tylenol Tab) 650 mg Q4H PRN PO PAIN OR ELEVATED TEMP. Last administered on 09/06/16 15:04; Admin Dose 650 MG; Start 08/24/16 at 06:30 Patient Own Medication 1 ea HS PRN PO INSOMNIA Last administered on 09/06/16 23:16; Admin Dose 1 EA; Start 08/24/16 at 21:00 Miscellaneous Information Patients own medicat... BID@10,16 XX Last administered on 09/07/16 10:24; Admin Dose 1 EA; Start 08/24/16 at 10:00 Enoxaparin Sodium (Lovenox) 60 mg Q12 SC Last administered on 09/06/16 08:54; Admin Dose 60 MG; Start 08/24/16 at 09:00; Status Future Hold Trazodone HCl (Desyrel) 50 mg HS PO Last administered on 09/06/16 20:42; Admin Dose 50 MG; Start 08/26/16 at 21:00 Pantoprazole (Protonix Tab) 40 mg DAILY@06 PO Last administered on 09/07/16 05 :57; Admin Dose 40 MG; Start 08/28/16 at 06:00 Alprazolam 0.5 mg 0.5 mg Q8H PRN PO ANXIETY Last administered on 5/20/17at 15: 04; Admin Dose 0.5 MG; Start 08/27/16 at 18:00 Piperacillin Sod/ Tazobactam Sod (Zosyn 3.375gm/ 100 ml (Pmx)) 100 ml @ 200 mls /hr Q6 IVPB Last administered on 09/07/16 12:07; Admin Dose 200 MLS/HR; Start 08/28/16 at 17:00 Lisinopril (Zestril) 20 mg DAILY PO Last administered on 09/04/16 08:07; Admin Dose 20 MG; Start 08/29/16 at 15:00 Metoprolol Tartrate (Lopressor) 50 mg BID PO Last administered on 09/06/16 20: 43; Admin Dose 50 MG; Start 08/29/16 at 22:00 Diphenhydramine HCl 25 mg 25 mg Q8H PRN PO ITCHING Last administered on 12:07; Admin Dose 25 MG; Start 09/06/16 at 11:00 Lactated Ringer's (Lr) 1,000 ml @ 120 mls/hr Q8H20M IV Last administered on 04:25; Admin Dose 120 MLS/HR; Start 09/06/16 at 16:00 Hydromorphone HCl (Dilaudid) 0.5 mg Q3H PRN IV PAIN Last administered on 10:01; Admin Dose 0.5 MG; Start 09/06/16 at 17:30 Ondansetron HCl (Zofran Inj) 4 mg Q6H PRN IV NAUSEA AND/OR VOMITING; Start at 13:00 Assessment/Plan Chief Complaint/Hosp Course Chief Complaint/Hosp Course - Sepsis d/t cellulitis of right chest - fever and mild leukocytosis resolved - Cellulitis of right chest. Cultures of AKIL fluid grew MSSA, pseudo and bacillus species - resolving - Locally advanced right breast cancer s/p Right modified radical mastectomy 08/[address] Amanda - Left IJ thrombosis - Acute on probable chronic anemia requiring blood transfusion - Hyponatremia - improved - Hyperkalemia/Hypokalemia - improved - HTN - HLD - Hypothyroidism - Anxiety/depression - Hx previous alcohol abuse - continue Pip/tazo (08/28/2016-) x 14 days - Care and management d/w patient, ANTWAN Doherty and Dr. Patel Problems: HILLARY BRADLEY September 07, 2016 12:49
--- NOTE | 2016-09-07 13:40 | PN ---
Date/Time of Note Date/Time of Note DATE: 09/07/16 TIME: 13:37 Assessment/Plan Lines/Catheters IV C[facility]ter Type (from [facility]): PORT A CATH Urinary Cath still in place: No Assessment/Plan Assessment/Plan - Sepsis secondary to postoperative soft tissue infection of the right breast. Dr. Patel is following in infectious disease consultation. Continue abx per ID. - Cellulitis of the right breast. Continue antibiotics per ID. - Status post right modified mastectomy on August [address] Amanda is following in surgical consultation. - Thrombus of the left internal jugular vein. Dr. Edwards is following in vascular surgery consultation. Continue Lovenox. - Hyponatremia on admission, resolved Dr. Davies is following in nephrology consultation. Continue IV fluids. - Hyperthyroidism. Continue patient's Synthroid. - Hypertension. Continue lisinopril. - Hyperlipidemia. Continue statin. - Anemia, status post blood transfusion. Continue sequential compression device for deep venous thrombosis prophylaxis and Protonix for peptic ulcer disease prophylaxis. Further recommendations based on clinical course. Plan of care discussed with Dr. Brito. Subjective 24 Hr Interval Summary Free Text/Dictation afebrile, c/o nausea vomiting, patient complaining of lump on the right mastectomy incision site discussed with staff, livan drain removed by Kim Milian on hold. Exam/Review of Systems Vital Signs Vitals Vital Signs Date Time Temp Pulse Resp B/P Pulse Ox O2 Delivery O2 Flow Rate FiO2 09/07/16 07:35 98.3 60 18 110/66 97 09/07/16 05:58 Room Air Intake and Output 09/06/16 09/06/16 09/07/16 15:00 23:00 07:00 Intake Total 1650 ml 870 ml Output Total 60 ml Balance -60 ml 1650 ml 870 ml Exam Constitutional: alert Psych: nl mood/affect Respiratory: clear to auscultation Cardiovascular: nl pulses Gastrointestinal: non-tender, soft Results Result Diagram: 09/07/16 0845 09/07/16 0845 Results 24 hrs Laboratory Tests Test 09/06/16 13:45 09/06/16 16:10 09/07/16 00:42 09/07/16 08:45 Prothrombin Time 12.9 Prothrombin Time Ratio 1.0 INR International Normalized Ratio 0.97 Activated Partial Thromboplast Time 36.0 H Hemoglobin 9.9 L 9.0 L 9.0 L Hematocrit 29.7 L 27.5 L 27.6 L White Blood Count 8.2 Red Blood Count 2.89 L Mean Corpuscular Volume 95.5 Mean Corpuscular Hemoglobin 31.1 Mean Corpuscular Hemoglobin Concent 32.6 Red Cell Distribution Width 15.5 H Platelet Count 246 Mean Platelet Volume 8.5 Neutrophils % 78.4 H Lymphocytes % 12.8 L Monocytes % 5.9 Eosinophils % 1.8 Basophils % 0.4 Nucleated Red Blood Cells % 0.0 Neutrophils # 6.4 Lymphocytes # 1.1 Monocytes # 0.5 Eosinophils # 0.2 Basophils # 0.0 Nucleated Red Blood Cells # 0.0 Sodium Level 138 Potassium Level 3.8 Chloride Level 101 Carbon Dioxide Level 26 Anion Gap 15 Blood Urea Nitrogen 17 Creatinine 0.67 Glucose Level 86 # Calcium Level 9.3 Medications Medications Current Medications Calcium Carbonate (Oyster Shell Calcium) 1.25 gm DAILY PO Last administered on 09/06/16 08:50; Admin Dose 1.25 GM; Start 08/24/16 at 09:00 Atorvastatin Calcium (Lipitor) 40 mg HS GTB Last administered on 09/06/16 20: 42; Admin Dose 40 MG; Start 08/24/16 at 21:00 Acetaminophen (Tylenol Tab) 650 mg Q4H PRN PO PAIN OR ELEVATED TEMP. Last administered on 09/06/16 15:04; Admin Dose 650 MG; Start 08/24/16 at 06:30 Patient Own Medication 1 ea HS PRN PO INSOMNIA Last administered on 09/06/16 23:16; Admin Dose 1 EA; Start 08/24/16 at 21:00 Miscellaneous Information Patients own medicat... BID@ XX Last administered on 09/07/16 10:24; Admin Dose 1 EA; Start 08/24/16 at 10:00 Enoxaparin Sodium (Lovenox) 60 mg Q12 SC Last administered on 09/06/16 08:54; Admin Dose 60 MG; Start 08/24/16 at 09:00; Status Future Hold Trazodone HCl (Desyrel) 50 mg HS PO Last administered on 09/06/16 20:42; Admin Dose 50 MG; Start 08/26/16 at 21:00 Pantoprazole (Protonix Tab) 40 mg DAILY@06 PO Last administered on 09/07/16 05 :57; Admin Dose 40 MG; Start 08/28/16 at 06:00 Alprazolam 0.5 mg 0.5 mg Q8H PRN PO ANXIETY Last administered on 09/06/16 15: 04; Admin Dose 0.5 MG; Start 08/27/16 at 18:00 Piperacillin Sod/ Tazobactam Sod (Zosyn 3.375gm/ 100 ml (Pmx)) 100 ml @ 200 mls /hr Q6 IVPB Last administered on 09/07/16 12:07; Admin Dose 200 MLS/HR; Start 08/28/16 at 17:00 Lisinopril (Zestril) 20 mg DAILY PO Last administered on 09/04/16 08:07; Admin Dose 20 MG; Start 08/29/16 at 15:00 Metoprolol Tartrate (Lopressor) 50 mg BID PO Last administered on 09/06/16 20: 43; Admin Dose 50 MG; Start 08/29/16 at 22:00 Diphenhydramine HCl 25 mg 25 mg Q8H PRN PO ITCHING Last administered on 12:07; Admin Dose 25 MG; Start 09/06/16 at 11:00 Lactated Ringer's (Lr) 1,000 ml @ 120 mls/hr Q8H20M IV Last administered on 13:23; Admin Dose 120 MLS/HR; Start 09/06/16 at 16:00 Hydromorphone HCl (Dilaudid) 0.5 mg Q3H PRN IV PAIN Last administered on 10:01; Admin Dose 0.5 MG; Start 09/06/16 at 17:30 Ondansetron HCl (Zofran Inj) 4 mg Q6H PRN IV NAUSEA AND/OR VOMITING Last administered on 09/07/16 12:39; Admin Dose 4 MG; Start 09/07/16 at 13:00 DEUCE FRANK September 07, 2016 13:40
--- NOTE | 2016-09-07 16:06 | CONS ---
Date/Time of Note Date/Time of Note DATE: 09/07/16 TIME: 16:05 Assessment/Plan Assessment/Plan Additional Assessment/Plan 1. Hyponatremia, likely secondary to hypovolemic hyponatremia, no SIADH 3. Acute prerenal azotemia secondary to moderate to severe dehydration. 4. Moderate to severe dehydration. 5. History of recent right breast mastectomy 5 days ago. 6. Left internal jugular thrombosis. 7. History of hypertension. 8. History of depression. 9. History of anxiety. 10. History of previous alcohol abuse. 11. History of hypothyroidism. 12. hyperkalemia 13. Metabolic acidosis PLAN: Cr and electrolytes stable today will follow up Hb stable Consultation Date/Type/Reason Admit Date/Time August 23, 2016 at 23:16 Initial Consult Date 08/24/16 Type of Consultation: NEPHROLOGY Referring Provider: MELISSA CASTILLO MD 24 HR Interval Summary Free Text/Dictation afebrile, BP stable Exam/Review of Systems Vital Signs Vitals Vital Signs Date Time Temp Pulse Resp B/P Pulse Ox O2 Delivery O2 Flow Rate FiO2 09/07/16 07:35 98.3 60 18 110/66 97 09/07/16 05:58 Room Air Intake and Output 09/06/16 09/06/16 09/07/16 15:00 23:00 07:00 Intake Total 1650 ml 870 ml Output Total 60 ml Balance -60 ml 1650 ml 870 ml Exam GENERAL: Well-developed, well-nourished female, currently is awake, alert. CHEST: Lungs clear bilaterally. No rhonchi, wheezes, or rales noted. The patient has a right breast surgical scar intact with mike and the right axillary AKIL. left chest PermCath. CARDIOVASCULAR: Normal S1, S2. No murmurs, gallops, clicks, rubs noted. ABDOMEN: Flat, soft, nondistended, nontender. Bowel sounds present. There is no guarding, no rebound tenderness. EXTREMITIES: There is no edema, clubbing, cyanosis. Results Result Diagram: 09/07/16 0845 09/07/16 0845 Results 24 hrs Laboratory Tests Test 09/06/16 16:10 09/07/16 00:42 09/07/16 08:45 Hemoglobin 9.9 L 9.0 L 9.0 L Hematocrit 29.7 L 27.5 L 27.6 L White Blood Count 8.2 Red Blood Count 2.89 L Mean Corpuscular Volume 95.5 Mean Corpuscular Hemoglobin 31.1 Mean Corpuscular Hemoglobin Concent 32.6 Red Cell Distribution Width 15.5 H Platelet Count 246 Mean Platelet Volume 8.5 Neutrophils % 78.4 H Lymphocytes % 12.8 L Monocytes % 5.9 Eosinophils % 1.8 Basophils % 0.4 Nucleated Red Blood Cells % 0.0 Neutrophils # 6.4 Lymphocytes # 1.1 Monocytes # 0.5 Eosinophils # 0.2 Basophils # 0.0 Nucleated Red Blood Cells # 0.0 Sodium Level 138 Potassium Level 3.8 Chloride Level 101 Carbon Dioxide Level 26 Anion Gap 15 Blood Urea Nitrogen 17 Creatinine 0.67 Glucose Level 86 # Calcium Level 9.3 Medications Medications Current Medications Calcium Carbonate (Oyster Shell Calcium) 1.25 gm DAILY PO Last administered on 09/06/16 08:50; Admin Dose 1.25 GM; Start 08/24/16 at 09:00 Atorvastatin Calcium (Lipitor) 40 mg HS GTB Last administered on 09/06/16 20: 42; Admin Dose 40 MG; Start 08/24/16 at 21:00 Acetaminophen (Tylenol Tab) 650 mg Q4H PRN PO PAIN OR ELEVATED TEMP. Last administered on 09/06/16 15:04; Admin Dose 650 MG; Start 08/24/16 at 06:30 Patient Own Medication 1 ea HS PRN PO INSOMNIA Last administered on 09/06/16 23:16; Admin Dose 1 EA; Start 08/24/16 at 21:00 Miscellaneous Information Patients own medicat... BID@10,16 XX Last administered on 09/07/16 10:24; Admin Dose 1 EA; Start 08/24/16 at 10:00 Enoxaparin Sodium (Lovenox) 60 mg Q12 SC Last administered on 09/06/16 08:54; Admin Dose 60 MG; Start 08/24/16 at 09:00; Status Future Hold Trazodone HCl (Desyrel) 50 mg HS PO Last administered on 09/06/16 20:42; Admin Dose 50 MG; Start 08/26/16 at 21:00 Pantoprazole (Protonix Tab) 40 mg DAILY@06 PO Last administered on 09/07/16 05 :57; Admin Dose 40 MG; Start 08/28/16 at 06:00 Alprazolam 0.5 mg 0.5 mg Q8H PRN PO ANXIETY Last administered on 09/06/16 15: 04; Admin Dose 0.5 MG; Start 08/27/16 at 18:00 Piperacillin Sod/ Tazobactam Sod (Zosyn 3.375gm/ 100 ml (Pmx)) 100 ml @ 200 mls /hr Q6 IVPB Last administered on 09/07/16 12:07; Admin Dose 200 MLS/HR; Start 08/28/16 at 17:00 Lisinopril (Zestril) 20 mg DAILY PO Last administered on 09/04/16 08:07; Admin Dose 20 MG; Start 08/29/16 at 15:00 Metoprolol Tartrate (Lopressor) 50 mg BID PO Last administered on 09/06/16 20: 43; Admin Dose 50 MG; Start 08/29/16 at 22:00 Diphenhydramine HCl 25 mg 25 mg Q8H PRN PO ITCHING Last administered on 12:07; Admin Dose 25 MG; Start 09/06/16 at 11:00 Lactated Ringer's (Lr) 1,000 ml @ 120 mls/hr Q8H20M IV Last administered on 13:23; Admin Dose 120 MLS/HR; Start 09/06/16 at 16:00 Hydromorphone HCl (Dilaudid) 0.5 mg Q3H PRN IV PAIN Last administered on 10:01; Admin Dose 0.5 MG; Start 09/06/16 at 17:30 Ondansetron HCl (Zofran Inj) 4 mg Q6H PRN IV NAUSEA AND/OR VOMITING Last administered on 09/07/16 12:39; Admin Dose 4 MG; Start 09/07/16 at 13:00 DIANA MORALES MD September 07, 2016 16:06
--- NOTE | 2016-09-07 16:47 | PN ---
DATE: 09/07/2016 SUBJECTIVE: No new complaint. She has been in bed rest the past 24 hours and has been n.p.o. considering bleeding from the site of the Jay-Palafox drain on the right side. It appears that there is no evidence of new bleeding. OBJECTIVE: GENERAL: Alert, awake, oriented x3. VITAL SIGNS: Temperature 98.3, pulse rate 60, respirations 18, blood pressure 110/67, saturation 97% on room air. HEENT: ____ checked the last since yesterday. The hemoglobin yesterday at 9: 30 was 10.7, hematocrit 33.8 today it is 9 and 27.6. Platelet is 246. Yesterday the PT was 12.9, INR was 0.97 less than 1, normal, but APTT was 36, normal is up to 32, so slightly elevated and that could be accounted for because of the Lovenox. Of course, we started Lovenox as of yesterday morning. Chemistry: Today sodium, BUN, creatinine within normal limits. ASSESSMENT AND PLAN: The patient with modified radical mastectomy about 3 weeks ago, was admitted because of cellulitis and patient was treated with antibiotics. Cellulitis gradually improved much. The patient was found to have thromboses left internal jugular vein. For that matter, they started the patient on Lovenox full dose, and 2 days ago, it was noted that the Jay- Palafox drainage is serous to serosanguineous yesterday, was bloody and then we stopped the Lovenox since last dose was given yesterday at 9:00 a.m. but at 11: 00 patient started bleeding from site of Jay-Palafox drain and so much that appeared that it is active bleeding, so I removed the Jay-Palafox drain and repacked it. This was supposed to be due to high dose of Lovenox that the patient has been receiving. So external pressure was applied over the inferior flap where the blood was probably coming from and wrapped around. Today, patient is stable. She is not feeling dizzy and kept n.p.o. and bed rest. She wants to get out of bed and go to the bathroom, so she is going to go if her vital signs are stable. Hemoglobin did not drop that much. PLAN: Continue checking H and H every 12 hours, the patient on diet and patient can be sent to the bathroom with help. Will follow. Dictated By: ELVIA MURRAY/ZA Conf#: [id number] DID#: [id number]
[2016-09-07 16:49] LABS: HEMATOCRIT 27.8 % (37.0-47.0)
[2016-09-07] MEDS: ALPRAZOLAM 0.25 MG TAB PO PRN (19:50)
[2016-09-07] MEDS: traZODone 50 MG TAB PO SCH (20:53)
[2016-09-07] MEDS: ATORVASTATIN 40 MG TAB GTB SCH (20:53)
[2016-09-07] MEDS: TEMAZEPAM 30 MG PO PRN (23:25)
[2016-09-08] MEDS: LACTATED RINGER'S 1,000 ML IV SCH ×4 (01:20→17:29)
[2016-09-08] MEDS: PANTOPRAZOLE (EC) 40 MG TAB PO SCH (06:15)
[2016-09-08] MEDS: PIPER-TAZO 3.375 GM IV (PMX) 100 ML IVPB SCH ×3 (06:15→17:29)
[2016-09-08] MEDS: LEVOTHYROXINE 100 MCG TAB PO SCH (06:15)
[2016-09-08] MEDS: ALPRAZOLAM 0.25 MG TAB PO PRN ×2 (06:27→20:38)
[2016-09-08 07:28] VITALS: BP 109/69; RESP 18
[2016-09-08] MEDS: CALCIUM CARBONATE 1.25 GM TAB PO SCH (08:37)
[2016-09-08] MEDS: METOPROLOL 50 MG TAB PO SCH ×2 (08:37→20:38)
[2016-09-08] MEDS: LISINOPRIL 20 MG TAB PO SCH (08:38)
[2016-09-08] MEDS: HYDROmorphONE 1 MG/ML SYG IV PRN ×3 (08:41→22:17)
[2016-09-08 09:07] LABS: ADD SCAN DIFF NO
[2016-09-08 09:10] LABS: BASOPHILS % 0.3 % (0.0-2.0); EOSINOPHILS # 0.2 10^3/ul (0.0-0.5); EOSINOPHILS % 3.1 % (0.0-7.0); HEMATOCRIT 27.1 % (37.0-47.0); HEMOGLOBIN 8.5 g/dl (12.0-16.0); LYMPHOCYTES # 0.9 10^3/ul (0.8-2.9); LYMPHOCYTES % 13.8 % (15.0-51.0); MEAN CORPUSCULAR HEMOGLOBIN 30.4 pg (29.0-33.0); MEAN CORPUSCULAR HGB CONC 31.4 g/dl (32.0-37.0); MEAN CORPUSCULAR VOLUME 96.8 fl (82.0-101.0); MEAN PLATELET VOLUME 8.8 fl (7.4-10.4); MONOCYTE # 0.4 10^3/ul (0.3-0.9); MONOCYTES % 5.7 % (0.0-11.0); NEUTROPHIL # 4.7 10^3/ul (1.6-7.5); NEUTROPHILS % 76.6 % (39.0-77.0); PLATELET COUNT 219 10^3/UL (140-415); RED CELL DISTRIBUTION WIDTH 15.7 % (11.5-14.5); WHITE BLOOD COUNT 6.1 10^3/ul (4.8-10.8)
[2016-09-08 09:38] LABS: POTASSIUM 3.7 mmol/L (3.5-5.1)
[2016-09-08 09:40] LABS: CREATININE 0.71 mg/dl (0.44-1.00)
[2016-09-08 09:41] LABS: CALCIUM 9.1 mg/dl (8.4-10.2)
--- NOTE | 2016-09-08 15:59 | CONS ---
Date/Time of Note Date/Time of Note DATE: 09/08/16 TIME: 15:59 Assessment/Plan Assessment/Plan Chief Complaint/Hosp Course - Sepsis d/t cellulitis of right chest - fever and mild leukocytosis resolved - Cellulitis of right chest. Cultures of AKIL fluid grew MSSA, pseudo and bacillus species - resolving - Locally advanced right breast cancer s/p Right modified radical mastectomy 08/[address] Amanda - Left IJ thrombosis - Acute on probable chronic anemia requiring blood transfusion - Hyponatremia - improved - Hyperkalemia/Hypokalemia - improved - HTN - HLD - Hypothyroidism - Anxiety/depression - Hx previous alcohol abuse R: - continue Pip/tazo (08/28/2016-) x 14 days Problems: Consultation Date/Type/Reason Admit Date/Time August 23, 2016 at 23:16 Initial Consult Date 08/24/16 Type of Consultation: id Referring Provider: MELISSA CASTILLO MD Exam/Review of Systems Vital Signs Vitals Vital Signs Date Time Temp Pulse Resp B/P Pulse Ox O2 Delivery O2 Flow Rate FiO2 09/08/16 07:28 97.6 64 18 109/69 97 09/07/16 20:00 Room Air Intake and Output 09/07/16 09/07/16 09/08/16 15:00 23:00 07:00 Intake Total 980 ml 870 ml 1450 ml Balance 980 ml 870 ml 1450 ml Exam Constitutional: alert, oriented, well developed Psych: nl mood/affect, no complaints Head: atraumatic, normocephalic Eyes: EOMI, PERRL, nl conjunctiva, nl lids, nl sclera ENMT: nl external ears & nose, nl lips & teeth, nl nasal mucosa & septum Neck: non-tender, supple Respiratory: clear to auscultation, normal air movement Cardiovascular: nl pulses, regular rate and rhythm Gastrointestinal: nl liver, spleen, non-tender, soft Results Result Diagram: 09/08/16 0845 09/08/16 0845 Results 24 hrs Laboratory Tests Test 09/07/16 16:20 09/08/16 08:45 Hemoglobin 9.0 L 8.5 L Hematocrit 27.8 L 27.1 L White Blood Count 6.1 # Red Blood Count 2.80 L Mean Corpuscular Volume 96.8 Mean Corpuscular Hemoglobin 30.4 Mean Corpuscular Hemoglobin Concent 31.4 L Red Cell Distribution Width 15.7 H Platelet Count 219 Mean Platelet Volume 8.8 Neutrophils % 76.6 Lymphocytes % 13.8 L Monocytes % 5.7 Eosinophils % 3.1 Basophils % 0.3 Nucleated Red Blood Cells % 0.0 Neutrophils # 4.7 Lymphocytes # 0.9 Monocytes # 0.4 Eosinophils # 0.2 Basophils # 0.0 Nucleated Red Blood Cells # 0.0 Sodium Level 139 Potassium Level 3.7 Chloride Level 103 Carbon Dioxide Level 26 Anion Gap 14 Blood Urea Nitrogen 12 Creatinine 0.71 Glucose Level 140 # Calcium Level 9.1 Medications Medications Current Medications Calcium Carbonate (Oyster Shell Calcium) 1.25 gm DAILY PO Last administered on 09/08/16 08:37; Admin Dose 1.25 GM; Start 08/24/16 at 09:00 Atorvastatin Calcium (Lipitor) 40 mg HS GTB Last administered on 09/07/16 20: 53; Admin Dose 40 MG; Start 08/24/16 at 21:00 Acetaminophen (Tylenol Tab) 650 mg Q4H PRN PO PAIN OR ELEVATED TEMP. Last administered on 09/06/16 15:04; Admin Dose 650 MG; Start 08/24/16 at 06:30 Patient Own Medication 1 ea HS PRN PO INSOMNIA Last administered on 09/07/16 23:25; Admin Dose 1 EA; Start 08/24/16 at 21:00 Miscellaneous Information Patients own medicat... BID@10,16 XX Last administered on 09/07/16 16:39; Admin Dose 1 EA; Start 08/24/16 at 10:00 Enoxaparin Sodium (Lovenox) 60 mg Q12 SC Last administered on 09/06/16 08:54; Admin Dose 60 MG; Start 08/24/16 at 09:00; Status Future Hold Trazodone HCl (Desyrel) 50 mg HS PO Last administered on 09/07/16 20:53; Admin Dose 50 MG; Start 08/26/16 at 21:00 Pantoprazole (Protonix Tab) 40 mg DAILY@06 PO Last administered on 09/08/16 06 :15; Admin Dose 40 MG; Start 08/28/16 at 06:00 Alprazolam 0.5 mg 0.5 mg Q8H PRN PO ANXIETY Last administered on 09/08/16 06: 27; Admin Dose 0.5 MG; Start 08/27/16 at 18:00 Piperacillin Sod/ Tazobactam Sod (Zosyn 3.375gm/ 100 ml (Pmx)) 100 ml @ 200 mls /hr Q6 IVPB Last administered on 09/08/16 12:15; Admin Dose 200 MLS/HR; Start 08/28/16 at 17:00 Lisinopril (Zestril) 20 mg DAILY PO Last administered on 09/08/16 08:38; Admin Dose 20 MG; Start 08/29/16 at 15:00 Metoprolol Tartrate (Lopressor) 50 mg BID PO Last administered on 09/08/16 08: 37; Admin Dose 50 MG; Start 08/29/16 at 22:00 Diphenhydramine HCl 25 mg 25 mg Q8H PRN PO ITCHING Last administered on 12:07; Admin Dose 25 MG; Start 09/06/16 at 11:00 Lactated Ringer's (Lr) 1,000 ml @ 120 mls/hr Q8H20M IV Last administered on 08:38; Admin Dose 120 MLS/HR; Start 09/06/16 at 16:00 Hydromorphone HCl (Dilaudid) 0.5 mg Q3H PRN IV PAIN Last administered on 15:55; Admin Dose 0.5 MG; Start 09/06/16 at 17:30 Ondansetron HCl (Zofran Inj) 4 mg Q6H PRN IV NAUSEA AND/OR VOMITING Last administered on 09/07/16 12:39; Admin Dose 4 MG; Start 09/07/16 at 13:00 YVON SOLORIO MD September 08, 2016 15:59
--- NOTE | 2016-09-08 16:35 | PN ---
DATE: 09/08/2016 SUBJECTIVE: She feels much better. She has been walking up and around. No dizziness. She has been going to the bathroom. Tolerating diet. VITAL SIGNS: Temperature 97.6, heart rate 64, , respirations 18, blood pressure was 101/69, saturation 97% on room air. ABDOMEN: Soft. CHEST: The dressings that I applied 2 days ago for control of the bleeding is intact. Dressing is holding very well. There is no oozing any more. LABORATORY DATA: Today, WBC 6100, hemoglobin has dropped in the course of 48 hours to 8.5, hematocrit 27.1. Platelet is 219. BUN, creatinine, sodium, potassium normal. INR 2 days ago 0.97. . Discussed the case with Dr. Amanda. Dr. Amanda also is seeing the patient at the bedside. Plan is to keep the pressure dressing on the right chest wall for a couple of days before the patient is going to be discharged will open the dressing and take a look. Dictated By: ELVIA MURRAY/ZA Conf#: [id number] DID#: [id number] MTDD
[2016-09-08] MEDS: ONDANSETRON 4 MG INJ IV PRN (17:46)
--- NOTE | 2016-09-08 17:46 | CONS ---
Date/Time of Note Date/Time of Note DATE: 09/08/16 TIME: 17:46 Assessment/Plan Assessment/Plan Additional Assessment/Plan 1. Hyponatremia, likely secondary to hypovolemic hyponatremia, no SIADH 3. Acute prerenal azotemia secondary to moderate to severe dehydration. 4. Moderate to severe dehydration. 5. History of recent right breast mastectomy 5 days ago. 6. Left internal jugular thrombosis. 7. History of hypertension. 8. History of depression. 9. History of anxiety. 10. History of previous alcohol abuse. 11. History of hypothyroidism. 12. hyperkalemia 13. Metabolic acidosis PLAN: Cr and electrolytes stable today will follow up Hb stable Consultation Date/Type/Reason Admit Date/Time August 23, 2016 at 23:16 Initial Consult Date 08/24/16 Type of Consultation: NEPHROLOGY Referring Provider: MELISSA CASTILLO MD 24 HR Interval Summary Free Text/Dictation no acute events, BP stable, afebrile Exam/Review of Systems Vital Signs Vitals Vital Signs Date Time Temp Pulse Resp B/P Pulse Ox O2 Delivery O2 Flow Rate FiO2 09/08/16 07:28 97.6 64 18 109/69 97 09/07/16 20:00 Room Air Intake and Output 09/07/16 09/07/16 09/08/16 14:59 22:59 06:59 Intake Total 980 ml 870 ml 1450 ml Balance 980 ml 870 ml 1450 ml Results Result Diagram: 09/08/16 0845 09/08/16 0845 Results 24 hrs Laboratory Tests Test 09/08/16 08:45 White Blood Count 6.1 # Red Blood Count 2.80 L Hemoglobin 8.5 L Hematocrit 27.1 L Mean Corpuscular Volume 96.8 Mean Corpuscular Hemoglobin 30.4 Mean Corpuscular Hemoglobin Concent 31.4 L Red Cell Distribution Width 15.7 H Platelet Count 219 Mean Platelet Volume 8.8 Neutrophils % 76.6 Lymphocytes % 13.8 L Monocytes % 5.7 Eosinophils % 3.1 Basophils % 0.3 Nucleated Red Blood Cells % 0.0 Neutrophils # 4.7 Lymphocytes # 0.9 Monocytes # 0.4 Eosinophils # 0.2 Basophils # 0.0 Nucleated Red Blood Cells # 0.0 Sodium Level 139 Potassium Level 3.7 Chloride Level 103 Carbon Dioxide Level 26 Anion Gap 14 Blood Urea Nitrogen 12 Creatinine 0.71 Glucose Level 140 # Calcium Level 9.1 Medications Medications Current Medications Calcium Carbonate (Oyster Shell Calcium) 1.25 gm DAILY PO Last administered on 09/08/16 08:37; Admin Dose 1.25 GM; Start 08/24/16 at 09:00 Atorvastatin Calcium (Lipitor) 40 mg HS GTB Last administered on 09/07/16 20: 53; Admin Dose 40 MG; Start 08/24/16 at 21:00 Acetaminophen (Tylenol Tab) 650 mg Q4H PRN PO PAIN OR ELEVATED TEMP. Last administered on 09/06/16 15:04; Admin Dose 650 MG; Start 08/24/16 at 06:30 Patient Own Medication 1 ea HS PRN PO INSOMNIA Last administered on 09/07/16 23:25; Admin Dose 1 EA; Start 08/24/16 at 21:00 Miscellaneous Information Patients own medicat... BID@10,16 XX Last administered on 09/07/16 16:39; Admin Dose 1 EA; Start 08/24/16 at 10:00 Enoxaparin Sodium (Lovenox) 60 mg Q12 SC Last administered on 09/06/16 08:54; Admin Dose 60 MG; Start 08/24/16 at 09:00; Status Future Hold Trazodone HCl (Desyrel) 50 mg HS PO Last administered on 09/07/16 20:53; Admin Dose 50 MG; Start 08/26/16 at 21:00 Pantoprazole (Protonix Tab) 40 mg DAILY@06 PO Last administered on 09/08/16 06 :15; Admin Dose 40 MG; Start 08/28/16 at 06:00 Alprazolam 0.5 mg 0.5 mg Q8H PRN PO ANXIETY Last administered on 09/08/16 06: 27; Admin Dose 0.5 MG; Start 08/27/16 at 18:00 Piperacillin Sod/ Tazobactam Sod (Zosyn 3.375gm/ 100 ml (Pmx)) 100 ml @ 200 mls /hr Q6 IVPB Last administered on 09/08/16 17:29; Admin Dose 200 MLS/HR; Start 08/28/16 at 17:00 Lisinopril (Zestril) 20 mg DAILY PO Last administered on 09/08/16 08:38; Admin Dose 20 MG; Start 08/29/16 at 15:00 Metoprolol Tartrate (Lopressor) 50 mg BID PO Last administered on 09/08/16 08: 37; Admin Dose 50 MG; Start 08/29/16 at 22:00 Diphenhydramine HCl 25 mg 25 mg Q8H PRN PO ITCHING Last administered on 12:07; Admin Dose 25 MG; Start 09/06/16 at 11:00 Lactated Ringer's (Lr) 1,000 ml @ 120 mls/hr Q8H20M IV Last administered on 17:29; Admin Dose 120 MLS/HR; Start 09/06/16 at 16:00 Hydromorphone HCl (Dilaudid) 0.5 mg Q3H PRN IV PAIN Last administered on 15:55; Admin Dose 0.5 MG; Start 09/06/16 at 17:30 Ondansetron HCl (Zofran Inj) 4 mg Q6H PRN IV NAUSEA AND/OR VOMITING Last administered on 09/07/16 12:39; Admin Dose 4 MG; Start 09/07/16 at 13:00 DIANA MORALES MD September 08, 2016 17:46
--- NOTE | 2016-09-08 19:48 | PN ---
Date/Time of Note Date/Time of Note DATE: 09/08/16 TIME: 19:45 Assessment/Plan VTE Prophylaxis VTE Prophylaxis Intervention: SCD's Lines/Catheters IV Catheter Type (from Rust): PICC Line Central line still needed: Yes Urinary Cath still in place: No Assessment/Plan Chief Complaint/Hosp Course Patient had bleeding from the AKIL over the weekend, AKIL was removed by surgery patient has a pressure dressing over right breast. ASSESSMENT AND PLAN: - Anemia of blood loss, continue to monitor hemoglobin and hematocrit. - Sepsis secondary to postoperative soft tissue infection of the right breast. Dr. Patel is following in infectious disease consultation. Continue abx per ID. - Cellulitis of the right breast. Continue antibiotics per ID. - Status post right modified mastectomy on August [address] Amanda is following in surgical consultation. - Thrombus of the left internal jugular vein. Dr. Edwards is following in vascular surgery consultation. Lovenox is on hold due to bleeding. - Hyponatremia on admission, resolved Dr. Davies is following in nephrology consultation. Continue IV fluids. - Hyperthyroidism. Continue patient's Synthroid. - Hypertension. Continue Lopressor - Hyperlipidemia. Continue statin. Continue sequential compression device for deep venous thrombosis prophylaxis and Protonix for peptic ulcer disease prophylaxis. Further recommendations based on clinical course. Plan of care discussed with Dr. Brito. Problems: Subjective 24 Hr Interval Summary Free Text/Dictation Patient's complains of mild mild nausea, denies any vomiting denies dizziness. Exam/Review of Systems Vital Signs Vitals Vital Signs Date Time Temp Pulse Resp B/P Pulse Ox O2 Delivery O2 Flow Rate FiO2 09/08/16 07:28 97.6 64 18 109/69 97 09/07/16 20:00 Room Air Intake and Output 09/07/16 09/07/16 09/08/16 15:00 23:00 07:00 Intake Total 980 ml 870 ml 1450 ml Balance 980 ml 870 ml 1450 ml Exam Constitutional: alert, oriented Psych: no complaints Head: atraumatic, normocephalic Neck: supple Respiratory: clear to auscultation Cardiovascular: nl pulses, regular rate and rhythm Gastrointestinal: non-tender, soft Extremities: normal pulses Neurological: [employer] II-XII intact Skin: other (Status post right mastectomy with pressure dressing) Results Result Diagram: 09/08/1684409/08/16844 Results 24 hrs Laboratory Tests Test 09/08/16 08:45 White Blood Count 6.1 # Red Blood Count 2.80 L Hemoglobin 8.5 L Hematocrit 27.1 L Mean Corpuscular Volume 96.8 Mean Corpuscular Hemoglobin 30.4 Mean Corpuscular Hemoglobin Concent 31.4 L Red Cell Distribution Width 15.7 H Platelet Count 219 Mean Platelet Volume 8.8 Neutrophils % 76.6 Lymphocytes % 13.8 L Monocytes % 5.7 Eosinophils % 3.1 Basophils % 0.3 Nucleated Red Blood Cells % 0.0 Neutrophils # 4.7 Lymphocytes # 0.9 Monocytes # 0.4 Eosinophils # 0.2 Basophils # 0.0 Nucleated Red Blood Cells # 0.0 Sodium Level 139 Potassium Level 3.7 Chloride Level 103 Carbon Dioxide Level 26 Anion Gap 14 Blood Urea Nitrogen 12 Creatinine 0.71 Glucose Level 140 # Calcium Level 9.1 Medications Medications Current Medications Calcium Carbonate (Oyster Shell Calcium) 1.25 gm DAILY PO Last administered on 09/08/16 08:37; Admin Dose 1.25 GM; Start 08/24/16 at 09:00 Atorvastatin Calcium (Lipitor) 40 mg HS GTB Last administered on 09/07/16 20: 53; Admin Dose 40 MG; Start 08/24/16 at 21:00 Acetaminophen (Tylenol Tab) 650 mg Q4H PRN PO PAIN OR ELEVATED TEMP. Last administered on 09/06/16 15:04; Admin Dose 650 MG; Start 08/24/16 at 06:30 Patient Own Medication 1 ea HS PRN PO INSOMNIA Last administered on 09/07/16 23:25; Admin Dose 1 EA; Start 08/24/16 at 21:00 Miscellaneous Information Patients own medicat... BID@,16 XX Last administered on 09/07/16 16:39; Admin Dose 1 EA; Start 08/24/16 at 10:00 Enoxaparin Sodium (Lovenox) 60 mg Q12 SC Last administered on 09/06/16 08:54; Admin Dose 60 MG; Start 08/24/16 at 09:00; Status Future Hold Trazodone HCl (Desyrel) 50 mg HS PO Last administered on 09/07/16 20:53; Admin Dose 50 MG; Start 08/26/16 at 21:00 Pantoprazole (Protonix Tab) 40 mg DAILY@06 PO Last administered on 09/08/16 06 :15; Admin Dose 40 MG; Start 08/28/16 at 06:00 Alprazolam 0.5 mg 0.5 mg Q8H PRN PO ANXIETY Last administered on 09/08/16 06: 27; Admin Dose 0.5 MG; Start 08/27/16 at 18:00 Piperacillin Sod/ Tazobactam Sod (Zosyn 3.375gm/ 100 ml (Pmx)) 100 ml @ 200 mls /hr Q6 IVPB Last administered on 09/08/16 17:29; Admin Dose 200 MLS/HR; Start 08/28/16 at 17:00 Lisinopril (Zestril) 20 mg DAILY PO Last administered on 09/08/16 08:38; Admin Dose 20 MG; Start 08/29/16 at 15:00 Metoprolol Tartrate (Lopressor) 50 mg BID PO Last administered on 09/08/16 08: 37; Admin Dose 50 MG; Start 08/29/16 at 22:00 Diphenhydramine HCl 25 mg 25 mg Q8H PRN PO ITCHING Last administered on 12:07; Admin Dose 25 MG; Start 09/06/16 at 11:00 Lactated Ringer's (Lr) 1,000 ml @ 120 mls/hr Q8H20M IV Last administered on 17:29; Admin Dose 120 MLS/HR; Start 09/06/16 at 16:00 Hydromorphone HCl (Dilaudid) 0.5 mg Q3H PRN IV PAIN Last administered on 15:55; Admin Dose 0.5 MG; Start 09/06/16 at 17:30 Ondansetron HCl (Zofran Inj) 4 mg Q6H PRN IV NAUSEA AND/OR VOMITING Last administered on 09/08/16 17:46; Admin Dose 4 MG; Start 09/07/16 at 13:00 PAUL RAMOS September 08, 2016 19:48
[2016-09-08 20:00] VITALS: BP 139/82; RESP 18
[2016-09-08] MEDS: ATORVASTATIN 40 MG TAB GTB SCH (20:38)
[2016-09-08] MEDS: traZODone 50 MG TAB PO SCH (20:38)
[2016-09-08] MEDS: TEMAZEPAM 30 MG PO PRN (21:32)
[2016-09-09] MEDS: PIPER-TAZO 3.375 GM IV (PMX) 100 ML IVPB SCH ×4 (00:59→18:02)
[2016-09-09] MEDS: LACTATED RINGER'S 1,000 ML IV SCH ×4 (02:38→21:43)
[2016-09-09] MEDS: LEVOTHYROXINE 100 MCG TAB PO SCH (05:58)
[2016-09-09] MEDS: PANTOPRAZOLE (EC) 40 MG TAB PO SCH (05:58)
[2016-09-09] MEDS: ALPRAZOLAM 0.25 MG TAB PO PRN ×2 (05:59→18:02)
[2016-09-09 07:22] VITALS: BP 152/72; RESP 20
[2016-09-09] MEDS: CALCIUM CARBONATE 1.25 GM TAB PO SCH (08:58)
[2016-09-09] MEDS: LISINOPRIL 20 MG TAB PO SCH (08:59)
[2016-09-09] MEDS: METOPROLOL 50 MG TAB PO SCH ×2 (08:59→21:46)
--- NOTE | 2016-09-09 09:02 | CONS ---
Date/Time of Note Date/Time of Note DATE: 09/09/16 TIME: 09:01 Assessment/Plan Assessment/Plan Additional Assessment/Plan 1. Hyponatremia, likely secondary to hypovolemic hyponatremia, no SIADH 3. Acute prerenal azotemia secondary to moderate to severe dehydration. 4. Moderate to severe dehydration. 5. History of recent right breast mastectomy 5 days ago. 6. Left internal jugular thrombosis. 7. History of hypertension. 8. History of depression. 9. History of anxiety. 10. History of previous alcohol abuse. 11. History of hypothyroidism. 12. hyperkalemia 13. Metabolic acidosis PLAN: Cr and electrolytes stable today Hb 8.5- plan as per GI and PMD will follow up Hb stable Consultation Date/Type/Reason Admit Date/Time August 23, 2016 at 23:16 Initial Consult Date 08/24/16 Type of Consultation: NEPHROLOGY Referring Provider: MELISSA CASTILLO MD 24 HR Interval Summary Free Text/Dictation Bp stable,a febrile, Exam/Review of Systems Vital Signs Vitals Vital Signs Date Time Temp Pulse Resp B/P Pulse Ox O2 Delivery O2 Flow Rate FiO2 09/09/16 07:22 98.2 66 20 152/72 97 09/07/16 20:00 Room Air Intake and Output 09/08/16 09/08/16 09/09/16 14:59 22:59 06:59 Intake Total 900 ml 2280 ml 2250 ml Balance 900 ml 2280 ml 2250 ml Exam GENERAL: Well-developed, well-nourished female, currently is awake, alert. CHEST: Lungs clear bilaterally. No rhonchi, wheezes, or rales noted. The patient has a right breast surgical scar intact with mike and the right axillary AKIL. left chest PermCath. CARDIOVASCULAR: Normal S1, S2. No murmurs, gallops, clicks, rubs noted. ABDOMEN: Flat, soft, nondistended, nontender. Bowel sounds present. There is no guarding, no rebound tenderness. EXTREMITIES: There is no edema, clubbing, cyanosis. Results Result Diagram: 09/08/1645 09/08/1645 Medications Medications Current Medications Calcium Carbonate (Oyster Shell Calcium) 1.25 gm DAILY PO Last administered on 09/09/16t 08:58; Admin Dose 1.25 GM; Start 08/24/16 at 09:00 Atorvastatin Calcium (Lipitor) 40 mg HS GTB Last administered on 09/08/16 20: 38; Admin Dose 40 MG; Start 08/24/16 at 21:00 Acetaminophen (Tylenol Tab) 650 mg Q4H PRN PO PAIN OR ELEVATED TEMP. Last administered on 09/06/16 15:04; Admin Dose 650 MG; Start 08/24/16 at 06:30 Patient Own Medication 1 ea HS PRN PO INSOMNIA Last administered on 09/08/16 21:32; Admin Dose 1 EA; Start 08/24/16 at 21:00 Miscellaneous Information Patients own medicat... BID@10,16 XX Last administered on 09/07/16 16:39; Admin Dose 1 EA; Start 08/24/16 at 10:00 Enoxaparin Sodium (Lovenox) 60 mg Q12 SC Last administered on 09/06/16 08:54; Admin Dose 60 MG; Start 08/24/16 at 09:00; Status Future Hold Trazodone HCl (Desyrel) 50 mg HS PO Last administered on 09/08/16 20:38; Admin Dose 50 MG; Start 08/26/16 at 21:00 Pantoprazole (Protonix Tab) 40 mg DAILY@06 PO Last administered on 09/09/16 05 :58; Admin Dose 40 MG; Start 08/28/16 at 06:00 Alprazolam 0.5 mg 0.5 mg Q8H PRN PO ANXIETY Last administered on 09/09/16 05: 59; Admin Dose 0.5 MG; Start 08/27/16 at 18:00 Piperacillin Sod/ Tazobactam Sod (Zosyn 3.375gm/ 100 ml (Pmx)) 100 ml @ 200 mls /hr Q6 IVPB Last administered on 09/09/16 05:58; Admin Dose 200 MLS/HR; Start 08/28/16 at 17:00 Lisinopril (Zestril) 20 mg DAILY PO Last administered on 09/09/16 08:59; Admin Dose 20 MG; Start 08/29/16 at 15:00 Metoprolol Tartrate (Lopressor) 50 mg BID PO Last administered on 09/09/16 08: 59; Admin Dose 50 MG; Start 08/29/16 at 22:00 Diphenhydramine HCl 25 mg 25 mg Q8H PRN PO ITCHING Last administered on 12:07; Admin Dose 25 MG; Start 09/06/16 at 11:00 Lactated Ringer's (Lr) 1,000 ml @ 120 mls/hr Q8H20M IV Last administered on 02:38; Admin Dose 120 MLS/HR; Start 09/06/16 at 16:00 Hydromorphone HCl (Dilaudid) 0.5 mg Q3H PRN IV PAIN Last administered on 22:17; Admin Dose 0.5 MG; Start 09/06/16 at 17:30 Ondansetron HCl (Zofran Inj) 4 mg Q6H PRN IV NAUSEA AND/OR VOMITING Last administered on 09/08/16 17:46; Admin Dose 4 MG; Start 09/07/16 at 13:00 DIANA MORALES MD September 09, 2016 09:02
[2016-09-09] MEDS: HYDROmorphONE 1 MG/ML SYG IV PRN (09:37)
[2016-09-09 10:39] LABS: ADD SCAN DIFF NO
[2016-09-09 10:48] LABS: BASOPHILS % 0.5 % (0.0-2.0); EOSINOPHILS # 0.2 10^3/ul (0.0-0.5); EOSINOPHILS % 4.1 % (0.0-7.0); HEMATOCRIT 26.1 % (37.0-47.0); HEMOGLOBIN 8.7 g/dl (12.0-16.0); LYMPHOCYTES # 0.9 10^3/ul (0.8-2.9); LYMPHOCYTES % 15.1 % (15.0-51.0); MEAN CORPUSCULAR HEMOGLOBIN 31.8 pg (29.0-33.0); MEAN CORPUSCULAR HGB CONC 33.3 g/dl (32.0-37.0); MEAN CORPUSCULAR VOLUME 95.3 fl (82.0-101.0); MEAN PLATELET VOLUME 8.7 fl (7.4-10.4); MONOCYTE # 0.4 10^3/ul (0.3-0.9); MONOCYTES % 7.2 % (0.0-11.0); NEUTROPHIL # 4.3 10^3/ul (1.6-7.5); NEUTROPHILS % 72.8 % (39.0-77.0); PLATELET COUNT 205 10^3/UL (140-415); RED BLOOD COUNT 2.74 10^6/ul (4.20-5.40); RED CELL DISTRIBUTION WIDTH 15.5 % (11.5-14.5); WHITE BLOOD COUNT 5.8 10^3/ul (4.8-10.8)
[2016-09-09 10:59] LABS: CALCIUM 9.2 mg/dl (8.4-10.2); CREATININE 0.71 mg/dl (0.44-1.00)
[2016-09-09 12:00] LABS: INR 1.09; PARTIAL THROMBOPLASTIN TIME 25.1 Sec (25.0-35.0); PROTIME 14.1 Sec (12.2-14.2); PT RATIO 1.1
--- NOTE | 2016-09-09 13:40 | CONS ---
Date/Time of Note Date/Time of Note DATE: 09/09/16 TIME: 13:40 Assessment/Plan Assessment/Plan Chief Complaint/Hosp Course - Sepsis d/t cellulitis of right chest - fever and mild leukocytosis resolved - Cellulitis of right chest. Cultures of AKIL fluid grew MSSA, pseudo and bacillus species - resolving - Locally advanced right breast cancer s/p Right modified radical mastectomy 08/[address] Amanda - Left IJ thrombosis - Acute on probable chronic anemia requiring blood transfusion - Hyponatremia - improved - Hyperkalemia/Hypokalemia - improved - HTN - HLD - Hypothyroidism - Anxiety/depression - Hx previous alcohol abuse - New erythema to left chest port-a-cath site - resolved - Note: pt is s/p Vanco and cefepime recommendations: - continue Pip/tazo (08/28/2016-09/11/2016) x 14 days Management d/w Pt, ANTWAN Foote and Dr. Patel Problems: Consultation Date/Type/Reason Admit Date/Time August 23, 2016 at 23:16 Initial Consult Date 08/24/16 Type of Consultation: Infectious Disease Referring Provider: MELISSA CASTILLO MD 24 HR Interval Summary Free Text/Dictation AKIL drain was removed and pressure dressing remains in place. No further bleeding noted. No new issues per d/w nursing staff. No significant incisional pain. "This right side still feels funny". No CP, SOB, abd pain, n/v/d, dysuria. Exam/Review of Systems Vital Signs Vitals Vital Signs Date Time Temp Pulse Resp B/P Pulse Ox O2 Delivery O2 Flow Rate FiO2 09/09/16 07:22 98.2 66 20 152/72 97 09/07/16 20:00 Room Air Intake and Output 09/08/16 09/08/16 09/09/16 15:00 23:00 07:00 Intake Total 900 ml 2280 ml 2250 ml Balance 900 ml 2280 ml 2250 ml Exam Constitutional: alert, oriented, well developed, ambulating with steady gait in room Psych: nl mood/affect Head: atraumatic, normocephalic, aloplecia Eyes: nl sclera Neck: supple, No jvd Respiratory: clear to auscultation, normal air movement, other (Left chest port -a-cath noted with no e/o infection) Cardiovascular: nl pulses, regular rate and rhythm, No edema Gastrointestinal: bowel sounds (present), non-tender, soft, No distended Extremities: normal pulses No clubbing, No cyanosis, No edema Neurological: nl mental status, nl speech Skin: nl turgor, other (Right breast mastectomy site with pressure dressing c/d /i) Results Result Diagram: 09/09/16 1030 09/09/16 1030 Results 24 hrs Laboratory Tests Test 09/09/16 10:30 09/09/16 11:10 White Blood Count 5.8 Red Blood Count 2.74 L Hemoglobin 8.7 L Hematocrit 26.1 L Mean Corpuscular Volume 95.3 Mean Corpuscular Hemoglobin 31.8 Mean Corpuscular Hemoglobin Concent 33.3 Red Cell Distribution Width 15.5 H Platelet Count 205 Mean Platelet Volume 8.7 Neutrophils % 72.8 Lymphocytes % 15.1 Monocytes % 7.2 Eosinophils % 4.1 Basophils % 0.5 Nucleated Red Blood Cells % 0.0 Neutrophils # 4.3 Lymphocytes # 0.9 Monocytes # 0.4 Eosinophils # 0.2 Basophils # 0.0 Nucleated Red Blood Cells # 0.0 Sodium Level 138 Potassium Level 4.0 Chloride Level 106 Carbon Dioxide Level 25 Anion Gap 11 Blood Urea Nitrogen 12 Creatinine 0.71 Glucose Level 118 Calcium Level 9.2 Prothrombin Time 14.1 Prothrombin Time Ratio 1.1 INR International Normalized Ratio 1.09 Activated Partial Thromboplast Time 25.1 Medications Medications Current Medications Calcium Carbonate (Oyster Shell Calcium) 1.25 gm DAILY PO Last administered on 09/09/16 08:58; Admin Dose 1.25 GM; Start 08/24/16 at 09:00 Atorvastatin Calcium (Lipitor) 40 mg HS GTB Last administered on 09/08/16 20: 38; Admin Dose 40 MG; Start 08/24/16 at 21:00 Acetaminophen (Tylenol Tab) 650 mg Q4H PRN PO PAIN OR ELEVATED TEMP. Last administered on 09/06/16 15:04; Admin Dose 650 MG; Start 08/24/16 at 06:30 Patient Own Medication 1 ea HS PRN PO INSOMNIA Last administered on 09/08/16 21:32; Admin Dose 1 EA; Start 08/24/16 at 21:00 Miscellaneous Information Patients own medicat... BID@10,16 XX Last administered on 09/07/16 16:39; Admin Dose 1 EA; Start 08/24/16 at 10:00 Enoxaparin Sodium (Lovenox) 60 mg Q12 SC Last administered on 09/06/16 08:54; Admin Dose 60 MG; Start 08/24/16 at 09:00; Status Future Hold Trazodone HCl (Desyrel) 50 mg HS PO Last administered on 09/08/16 20:38; Admin Dose 50 MG; Start 08/26/16 at 21:00 Pantoprazole (Protonix Tab) 40 mg DAILY@06 PO Last administered on 09/09/16 05 :58; Admin Dose 40 MG; Start 08/28/16 at 06:00 Alprazolam 0.5 mg 0.5 mg Q8H PRN PO ANXIETY Last administered on 09/09/16 05: 59; Admin Dose 0.5 MG; Start 08/27/16 at 18:00 Piperacillin Sod/ Tazobactam Sod (Zosyn 3.375gm/ 100 ml (Pmx)) 100 ml @ 200 mls /hr Q6 IVPB Last administered on 09/09/16 12:11; Admin Dose 200 MLS/HR; Start 08/28/16 at 17:00 Lisinopril (Zestril) 20 mg DAILY PO Last administered on 09/09/16 08:59; Admin Dose 20 MG; Start 08/29/16 at 15:00 Metoprolol Tartrate (Lopressor) 50 mg BID PO Last administered on 09/09/16 08: 59; Admin Dose 50 MG; Start 08/29/16 at 22:00 Diphenhydramine HCl 25 mg 25 mg Q8H PRN PO ITCHING Last administered on 12:07; Admin Dose 25 MG; Start 09/06/16 at 11:00 Lactated Ringer's (Lr) 1,000 ml @ 120 mls/hr Q8H20M IV Last administered on 11:27; Admin Dose 120 MLS/HR; Start 09/06/16 at 16:00 Hydromorphone HCl (Dilaudid) 0.5 mg Q3H PRN IV PAIN Last administered on 09:37; Admin Dose 0.5 MG; Start 09/06/16 at 17:30 Ondansetron HCl (Zofran Inj) 4 mg Q6H PRN IV NAUSEA AND/OR VOMITING Last administered on 09/08/16t 17:46; Admin Dose 4 MG; Start 09/07/16 at 13:00 CARTER CARTAGENA NP September 09, 2016 13:40
--- NOTE | 2016-09-09 17:06 | PN ---
Date/Time of Note Date/Time of Note DATE: 09/09/16 TIME: 17:04 Assessment/Plan VTE Prophylaxis VTE Prophylaxis Intervention: SCD's Lines/Catheters IV [facility] PORT A CATH Urinary Cath still in place: No Assessment/Plan Chief Complaint/Hosp Course No acute events overnight, pain is well controlled, will continue antibiotics for 2 more days per ID recommendation. Follow-up surgical recommendations. ASSESSMENT AND PLAN: - Anemia of blood loss, continue to monitor hemoglobin and hematocrit. - Sepsis secondary to postoperative soft tissue infection of the right breast. Dr. Patel is following in infectious disease consultation. Continue abx per ID. - Cellulitis of the right breast. Continue antibiotics per ID. - Status post right modified mastectomy on August [address] Amanda is following in surgical consultation. - Thrombus of the left internal jugular vein. Dr. Edwards is following in vascular surgery consultation. Lovenox is on hold due to bleeding. - Hyponatremia on admission, resolved Dr. Davies is following in nephrology consultation. Continue IV fluids. - Hyperthyroidism. Continue patient's Synthroid. - Hypertension. Continue Lopressor - Hyperlipidemia. Continue statin. Continue sequential compression device for deep venous thrombosis prophylaxis and Protonix for peptic ulcer disease prophylaxis. Further recommendations based on clinical course. Plan of care discussed with Dr. Brito. 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 Skin: other (Status post right mastectomy with pressure dressing) Results Result Diagram: 09/09/16 1030 09/09/16 1030 Results 24 hrs Laboratory Tests Test 09/09/16 10:30 09/09/16 11:10 White Blood Count 5.8 Red Blood Count 2.74 L Hemoglobin 8.7 L Hematocrit 26.1 L Mean Corpuscular Volume 95.3 Mean Corpuscular Hemoglobin 31.8 Mean Corpuscular Hemoglobin Concent 33.3 Red Cell Distribution Width 15.5 H Platelet Count 205 Mean Platelet Volume 8.7 Neutrophils % 72.8 Lymphocytes % 15.1 Monocytes % 7.2 Eosinophils % 4.1 Basophils % 0.5 Nucleated Red Blood Cells % 0.0 Neutrophils # 4.3 Lymphocytes # 0.9 Monocytes # 0.4 Eosinophils # 0.2 Basophils # 0.0 Nucleated Red Blood Cells # 0.0 Sodium Level 138 Potassium Level 4.0 Chloride Level 106 Carbon Dioxide Level 25 Anion Gap 11 Blood Urea Nitrogen 12 Creatinine 0.71 Glucose Level 118 Calcium Level 9.2 Prothrombin Time 14.1 Prothrombin Time Ratio 1.1 INR International Normalized Ratio 1.09 Activated Partial Thromboplast Time 25.1 Medications Medications Current Medications Calcium Carbonate (Oyster Shell Calcium) 1.25 gm DAILY PO Last administered on 09/09/16 08:58; Admin Dose 1.25 GM; Start 08/24/16 at 09:00 Atorvastatin Calcium (Lipitor) 40 mg HS GTB Last administered on 09/08/16 20: 38; Admin Dose 40 MG; Start 08/24/16 at 21:00 Acetaminophen (Tylenol Tab) 650 mg Q4H PRN PO PAIN OR ELEVATED TEMP. Last administered on 09/06/16 15:04; Admin Dose 650 MG; Start 08/24/16 at 06:30 Patient Own Medication 1 ea HS PRN PO INSOMNIA Last administered on 09/08/16 21:32; Admin Dose 1 EA; Start 08/24/16 at 21:00 Miscellaneous Information Patients own medicat... BID@10,16 XX Last administered on 09/07/16 16:39; Admin Dose 1 EA; Start 08/24/16 at 10:00 Enoxaparin Sodium (Lovenox) 60 mg Q12 SC Last administered on 09/06/16 08:54; Admin Dose 60 MG; Start 08/24/16 at 09:00; Status Future Hold Trazodone HCl (Desyrel) 50 mg HS PO Last administered on 09/08/16 20:38; Admin Dose 50 MG; Start 08/26/16 at 21:00 Pantoprazole (Protonix Tab) 40 mg DAILY@06 PO Last administered on 09/09/16 05 :58; Admin Dose 40 MG; Start 08/28/16 at 06:00 Alprazolam 0.5 mg 0.5 mg Q8H PRN PO ANXIETY Last administered on 09/09/16 05: 59; Admin Dose 0.5 MG; Start 08/27/16 at 18:00 Piperacillin Sod/ Tazobactam Sod (Zosyn 3.375gm/ 100 ml (Pmx)) 100 ml @ 200 mls /hr Q6 IVPB Last administered on 09/09/16 12:11; Admin Dose 200 MLS/HR; Start 08/28/16 at 17:00 Lisinopril (Zestril) 20 mg DAILY PO Last administered on 09/09/16 08:59; Admin Dose 20 MG; Start 08/29/16 at 15:00 Metoprolol Tartrate (Lopressor) 50 mg BID PO Last administered on 09/09/16 08: 59; Admin Dose 50 MG; Start 08/29/16 at 22:00 Diphenhydramine HCl 25 mg 25 mg Q8H PRN PO ITCHING Last administered on 12:07; Admin Dose 25 MG; Start 09/06/16 at 11:00 Lactated Ringer's (Lr) 1,000 ml @ 120 mls/hr Q8H20M IV Last administered on 11:27; Admin Dose 120 MLS/HR; Start 09/06/16 at 16:00 Hydromorphone HCl (Dilaudid) 0.5 mg Q3H PRN IV PAIN Last administered on 09:37; Admin Dose 0.5 MG; Start 09/06/16 at 17:30 Ondansetron HCl (Zofran Inj) 4 mg Q6H PRN IV NAUSEA AND/OR VOMITING Last administered on 09/08/16 17:46; Admin Dose 4 MG; Start 09/07/16 at 13:00 PAUL RAMOS September 09, 2016 17:06
[2016-09-09 20:00] VITALS: BP 129/74; RESP 20
--- NOTE | 2016-09-09 21:18 | PN ---
DATE: 09/09/2016 SUBJECTIVE: No new complaints. OBJECTIVE: VITAL SIGNS: 98.2, 66, 20, 152/72, saturation 97% on room air. Chest wall dressing is intact and n o evidence of new bleeding. LABORATORY DATA: WBC today 5800 with 72% segmented, hemoglobin 8.7, hematocrit 26. BUN, creatinine , sodium, potassium within normal limits. Coagulation: PT 14.1, INR 1.09, PTT 21.1, normal range. The patient still is receiving antibiotic, vancomycin and Zosyn. PLAN: Plan of discharge per infectious disease whenever they feel that she has completed a course o f antibiotics. Then we are going to remove the bulky compressive dressing from all around the chest and reinspect the right breast site and the flaps and incision, see if there is any more evidence o f hematoma or not and then we will make further decision at that time. In regards to if any course of action should be taken, namely evacuating hematoma or leaving it to reabsorb by itself, I have di scussed with Dr. Amanda in detail and this is the plan for surgical approach. We are going to start the patient on FeSO4, ferrous iodine. Dictated By: ELVIA NATION MD PS/NTS Conf#: [id number] DID#: [id number] CC: MELISSA CASTILLO MD;*EndCC*
[2016-09-09] MEDS: traZODone 50 MG TAB PO SCH (21:43)
[2016-09-09] MEDS: ATORVASTATIN 40 MG TAB GTB SCH (21:43)
[2016-09-09] MEDS: TEMAZEPAM 30 MG PO PRN (21:59)
[2016-09-10] MEDS: PIPER-TAZO 3.375 GM IV (PMX) 100 ML IVPB SCH ×4 (00:18→17:33)
[2016-09-10] MEDS: PANTOPRAZOLE (EC) 40 MG TAB PO SCH (05:49)
[2016-09-10] MEDS: LEVOTHYROXINE 100 MCG TAB PO SCH (06:45)
[2016-09-10] MEDS: ALPRAZOLAM 0.25 MG TAB PO PRN ×2 (06:52→17:32)
[2016-09-10 08:34] VITALS: BP 123/82; RESP 18
[2016-09-10] MEDS: LISINOPRIL 20 MG TAB PO SCH (08:51)
[2016-09-10] MEDS: METOPROLOL 50 MG TAB PO SCH ×2 (08:51→21:19)
[2016-09-10] MEDS: CALCIUM CARBONATE 1.25 GM TAB PO SCH (08:51)
[2016-09-10 08:58] LABS: ADD SCAN DIFF NO
[2016-09-10 09:02] LABS: BASOPHILS % 0.7 % (0.0-2.0); EOSINOPHILS # 0.2 10^3/ul (0.0-0.5); EOSINOPHILS % 4.2 % (0.0-7.0); HEMATOCRIT 27.8 % (37.0-47.0); HEMOGLOBIN 8.8 g/dl (12.0-16.0); LYMPHOCYTES # 1.1 10^3/ul (0.8-2.9); LYMPHOCYTES % 19.9 % (15.0-51.0); MEAN CORPUSCULAR HEMOGLOBIN 30.2 pg (29.0-33.0); MEAN CORPUSCULAR HGB CONC 31.7 g/dl (32.0-37.0); MEAN CORPUSCULAR VOLUME 95.5 fl (82.0-101.0); MEAN PLATELET VOLUME 8.9 fl (7.4-10.4); MONOCYTE # 0.4 10^3/ul (0.3-0.9); MONOCYTES % 7.4 % (0.0-11.0); NEUTROPHIL # 3.7 10^3/ul (1.6-7.5); NEUTROPHILS % 67.4 % (39.0-77.0); PLATELET COUNT 237 10^3/UL (140-415); RED BLOOD COUNT 2.91 10^6/ul (4.20-5.40); RED CELL DISTRIBUTION WIDTH 15.4 % (11.5-14.5); WHITE BLOOD COUNT 5.5 10^3/ul (4.8-10.8)
[2016-09-10] MEDS: HYDROmorphONE 1 MG/ML SYG IV PRN ×2 (09:17→22:36)
[2016-09-10 09:26] LABS: POTASSIUM 3.9 mmol/L (3.5-5.1)
[2016-09-10 09:28] LABS: CREATININE 0.73 mg/dl (0.44-1.00)
[2016-09-10 09:29] LABS: CALCIUM 9.7 mg/dl (8.4-10.2)
[2016-09-10] MEDS: LACTATED RINGER'S 1,000 ML IV SCH (11:51)
--- NOTE | 2016-09-10 14:21 | PN ---
DATE: 09/10/2016 SUBJECTIVE: No new complaints. OBJECTIVE: VITAL SIGNS: Temperature 97.9, heart rate 93 regular, respirations 18, blood pressure 123/828, sat uration 28%. LABORATORY DATA: WBC 5500 with 57% segmented, hemoglobin 8.8, hematocrit 27.8. HEART: Regular. The dressing over the right chest wall is bulky compressive dressing and is intact. The patient is not complaining of tightness. It appears that the bleeding has stopped. We started the patient on ferrous sulfate 325 mg p.o. b.i.d. The patient is receiving antibiotics f or cellulitis of the right breast. PLAN: Whenever infectious disease discharges the patient, the patient can be discharged from surgic al point of view. Dictated By: ELVIA MURRAY/ZA Conf#: [id number] DID#: [id number]
--- NOTE | 2016-09-10 16:17 | PN ---
Date/Time of Note Date/Time of Note DATE: 09/10/16 TIME: 16:14 Assessment/Plan VTE Prophylaxis VTE Prophylaxis Intervention: SCD's Lines/Catheters [facility] PORTACATH Urinary Cath still in place: No Assessment/Plan Chief Complaint/Hosp Course Patient denies any bleeding, remains hemodynamically stable, completing the course of antibiotics. Anticipate discharge tomorrow if no acute issues. ASSESSMENT AND PLAN: - Anemia of blood loss, continue to monitor hemoglobin and hematocrit. - Sepsis secondary to postoperative soft tissue infection of the right breast, resolving. Dr. Patel is following in infectious disease consultation. Continue abx per ID. - Cellulitis of the right breast, resolving. continue antibiotics per ID. - Status post right modified mastectomy on August [address] Amanda is following in surgical consultation. - Thrombus of the left internal jugular vein. Dr. Edwards is following in vascular surgery consultation. Lovenox is on hold due to bleeding. - Hyponatremia on admission, resolved. Dr. Davies is following in nephrology consultation. Continue IV fluids. - Hyperthyroidism. Continue patient's Synthroid. - Hypertension. Continue Lopressor - Hyperlipidemia. Continue statin. Continue sequential compression device for deep venous thrombosis prophylaxis and Protonix for peptic ulcer disease prophylaxis. Further recommendations based on clinical course. Plan of care discussed with Dr. Brito. 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 Skin: other (Status post right mastectomy with pressure dressing) Results Result Diagram: 09/10/16 0802 09/10/16 0802 Results 24 hrs Laboratory Tests Test 09/10/16 08:02 White Blood Count 5.5 Red Blood Count 2.91 L Hemoglobin 8.8 L Hematocrit 27.8 L Mean Corpuscular Volume 95.5 Mean Corpuscular Hemoglobin 30.2 Mean Corpuscular Hemoglobin Concent 31.7 L Red Cell Distribution Width 15.4 H Platelet Count 237 Mean Platelet Volume 8.9 Neutrophils % 67.4 Lymphocytes % 19.9 Monocytes % 7.4 Eosinophils % 4.2 Basophils % 0.7 Nucleated Red Blood Cells % 0.0 Neutrophils # 3.7 Lymphocytes # 1.1 Monocytes # 0.4 Eosinophils # 0.2 Basophils # 0.0 Nucleated Red Blood Cells # 0.0 Sodium Level 140 Potassium Level 3.9 Chloride Level 103 Carbon Dioxide Level 26 Anion Gap 15 Blood Urea Nitrogen 12 Creatinine 0.73 Glucose Level 96 Calcium Level 9.7 Medications Medications Current Medications Calcium Carbonate (Oyster Shell Calcium) 1.25 gm DAILY PO Last administered on 09/10/16 08:51; Admin Dose 1.25 GM; Start 08/24/16 at 09:00 Atorvastatin Calcium (Lipitor) 40 mg HS GTB Last administered on 09/09/16 21: 43; Admin Dose 40 MG; Start 08/24/16 at 21:00 Acetaminophen (Tylenol Tab) 650 mg Q4H PRN PO PAIN OR ELEVATED TEMP. Last administered on 09/06/16 15:04; Admin Dose 650 MG; Start 08/24/16 at 06:30 Patient Own Medication 1 ea HS PRN PO INSOMNIA Last administered on 09/09/16 21:59; Admin Dose 1 EA; Start 08/24/16 at 21:00 Miscellaneous Information Patients own medicat... BID@,16 XX Last administered on 09/07/16 16:39; Admin Dose 1 EA; Start 08/24/16 at 10:00 Enoxaparin Sodium (Lovenox) 60 mg Q12 SC Last administered on 09/06/16 08:54; Admin Dose 60 MG; Start 08/24/16 at 09:00; Status Future Hold Trazodone HCl (Desyrel) 50 mg HS PO Last administered on 09/09/16 21:43; Admin Dose 50 MG; Start 08/26/16 at 21:00 Pantoprazole (Protonix Tab) 40 mg DAILY@06 PO Last administered on 09/10/16 05 :49; Admin Dose 40 MG; Start 08/28/16 at 06:00 Alprazolam 0.5 mg 0.5 mg Q8H PRN PO ANXIETY Last administered on 09/10/16 06: 52; Admin Dose 0.5 MG; Start 08/27/16 at 18:00 Piperacillin Sod/ Tazobactam Sod (Zosyn 3.375gm/ 100 ml (Pmx)) 100 ml @ 200 mls /hr Q6 IVPB Last administered on 09/10/16 11:53; Admin Dose 200 MLS/HR; Start 08/28/16 at 17:00 Lisinopril (Zestril) 20 mg DAILY PO Last administered on 09/10/16 08:51; Admin Dose 20 MG; Start 08/29/16 at 15:00 Metoprolol Tartrate (Lopressor) 50 mg BID PO Last administered on 09/10/16 08: 51; Admin Dose 50 MG; Start 08/29/16 at 22:00 Diphenhydramine HCl 25 mg 25 mg Q8H PRN PO ITCHING Last administered on 12:07; Admin Dose 25 MG; Start 09/06/16 at 11:00 Lactated Ringer's (Lr) 1,000 ml @ 80 mls/hr [id number] IV Last administered on 11:51; Admin Dose 80 MLS/HR; Start 09/06/16 at 16:00 Hydromorphone HCl (Dilaudid) 0.5 mg Q3H PRN IV PAIN Last administered on 09:17; Admin Dose 0.5 MG; Start 09/06/16 at 17:30 Ondansetron HCl (Zofran Inj) 4 mg Q6H PRN IV NAUSEA AND/OR VOMITING Last administered on 09/08/16 17:46; Admin Dose 4 MG; Start 09/07/16 at 13:00 PAUL RAMOS September 10, 2016 16:17
--- NOTE | 2016-09-10 16:46 | CONS ---
Date/Time of Note Date/Time of Note DATE: 09/10/16 TIME: 16:46 Assessment/Plan Assessment/Plan Chief Complaint/Hosp Course - Sepsis d/t cellulitis of right chest - fever and mild leukocytosis resolved - Cellulitis of right chest. Cultures of AKIL fluid grew MSSA, pseudo and bacillus species - resolving - Locally advanced right breast cancer s/p Right modified radical mastectomy 08/[address] Amanda - Left IJ thrombosis - Acute on probable chronic anemia requiring blood transfusion - Hyponatremia - improved - Hyperkalemia/Hypokalemia - improved - HTN - HLD - Hypothyroidism - Anxiety/depression - Hx previous alcohol abuse - New erythema to left chest port-a-cath site - resolved - Note: pt is s/p Vanco and cefepime recommendations: - continue Pip/tazo (08/28/2016-09/11/2016) x 14 days Problems: Consultation Date/Type/Reason Admit Date/Time August 23, 2016 at 23:16 Initial Consult Date 08/24/16 Type of Consultation: Infectious Disease Referring Provider: MELISSA CASTILLO MD Exam/Review of Systems Vital Signs Vitals Vital Signs Date Time Temp Pulse Resp B/P Pulse Ox O2 Delivery O2 Flow Rate FiO2 09/10/16 08:34 97.9 93 18 123/82 98 09/07/16 20:00 Room Air Intake and Output 09/09/16 09/09/16 09/10/16 15:00 23:00 07:00 Intake Total 750 ml 1720 ml 1510 ml Balance 750 ml 1720 ml 1510 ml Exam Constitutional: alert, oriented, well developed Psych: nl mood/affect, no complaints Head: atraumatic, normocephalic Eyes: EOMI, PERRL, nl conjunctiva, nl lids, nl sclera Respiratory: clear to auscultation, normal air movement Cardiovascular: nl pulses, regular rate and rhythm Gastrointestinal: nl liver, spleen, non-tender, soft Results Result Diagram: 09/10/16 0802 09/10/16 0802 Results 24 hrs Laboratory Tests Test 09/10/16 08:02 White Blood Count 5.5 Red Blood Count 2.91 L Hemoglobin 8.8 L Hematocrit 27.8 L Mean Corpuscular Volume 95.5 Mean Corpuscular Hemoglobin 30.2 Mean Corpuscular Hemoglobin Concent 31.7 L Red Cell Distribution Width 15.4 H Platelet Count 237 Mean Platelet Volume 8.9 Neutrophils % 67.4 Lymphocytes % 19.9 Monocytes % 7.4 Eosinophils % 4.2 Basophils % 0.7 Nucleated Red Blood Cells % 0.0 Neutrophils # 3.7 Lymphocytes # 1.1 Monocytes # 0.4 Eosinophils # 0.2 Basophils # 0.0 Nucleated Red Blood Cells # 0.0 Sodium Level 140 Potassium Level 3.9 Chloride Level 103 Carbon Dioxide Level 26 Anion Gap 15 Blood Urea Nitrogen 12 Creatinine 0.73 Glucose Level 96 Calcium Level 9.7 Medications Medications Current Medications Calcium Carbonate (Oyster Shell Calcium) 1.25 gm DAILY PO Last administered on 09/10/16 08:51; Admin Dose 1.25 GM; Start 08/24/16 at 09:00 Atorvastatin Calcium (Lipitor) 40 mg HS GTB Last administered on 09/09/16 21: 43; Admin Dose 40 MG; Start 08/24/16 at 21:00 Acetaminophen (Tylenol Tab) 650 mg Q4H PRN PO PAIN OR ELEVATED TEMP. Last administered on 09/06/16 15:04; Admin Dose 650 MG; Start 08/24/16 at 06:30 Patient Own Medication 1 ea HS PRN PO INSOMNIA Last administered on 09/09/16 21:59; Admin Dose 1 EA; Start 08/24/16 at 21:00 Miscellaneous Information Patients own medicat... BID@10,16 XX Last administered on 09/07/16 16:39; Admin Dose 1 EA; Start 08/24/16 at 10:00 Enoxaparin Sodium (Lovenox) 60 mg Q12 SC Last administered on 09/06/16 08:54; Admin Dose 60 MG; Start 08/24/16 at 09:00; Status Future Hold Trazodone HCl (Desyrel) 50 mg HS PO Last administered on 09/09/16 21:43; Admin Dose 50 MG; Start 08/26/16 at 21:00 Pantoprazole (Protonix Tab) 40 mg DAILY@06 PO Last administered on 09/10/16 05 :49; Admin Dose 40 MG; Start 08/28/16 at 06:00 Alprazolam 0.5 mg 0.5 mg Q8H PRN PO ANXIETY Last administered on 09/10/16 06: 52; Admin Dose 0.5 MG; Start 08/27/16 at 18:00 Piperacillin Sod/ Tazobactam Sod (Zosyn 3.375gm/ 100 ml (Pmx)) 100 ml @ 200 mls /hr Q6 IVPB Last administered on 09/10/16 11:53; Admin Dose 200 MLS/HR; Start 08/28/16 at 17:00 Lisinopril (Zestril) 20 mg DAILY PO Last administered on 09/10/16 08:51; Admin Dose 20 MG; Start 08/29/16 at 15:00 Metoprolol Tartrate (Lopressor) 50 mg BID PO Last administered on 09/10/16 08: 51; Admin Dose 50 MG; Start 08/29/16 at 22:00 Diphenhydramine HCl 25 mg 25 mg Q8H PRN PO ITCHING Last administered on 12:07; Admin Dose 25 MG; Start 09/06/16 at 11:00 Lactated Ringer's (Lr) 1,000 ml @ 80 mls/hr [id number] IV Last administered on 11:51; Admin Dose 80 MLS/HR; Start 09/06/16 at 16:00 Hydromorphone HCl (Dilaudid) 0.5 mg Q3H PRN IV PAIN Last administered on 09:17; Admin Dose 0.5 MG; Start 09/06/16 at 17:30 Ondansetron HCl (Zofran Inj) 4 mg Q6H PRN IV NAUSEA AND/OR VOMITING Last administered on 09/08/16 17:46; Admin Dose 4 MG; Start 09/07/16 at 13:00 YVON SOLORIO MD September 10, 2016 16:46
--- NOTE | 2016-09-10 17:38 | CONS ---
Date/Time of Note Date/Time of Note DATE: 09/10/16 TIME: 17:37 Assessment/Plan Assessment/Plan Additional Assessment/Plan 1. Hyponatremia, likely secondary to hypovolemic hyponatremia, no SIADH 3. Acute prerenal azotemia secondary to moderate to severe dehydration. 4. Moderate to severe dehydration. 5. History of recent right breast mastectomy 5 days ago. 6. Left internal jugular thrombosis. 7. History of hypertension. 8. History of depression. 9. History of anxiety. 10. History of previous alcohol abuse. 11. History of hypothyroidism. 12. hyperkalemia 13. Metabolic acidosis PLAN: Cr and electrolytes stable today Hb 8.8- plan as per GI and PMD will follow up Hb stable Consultation Date/Type/Reason Admit Date/Time August 23, 2016 at 23:16 Initial Consult Date 08/24/16 Type of Consultation: NEPHROLOGY Referring Provider: MELISSA CASTILLO MD 24 HR Interval Summary Free Text/Dictation no acute events overnight, Bp stbale,afebrile Exam/Review of Systems Vital Signs Vitals Vital Signs Date Time Temp Pulse Resp B/P Pulse Ox O2 Delivery O2 Flow Rate FiO2 09/10/16 08:34 97.9 93 18 123/82 98 09/07/16 20:00 Room Air Intake and Output 09/09/16 09/09/16 09/10/16 15:00 23:00 07:00 Intake Total 750 ml 1720 ml 1510 ml Balance 750 ml 1720 ml 1510 ml Exam GENERAL: Well-developed, well-nourished female, currently is awake, alert. CHEST: Lungs clear bilaterally. No rhonchi, wheezes, or rales noted. The patient has a right breast surgical scar intact with mike and the right axillary AKIL. left chest PermCath. CARDIOVASCULAR: Normal S1, S2. No murmurs, gallops, clicks, rubs noted. ABDOMEN: Flat, soft, nondistended, nontender. Bowel sounds present. There is no guarding, no rebound tenderness. EXTREMITIES: There is no edema, clubbing, cyanosis. Results Result Diagram: 09/10/16 0802 09/10/16 0802 Results 24 hrs Laboratory Tests Test 09/10/16 08:02 White Blood Count 5.5 Red Blood Count 2.91 L Hemoglobin 8.8 L Hematocrit 27.8 L Mean Corpuscular Volume 95.5 Mean Corpuscular Hemoglobin 30.2 Mean Corpuscular Hemoglobin Concent 31.7 L Red Cell Distribution Width 15.4 H Platelet Count 237 Mean Platelet Volume 8.9 Neutrophils % 67.4 Lymphocytes % 19.9 Monocytes % 7.4 Eosinophils % 4.2 Basophils % 0.7 Nucleated Red Blood Cells % 0.0 Neutrophils # 3.7 Lymphocytes # 1.1 Monocytes # 0.4 Eosinophils # 0.2 Basophils # 0.0 Nucleated Red Blood Cells # 0.0 Sodium Level 140 Potassium Level 3.9 Chloride Level 103 Carbon Dioxide Level 26 Anion Gap 15 Blood Urea Nitrogen 12 Creatinine 0.73 Glucose Level 96 Calcium Level 9.7 Medications Medications Current Medications Calcium Carbonate (Oyster Shell Calcium) 1.25 gm DAILY PO Last administered on 09/10/16 08:51; Admin Dose 1.25 GM; Start 08/24/16 at 09:00 Atorvastatin Calcium (Lipitor) 40 mg HS GTB Last administered on 09/09/16 21: 43; Admin Dose 40 MG; Start 08/24/16 at 21:00 Acetaminophen (Tylenol Tab) 650 mg Q4H PRN PO PAIN OR ELEVATED TEMP. Last administered on 09/06/16 15:04; Admin Dose 650 MG; Start 08/24/16 at 06:30 Patient Own Medication 1 ea HS PRN PO INSOMNIA Last administered on 09/09/16 21:59; Admin Dose 1 EA; Start 08/24/16 at 21:00 Miscellaneous Information Patients own medicat... BID@10,16 XX Last administered on 09/07/16 16:39; Admin Dose 1 EA; Start 08/24/16 at 10:00 Enoxaparin Sodium (Lovenox) 60 mg Q12 SC Last administered on 09/06/16 08:54; Admin Dose 60 MG; Start 08/24/16 at 09:00; Status Future Hold Trazodone HCl (Desyrel) 50 mg HS PO Last administered on 09/09/16 21:43; Admin Dose 50 MG; Start 08/26/16 at 21:00 Pantoprazole (Protonix Tab) 40 mg DAILY@06 PO Last administered on 09/10/16 05 :49; Admin Dose 40 MG; Start 08/28/16 at 06:00 Alprazolam 0.5 mg 0.5 mg Q8H PRN PO ANXIETY Last administered on 09/10/16 17: 32; Admin Dose 0.5 MG; Start 08/27/16 at 18:00 Piperacillin Sod/ Tazobactam Sod (Zosyn 3.375gm/ 100 ml (Pmx)) 100 ml @ 200 mls /hr Q6 IVPB Last administered on 09/10/16 17:33; Admin Dose 200 MLS/HR; Start 08/28/16 at 17:00 Lisinopril (Zestril) 20 mg DAILY PO Last administered on 09/10/16 08:51; Admin Dose 20 MG; Start 08/29/16 at 15:00 Metoprolol Tartrate (Lopressor) 50 mg BID PO Last administered on 09/10/16 08: 51; Admin Dose 50 MG; Start 08/29/16 at 22:00 Diphenhydramine HCl 25 mg 25 mg Q8H PRN PO ITCHING Last administered on 12:07; Admin Dose 25 MG; Start 09/06/16 at 11:00 Lactated Ringer's (Lr) 1,000 ml @ 80 mls/hr [id number] IV Last administered on 11:51; Admin Dose 80 MLS/HR; Start 09/06/16 at 16:00 Hydromorphone HCl (Dilaudid) 0.5 mg Q3H PRN IV PAIN Last administered on 09:17; Admin Dose 0.5 MG; Start 09/06/16 at 17:30 Ondansetron HCl (Zofran Inj) 4 mg Q6H PRN IV NAUSEA AND/OR VOMITING Last administered on 09/08/16 17:46; Admin Dose 4 MG; Start 09/07/16 at 13:00 DIANA MORALES MD September 10, 2016 17:38
[2016-09-10 19:14] VITALS: BP 120/68; RESP 18
[2016-09-10] MEDS: traZODone 50 MG TAB PO SCH (21:19)
[2016-09-10] MEDS: ATORVASTATIN 40 MG TAB GTB SCH (21:19)
[2016-09-10] MEDS: TEMAZEPAM 30 MG PO PRN (21:19)
[2016-09-10] MEDS: DIPHENHYDRAMINE 25 MG CAP PO PRN (22:32)
[2016-09-11] MEDS: PIPER-TAZO 3.375 GM IV (PMX) 100 ML IVPB SCH ×5 (00:13→23:51)
[2016-09-11] MEDS: LACTATED RINGER'S 1,000 ML IV SCH ×3 (04:23→20:32)
[2016-09-11] MEDS: LEVOTHYROXINE 100 MCG TAB PO SCH (06:22)
[2016-09-11] MEDS: PANTOPRAZOLE (EC) 40 MG TAB PO SCH (06:22)
[2016-09-11] MEDS: ALPRAZOLAM 0.25 MG TAB PO PRN ×2 (06:25→17:59)
[2016-09-11 07:50] VITALS: BP 108/62; RESP 19
[2016-09-11 07:50] LABS: ADD SCAN DIFF NO
[2016-09-11 08:02] LABS: BASOPHILS % 0.6 % (0.0-2.0); EOSINOPHILS # 0.3 10^3/ul (0.0-0.5); EOSINOPHILS % 5.1 % (0.0-7.0); HEMATOCRIT 27.8 % (37.0-47.0); HEMOGLOBIN 8.8 g/dl (12.0-16.0); LYMPHOCYTES # 1.7 10^3/ul (0.8-2.9); LYMPHOCYTES % 26.1 % (15.0-51.0); MEAN CORPUSCULAR HEMOGLOBIN 30.4 pg (29.0-33.0); MEAN CORPUSCULAR HGB CONC 31.7 g/dl (32.0-37.0); MEAN CORPUSCULAR VOLUME 96.2 fl (82.0-101.0); MEAN PLATELET VOLUME 8.9 fl (7.4-10.4); MONOCYTE # 0.5 10^3/ul (0.3-0.9); MONOCYTES % 8.2 % (0.0-11.0); NEUTROPHIL # 3.8 10^3/ul (1.6-7.5); NEUTROPHILS % 59.5 % (39.0-77.0); PLATELET COUNT 234 10^3/UL (140-415); RED BLOOD COUNT 2.89 10^6/ul (4.20-5.40); RED CELL DISTRIBUTION WIDTH 15.7 % (11.5-14.5); WHITE BLOOD COUNT 6.3 10^3/ul (4.8-10.8)
[2016-09-11 08:23] LABS: CALCIUM 9.7 mg/dl (8.4-10.2); CREATININE 0.74 mg/dl (0.44-1.00); POTASSIUM 4.3 mmol/L (3.5-5.1)
--- NOTE | 2016-09-11 09:03 | CONS ---
Date/Time of Note Date/Time of Note DATE: 09/11/16 TIME: 09:02 Assessment/Plan Assessment/Plan Additional Assessment/Plan 1. Hyponatremia, likely secondary to hypovolemic hyponatremia, no SIADH 3. Acute prerenal azotemia secondary to moderate to severe dehydration. 4. Moderate to severe dehydration. 5. History of recent right breast mastectomy 5 days ago. 6. Left internal jugular thrombosis. 7. History of hypertension. 8. History of depression. 9. History of anxiety. 10. History of previous alcohol abuse. 11. History of hypothyroidism. 12. hyperkalemia 13. Metabolic acidosis PLAN: Cr and electrolytes stable today Hb 8.8- plan as per GI and PMD will follow up Hb [id number] Consultation Date/Type/Reason Admit Date/Time August 23, 2016 at 23:16 Initial Consult Date 08/24/16 Type of Consultation: NEPHROLOGY Referring Provider: MELISSA CASTILLO MD 24 HR Interval Summary Free Text/Dictation Hb 8.8, no events, Exam/Review of Systems Vital Signs Vitals Vital Signs Date Time Temp Pulse Resp B/P Pulse Ox O2 Delivery O2 Flow Rate FiO2 09/11/16 07:50 98.0 62 19 108/62 98 09/07/16 20:00 Room Air Intake and Output 09/10/16 09/10/16 09/11/16 15:00 23:00 07:00 Intake Total 630 ml 1320 ml 880 ml Balance 630 ml 1320 ml 880 ml Exam GENERAL: Well-developed, well-nourished female, currently is awake, alert. CHEST: Lungs clear bilaterally. No rhonchi, wheezes, or rales noted. The patient has a right breast surgical scar intact with mike and the right axillary AKIL. left chest PermCath. CARDIOVASCULAR: Normal S1, S2. No murmurs, gallops, clicks, rubs noted. ABDOMEN: Flat, soft, nondistended, nontender. Bowel sounds present. There is no guarding, no rebound tenderness. EXTREMITIES: There is no edema, clubbing, cyanosis. Results Result Diagram: 09/11/16 0710 09/11/16 0710 Results 24 hrs Laboratory Tests Test 09/11/16 07:10 White Blood Count 6.3 Red Blood Count 2.89 L Hemoglobin 8.8 L Hematocrit 27.8 L Mean Corpuscular Volume 96.2 Mean Corpuscular Hemoglobin 30.4 Mean Corpuscular Hemoglobin Concent 31.7 L Red Cell Distribution Width 15.7 H Platelet Count 234 Mean Platelet Volume 8.9 Neutrophils % 59.5 Lymphocytes % 26.1 Monocytes % 8.2 Eosinophils % 5.1 Basophils % 0.6 Nucleated Red Blood Cells % 0.0 Neutrophils # 3.8 Lymphocytes # 1.7 Monocytes # 0.5 Eosinophils # 0.3 Basophils # 0.0 Nucleated Red Blood Cells # 0.0 Sodium Level 138 Potassium Level 4.3 Chloride Level 108 Carbon Dioxide Level 24 Anion Gap 10 # Blood Urea Nitrogen 15 Creatinine 0.74 Glucose Level 84 Calcium Level 9.7 Medications Medications Current Medications Calcium Carbonate (Oyster Shell Calcium) 1.25 gm DAILY PO Last administered on 09/10/16 08:51; Admin Dose 1.25 GM; Start 08/24/16 at 09:00 Atorvastatin Calcium (Lipitor) 40 mg HS GTB Last administered on 09/10/16 21: 19; Admin Dose 40 MG; Start 08/24/16 at 21:00 Acetaminophen (Tylenol Tab) 650 mg Q4H PRN PO PAIN OR ELEVATED TEMP. Last administered on 09/06/16 15:04; Admin Dose 650 MG; Start 08/24/16 at 06:30 Patient Own Medication 1 ea HS PRN PO INSOMNIA Last administered on 09/10/16 21:19; Admin Dose 1 EA; Start 08/24/16 at 21:00 Miscellaneous Information Patients own medicat... BID@10,16 XX Last administered on 09/07/16 16:39; Admin Dose 1 EA; Start 08/24/16 at 10:00 Enoxaparin Sodium (Lovenox) 60 mg Q12 SC Last administered on 09/06/16 08:54; Admin Dose 60 MG; Start 08/24/16 at 09:00; Status Future Hold Trazodone HCl (Desyrel) 50 mg HS PO Last administered on 09/10/16 21:19; Admin Dose 50 MG; Start 08/26/16 at 21:00 Pantoprazole (Protonix Tab) 40 mg DAILY@06 PO Last administered on 09/11/16 06 :22; Admin Dose 40 MG; Start 08/28/16 at 06:00 Alprazolam 0.5 mg 0.5 mg Q8H PRN PO ANXIETY Last administered on 09/11/16 06: 25; Admin Dose 0.5 MG; Start 08/27/16 at 18:00 Piperacillin Sod/ Tazobactam Sod (Zosyn 3.375gm/ 100 ml (Pmx)) 100 ml @ 200 mls /hr Q6 IVPB Last administered on 09/11/16 06:22; Admin Dose 200 MLS/HR; Start 08/28/16 at 17:00 Lisinopril (Zestril) 20 mg DAILY PO Last administered on 09/10/16 08:51; Admin Dose 20 MG; Start 08/29/16 at 15:00 Metoprolol Tartrate (Lopressor) 50 mg BID PO Last administered on 09/10/16 21: 19; Admin Dose 50 MG; Start 08/29/16 at 22:00 Diphenhydramine HCl 25 mg 25 mg Q8H PRN PO ITCHING Last administered on 22:32; Admin Dose 25 MG; Start 09/06/16 at 11:00 Lactated Ringer's (Lr) 1,000 ml @ 80 mls/hr [id number] IV Last administered on 04:23; Admin Dose 80 MLS/HR; Start 09/06/16 at 16:00 Hydromorphone HCl (Dilaudid) 0.5 mg Q3H PRN IV PAIN Last administered on 22:36; Admin Dose 0.5 MG; Start 09/06/16 at 17:30 Ondansetron HCl (Zofran Inj) 4 mg Q6H PRN IV NAUSEA AND/OR VOMITING Last administered on 09/08/16 17:46; Admin Dose 4 MG; Start 09/07/16 at 13:00 DIANA MORALES MD September 11, 2016 09:03
[2016-09-11] MEDS: CALCIUM CARBONATE 1.25 GM TAB PO SCH (10:12)
[2016-09-11] MEDS: LISINOPRIL 20 MG TAB PO SCH (10:13)
[2016-09-11] MEDS: METOPROLOL 50 MG TAB PO SCH ×2 (10:14→20:36)
--- NOTE | 2016-09-11 11:55 | PN ---
Date/Time of Note Date/Time of Note DATE: 09/11/16 TIME: 11:54 Assessment/Plan Lines/Catheters IV C[facility]ter Type (from [facility]): port a cath Urinary Cath still in place: No Assessment/Plan Assessment/Plan - Anemia of blood loss, continue to monitor hemoglobin and hematocrit. - Sepsis secondary to postoperative soft tissue infection of the right breast, resolving. Dr. Patel is following in infectious disease consultation. Continue abx per ID. - Cellulitis of the right breast, resolving. continue antibiotics per ID. - Status post right modified mastectomy on August [address] Amanda is following in surgical consultation. - Thrombus of the left internal jugular vein. Dr. Edwards is following in vascular surgery consultation. Lovenox is on hold due to bleeding. - Hyponatremia on admission, resolved. Dr. Davies is following in nephrology consultation. Continue IV fluids. - Hyperthyroidism. Continue patient's Synthroid. - Hypertension. Continue Lopressor - Hyperlipidemia. Continue statin. Continue sequential compression device for deep venous thrombosis prophylaxis and Protonix for peptic ulcer disease prophylaxis. Further recommendations based on clinical course. Plan of care discussed with Dr. Brito. Subjective 24 Hr Interval Summary Free Text/Dictation nad, Patient denies any bleeding, no further decline in H/H, remains, finished course of antibiotics.dw staff Eyes: no complaints ENT: no complaints Respiratory: no complaints Cardiovascular: no complaints Gastrointestinal: no complaints Genitourinary: no complaints Musculoskeletal: no complaints Skin: no complaints, other (right breast surgery) Neurologic: no complaints Exam/Review of Systems Vital Signs Vitals Vital Signs Date Time Temp Pulse Resp B/P Pulse Ox O2 Delivery O2 Flow Rate FiO2 09/11/16 07:50 98.0 62 19 108/62 98 09/07/16 20:00 Room Air Intake and Output 09/10/16 09/10/16 09/11/16 15:00 23:00 07:00 Intake Total 630 ml 1320 ml 880 ml Balance 630 ml 1320 ml 880 ml Exam Constitutional: alert, oriented, well developed Psych: no complaints Head: normocephalic Eyes: EOMI ENMT: nl external ears & nose Neck: non-tender Respiratory: clear to auscultation Cardiovascular: nl pulses Gastrointestinal: non-tender, soft Musculoskeletal: nl extremities to inspection Extremities: normal pulses Neurological: nl mental status, nl speech Skin: other (SP right mastectomy. pressure dressing noted, no onvius bleeding noted, H/H styable.) Lymph: nontender Results Result Diagram: 09/11/16 0710 09/11/16 0710 Results 24 hrs Laboratory Tests Test 09/11/16 07:10 White Blood Count 6.3 Red Blood Count 2.89 L Hemoglobin 8.8 L Hematocrit 27.8 L Mean Corpuscular Volume 96.2 Mean Corpuscular Hemoglobin 30.4 Mean Corpuscular Hemoglobin Concent 31.7 L Red Cell Distribution Width 15.7 H Platelet Count 234 Mean Platelet Volume 8.9 Neutrophils % 59.5 Lymphocytes % 26.1 Monocytes % 8.2 Eosinophils % 5.1 Basophils % 0.6 Nucleated Red Blood Cells % 0.0 Neutrophils # 3.8 Lymphocytes # 1.7 Monocytes # 0.5 Eosinophils # 0.3 Basophils # 0.0 Nucleated Red Blood Cells # 0.0 Sodium Level 138 Potassium Level 4.3 Chloride Level 108 Carbon Dioxide Level 24 Anion Gap 10 # Blood Urea Nitrogen 15 Creatinine 0.74 Glucose Level 84 Calcium Level 9.7 Medications Medications Current Medications Calcium Carbonate (Oyster Shell Calcium) 1.25 gm DAILY PO Last administered on 09/11/16 10:12; Admin Dose 1.25 GM; Start 08/24/16 at 09:00 Atorvastatin Calcium (Lipitor) 40 mg HS GTB Last administered on 09/10/16 21: 19; Admin Dose 40 MG; Start 08/24/16 at 21:00 Acetaminophen (Tylenol Tab) 650 mg Q4H PRN PO PAIN OR ELEVATED TEMP. Last administered on 09/06/16 15:04; Admin Dose 650 MG; Start 08/24/16 at 06:30 Patient Own Medication 1 ea HS PRN PO INSOMNIA Last administered on 09/10/16 21:19; Admin Dose 1 EA; Start 08/24/16 at 21:00 Miscellaneous Information Patients own medicat... BID@10,16 XX Last administered on 09/07/16 16:39; Admin Dose 1 EA; Start 08/24/16 at 10:00 Enoxaparin Sodium (Lovenox) 60 mg Q12 SC Last administered on 09/06/16 08:54; Admin Dose 60 MG; Start 08/24/16 at 09:00; Status Future Hold Trazodone HCl (Desyrel) 50 mg HS PO Last administered on 09/10/16 21:19; Admin Dose 50 MG; Start 08/26/16 at 21:00 Pantoprazole (Protonix Tab) 40 mg DAILY@06 PO Last administered on 09/11/16 06 :22; Admin Dose 40 MG; Start 08/28/16 at 06:00 Alprazolam 0.5 mg 0.5 mg Q8H PRN PO ANXIETY Last administered on 09/11/16 06: 25; Admin Dose 0.5 MG; Start 08/27/16 at 18:00 Piperacillin Sod/ Tazobactam Sod (Zosyn 3.375gm/ 100 ml (Pmx)) 100 ml @ 200 mls /hr Q6 IVPB Last administered on 09/11/16 06:22; Admin Dose 200 MLS/HR; Start 08/28/16 at 17:00 Lisinopril (Zestril) 20 mg DAILY PO Last administered on 09/11/16 10:13; Admin Dose 20 MG; Start 08/29/16 at 15:00 Metoprolol Tartrate (Lopressor) 50 mg BID PO Last administered on 09/11/16 10: 14; Admin Dose 50 MG; Start 08/29/16 at 22:00 Diphenhydramine HCl 25 mg 25 mg Q8H PRN PO ITCHING Last administered on 22:32; Admin Dose 25 MG; Start 09/06/16 at 11:00 Lactated Ringer's (Lr) 1,000 ml @ 80 mls/hr [id number] IV Last administered on 04:23; Admin Dose 80 MLS/HR; Start 09/06/16 at 16:00 Hydromorphone HCl (Dilaudid) 0.5 mg Q3H PRN IV PAIN Last administered on 22:36; Admin Dose 0.5 MG; Start 09/06/16 at 17:30 Ondansetron HCl (Zofran Inj) 4 mg Q6H PRN IV NAUSEA AND/OR VOMITING Last administered on 09/08/16 17:46; Admin Dose 4 MG; Start 09/07/16 at 13:00 DEUCE FRANK September 11, 2016 11:55
--- NOTE | 2016-09-11 11:56 | CONS ---
Date/Time of Note Date/Time of Note DATE: 09/11/16 TIME: 11:55 Assessment/Plan Assessment/Plan Chief Complaint/Hosp Course - Sepsis d/t cellulitis of right chest - fever and mild leukocytosis resolved - Cellulitis of right chest. Cultures of AKIL fluid grew MSSA, pseudo and bacillus species - resolving - Locally advanced right breast cancer s/p Right modified radical mastectomy 08/[address] Amanda - Left IJ thrombosis - Acute on probable chronic anemia requiring blood transfusion - Hyponatremia - improved - Hyperkalemia/Hypokalemia - improved - HTN - HLD - Hypothyroidism - Anxiety/depression - Hx previous alcohol abuse - New erythema to left chest port-a-cath site - resolved - Note: pt is s/p Vanco and cefepime Recommendations: - Complete abx course today: Pip/tazo (08/28/2016-09/11/2016) x 14 days; then monitor off abx Management d/w Pt, ANTWAN Foote and Dr. Patel Problems: Consultation Date/Type/Reason Admit Date/Time August 23, 2016 at 23:16 Initial Consult Date 08/24/16 Type of Consultation: Infectious Disease Referring Provider: MELISSA CASTILLO MD 24 HR Interval Summary Free Text/Dictation Awaiting for Dr. Amanda to remove pressure dressing and evaluate incisional area. Pt states she is concerned there is redness underneath the pressure dressing. Denies fever, chills, CP, SOB, abd pain, n/v/d, dysuria. Exam/Review of Systems Vital Signs Vitals Vital Signs Date Time Temp Pulse Resp B/P Pulse Ox O2 Delivery O2 Flow Rate FiO2 09/11/16 07:50 98.0 62 19 108/62 98 09/07/16 20:00 Room Air Intake and Output 09/10/16 09/10/16 09/11/16 15:00 23:00 07:00 Intake Total 630 ml 1320 ml 880 ml Balance 630 ml 1320 ml 880 ml Exam Constitutional: alert, oriented, well developed, ambulating with steady gait in room Psych: nl mood/affect Head: atraumatic, normocephalic, aloplecia Eyes: nl sclera Neck: supple, No jvd Respiratory: clear to auscultation, normal air movement, other (Left chest port -a-cath noted with no e/o infection) Cardiovascular: nl pulses, regular rate and rhythm, No edema Gastrointestinal: bowel sounds (present), non-tender, soft, No distended Extremities: normal pulses No clubbing, No cyanosis, No edema Neurological: nl mental status, nl speech Skin: nl turgor, other (Right breast mastectomy site with pressure dressing c/d /i) Results Result Diagram: 09/11/16 0710 09/11/16 0710 Results 24 hrs Laboratory Tests Test 09/11/16 07:10 White Blood Count 6.3 Red Blood Count 2.89 L Hemoglobin 8.8 L Hematocrit 27.8 L Mean Corpuscular Volume 96.2 Mean Corpuscular Hemoglobin 30.4 Mean Corpuscular Hemoglobin Concent 31.7 L Red Cell Distribution Width 15.7 H Platelet Count 234 Mean Platelet Volume 8.9 Neutrophils % 59.5 Lymphocytes % 26.1 Monocytes % 8.2 Eosinophils % 5.1 Basophils % 0.6 Nucleated Red Blood Cells % 0.0 Neutrophils # 3.8 Lymphocytes # 1.7 Monocytes # 0.5 Eosinophils # 0.3 Basophils # 0.0 Nucleated Red Blood Cells # 0.0 Sodium Level 138 Potassium Level 4.3 Chloride Level 108 Carbon Dioxide Level 24 Anion Gap 10 # Blood Urea Nitrogen 15 Creatinine 0.74 Glucose Level 84 Calcium Level 9.7 Medications Medications Current Medications Calcium Carbonate (Oyster Shell Calcium) 1.25 gm DAILY PO Last administered on 09/11/16 10:12; Admin Dose 1.25 GM; Start 08/24/16 at 09:00 Atorvastatin Calcium (Lipitor) 40 mg HS GTB Last administered on 09/10/16 21: 19; Admin Dose 40 MG; Start 08/24/16 at 21:00 Acetaminophen (Tylenol Tab) 650 mg Q4H PRN PO PAIN OR ELEVATED TEMP. Last administered on 09/06/16 15:04; Admin Dose 650 MG; Start 08/24/16 at 06:30 Patient Own Medication 1 ea HS PRN PO INSOMNIA Last administered on 09/10/16 21:19; Admin Dose 1 EA; Start 08/24/16 at 21:00 Miscellaneous Information Patients own medicat... BID@10,16 XX Last administered on 09/07/16 16:39; Admin Dose 1 EA; Start 08/24/16 at 10:00 Enoxaparin Sodium (Lovenox) 60 mg Q12 SC Last administered on 09/06/16 08:54; Admin Dose 60 MG; Start 08/24/16 at 09:00; Status Future Hold Trazodone HCl (Desyrel) 50 mg HS PO Last administered on 09/10/16 21:19; Admin Dose 50 MG; Start 08/26/16 at 21:00 Pantoprazole (Protonix Tab) 40 mg DAILY@06 PO Last administered on 09/11/16 06 :22; Admin Dose 40 MG; Start 08/28/16 at 06:00 Alprazolam 0.5 mg 0.5 mg Q8H PRN PO ANXIETY Last administered on 09/11/16 06: 25; Admin Dose 0.5 MG; Start 08/27/16 at 18:00 Piperacillin Sod/ Tazobactam Sod (Zosyn 3.375gm/ 100 ml (Pmx)) 100 ml @ 200 mls /hr Q6 IVPB Last administered on 09/11/16 06:22; Admin Dose 200 MLS/HR; Start 08/28/16 at 17:00 Lisinopril (Zestril) 20 mg DAILY PO Last administered on 09/11/16 10:13; Admin Dose 20 MG; Start 08/29/16 at 15:00 Metoprolol Tartrate (Lopressor) 50 mg BID PO Last administered on 09/11/16 10: 14; Admin Dose 50 MG; Start 08/29/16 at 22:00 Diphenhydramine HCl 25 mg 25 mg Q8H PRN PO ITCHING Last administered on 22:32; Admin Dose 25 MG; Start 09/06/16 at 11:00 Lactated Ringer's (Lr) 1,000 ml @ 80 mls/hr [id number] IV Last administered on 04:23; Admin Dose 80 MLS/HR; Start 09/06/16 at 16:00 Hydromorphone HCl (Dilaudid) 0.5 mg Q3H PRN IV PAIN Last administered on 22:36; Admin Dose 0.5 MG; Start 09/06/16 at 17:30 Ondansetron HCl (Zofran Inj) 4 mg Q6H PRN IV NAUSEA AND/OR VOMITING Last administered on 09/08/16t 17:46; Admin Dose 4 MG; Start 09/07/16 at 13:00 CARTER CARTAGENA NP September 11, 2016 11:56
[2016-09-11] MEDS: DIPHENHYDRAMINE 25 MG CAP PO PRN (13:38)
--- NOTE | 2016-09-11 16:28 | PN ---
DATE: 09/11/2016 SUBJECTIVE: She feels better, she is concerned about the incision under the pressure dressing. OBJECTIVE: VITAL SIGNS: Temperature 98, heart rate 62 regular, respirations 19, blood pressure 108/62, saturation 98% room air. LABORATORY DATA: Sodium, potassium, BUN, creatinine within normal limits. Hematology: WBC 6300, hemoglobin 8.8, hematocrit 27.8. Neutrophils 59%. The compressive dressing was removed. There is some swelling of the inferior flap of the incision of the mastectomy on the right side. Probably some hematoma , but it is not cellulitis. The wound is clean. ASSESSMENT: Status post cellulitis after bilateral mastectomy with axillary dissection. Patient started on antibiotic and she is getting antibiotics. Today is almost 14 days of being on antibiotic. The patient has responded very well as far as the infection is concerned, but as was mentioned before, she bled while the drain was there, the drain was removed, a compressive dressing was applied ____ . Today, the dressing was removed and appears that hematoma that was present at that time and has not increased in size. PLAN: To keep the patient at least overnight, until tomorrow and reassess the size of the inferior flap. If the same size and no new bleeding, the patient can be discharged tomorrow and to go home and to be followed by Dr. Amanda in the office. I assume the Infectious Disease will stop the antibiotic, assess patient by tomorrow and decide for antibiotic treatment IV. Dictated By: ELVIA MURRAY/ZA Conf#: [id number] DID#: [id number] ERLINDA
[2016-09-11] MEDS: TEMAZEPAM 30 MG PO PRN (20:32)
[2016-09-11] MEDS: ATORVASTATIN 40 MG TAB GTB SCH (20:32)
[2016-09-11] MEDS: traZODone 50 MG TAB PO SCH (20:32)
[2016-09-11 20:38] VITALS: BP 128/81; RESP 18
[2016-09-11] MEDS: HYDROmorphONE 1 MG/ML SYG IV PRN (22:05)
[2016-09-12] MEDS: LEVOTHYROXINE 100 MCG TAB PO SCH (06:18)
[2016-09-12] MEDS: PANTOPRAZOLE (EC) 40 MG TAB PO SCH (06:18)
[2016-09-12] MEDS: ALPRAZOLAM 0.25 MG TAB PO PRN (06:18)
[2016-09-12 07:23] VITALS: BP 117/66; RESP 18
[2016-09-12 07:55] LABS: ADD SCAN DIFF NO
[2016-09-12 08:01] LABS: BASOPHILS % 0.7 % (0.0-2.0); EOSINOPHILS # 0.3 10^3/ul (0.0-0.5); EOSINOPHILS % 5.7 % (0.0-7.0); HEMATOCRIT 26.7 % (37.0-47.0); HEMOGLOBIN 8.7 g/dl (12.0-16.0); LYMPHOCYTES # 1.2 10^3/ul (0.8-2.9); MEAN CORPUSCULAR HEMOGLOBIN 30.6 pg (29.0-33.0); MEAN CORPUSCULAR HGB CONC 32.6 g/dl (32.0-37.0); MEAN PLATELET VOLUME 8.8 fl (7.4-10.4); MONOCYTE # 0.4 10^3/ul (0.3-0.9); MONOCYTES % 7.9 % (0.0-11.0); NEUTROPHIL # 3.5 10^3/ul (1.6-7.5); NEUTROPHILS % 63.2 % (39.0-77.0); PLATELET COUNT 226 10^3/UL (140-415); RED BLOOD COUNT 2.84 10^6/ul (4.20-5.40); RED CELL DISTRIBUTION WIDTH 15.6 % (11.5-14.5); WHITE BLOOD COUNT 5.6 10^3/ul (4.8-10.8)
[2016-09-12 08:25] LABS: CALCIUM 9.7 mg/dl (8.4-10.2); CREATININE 0.71 mg/dl (0.44-1.00); POTASSIUM 3.7 mmol/L (3.5-5.1)
[2016-09-12] MEDS: CALCIUM CARBONATE 1.25 GM TAB PO SCH (09:12)
[2016-09-12] MEDS: METOPROLOL 50 MG TAB PO SCH (09:13)
[2016-09-12] MEDS: LISINOPRIL 20 MG TAB PO SCH (09:13)
[2016-09-12] MEDS: LACTATED RINGER'S 1,000 ML IV SCH (10:26)
[2016-09-12] MEDS ORDERED: LISI20TA11 PO (15:07)
[2016-09-12] MEDS ORDERED: METO-429 PO (15:07)
[2016-09-12] MEDS ORDERED: TRAM-40 PO (15:07)
--- NOTE | 2016-09-12 16:56 | CONS ---
Date/Time of Note Date/Time of Note DATE: 09/12/16 TIME: 16:55 Assessment/Plan Assessment/Plan Additional Assessment/Plan 1. Hyponatremia, likely secondary to hypovolemic hyponatremia, no SIADH 3. Acute prerenal azotemia secondary to moderate to severe dehydration. 4. Moderate to severe dehydration. 5. History of recent right breast mastectomy 5 days ago. 6. Left internal jugular thrombosis. 7. History of hypertension. 8. History of depression. 9. History of anxiety. 10. History of previous alcohol abuse. 11. History of hypothyroidism. 12. hyperkalemia 13. Metabolic acidosis PLAN: Cr and electrolytes stable today will follow up Hb stable 8.7 Consultation Date/Type/Reason Admit Date/Time August 23, 2016 at 23:16 Initial Consult Date 08/24/16 Type of Consultation: NEPHROLOGY Referring Provider: MELISSA CASTILLO MD 24 HR Interval Summary Free Text/Dictation no acute events overnight,BP stable Exam/Review of Systems Vital Signs Vitals Vital Signs Date Time Temp Pulse Resp B/P Pulse Ox O2 Delivery O2 Flow Rate FiO2 09/12/16 07:23 98.0 60 18 117/66 97 Intake and Output 09/11/16 09/11/16 09/12/16 15:00 23:00 07:00 Intake Total 100 ml 1020 ml 1200 ml Balance 100 ml 1020 ml 1200 ml Exam GENERAL: Well-developed, well-nourished female, currently is awake, alert. CHEST: Lungs clear bilaterally. No rhonchi, wheezes, or rales noted. The patient has a right breast surgical scar intact with mike and the right axillary AKIL. left chest PermCath. CARDIOVASCULAR: Normal S1, S2. No murmurs, gallops, clicks, rubs noted. ABDOMEN: Flat, soft, nondistended, nontender. Bowel sounds present. There is no guarding, no rebound tenderness. EXTREMITIES: There is no edema, clubbing, cyanosis. Results Result Diagram: 09/12/16 0735 09/12/16 0735 Results 24 hrs Laboratory Tests Test 09/12/16 07:35 White Blood Count 5.6 Red Blood Count 2.84 L Hemoglobin 8.7 L Hematocrit 26.7 L Mean Corpuscular Volume 94.0 Mean Corpuscular Hemoglobin 30.6 Mean Corpuscular Hemoglobin Concent 32.6 Red Cell Distribution Width 15.6 H Platelet Count 226 Mean Platelet Volume 8.8 Neutrophils % 63.2 Lymphocytes % 22.0 Monocytes % 7.9 Eosinophils % 5.7 Basophils % 0.7 Nucleated Red Blood Cells % 0.0 Neutrophils # 3.5 Lymphocytes # 1.2 Monocytes # 0.4 Eosinophils # 0.3 Basophils # 0.0 Nucleated Red Blood Cells # 0.0 Sodium Level 138 Potassium Level 3.7 Chloride Level 106 Carbon Dioxide Level 25 Anion Gap 11 Blood Urea Nitrogen 15 Creatinine 0.71 Glucose Level 107 Calcium Level 9.7 Medications Medications Current Medications Calcium Carbonate (Oyster Shell Calcium) 1.25 gm DAILY PO Last administered on 09/12/16 09:12; Admin Dose 1.25 GM; Start 08/24/16 at 09:00 Atorvastatin Calcium (Lipitor) 40 mg HS GTB Last administered on 09/11/16 20: 32; Admin Dose 40 MG; Start 08/24/16 at 21:00 Acetaminophen (Tylenol Tab) 650 mg Q4H PRN PO PAIN OR ELEVATED TEMP. Last administered on 09/06/16 15:04; Admin Dose 650 MG; Start 08/24/16 at 06:30 Patient Own Medication 1 ea HS PRN PO INSOMNIA Last administered on 09/11/16 20:32; Admin Dose 1 EA; Start 08/24/16 at 21:00 Miscellaneous Information Patients own medicat... BID@10,16 XX Last administered on 09/07/16 16:39; Admin Dose 1 EA; Start 08/24/16 at 10:00 Enoxaparin Sodium (Lovenox) 60 mg Q12 SC Last administered on 09/06/16 08:54; Admin Dose 60 MG; Start 08/24/16 at 09:00; Status Future Hold Trazodone HCl (Desyrel) 50 mg HS PO Last administered on 09/11/16 20:32; Admin Dose 50 MG; Start 08/26/16 at 21:00 Pantoprazole (Protonix Tab) 40 mg DAILY@06 PO Last administered on 09/12/16 06 :18; Admin Dose 40 MG; Start 08/28/16 at 06:00 Alprazolam (Xanax) 0.5 mg Q8H PRN PO ANXIETY Last administered on 09/12/16 06: 18; Admin Dose 0.5 MG; Start 08/27/16 at 18:00 Lisinopril (Zestril) 20 mg DAILY PO Last administered on 09/12/16 09:13; Admin Dose 20 MG; Start 08/29/16 at 15:00 Metoprolol Tartrate (Lopressor) 50 mg BID PO Last administered on 09/12/16 09: 13; Admin Dose 50 MG; Start 08/29/16 at 22:00 Diphenhydramine HCl 25 mg 25 mg Q8H PRN PO ITCHING Last administered on 13:38; Admin Dose 25 MG; Start 09/06/16 at 11:00 Lactated Ringer's (Lr) 1,000 ml @ 80 mls/hr [id number] IV Last administered on 10:26; Admin Dose 80 MLS/HR; Start 09/06/16 at 16:00 Hydromorphone HCl (Dilaudid) 0.5 mg Q3H PRN IV PAIN Last administered on 22:05; Admin Dose 0.5 MG; Start 09/06/16 at 17:30 Ondansetron HCl (Zofran Inj) 4 mg Q6H PRN IV NAUSEA AND/OR VOMITING Last administered on 09/08/16 17:46; Admin Dose 4 MG; Start 09/07/16 at 13:00 Heparin Sodium (Porcine) (Heparin Flush (100 Units/ml)) 500 unit ONCE ONCE CATHETER Last administered on 09/12/16 16:47; Admin Dose 500 UNIT; Start 09/12 at 17:00; Stop 09/12/16 at 17:01 DIANA MORALES MD September 12, 2016 16:56
[2016-09-12] MEDS ORDERED: HEPARIN (100 UNITS/ML) 5 ML SYG CATHETER ONE (17:00)
--- NOTE | 2016-09-13 11:37 | CONS ---
Date/Time of Note Date/Time of Note DATE: 09/12/16 TIME: 11:35 Assessment/Plan Assessment/Plan Chief Complaint/Hosp Course - Sepsis d/t cellulitis of right chest - fever and mild leukocytosis resolved - Cellulitis of right chest. Cultures of AKIL fluid grew MSSA, pseudo and bacillus species - resolving - Locally advanced right breast cancer s/p Right modified radical mastectomy 08/[address] Amanda - Left IJ thrombosis - Acute on probable chronic anemia requiring blood transfusion - Hyponatremia - improved - Hyperkalemia/Hypokalemia - improved - HTN - HLD - Hypothyroidism - Anxiety/depression - Hx previous alcohol abuse - New erythema to left chest port-a-cath site - resolved - Note: pt is s/p Vanco and cefepime recommendations: - wound care Problems: Consultation Date/Type/Reason Admit Date/Time August 23, 2016 at 23:16 Initial Consult Date 08/24/16 Type of Consultation: id Referring Provider: MELISSA CASTILLO MD 24 HR Interval Summary Free Text/Dictation doing better. smiling. no fevers or chills. anxious to return home Exam/Review of Systems Vital Signs Vitals Vital Signs Date Time Temp Pulse Resp B/P Pulse Ox O2 Delivery O2 Flow Rate FiO2 09/12/16 07:23 98.0 60 18 117/66 97 Intake and Output 09/12/16 09/12/16 09/13/16 15:00 23:00 07:00 Intake Total 600 ml 1020 ml Balance 600 ml 1020 ml Exam Constitutional: alert, oriented, well developed Psych: nl mood/affect, no complaints Head: atraumatic, normocephalic Eyes: EOMI, PERRL, nl conjunctiva, nl lids, nl sclera Respiratory: clear to auscultation, normal air movement Cardiovascular: nl pulses, regular rate and rhythm Gastrointestinal: nl liver, spleen, non-tender, soft Results Result Diagram: 09/12/16 0735 09/12/16 0735 YVON SOLORIO MD September 13, 2016 11:37
--- NOTE | 2016-09-14 06:46 | DS ---
DATE OF ADMISSION: 08/23/2016 DATE OF DISCHARGE: 09/12/2016 FINAL DIAGNOSES: 1. Cellulitis of the right breast, resolved. 2. Sepsis secondary to postoperative soft tissue infection of the right breast, colorectal. 3. Anemia ____. 4. Status post right modified mastectomy on 08/18/2016. 5. Thrombus in the left internal jugular vein. 6. Hyponatremia on admission, resolved. 7. Hyperthyroidism. 8. Hypertension. 9. Hyperlipidemia. BRIEF HISTORY: The patient is a 56-year-old female who underwent a right modified mastectomy on 04/[address] Amanda and the patient did not want to stay postoperatively and left home. The patien t also had left chest Perm-A-Cath and the patient is status post chemotherapy. The patient develope d generalized weakness with fever and chills and presented to the emergency room. The patient under went CT of the chest in the emergency room which ____ changes, status post recent right mastectomy a nd axillary lymphadenopathy with surgical drain in the mastectomy site of the axilla. No loculated fluid collection was identified but soft tissue thickening with subcutaneous fatty stranding and ski n thickening identified in the surgical bed. The patient was also noted to have thrombus in the int ernal jugular vein and left IJ Port-A-Cath ____. The patient was started on Lovenox for thrombosis. The patient was given IV fluids and started him on broad spectrum antibiotics. The patient was ev aluated and followed by ____ in infectious disease consultation and the patient was followed by Dr. Amanda in general surgery consultation. The patient was also evaluated by ____ in vascular s urgery consultation. She was started on Lovenox for thrombus in the left internal jugular vein as d ictated previously. The patient had hyponatremia on admission and was evaluated by Dr. Davies. Hypo natremia resolved after IV fluids. The patient's blood cultures were negative. AKIL drain grew multi ple organisms. The patient completed a course of antibiotics. The patient also developed bleeding from the surgical site and Lovenox was held and pressure dressing was applied. Eventually the patie nt's axillary AKIL was removed by surgeon. The patient's condition overall significantly improved. L eukocytosis resolved. Patient given blood transfusion for anemia of blood loss. The patient was di scharged home. CONDITION ON DISCHARGE: Hemodynamically stable. ACTIVITY: As patient tolerates. DIET: Regular diet. RECOMMENDATIONS: The patient is advised to follow up with Dr. Amanda in 1 to 2 weeks. Interdisciplinary plan of care was established for this patient. Plan of care was discussed with Dr Gregory Castillo. Dictated By: PAUL RAMOS CORN COOKER for MELISSA CASTILLO MD SR/NTS Conf#: [id number] DID#: [id number]
== END 2016-09-12 20:10 | disposition home or self-care (01) | DRG 862 ==
LOC: E/R 19:21 → MS2 23:16 → ICU 08-24 19:57 → MS4 08-26 00:22 → MS2 08-29 06:01
PROVIDERS: ADMIT Internal Medicine; ATTEND Internal Medicine
PROC: 30230N1 Transfusion of Nonautologous Red Blood Cells into Peripheral Vein, Open Approach (ICD-10-PCS; 2016-08-25)
PROC: 0DB68ZX Excision of Stomach, Via Natural or Artificial Opening Endoscopic, Diagnostic (ICD-10-PCS; 2016-08-26)
PROC: 0DB98ZX Excision of Duodenum, Via Natural or Artificial Opening Endoscopic, Diagnostic (ICD-10-PCS; principal; 2016-08-26 19:30)
DX: T81.4XXA Infection following a procedure, initial encounter (principal); A41.01 Sepsis due to Methicillin susceptible Staphylococcus aureus; E87.2 Acidosis; T82.868A Thrombosis due to vascular prosthetic devices, implants and grafts, initial encounter; I82.C12 Acute embolism and thrombosis of left internal jugular vein; D62 Acute posthemorrhagic anemia; L03.313 Cellulitis of chest wall; E87.1 Hypo-osmolality and hyponatremia; I10 Essential (primary) hypertension; B95.61 Methicillin susceptible Staphylococcus aureus infection as the cause of diseases classified elsewhere; E87.5 Hyperkalemia; E86.0 Dehydration; E03.9 Hypothyroidism, unspecified; F41.9 Anxiety disorder, unspecified; E78.5 Hyperlipidemia, unspecified; K29.70 Gastritis, unspecified, without bleeding; F32.9 Major depressive disorder, single episode, unspecified; E87.6 Hypokalemia; R58 Hemorrhage, not elsewhere classified; T45.515A Adverse effect of anticoagulants, initial encounter; Y83.8 Other surgical procedures as the cause of abnormal reaction of the patient, or of later complication, without mention of misadventure at the time of the procedure; Y92.238 Other place in hospital as the place of occurrence of the external cause; Z98.890 Other specified postprocedural states; Z90.11 Acquired absence of right breast and nipple; Z85.3 Personal history of malignant neoplasm of breast
CPT/HCPCS: 36415; 36430; 71010; 71260; 80048; 80053; 80202; 81003; 82270; 82533; 82607; 82746; 83540; 83605; 83930; 83935; 84132; 84145; 84300; 84439; 84443; 85014; 85018; 85025; 85045; 85610; 85730; 86703; 86850; 86900; 86901; 86920; 87040; 87070; 87081; 88305; 88312; 93005; 96365; 96372; 96375; C9113; J0131; J0692; J1170; J1642; J1885; J2270; J2370; J2405; J2543; J3010; J3370; J3480; J7030; J7040; J7050; J7120; P9016; Q9967

== ENCOUNTER 2016-09-26 06:40 | Day surgery (SDC) | payer MEDICARE, OTHER ==
[2016-09-25 09:10] VITALS: Ht 162.6 cm; Wt 64.0 kg
[2016-09-25 10:34] LABS: ADD SCAN DIFF NO
[2016-09-25 10:43] LABS: BASOPHIL # 0.1 10^3/ul (0.0-0.1); BASOPHILS % 0.7 % (0.0-2.0); EOSINOPHILS # 0.1 10^3/ul (0.0-0.5); EOSINOPHILS % 1.3 % (0.0-7.0); HEMATOCRIT 30.7 % (37.0-47.0); HEMOGLOBIN 9.9 g/dl (12.0-16.0); LYMPHOCYTES # 2.1 10^3/ul (0.8-2.9); LYMPHOCYTES % 24.4 % (15.0-51.0); MEAN CORPUSCULAR HEMOGLOBIN 30.3 pg (29.0-33.0); MEAN CORPUSCULAR HGB CONC 32.2 g/dl (32.0-37.0); MEAN CORPUSCULAR VOLUME 93.9 fl (82.0-101.0); MEAN PLATELET VOLUME 8.5 fl (7.4-10.4); MONOCYTE # 0.5 10^3/ul (0.3-0.9); MONOCYTES % 5.9 % (0.0-11.0); NEUTROPHIL # 5.7 10^3/ul (1.6-7.5); PLATELET COUNT 292 10^3/UL (140-415); RED BLOOD COUNT 3.27 10^6/ul (4.20-5.40); RED CELL DISTRIBUTION WIDTH 14.4 % (11.5-14.5); WHITE BLOOD COUNT 8.6 10^3/ul (4.8-10.8)
[2016-09-25 10:52] LABS: INR 0.98
[2016-09-25 10:57] LABS: ALBUMIN 4.8 g/dl (3.3-4.9); ALBUMIN/GLOBULIN RATIO 1.92; BILIRUBIN,INDIRECT 0.2 mg/dl (0-1.1); BILIRUBIN,TOTAL 0.2 mg/dl (0.2-1.3); TOTAL PROTEIN 7.3 g/dl (6.1-8.1)
--- NOTE | 2016-09-25 11:08 | RADRPT ---
PROCEDURE: XR Chest. CLINICAL INDICATION: Preoperative, chest wall hematoma TECHNIQUE: Single frontal view of the chest was obtained COMPARISON: 08/11/2016 FINDINGS: The heart and mediastinum are within normal limits. There is a left chest wall port in place. There is mild left lower lobe linear scarring. The lungs are otherwise clear. There is no pleural effusion or pneumothorax. RPTAT: AA IMPRESSION: No acute disease. .Hamzah Pierre MD, MD Date Time Electronically viewed and signed by .Hamzah Pierre MD, MD on 09/25/2016 11:08 .S/
[2016-09-25 11:11] LABS: CALCIUM 10.1 mg/dl (8.4-10.2); CREATININE 0.84 mg/dl (0.44-1.00); POTASSIUM 4.2 mmol/L (3.5-5.1)
[~2016-09-26] VITALS: Ht 162.6 cm; Wt 64.0 kg
[2016-09-26] VITALS (8 sets, daily range): BP systolic 99–130; BP diastolic 61–71; PULSE 57–66; RESP 14–23
[~2016-09-26 06:40] MED LIST changes: +CALC500T11 ORAL; -DICL75TA2 PO; +FERROUS SULFATE PO; -HYD25 PO; +LEVO100T87 PO; -LISI10TA2 PO; +LISI20TA11 ORAL; +LISI20TA11 PO; -LORA0.5T PO; +METO-429 PO; -POTA8TAB2 PO; +TRAM-40 PO; +VIT D PO
[2016-09-26] MEDS ORDERED: CEFAZOLIN 1 GM/50 ML (PMX) 50 ML IVPB ONE (07:00)
[2016-09-26] MEDS ORDERED: SOD CHLORIDE 0.9% 1,000 ML IV ONE (07:00)
[2016-09-26] MEDS ORDERED: BUPIVACAINE 0.25% (MPF) 30 ML INJ ONE (07:54)
[2016-09-26] MEDS ORDERED: MIDAZOLAM 1 MG/ML 2 ML INJ ONE (08:43)
[2016-09-26] MEDS ORDERED: FENTAnyl 50 MCG/ML VIAL ONE (08:43)
--- NOTE | 2016-09-26 08:52 | RADRPT ---
Vent Rate: 56 bpm RR Interval: 0 msec ND Interval: 234 msec QRS Duration: 84 msec QT Interval: 432 msec QTC Interval: 416 msec P-R-T Naper: 62 - 64 - 45 degrees Sinus bradycardia with 1st degree AV block Possible Septal infarct , age undetermined Abnormal ECG Nonspecific ST-T changes Electronically Signed By: Edgar Sawyer [id number]
[2016-09-26] MEDS ORDERED: DIPHENHYDRAMINE 50 MG INJ IV PRN (09:30)
[2016-09-26] MEDS ORDERED: FENTAnyl 50 MCG/ML VIAL IV PRN (09:30)
[2016-09-26] MEDS ORDERED: ONDANSETRON 4 MG INJ IV PRN (09:30)
[2016-09-26] MEDS ORDERED: LIDOCAINE 2% (SDV) 5 ML INJ ONE (09:36)
[2016-09-26] MEDS ORDERED: ETOMIDATE 20 MG INJ ONE (09:36)
[2016-09-26] MEDS ORDERED: CEFAZOLIN 1 GM INJ ONE (09:36)
[2016-09-26] MEDS ORDERED: ONDANSETRON 4 MG INJ ONE (09:36)
--- NOTE | 2016-09-26 09:55 | OPR ---
DATE OF OPERATION: 09/26/2016 PREOPERATIVE DIAGNOSIS: Right chest wall hematoma. POSTOPERATIVE DIAGNOSIS: Right chest wall hematoma. PROCEDURE PERFORMED: Evacuation of right chest wall hematoma. SURGEON: Benja Amanda MD INVOICE CHECKER: Tip Fontenot MD ANESTHESIA: General. ANESTHESIOLOGIST: Sukhdeep Fontanez MD. INDICATIONS FOR PROCEDURE: The patient is a 56-year-old female, previously underwent a right modifi ed radical mastectomy for invasive cancer. Her postoperative course was complicated by development of a relatively large hematoma. The patient was counseled as to need for evacuation of the hematoma . She consented and was scheduled for surgery. DESCRIPTION OF PROCEDURE: The patient was brought to the operating theater, placed under general an esthesia. The right anterior thoracic wall was prepped and draped in usual sterile fashion. Previo us surgical incisional scar was reincised medially for a length of approximately 8 cm. This allowed entry into the hematoma cavity. Partially liquefied hematoma was identified. It was completely ev acuated with a combination of suction and a gloved finger. The wound was then copiously irrigated w ith hydrogen peroxide and Betadine. Minimal bleeding was controlled with cautery. A #10 flat Jacks on-Palafox drain was then brought through the right mid axillary line, cut to size and laid within the wound cavity. It was secured in place with 2-0 nylon suture in the standard fashion, and the skin was then reapproximated with multiple 2-0 nylon sutures in vertical mattress fashion and a sterile dressing was applied. The patient tolerated the procedure well. Estimated blood loss was 20 mL. T here were no complications. The patient was transported in stable condition to the recovery room wh ere a circumferential compression dressing was applied. Dictated By: BENJA AMANDA MD TL/NTS Conf#: [id number] DID#: [id number]
== END 2016-09-26 11:29 | disposition home or self-care (01) ==
LOC: SDS 06:40
PROVIDERS: ATTEND Surgery Surgical Oncology
DX: L76.32 Postprocedural hematoma of skin and subcutaneous tissue following other procedure (principal); Y83.8 Other surgical procedures as the cause of abnormal reaction of the patient, or of later complication, without mention of misadventure at the time of the procedure; Z85.3 Personal history of malignant neoplasm of breast; J44.9 Chronic obstructive pulmonary disease, unspecified; F41.8 Other specified anxiety disorders
CPT/HCPCS: 10140; 71010; 80053; 84703; 85025; 85610; 85730; 86300; 93005; J0690; J2250; J2405; J3010